=== PATIENT | male | born 1965 | race Two or more races ===

== ENCOUNTER 2016-10-31 15:59 | Inpatient (IN) | payer MEDICARE, OTHER ==
[~2016-10-31] VITALS: Ht 167.6 cm; Wt 81.2 kg
[~2016-10-31 15:59] MED LIST: ALENDRONATE SOD70 MG PO; AMLODIPINE BESYL5 MG ORAL; ASCORBIC ACID500 MG ORAL; AZITHROMYCIN500 MG ORAL; CALCIUM500 M1 PO; FERROUS SULFAT325 MG ORAL; FLOMAX0.4 MG PO; FOLIC ACID1 MG PO; HYDROCODON-ACE1 EA15 PO; INDOCIN25 MG PO; INDOMETHACIN75 MG PO; METHOTREXATE2.5 MG PO; MUCINEX COLD &177 ML PO; OMEPRAZOLE40 MG PO; OYSTER SHELL 51 EAC1 PO; PREDNISOLONE ACE5 ML; SULFASALAZINE500 MG PO; TERAZOSIN HCL1 MG ORAL; VENTOLIN HFA18 GM INH
[2016-10-31 16:20] VITALS: BP 109/46
[2016-10-31] MEDS ORDERED: cefTRIAXone 2 GM in NS 110 ML IV STA (16:25)
[2016-10-31] MEDS ORDERED: Azithromycin 500 MG in NS 275 ML IV ONE (16:30)
[2016-10-31 16:47] LABS: EOSINOPHILS % (AUTO) 0.2 % (0.0-3.0); LYMPHOCYTES % (AUTO) 18.7 % (20.0-45.0); MEAN CORPUSCULAR HEMOGLOBIN 22.6 PG (27.0-31.0); MEAN CORPUSCULAR HGB CONC 31.3 G/DL (32.0-36.0); MEAN CORPUSCULAR VOLUME 72 FL (80-99); MEAN PLATELET VOLUME 6.9 FL (6.5-10.1); MONOCYTES % (AUTO) 7.2 % (1.0-10.0); PLATELET COUNT 170 K/UL (150-450); RED CELL DISTRIBUTION WIDTH 20.9 % (11.6-14.8); WHITE BLOOD COUNT 5.8 K/UL (4.8-10.8)
--- NOTE | 2016-10-31 16:51 | Diagnostic Imaging Report ---
Indication: SOB Technique: One view of the chest Comparison: 06/09/2014 Findings: Patient's chin and face appear the right lung apex and upper mediastinum the left lung and pleural space are clear. The visualized portions of the right lung are clear. Heart is enlarged. Impression: Very limited exam, as described. No definite acute process
[2016-10-31 16:58] LABS: ALANINE AMINOTRANSFERASE 442 U/L (3-41); ALBUMIN/GLOBULIN RATIO 0.9 (1.0-2.7); ANION GAP 18 (5-15); ASPARTATE AMINO TRANSFERASE 443 U/L (5-40); CALCIUM 8.7 mg/dL (8.6-10.2); CARBON DIOXIDE 19 mEQ/L (20-30); CHLORIDE 95 mEQ/L (98-107); CREATININE 1.2 mg/dL (0.7-1.2); GLOMERULAR FILTRATION RATE > 60 mL/min (>60); HEMOLYSIS 4; POTASSIUM 4.6 mEQ/L (3.4-4.9); SODIUM 132 mEQ/L (135-145); TOTAL PROTEIN 7.6 g/dL (6.6-8.7)
[2016-10-31 16:59] LABS: TROPONIN I < 0.30 ng/mL (<=0.30)
--- NOTE | 2016-10-31 17:05 | Emergency Room Report ---
History of Present Illness General Chief Complaint: Dyspnea/Respdistress Source: Patient, Medical Record Present Illness HPI 51YOM walked in with 3-4 days productive cough, chills +smoker No asthma , COPD Denies chest pain, abd pain, fever/chills Chronic spinal stenosis, contracted extremities No recent hospitalization Allergies: Coded Allergies: No Known Allergies (Unverified , 10/22/11) Patient History Past Medical History: none Past Surgical History: none Pertinent Family History: none Social History: Denies: smoking, alcohol use, drug use Immunizations: UTD Reviewed Nursing Documentation: PMH: Agreed, PSxH: Agreed Nursing Documentation-PMH Past Medical History: No History, Except For Hx Cardiac Problems: Yes - Cardiomegaly, anemia Hx Hypertension: Yes - cellulitis Hx Pacemaker: No Hx Diabetes: No Hx Cancer: No Hx Gastrointestinal Problems: Yes - gastritis, diverticulitis History Of Psychiatric Problem: Yes - Depression Hx Neurological Problems: Yes - ANKYLOSING SPONDYLITIS, Kyphosis, cervical spondylosis Hx Seizures: No Hx Weakness: Yes Review of Systems All Other Systems: negative except mentioned in HPI Physical Exam Vital Signs Date Time Temp Pulse Resp B/P (MAP) Pulse Ox O2 Delivery O2 Flow Rate FiO2 10/31/16 16:10 96.6 80 24 110/45 100 Room Air Sp02 EP Interpretation: reviewed, normal General Appearance: normal inspection, well appearing, no apparent distress, alert, GCS 15, non-toxic Head: normocephalic, atraumatic Eyes: bilateral eye PERRL, bilateral eye EOMI ENT: normal ENT inspection, hearing grossly normal, normal voice Neck: normal inspection, full range of motion, supple, no bony tend Respiratory: normal inspection, lungs clear, normal breath sounds, no respiratory distress, no retraction, no wheezing, accessory muscle use Cardiovascular #1: regular rate, rhythm, no edema Gastrointestinal: normal inspection, normal bowel sounds, non tender, soft, no guarding, no hernia Genitourinary: no CVA tenderness Musculoskeletal: normal inspection, back normal, normal range of motion, Xander' s Sign negative Neurologic: normal inspection, alert, oriented x3, responsive, medical record transcriber III-XII nml as tested, motor strength/tone normal, speech normal Psychiatric: normal inspection, judgement/insight normal, mood/affect normal Skin: normal inspection, pallor Medical Decision Making Diagnostic Impression: Primary Impression: Dyspnea Qualified Codes: R06.00 - Dyspnea, unspecified Additional Impressions: Lactic acid acidosis Pneumonia Qualified Codes: J18.9 - Pneumonia, unspecified organism LFTs abnormal Acute hepatitis Metabolic acidosis ER Course Dyspnea with subjective fever/chills Afebrile here Not septic Flexed neck d/t spinal stenosis obscuring most of CXR No leuks H&H stable. However lactate elevated Given tachypnea, productive cough, immobility, will tx for clinical PNA Blood Cx pending Patient pallor on exam. HbHCT stable Metabolic acidosis on ABG - Likley d/t lactic acidosis with respiratory compensation given RR 30-40 initially - Improved RR after Abx, IVF Repeat lactate pending Endorsed to Dr Dumont at 630pm for tele admission EKG Diagnostic Results Rate: normal Rhythm: NSR ST Segments: no acute changes ASA given to the pt in ED: No Rhythm Strip Diag. Results EP Interpretation: yes Rate: 78 Rhythm: NSR, no PVC's, no ectopy Chest X-Ray Diagnostic Results Chest X-Ray Diagnostic Results : Chest X-Ray Ordered: Yes Indication: Shortness of Breath EP Interpretation: Yes Interpretation: no effusion, no pneumothorax, no acute cardiopulmonary disease, other - Limited exam d/t patients head Electronically Signed by: Dr Brian Calderon MD Last Vital Signs Date Time Temp Pulse Resp B/P (MAP) Pulse Ox O2 Delivery O2 Flow Rate FiO2 10/31/16 16:10 96.6 80 24 110/45 100 Room Air Status: improved Disposition: ADMITTED INPATIENT Condition: Serious BRIAN CALDERON M.D. Oct 31, 2016 17:05
[2016-10-31 17:08] LABS: CKMB 4.7 ng/mL (< 6.7)
[2016-10-31 17:10] LABS: REFLEX LACTIC ACID YES OR NO YES
[2016-10-31] MEDS ORDERED: Azithromycin 500mg Inj IV ONE (17:26)
[2016-10-31] MEDS ORDERED: Morphine Sulfate 2mg/ml Inj IVP ONE (18:00)
[2016-10-31] MEDS ORDERED: LORazepam Inj 2mg/ml 1ml IV ONE (18:15)
[2016-10-31] MEDS ORDERED: LORazepam Inj 2mg/ml 1ml IV PRN (18:45)
[2016-10-31] MEDS ORDERED: Morphine Sulfate 4mg/ml Inj IVP PRN (18:45)
[2016-10-31] MEDS ORDERED: Miralax 17gm pkt ORAL PRN (18:45)
[2016-10-31] MEDS ORDERED: Norco 5mg/325mg tab ORAL PRN (18:45)
[2016-10-31] MEDS ORDERED: Albuterol/Ipratropium 3ml neb HHN PRN (18:45)
[2016-10-31 19:01] LABS: ABG BASE EXCESS -16.3; ABG PCO2 25.9 mmHg (35.0-45.0)
[2016-10-31 19:05] VITALS: BP 95/76
[2016-10-31] MEDS: LR 1000ml 1,000 ML IV SCH ×2 (19:23→20:24)
[2016-10-31] MEDS ORDERED: ATORVASTATIN CA20 MG ORAL (19:34)
[2016-10-31] MEDS ORDERED: SULFASALAZINE500 MG ORAL (19:34)
[2016-10-31] MEDS ORDERED: DEXILANT60 MG ORAL (19:34)
[2016-10-31] MEDS ORDERED: METOPROLOL TART25 MG ORAL (19:34)
[2016-10-31 20:40] VITALS: BP 100/29
[2016-10-31] MEDS ORDERED: Terazosin 1mg cap ORAL SCH (21:00)
[2016-10-31 21:21] LABS: KETONES,URINE 1+ (NEGATIVE); LEUKOCYTE ESTERASE ,URINE 1+ (NEGATIVE); NITRITE,URINE NEGATIVE (NEGATIVE); PH,URINE 5 (4.5-8.0); PROTEIN,URINE 3+ (NEGATIVE); UROBILINOGEN,URINE NORMAL MG/DL (0.0-1.0)
[2016-10-31 21:22] LABS: APPEARANCE,URINE SLIGHTLY CLOUDY
[2016-10-31 21:28] LABS: AMORPHOUS SEDIMENT,UR FEW /LPF; BACTERIA,URINE MODERATE /HPF
[2016-10-31 21:32] LABS: ICTOTEST NEGATIVE
[2016-10-31 22:21] VITALS: BP 124/56
[2016-10-31] MEDS: Cefepime HCl 2 GM in D5W 110 ML IV SCH (22:43)
[2016-10-31] MEDS: Heparin 5000 units/ml inj SUBQ SCH (22:46)
[2016-10-31] MEDS ORDERED: Vancomycin 1250mg/D5W 250ml IVPB ONE (23:00)
[2016-11-01] VITALS (7 sets, daily range): BP systolic 99–109; BP diastolic 51–57
[2016-11-01] MEDS ORDERED: Promethazine/Codeine 5ml UD ORAL PRN ×2 (08:30→20:30)
[2016-11-01 08:37] LABS: MEAN CORPUSCULAR HGB CONC 29.5 G/DL (32.0-36.0); MEAN CORPUSCULAR VOLUME 75 FL (80-99); MEAN PLATELET VOLUME 7.5 FL (6.5-10.1); PLATELET COUNT 120 K/UL (150-450); RED BLOOD COUNT 3.21 M/UL (4.70-6.10); RED CELL DISTRIBUTION WIDTH 21.6 % (11.6-14.8); WHITE BLOOD COUNT 4.7 K/UL (4.8-10.8)
--- NOTE | 2016-11-01 08:41 | Consultation ---
History of Present Illness General Date patient seen: Nov 01, 2016 Time patient seen: 08:00 Chief Complaint: Dyspnea/Respdistress Referring physician: dr Dumont Reason for Consultation: pulmonary consult Present Illness HPI 51y/old male with PMH of ankylosing spondylitis, cervical spondylosis, kyphosis , anemia, gastritis, diverticulitis, HTN, depression, blindness presented with 3-4 days of productive cough, chills no wheezing , no chest tightness no fever, chills No asthma, no COPD Denies chest pain, abd pain, fever/chills workup in ED revealed no leucocytosis elevated lactic acid -3.8 anion gap -18 ABG with metabolic acidosis AST 443 ALT 442 anemic -8.6/27.5, and this am doen to 7.1/23.9, MCV -72 CXR with possible PNA , limited exam due to chronic kyphosis and cervical spondylosis UA with possible UTI, urine tox screen positive + marijuana ECG NSR patient was admitted for further management Allergies: Coded Allergies: No Known Allergies (Unverified , 10/22/11) Medication History Scheduled Albuterol Sulfate (Ventolin Hfa), 2 PUFFS INH EVERY 6 HOURS Alendronate Sodium* (Fosamax*), 70 MG PO Q7D, (Reported) Amlodipine Besylate* (Amlodipine Besylate*), 5 MG ORAL DAILY, (Reported) Atorvastatin Calcium* (Atorvastatin Calcium*), 20 MG ORAL BEDTIME, (Reported) Calcium Carbonate/Vitamin D3 (Oyster Shell 500 Mg + Vit D Tb), 1 EACH PO BID, ( Reported) Dexlansoprazole (Dexilant), 60 MG ORAL DAILY, (Reported) Dexlansoprazole (Dexilant), 60 MG ORAL DAILY, (Reported) Folic Acid* (Folic Acid*), 1 MG PO DAILY, (Reported) Indomethacin (Indomethacin), 50 MG PO TID, (Reported) Methotrexate Sodium* (Methotrexate*), 2.5 MG PO QWEEK, (Reported) Metoprolol Tartrate* (Metoprolol Tartrate*), 25 MG ORAL EVERY 12 HOURS, ( Reported) Sulfasalazine* (Azulfidine*), 500 MG ORAL FOUR TIMES A DAY, (Reported) Terazosin Hcl* (Hytrin*), 2 MG ORAL BEDTIME, (Reported) Scheduled PRN Hydrocodone/Acetaminophen 5-325* (Hydrocodone/Acetaminophen 5-325*), 1 TAB PO PRN PRN for For Pain, (Reported) Miscellaneous Medications Prednisolone Acetate (Prednisolone Acetate), (Reported) Patient History History Provided By: Patient Healthcare decision maker Resuscitation status Full Code Advanced Directive on File Review of Systems Constitutional: Reports: weakness Eye: Reports: other - blind , cataracts both eyes ENT: Reports: other - [id number] Respiratory: Reports: see HPI Cardiovascular: Reports: other - HTN Musculoskeletal: Reports: other - ankylosing spondylitis, kyphosis, cervical spondylosis Skin: Reports: dryness Psychiatric: Reports: depressed feelings Neurological: Reports: other - spasticity, stiffness Endocrine: Reports: no symptoms Hematologic/Lymphatic: Reports: anemia ROS Narrative limited Physical Exam General Appearance: alert, other - chronically ill looking, older than his biological age , male in NAD Lines, tubes and drains: peripheral HEENT: normocephalic, atraumatic, anicteric Neck: other - stiff neck, Respiratory/Chest: lungs clear - with moderate air exchange Cardiovascular/Chest: regular rhythm - SR on tele with occas PVC Abdomen: normal bowel sounds, non tender, soft Extremities: non-tender, no calf tenderness, no edema Neurologic: abnormal gait, alert, responsive Musculoskeletal: atrophy - BLE and BUE, other - kyphosis ( severe), spastic Last 24 Hour Vital Signs Date Time Temp Pulse Resp B/P (MAP) Pulse Ox O2 Delivery O2 Flow Rate FiO2 11/01/16 04:00 97.7 82 18 99/51 99 Nasal Cannula 3.0 11/01/16 04:00 81 11/01/16 00:00 78 11/01/16 00:00 98.4 75 18 101/53 100 Nasal Cannula 3.0 10/31/16 22:21 96.8 79 20 124/56 100 Nasal Cannula 3.0 10/31/16 21:54 77 10/31/16 21:05 97.2 80 26 100/29 100 Nasal Cannula 2.0 10/31/16 20:40 80 26 100/29 100 Nasal Cannula 2.0 10/31/16 19:05 80 30 95/76 100 Nasal Cannula 2.0 10/31/16 16:20 97.2 82 27 109/46 100 Nasal Cannula 1.0 10/31/16 16:20 82 27 Nasal Cannula 1.0 10/31/16 16:10 96.6 80 24 110/45 100 Room Air Intake and Output 11/01/16 11/02/16 19:00 07:00 Intake Total 200 ml Balance 200 ml IV Total 200 ml Laboratory Tests Test 10/31/16 16:25 10/31/16 16:30 10/31/16 18:14 10/31/16 20:00 Urine Color Yellow Urine Appearance Slightly cloudy Urine pH 5 (4.5-8.0) Urine Specific [place]in 1.025 (1.005-1.035) Urine Protein 3+ (NEGATIVE) H Urine Glucose (UA) Negative (NEGATIVE) Urine Ketones 1+ (NEGATIVE) H Urine Occult Blood 5+ (NEGATIVE) H Urine Nitrite Negative (NEGATIVE) Urine Bilirubin 3+ (NEGATIVE) H Urine Ictotest Negative Urine Urobilinogen Normal MG/DL (0.0-1.0) Urine Leukocyte Esterase 1+ (NEGATIVE) H Urine RBC 10-15 /HPF (0 - 0) H Urine WBC 5-10 /HPF (0 - 0) H Urine Squamous Epithelial Cells None /LPF (NONE/OCC) Urine Amorphous Sediment Few /LPF (NONE) H Urine Bacteria Moderate /HPF (NONE) H White Blood Count 5.8 K/UL (4.8-10.8) Red Blood Count 3.80 M/UL (4.70-6.10) L Hemoglobin 8.6 G/DL (14.2-18.0) L Hematocrit 27.5 % (42.0-52.0) L Mean Corpuscular Volume 72 FL (80-99) L Mean Corpuscular Hemoglobin 22.6 PG (27.0-31.0) L Mean Corpuscular Hemoglobin Concent 31.3 G/DL (32.0-36.0) L Red Cell Distribution Width 20.9 % (11.6-14.8) H Platelet Count 170 K/UL (150-450) Mean Platelet Volume 6.9 FL (6.5-10.1) Neutrophils (%) (Auto) 73.0 % (45.0-75.0) Lymphocytes (%) (Auto) 18.7 % (20.0-45.0) L Monocytes (%) (Auto) 7.2 % (1.0-10.0) Eosinophils (%) (Auto) 0.2 % (0.0-3.0) Basophils (%) (Auto) 1.0 % (0.0-2.0) Sodium Level 132 mEQ/L (135-145) L Potassium Level 4.6 mEQ/L (3.4-4.9) Chloride Level 95 mEQ/L (98-107) L Carbon Dioxide Level 19 mEQ/L (20-30) L Anion Gap 18 (5-15) H Blood Urea Nitrogen 72 mg/dL (7-23) H Creatinine 1.2 mg/dL (0.7-1.2) Estimat Glomerular Filtration Rate > 60 mL/min (>60) Glucose Level 151 mg/dL (74-106) H Lactic Acid Level 3.80 mmol/L (0.66-2.22) H Calcium Level 8.7 mg/dL (8.6-10.2) Total Bilirubin 0.6 mg/dL (0.0-1.2) Aspartate Amino Transf (AST/SGOT) 443 U/L (5-40) H Alanine Aminotransferase (ALT/SGPT) 442 U/L (3-41) H Alkaline Phosphatase 76 U/L (40-129) Total Creatine Kinase 80 U/L (38-174) Creatine Kinase MB 4.7 ng/mL (< 6.7) Creatine Kinase MB Relative Index 5.8 Troponin I < 0.30 ng/mL (<=0.30) Total Protein 7.6 g/dL (6.6-8.7) Albumin 3.6 g/dL (3.5-5.2) Globulin 4.0 g/dL Albumin/Globulin Ratio 0.9 (1.0-2.7) L Arterial Blood pH 7.209 (7.350-7.450) Arterial Blood Partial Pressure CO2 25.9 mmHg (35.0-45.0) L Arterial Blood Partial Pressure O2 113.3 mmHg (75.0-100.0) H Arterial Blood HCO3 10.1 mmol/L (22.0-26.0) L Arterial Blood Oxygen Saturation 96.2 % (92.0-98.0) Arterial Blood Base Excess -16.3 [place]son Test N/a Urine Opiates Screen Negative (NEGATIVE) Urine Barbiturates Screen Negative (NEGATIVE) Phencyclidine (PCP) Screen Negative (NEGATIVE) Urine Amphetamines Screen Negative (NEGATIVE) Urine Benzodiazepines Screen Negative (NEGATIVE) Urine Cocaine Screen Negative (NEGATIVE) Urine Marijuana (THC) Screen Positive (NEGATIVE) H Height (Feet): 5 Height (Inches): 6.00 Weight (Pounds): 130 Medications Current Medications Medications (Trade) Dose Ordered Sig/Dina Route PRN Reason Start Time Stop Time Status Last Admin Dose Admin Acetaminophen (Tylenol) 650 mg Q4H PRN ORAL FEVER 10/31/16 18:45 11/30/16 18:44 Acetaminophen/ Hydrocodone Bitart ([place] 5/325) 1 tab Q6H PRN ORAL FOR MODERATE PAIN 10/31/16 18:45 11/07/16 18:44 Albuterol/ Ipratropium (DuoNeb 0.5-3(2.5)mg/3ml) 3 ml EVERY 4 HOURS PRN HHN Shortness of Breath 10/31/16 18:45 11/05/16 18:44 Amlodipine Besylate (Norvasc) 5 mg DAILY ORAL 11/01/16 09:00 12/01/16 08:59 Cefepime HCl 2 gm/ Dextrose 110 ml @ 220 mls/hr EVERY 12 HOURS IV 10/31/16 21:00 11/07/16 20:59 10/31/16 22:43 Dextrose (Dextrose 50%) STAT PRN IV Hypoglycemia 10/31/16 18:45 11/30/16 18:44 Heparin Sodium (Porcine) (Heparin 5000 units/ml) 5,000 units EVERY 12 HOURS SUBQ 10/31/16 21:00 11/30/16 20:59 10/31/16 22:46 Indomethacin (Indocin) 50 mg TID ORAL 11/01/16 09:00 12/01/16 08:59 Lorazepam (Ativan 2mg/ml 1ml) 2 mg EVERY 2 HOURS PRN IV For Anxiety 10/31/16 18:45 11/07/16 18:44 Morphine Sulfate (Morphine Sulfate) 4 mg EVERY 4 HOURS PRN IVP Severe Pain (Pain Scale 7-10) 10/31/16 18:45 11/07/16 18:44 Ondansetron HCl (Zofran) 4 mg Q6H PRN IVP Nausea & Vomiting 10/31/16 18:45 11/30/16 18:44 Polyethylene Glycol (Miralax) 17 gm DAILYPRN PRN ORAL Constipation 10/31/16 18:45 11/30/16 18:44 Prednisolone Acetate (Pred Forte) 1 drop DAILY BOTH EYES 11/01/16 09:00 12/01/16 08:59 Sodium Chloride 1,000 ml @ 200 mls/hr Q5H IV 10/31/16 22:00 11/30/16 21:59 11/01/16 03:45 Terazosin HCl (Hytrin) 2 mg BEDTIME ORAL 10/31/16 21:00 11/30/16 20:59 10/31/16 22:44 Vancomycin HCl 1 gm/Dextrose 275 ml @ 183.3 mls/ hr Q12H IVPB 11/01/16 11:00 11/06/16 10:59 10/31/16 23:38 Assessment/Plan Assessment/Plan ASSESSMENT dyspnea PNA elevated LFT HTN acute microcytic anemia, requiring blood transfusion Azotemia metabolic acidosis with elevated anion gap ankylosing spondylitis elevated CEA PLAN OF CARE tele O2 HHN abx sputum cx fup with CXR a/tussive prn ID consult anemia workup , stool OB, CEA elevated transfuse 1 u PRBC, monitor counts consider GI consult as per PMD discretion venous Duplex BLE swallow eval DVT GI prophylaxis renal US nephro eval abdominal US monitor renal parameters, lytes, LFT hepatitis panel transfer to [facility] floor case discussed and evaluated by supervising physician Lyric Luther NP (Vanchtein) Nov 01, 2016 08:41
[2016-11-01] MEDS: Indomethacin 25mg cap ORAL SCH ×3 (08:44→17:42)
[2016-11-01] MEDS: Cefepime HCl 2 GM in D5W 110 ML IV SCH ×2 (08:46→21:42)
[2016-11-01] MEDS: Heparin 5000 units/ml inj SUBQ SCH ×2 (08:47→21:00)
[2016-11-01 08:52] LABS: INR 1.5 (0.9-1.1); PROTHROMBIN TIME 15.3 SEC (9.30-11.50)
[2016-11-01 08:58] LABS: ALANINE AMINOTRANSFERASE 448 U/L (3-41); ALBUMIN/GLOBULIN RATIO 0.9 (1.0-2.7); ANION GAP 14 (5-15); ASPARTATE AMINO TRANSFERASE 536 U/L (5-40); CALCIUM 7.7 mg/dL (8.6-10.2); CARBON DIOXIDE 21 mEQ/L (20-30); CHLORIDE 99 mEQ/L (98-107); CREATININE 1.2 mg/dL (0.7-1.2); GLOMERULAR FILTRATION RATE > 60 mL/min (>60); LACTATE DEHYDROGENASE 437 U/L (135-230); POTASSIUM 4.4 mEQ/L (3.4-4.9); SODIUM 134 mEQ/L (135-145); TOTAL PROTEIN 6.4 g/dL (6.6-8.7)
[2016-11-01 08:59] LABS: URIC ACID 10.8 mg/dL (3.0-7.5)
[2016-11-01 09:00] LABS: ANION GAP 16 (5-15); CALCIUM 7.7 mg/dL (8.6-10.2); CARBON DIOXIDE 19 mEQ/L (20-30); CHLORIDE 98 mEQ/L (98-107); CREATININE 1.2 mg/dL (0.7-1.2); GLOMERULAR FILTRATION RATE > 60 mL/min (>60); HEMOLYSIS 0; PHOSPHORUS 5.9 mg/dL (2.5-4.8); POTASSIUM 4.4 mEQ/L (3.4-4.9); SODIUM 133 mEQ/L (135-145)
[2016-11-01] MEDS ORDERED: Pred Forte 1% Opth Susp 1ml BOTH EYES SCH (09:00)
[2016-11-01 09:26] LABS: HEMOLYSIS 0; IRON < 10 ug/dL (59-158); TOTAL IRON BINDING CAPACITY 374 ug/dL (250-400)
[2016-11-01 10:02] LABS: LYMPHOCYTES % (MANUAL) 14 % (20-45); NEUTROPHILS % (MANUAL) 79 % (45-75); TOTAL CELLS COUNTED 100
[2016-11-01 10:03] LABS: ANISOCYTOSIS 2+; BAND NEUTROPHILS % (MANUAL) 0 % (0-8); BASOPHILS % (MANUAL) 0 % (0-2); EOSINOPHILS % (MANUAL) 0 % (0-3); HYPOCHROMASIA 2+; MICROCYTES 1+; PLATELET ESTIMATE DECREASED; PLATELET MORPHOLOGY NORMAL
--- NOTE | 2016-11-01 10:06 | Diagnostic Imaging Report ---
Indication: PAIN abnormal liver function tests. Abnormal renal function tests. Acute hepatitis Technique: Ching-scale and duplex images of the upper abdomen were obtained Comparison: None Findings: Exam is technically difficult due to patient being contracted and nonresponsive Gallbladder is nondistended. It contains sludge. No definite stones. Gallbladder wall is markedly thickened, measuring 2 cm thick. Sonographic Martines's sign could not be assessed; patient had recently given pain medication. Common bile duct measures 5 mm in diameter. No intrahepatic biliary ductal dilatation. Liver demonstrates equivocally mildly increased echogenicity. Its is somewhat enlarged. No focal abnormalities Portal vein and hepatic veins are patent. Pancreas is unremarkable. Spleen is unremarkable. Left kidney measures 10.6 cm in length. Right kidney measures 10 cm length. Both kidneys demonstrate normal echogenicity. There is no hydronephrosis. Right kidney demonstrates an echogenic focus in the lower pole sinus. . Non-aneurysmal abdominal aorta . Trace ascites fluid is present. Impression: Slightly increased hepatic echogenicity, may indicate hepatocellular disease, particularly in view of stated clinical history of hepatitis. Hepatomegaly Trace ascites Gallbladder sludge. No stones. Markedly thickened gallbladder wall is likely reactive, related to adjacent hepatocellular inflammation, given stated clinical history. It could also be due to the hemodynamic derangements caused by the liver disease. Also probably exaggerated due to nondistention of the gallbladder. The possibility of acalculous acute cholecystitis or cholecystitis secondary to occult cholelithiasis not completely excludable, however. Consider hepatobiliary nuclear scanning if there is high clinical suspicion Negative for dilated ducts Possible nonobstructive right lower pole intrarenal calculus
[2016-11-01 10:16] LABS: POLYCHROMASIA 1+
[2016-11-01 10:23] LABS: PATH BLOOD SMEAR/OMC SENT TO PATHOLOGIST
[2016-11-01 10:28] LABS: RETICULOCYTE COUNT 1.9 % (0.0-2.0)
[2016-11-01] MEDS ORDERED: Vancomycin 1 GM in D5W 275 ML IVPB SCH ×2 (11:00→23:00)
--- NOTE | 2016-11-01 12:44 | Wound Care Consultation ---
Wound Assessment Wound Assessment : Wound Number: 1 Wound Present on Admission: Yes New Wound: No Status Change of Wound: No Wound Location Body Site Modif: mid Wound Location Body Site: thoracic spine Wound Type: pressure ulcer Cristhian Test: Does not Cristhian Pressure Ulcer Stage: IV/unstageable Wound Thickness: Full Thickness Wound Length: 3.0 Wound Width: 2.5 Wound Depth: utd Percent of Wound Black/Brown: 100 - eschar Wound Drainage Amount: None Wound Drainage Odor: None/Absent Tissue Surrounding Wound: Erythemic Wound General Appearance: Blackened, Bone Palpable Wound Comment #1 Mid thoracic spine unstageable pressure ulcer Recommendation -Local wound care per protocol -Keep clean and dry -Turn and reposition -Low air loss mattress -Optimize nutrition -Offload both heels -Heel protector on both heels -Assess and f/u accordingly for any changes YELENA MCGOVERN RN Nov 01, 2016 12:44
--- NOTE | 2016-11-01 12:58 | Diagnostic Imaging Report ---
APPROVED REPORT CPT Code: 57295 Present Symptoms Shortness of breath BILATERAL: Imaging reveals a patent deep venous system bilaterally. There is no evidence of thrombus within the femoral, popliteal or tibial segments. The greater saphenous veins are also within normal limits. Doppler indicates normal spontaneous flow within these segments.
--- NOTE | 2016-11-01 17:46 | Consultation ---
Consult Note Consult Note ID CONSULT: Sandro# [id number] Assessment/Plan ASSESSMENT: 51 y/o male with: // GPC clusters bacteremia 02/13 - real vs contaminant. C&S pending // Possible UTI - UCx pending // Possible bronchitis - c/o productive cough - CXR 11/01: Very limited exam. No definite acute process // Elevated LFTs r/o hepatobiliary disease ?chronic liver disease with coagulopathy, pancytopenia, hyponatremia - US: Slightly increased hepatic echogenicity, may indicate hepatocellular disease. Hepatomegaly. Trace ascites. Gallbladder sludge. No stones. Markedly thickened gallbladder wall is likely reactive. Negative for dilated ducts // Mid thoracic unstageable pressure ulcer // Lactic acidosis // Afebrile without leukocytosis // Severe microcytic anemia - FOBT pending // Thrombocytopenia // Coagulopathy // Ankylosing spondylosis / kyphosis / cervical spondylosis with chronic contractures // Tobacco abuse // Utox+ marijuana // NKDA // Full Code PLAN: - continue empiric IV vancomycin, cefepime d# 1 pending cultures - check influenza - check hepatitis panel - f/u cultures - monitor CBC, temperatures - monitor BMP - monitor CXR - wound care - tobacco cessation Thanks! Will follow IMAN MENESES Nov 01, 2016 17:46
[2016-11-01] MEDS ORDERED: Norco 5mg/325mg tab ORAL PRN (18:45)
[2016-11-01] MEDS ORDERED: Miralax 17gm pkt ORAL PRN (18:45)
[2016-11-01] MEDS ORDERED: LORazepam Inj 2mg/ml 1ml IV PRN (20:00)
[2016-11-01] MEDS ORDERED: Morphine Sulfate 4mg/ml Inj IVP PRN (21:00)
[2016-11-01] MEDS ORDERED: Albuterol/Ipratropium 3ml neb HHN PRN (21:00)
[2016-11-01] MEDS ORDERED: Iron Sucrose 100 MG in NS 55 ML IVPB SCH (21:00)
[2016-11-01] MEDS: Iron Sucrose 100 MG in NS 55 ML IVPB SCH (21:11)
[2016-11-01] MEDS: Terazosin 1mg cap ORAL SCH (22:30)
[2016-11-02 00:25] VITALS: BP 123/71
--- NOTE | 2016-11-02 03:00 | Consultation ---
DATE OF CONSULTATION: 11/01/2016 INFECTIOUS DISEASES CONSULTATION REQUESTING PHYSICIAN: Raheel Dumont M.D. REASON FOR CONSULTATION: UTI and bronchitis. History Of Present Illness: This is a 51-year-old male with a history of chronic contractures due to ankylosing spondylitis, kyphosis, and cervical spondylosis, admitted on 10/31/2016 with productive cough and chills. Also complains of chest pain and shortness of breath, most likely due to contractures. Denies nausea, vomiting, abdominal pain, or diarrhea. He is afebrile with pancytopenia, elevated liver function test, elevated INR, and lactic acidosis. Blood culture has grown gram-positive cocci in clusters in 1/4 sets and urine and sputum cultures are pending. Chest x-ray shows no definite acute process. Renal ultrasound shows gallbladder sludge. He has been started on empiric IV vancomycin and cefepime and Infectious Diseases now consulted to assist in management. PAST MEDICAL HISTORY: 1. COPD. 2. Ankylosing spondylosis, kyphosis, and cervical spondylosis. 3. GERD. 4. Diverticulitis. 5. Depression. 6. Chronic contractures. MEDICATIONS: 1. Vancomycin day #1. 2. Cefepime day #1. 3. Iron sucrose. 4. Indomethacin. 5. Norvasc. 6. Hytrin. 7. Subcutaneous heparin. ALLERGIES: No known drug allergies. Social History: The patient is active smoker. Urine drug screen also positive for marijuana. He lives locally with family. FAMILY HISTORY: Reviewed and noncontributory. Review Of Systems: As per history of present illness. Ten systems reviewed. All pertinent positives and negatives noted. PHYSICAL EXAMINATION: GENERAL: No apparent distress, nontoxic appearing. Vital Signs: Maximum temperature 98.4 degrees, blood pressure 100/57, heart rate in the 90s, respiratory rate 18, and saturation 99% on nasal cannula. HEENT/NECK: Neck contracted. CARDIOVASCULAR: Regular rate and rhythm. No murmurs. PULMONARY: Coarse breath sounds bilaterally. ABDOMINAL: Bowel sounds present. Soft, nondistended, and nontender. EXTREMITIES: Contractures in all four extremities. SKIN: Unstageable decubitus over the mid thoracic spine. NEUROLOGICAL: Alert and oriented x3. Laboratory Data: White blood cell count 4.7, hemoglobin 7.1, and platelets 120,000. Sodium 134, potassium 4.4, chloride 99, bicarbonate 21, BUN 72, and creatinine 1.2. Glucose 107. ESR 24. Reticulocyte count 1.9. INR 1.5. Lactic acid 3.8. Urine drug screen positive for marijuana. AST 536, ALT 448, and alkaline phosphatase 437. Total bilirubin 0.4. Albumin 3.1. CEA 7.9. Urinalysis with mild pyuria and bacteriuria. MICROBIOLOGY: 1. On 10/31/2016, blood culture gram-positive cocci in clusters in 1/4 sets. 2. On 10/31/2016, urine culture pending. 3. On 10/31/2016, sputum culture pending. IMAGIN. On 11/01/2016, bilateral lower extremity Doppler ultrasound negative for DVT. 2. On 11/01/2016, abdominal ultrasound with a slightly increased hepatic echogenicity, may indicate hepatocellular disease. Hepatomegaly. Trace ascites. Gallbladder sludge. No stones. Markedly thickened gallbladder wall, likely reactive. Negative for dilated ducts. 3. On 11/01/2016, chest x-ray, very limited exam. No definite acute process. ASSESSMENT: 1. Gram-positive cocci in clusters bacteremia in 1/4 sets, may be real versus contaminant. Culture and sensitivity is pending. 2. Possible urinary tract infection. Urine culture is pending. 3. Possible bronchitis with complaints of productive cough. Chest x-ray has limited exam with no definite acute process. 4. Elevated liver function tests, rule out hepatobiliary disease. Question chronic liver disease with evidence of coagulopathy, pancytopenia, and hyponatremia. Ultrasound as above. 5. Mid thoracic unstageable pressure ulcer. 6. Lactic acidosis. 7. Afebrile without leukocytosis. 8. Severe microcytic anemia for which fecal occult blood testing is pending. 9. Thrombocytopenia. 10. Coagulopathy. 11. Ankylosing spondylosis/kyphosis/cervical spondylosis with chronic contractures. 12. Tobacco abuse. 13. Urine toxicology positive for marijuana. 14. No known drug allergies. 15. Full Code. PLAN: 1. Continue empiric IV vancomycin and cefepime day #1 pending cultures. 2. Check influenza screen. 3. Check hepatitis panel. 4. Follow up cultures. 5. Monitor CBC and temperatures. 6. Monitor BMP. 7. Monitor chest x-ray. 8. Wound care. 9. Tobacco cessation. Thank you. We will follow. Satnam Proctor M.D. DR: Heriberto JOB#: [id number] CC: Raheel Dumont M.D.; Fax#: [phone] Cartagena M.D; Fax#: [phone]
[2016-11-02 04:35] VITALS: BP 107/62
[2016-11-02 08:20] VITALS: BP 118/59
[2016-11-02] MEDS: Pred Forte 1% Opth Susp 1ml BOTH EYES SCH (08:30)
[2016-11-02] MEDS: Indomethacin 25mg cap ORAL SCH ×3 (08:31→17:55)
[2016-11-02] MEDS: Heparin 5000 units/ml inj SUBQ SCH ×2 (08:32→20:42)
--- NOTE | 2016-11-02 09:31 | Diagnostic Imaging Report ---
Indication: Shortness of breath Technique: XRAY CHEST 1 V Comparison: 10/31/16 Findings: Examination is markedly limited secondary to flexion of the head obscuring a large portion of the upper chest. Cardiac silhouette is grossly stable. Interstitial opacities are noted of the partially visualized lungs. Request of chronic angle blunting is unchanged. Left mid and bibasilar atelectasis is noted. Osseous structures are grossly stable with right shoulder arthroplasty. Impression: Markedly limited examination. Grossly stable interstitial edema or infiltrates of the visualized lungs. Right costophrenic angle blunting suggestive of a small pleural effusion. Bilateral mid and basilar atelectasis. Repeat examination recommended.
--- NOTE | 2016-11-02 10:02 | Pulmonology Progress Note ---
Assessment/Plan Assessment/Plan ASSESSMENT dyspnea bronchitis possible PNA bacteremia real vs contamination elevated LFT HTN acute microcytic anemia, requiring blood transfusion Azotemia metabolic acidosis with elevated anion gap ankylosing spondylitis elevated CEA tobacco abuse mild dysphagia mid thoracic un-stageable pressure ulcer, POA PLAN OF CARE tele O2 HHN abx sputum cx pending, urine cx negative, blood cx 1/ SCON ? real , likely contamination - per ID management fup CXR with grossly stable interstitial edema or infiltrates of the visualized lungs. Right costophrenic angle blunting suggestive of a small pleural effusion. Bilateral mid and basilar atelectasis. a/tussive prn ID follows anemia workup c/w iron deficiency stool OB-negative CEA elevated s/p transfusion 1 u PRBC, monitor counts, CBC pending for this am start Venofer x 3 days GI consult as per PMD discretion venous Duplex BLE negative BS swallow eval competed, mild dysphagia, diet for quality of life with strict aspiration/reflux precautions DVT GI prophylaxis renal US nephro eval abdominal US with slightly increased hepatic echogenicity, may indicate hepatocellular disease, monitor renal parameters, lytes, LFT hepatitis panel pending wound care as per wound nurse recommendations case discussed and evaluated by supervising physician Subjective Allergies: Coded Allergies: No Known Allergies (Unverified , 10/22/11) Subjective feeling better, on O2 via NC sat stable no signs of respiratory distress labs pending for this am Objective Last 24 Hour Vital Signs Date Time Temp Pulse Resp B/P (MAP) Pulse Ox O2 Delivery O2 Flow Rate FiO2 11/02/16 08:32 89 118/59 11/02/16 08:20 97.0 89 20 118/59 97 Nasal Cannula 2.0 11/02/16 04:35 98.1 91 20 107/62 99 Nasal Cannula 11/02/16 00:25 98.1 93 20 123/71 96 Nasal Cannula 11/01/16 20:53 98.1 76 20 106/57 96 Room Air 11/01/16 18:30 97.2 59 21 101/55 97 Nasal Cannula 2.0 11/01/16 16:00 97.3 91 18 100/57 99 Nasal Cannula 11/01/16 12:00 87 11/01/16 12:00 97.3 85 18 103/53 95 Nasal Cannula Objective General Appearance: alert, chronically ill looking, older than his biological age , male in NAD Lines, tubes and drains: peripheral HEENT: normocephalic, atraumatic, anicteric Neck: stiff neck, Respiratory/Chest: lungs clear - with moderate air exchange Cardiovascular/Chest: regular rhythm - SR on tele with occas PVC Abdomen: normal bowel sounds, non tender, soft Extremities: non-tender, no calf tenderness, no edema Neurologic: abnormal gait, alert, responsive Musculoskeletal: atrophy BLE and BUE, kyphosis ( severe), spastic Microbiology Date/Time Source Procedure Growth Status 10/31/16 16:41 Blood Blood Culture - Preliminary Staphylococcus Sp Coag Neg Resulted 10/31/16 16:30 Blood Blood Culture - Preliminary NO GROWTH AFTER 24 HOURS Resulted 11/01/16 20:00 Nasopharynx Influenza Types A,B Antigen (TINO) - Final Complete 10/31/16 16:25 Urine,Clean Catch Urine Culture - Preliminary NO GROWTH AFTER 24 HOURS Resulted Laboratory Tests 11/01/16 14:00: Stool Occult Blood Negative Current Medications Medications (Trade) Dose Ordered Sig/Dina Route PRN Reason Start Time Stop Time Status Last Admin Dose Admin Acetaminophen (Tylenol) 650 mg Q4H PRN ORAL FEVER 11/01/16 18:45 11/30/16 18:44 Acetaminophen/ Hydrocodone Bitart ([place] 5/325) 1 tab Q6H PRN ORAL FOR MODERATE PAIN 11/01/16 18:45 11/07/16 18:44 Albuterol/ Ipratropium (DuoNeb 0.5-3(2.5)mg/3ml) 3 ml EVERY 4 HOURS PRN HHN Shortness of Breath 11/01/16 21:00 11/05/16 18:44 Amlodipine Besylate (Norvasc) 5 mg DAILY ORAL 11/02/16 09:00 12/01/16 08:59 11/02/16 08:32 Cefepime HCl 2 gm/ Dextrose 110 ml @ 220 mls/hr EVERY 12 HOURS IV 11/01/16 21:00 11/07/16 20:59 11/01/16 21:42 Dextrose (Dextrose 50%) STAT PRN IV Hypoglycemia 11/01/16 18:45 11/30/16 18:44 Heparin Sodium (Porcine) (Heparin 5000 units/ml) 5,000 units EVERY 12 HOURS SUBQ 11/01/16 21:00 11/30/16 20:59 Indomethacin (Indocin) 50 mg TID ORAL 11/02/16 09:00 12/01/16 08:59 11/02/16 08:31 Iron Sucrose 100 mg/Sodium Chloride 60 ml @ 240 mls/hr BEDTIME IVPB 11/01/16 21:00 11/05/16 21:01 11/01/16 21:11 Lorazepam (Ativan 2mg/ml 1ml) 2 mg EVERY 2 HOURS PRN IV For Anxiety 11/01/16 20:00 11/07/16 18:44 Morphine Sulfate (Morphine Sulfate) 4 mg EVERY 4 HOURS PRN IVP Severe Pain (Pain Scale 7-10) 11/01/16 21:00 11/07/16 18:44 Ondansetron HCl (Zofran) 4 mg Q6H PRN IVP Nausea & Vomiting 11/01/16 18:45 11/30/16 18:44 Polyethylene Glycol (Miralax) 17 gm DAILYPRN PRN ORAL Constipation 11/01/16 18:45 11/30/16 18:44 Prednisolone Acetate (Pred Forte) 1 drop DAILY BOTH EYES 11/02/16 09:00 12/01/16 08:59 11/02/16 08:30 Promethazine HCl/ Codeine (Phenergan with Codeine) 5 ml Q6H PRN ORAL For Cough 11/01/16 20:30 12/01/16 08:29 Sodium Chloride 1,000 ml @ 200 mls/hr Q5H IV 11/01/16 18:30 11/30/16 21:59 11/01/16 19:00 Terazosin HCl (Hytrin) 2 mg BEDTIME ORAL 11/01/16 21:00 11/30/16 20:59 11/01/16 22:30 Vancomycin HCl (Vanco rx to dose) 1 ea DAILY PRN MISC PER RX PROTOCOL 11/02/16 09:00 12/01/16 15:29 Vancomycin HCl 1 gm/Dextrose 275 ml @ 183.3 mls/ hr Q12H IVPB 11/01/16 23:00 11/06/16 10:59 11/01/16 22:27 Lyric Luther NP (Vanchtein) Nov 02, 2016 10:02
--- NOTE | 2016-11-02 10:09 | Infectious Diseases Prog Note ---
Assessment/Plan Assessment/Plan ASSESSMENT: 1. CoNS bacteremia in 1/4 sets, likely contaminant, 1/4, afebrile 2. Possible urinary tract infection. Urine culture NTD 3. Possible bronchitis with complaints of productive cough. Chest x-ray has limited exam with no definite acute process. -Influenza neg 4. Elevated liver function tests, rule out hepatobiliary disease vs cholecystitis Question chronic liver disease with evidence of coagulopathy, pancytopenia, and hyponatremia. -Abd u/s: Slightly increased hepatic echogenicity. Hepatomegaly. Trace ascites. Gallbladder sludge. No stones. Markedly thickened gallbladder wall is likely reactive, related to adjacent hepatocellular inflammation, given stated clinical history. It could also be due to the hemodynamic derangements caused by the liver disease. Also probably exaggerated due to nondistention of the gallbladder. The possibility of acalculous acute cholecystitis or cholecystitis secondary to occult cholelithiasis not completely excludable, however. Consider hepatobiliary nuclearscanning if there is high clinical suspicion Negative for dilated ducts. s 5. Mid thoracic unstageable pressure ulcer. 6. Lactic acidosis. 7. Afebrile without leukocytosis. 8. Severe microcytic anemia for which fecal occult blood testing is pending. 9. Thrombocytopenia. 10. Coagulopathy. 11. Ankylosing spondylosis/kyphosis/cervical spondylosis with chronic contractures. 12. Tobacco abuse. 13. Urine toxicology positive for marijuana. 14. No known drug allergies. 15. Full Code. PLAN: -D/c IV Vancomycin as CoNS likely contaminant -repeat 2 sets of bcx to ensure clearence of bacteremia -Continue empiric IV cefepime day #2 for now pending ucx -may d/c if neg ucx cultures. -f/u hepatitis panel; check HIV -F/u LFTs, consider HIDA scan - Follow up cultures. -. Monitor CBC and temperatures. -. Monitor CMP -. Monitor chest x-ray. -. Wound care. -. Tobacco cessation. Subjective Allergies: Coded Allergies: No Known Allergies (Unverified , 10/22/11) Subjective afebrile 1/4 Cons no leukocytosis Ucx NTD Objective Vital Signs Last 24 Hour Vital Signs Date Time Temp Pulse Resp B/P (MAP) Pulse Ox O2 Delivery O2 Flow Rate FiO2 11/02/16 08:32 89 118/59 11/02/16 08:20 97.0 89 20 118/59 97 Nasal Cannula 2.0 11/02/16 04:35 98.1 91 20 107/62 99 Nasal Cannula 11/02/16 00:25 98.1 93 20 123/71 96 Nasal Cannula 11/01/16 20:53 98.1 76 20 106/57 96 Room Air 11/01/16 18:30 97.2 59 21 101/55 97 Nasal Cannula 2.0 11/01/16 16:00 97.3 91 18 100/57 99 Nasal Cannula 11/01/16 12:00 87 11/01/16 12:00 97.3 85 18 103/53 95 Nasal Cannula Height (Feet): 5 Height (Inches): 6.00 Weight (Pounds): 130 Objective GENERAL: No apparent distress, nontoxic appearing. Vital Signs: Maximum temperature 98.4 degrees, blood pressure 100/57, heart rate in the 90s, respiratory rate 18, and saturation 99% on nasal cannula. HEENT/NECK: Neck contracted. CARDIOVASCULAR: Regular rate and rhythm. No murmurs. PULMONARY: Coarse breath sounds bilaterally. ABDOMINAL: Bowel sounds present. Soft, nondistended, and nontender. EXTREMITIES: Contractures in all four extremities. SKIN: Unstageable decubitus over the mid thoracic spine. NEUROLOGICAL: Alert and oriented x3. Microbiology Date/Time Source Procedure Growth Status 10/31/16 16:41 Blood Blood Culture - Preliminary Staphylococcus Sp Coag Neg Resulted 10/31/16 16:30 Blood Blood Culture - Preliminary NO GROWTH AFTER 24 HOURS Resulted 11/01/16 20:00 Nasopharynx Influenza Types A,B Antigen (TINO) - Final Complete 10/31/16 16:25 Urine,Clean Catch Urine Culture - Preliminary NO GROWTH AFTER 24 HOURS Resulted Laboratory Tests Test 11/01/16 14:00 Stool Occult Blood Negative (NEGATIVE) Current Medications Medications (Trade) Dose Ordered Sig/Dina Route PRN Reason Start Time Stop Time Status Last Admin Dose Admin Acetaminophen (Tylenol) 650 mg Q4H PRN ORAL FEVER 11/01/16 18:45 11/30/16 18:44 Acetaminophen/ Hydrocodone Bitart ([place] 5/325) 1 tab Q6H PRN ORAL FOR MODERATE PAIN 11/01/16 18:45 11/07/16 18:44 Albuterol/ Ipratropium (DuoNeb 0.5-3(2.5)mg/3ml) 3 ml EVERY 4 HOURS PRN HHN Shortness of Breath 11/01/16 21:00 11/05/16 18:44 Amlodipine Besylate (Norvasc) 5 mg DAILY ORAL 11/02/16 09:00 12/01/16 08:59 11/02/16 08:32 Cefepime HCl 2 gm/ Dextrose 110 ml @ 220 mls/hr EVERY 12 HOURS IV 11/01/16 21:00 11/07/16 20:59 11/01/16 21:42 Dextrose (Dextrose 50%) STAT PRN IV Hypoglycemia 11/01/16 18:45 11/30/16 18:44 Heparin Sodium (Porcine) (Heparin 5000 units/ml) 5,000 units EVERY 12 HOURS SUBQ 11/01/16 21:00 11/30/16 20:59 Indomethacin (Indocin) 50 mg TID ORAL 11/02/16 09:00 12/01/16 08:59 11/02/16 08:31 Iron Sucrose 100 mg/Sodium Chloride 60 ml @ 240 mls/hr BEDTIME IVPB 11/01/16 21:00 11/05/16 21:01 11/01/16 21:11 Iron Sucrose 100 mg/Sodium Chloride 60 ml @ 240 mls/hr BEDTIME IVPB 11/02/16 21:00 11/04/16 21:14 UNV Lorazepam (Ativan 2mg/ml 1ml) 2 mg EVERY 2 HOURS PRN IV For Anxiety 11/01/16 20:00 11/07/16 18:44 Morphine Sulfate (Morphine Sulfate) 4 mg EVERY 4 HOURS PRN IVP Severe Pain (Pain Scale 7-10) 11/01/16 21:00 11/07/16 18:44 Ondansetron HCl (Zofran) 4 mg Q6H PRN IVP Nausea & Vomiting 11/01/16 18:45 11/30/16 18:44 Polyethylene Glycol (Miralax) 17 gm DAILYPRN PRN ORAL Constipation 11/01/16 18:45 11/30/16 18:44 Prednisolone Acetate (Pred Forte) 1 drop DAILY BOTH EYES 11/02/16 09:00 12/01/16 08:59 11/02/16 08:30 Promethazine HCl/ Codeine (Phenergan with Codeine) 5 ml Q6H PRN ORAL For Cough 11/01/16 20:30 12/01/16 08:29 Sodium Chloride 1,000 ml @ 200 mls/hr Q5H IV 11/01/16 18:30 11/30/16 21:59 11/01/16 19:00 Terazosin HCl (Hytrin) 2 mg BEDTIME ORAL 11/01/16 21:00 11/30/16 20:59 11/01/16 22:30 Vancomycin HCl (Vanco rx to dose) 1 ea DAILY PRN MISC PER RX PROTOCOL 11/02/16 09:00 12/01/16 15:29 Vancomycin HCl 1 gm/Dextrose 275 ml @ 183.3 mls/ hr Q12H IVPB 11/01/16 23:00 11/06/16 10:59 11/01/16 22:27 Loli Roberto M.D. Nov 02, 2016 10:09
[2016-11-02] MEDS: Cefepime HCl 2 GM in D5W 110 ML IV SCH ×2 (10:11→20:41)
[2016-11-02 10:20] LABS: MEAN CORPUSCULAR HEMOGLOBIN 22.3 PG (27.0-31.0); MEAN CORPUSCULAR VOLUME 77 FL (80-99); MEAN PLATELET VOLUME 7.4 FL (6.5-10.1); PLATELET COUNT 98 K/UL (150-450); RED CELL DISTRIBUTION WIDTH 21.5 % (11.6-14.8); WHITE BLOOD COUNT 5.8 K/UL (4.8-10.8)
[2016-11-02] MEDS ORDERED: NS 275ml ONE (10:26)
[2016-11-02] MEDS ORDERED: Tubing Blood Filter IV ONE (10:26)
[2016-11-02] MEDS ORDERED: Tubing IV Secondary IV ONE ×2 (10:26→16:44)
[2016-11-02 10:33] LABS: ANION GAP 12 (5-15); CALCIUM 7.8 mg/dL (8.6-10.2); CARBON DIOXIDE 21 mEQ/L (20-30); CHLORIDE 103 mEQ/L (98-107); CREATININE 0.8 mg/dL (0.7-1.2); GLOMERULAR FILTRATION RATE > 60 mL/min (>60); HEMOLYSIS 1; SODIUM 136 mEQ/L (135-145)
[2016-11-02 10:41] LABS: MAGNESIUM 1.9 mg/dL (1.7-2.5); PHOSPHORUS 3.7 mg/dL (2.5-4.8)
[2016-11-02 10:47] LABS: ANISOCYTOSIS 2+; BAND NEUTROPHILS % (MANUAL) 0 % (0-8); BASOPHILS % (MANUAL) 1 % (0-2); BLISTER CELL 1+; EOSINOPHILS % (MANUAL) 0 % (0-3); HYPOCHROMASIA 2+; LYMPHOCYTES % (MANUAL) 8 % (20-45); NEUTROPHILS % (MANUAL) 88 % (45-75); NUCLEATED RED BLOOD CELLS 2 /100 WBC; OVALOCYTES 1+; PLATELET ESTIMATE DECREASED; PLATELET MORPHOLOGY NORMAL; TARGET CELLS 1+; TEAR DROP CELLS 1+; TOTAL CELLS COUNTED 100
[2016-11-02 10:48] LABS: SCHISTOCYTES 1+
[2016-11-02 10:54] LABS: OTHERS PATHOLOGIST COMMENT
[2016-11-02 12:20] VITALS: BP 128/58
--- NOTE | 2016-11-02 16:00 | History & Physical ---
History and Physical History & Physicial Dictated for Int Med-Dr Dumont no. [id number]. MIKI EASTON Nov 02, 2016 16:00
[2016-11-02 16:22] VITALS: BP 118/57
[2016-11-02] MEDS ORDERED: 1/2 NS 1000ml IV ONE (16:44)
[2016-11-02 20:00] VITALS: BP 114/56
[2016-11-02] MEDS: Iron Sucrose 100 MG in NS 55 ML IVPB SCH (20:28)
[2016-11-02] MEDS: Terazosin 1mg cap ORAL SCH (20:41)
[2016-11-02] MEDS ORDERED: Iron Sucrose 100 MG in NS 55 ML IVPB SCH (21:00)
--- NOTE | 2016-11-02 22:38 | General Progress Note ---
Assessment/Plan Assessment/Plan GI CONSULT Assessment - Anemia with OB (-) x 1 - Iron deficiency - Elevated CEA - Abdominal distention - abnormal LFT - thickened GB on U/S Recommendations - check abd/pelvis CT - laxative - f/u hepatitis serologies - check CPK - eventual EGD/Colon Subjective Allergies: Coded Allergies: No Known Allergies (Unverified , 10/22/11) Objective Last 24 Hour Vital Signs Date Time Temp Pulse Resp B/P (MAP) Pulse Ox O2 Delivery O2 Flow Rate FiO2 11/02/16 20:03 Nasal Cannula 2.0 28 11/02/16 20:03 100 Nasal Cannula 2.0 28 11/02/16 20:01 90 18 Nasal Cannula 2.0 11/02/16 20:00 97.3 88 20 114/56 99 Nasal Cannula 2.0 11/02/16 16:22 97.3 92 20 118/57 100 Nasal Cannula 2.0 11/02/16 12:20 97.2 88 20 128/58 100 Nasal Cannula 2.0 11/02/16 08:32 89 118/59 11/02/16 08:20 97.0 89 20 118/59 97 Nasal Cannula 2.0 11/02/16 04:35 98.1 91 20 107/62 99 Nasal Cannula 11/02/16 00:25 98.1 93 20 123/71 96 Nasal Cannula Intake and Output 11/02/16 11/03/16 19:00 07:00 Intake Total 1725 ml Output Total 100 ml Balance 1625 ml Intake Oral 240 ml IV Total 1110 ml Blood Product 375 ml Output Urine Total 100 ml # Voids 2 # Bowel Movements 1 Laboratory Tests 11/02/16 09:45: White Blood Count 5.8, Red Blood Count 3.60L, Hemoglobin 8.0L, Hematocrit 27.7L , Mean Corpuscular Volume 77L, Mean Corpuscular Hemoglobin 22.3L, Mean Corpuscular Hemoglobin Concent 29.0L, Red Cell Distribution Width 21.5H, Platelet Count 98L, Mean Platelet Volume 7.4, Neutrophils (%) (Auto) , Lymphocytes (%) (Auto) , Monocytes (%) (Auto) , Eosinophils (%) (Auto) , Basophils (%) (Auto) , Differential Total Cells Counted 100, Neutrophils % ( Manual) 88H, Lymphocytes % (Manual) 8L, Monocytes % (Manual) 3, Eosinophils % ( Manual) 0, Basophils % (Manual) 1, Band Neutrophils 0, Nucleated Red Blood Cells 2, Platelet Estimate DecreasedL, Platelet Morphology Normal, Hypochromasia 2+, Anisocytosis 2+, Target Cells 1+, Tear Drop Cells 1+, Ovalocytes 1+, Blister Cells 1+, Schistocytes 1+, Sodium Level 136, Potassium Level 4.0, Chloride Level 103, Carbon Dioxide Level 21, Anion Gap 12, Blood Urea Nitrogen 56H, Creatinine 0.8, Estimat Glomerular Filtration Rate > 60, Glucose Level 123H, Calcium Level 7.8L, Phosphorus Level 3.7, Magnesium Level 1.9, Vancomycin Level Trough 23.7H, Hepatitis A IgM Antibody [Pending], Hepatitis B Surface Antigen [Pending], Hepatitis B Core IgM Antibody [Pending], Hepatitis C Antibody [Pending] Height (Feet): 5 Height (Inches): 6.00 Weight (Pounds): 130 NATASHA ARREDONDO Nov 02, 2016 22:38
[2016-11-02] MEDS ORDERED: Sorbitol Solution UD 30ml ORAL ONE (22:45)
--- NOTE | 2016-11-02 23:01 | History and Physical Report ---
DATE OF ADMISSION: 10/31/2016 Chief Complaint: This is a 51-year-old male, presents with chief complaint of shortness of breath. History Of Present Illness: The patient has a history of kyphosis of the spine. The patient also has a history of ankylosing spondylitis. The patient has multiple contractures. The patient presented to [facility] emergency room complaining of one-day history of fever and chills. The patient also had a productive cough. The patient was admitted for shortness of breath, fever, chills, and cough to rule out pneumonia. The patient himself is unable to contribute much to the history and physical. The patient presented to [facility] emergency room complaining of fever and chills. The patient also had a productive cough. The patient is admitted for fever, chills, and cough to rule out pneumonia. PAST MEDICAL HISTORY: Significant for 1. Ankylosing spondylitis. 2. Hypertension. 3. Osteoporosis. 4. Kyphosis of the spine. 5. Cervical spondylosis. 6. Diverticulosis. 7. Depression. 8. Multiple contractures. PAST SURGICAL HISTORY: The patient denies. CURRENT MEDICATIONS: 1. Albuterol metered dose inhaler two puffs p.o. q.i.d. p.r.n. 2. Fosamax 70 mg one tablet p.o. every weekly. 3. Amlodipine 5 mg one tablet p.o. daily. 4. Atorvastatin 20 mg one tablet p.o. at bedtime. 5. Calcium carbonate 500 mg one tablet p.o. twice a day. 6. Dexilant 60 mg one tablet p.o. daily. 7. Folic acid 1 mg one tablet p.o. daily. 8. [place] 5/325 mg one tablet p.o. q.4 h. p.r.n. 9. Indomethacin 50 mg one tablet p.o. three times a day. 10. Methotrexate 2.5 mg one tablet p.o. every weekly. 11. Metoprolol 25 mg one tablet p.o. twice a day. 12. Prednisone 5 mL p.o. daily. 13. Sulfasalazine 500 mg one tablet p.o. four times a day. 14. Terazosin 2 mg p.o. at bedtime. ALLERGIES: No known drug allergies. Social History: The patient is single. The patient denies tobacco use, having quit 20 years previously. The patient denies alcohol use. Review Of Systems: Unable to assess secondary to the patient's mental status. PHYSICAL EXAMINATION: General: The patient is well developed and well nourished male with multiple contractures. Vital Signs: Temperature 98.1 degrees, respirations 20, pulse 76, and blood pressure 106/57. HEENT: Eyes, pupils are equal and responsive to light and accommodation. Extraocular movements are intact. NECK: Contracted forward. Chest: Lungs are decreased breath sounds bilaterally with crackles at bilateral bases, otherwise clear to auscultation bilaterally without wheezes or rales. Cardiovascular: Regular rhythm and rate. S1 and S2 normal without murmurs, rubs, or gallops. Abdomen: Soft, nontender, and nondistended. Positive bowel sounds. No evidence of hepatosplenomegaly. Currently, no rebound or guarding noted. EXTREMITIES: Multiple contractures. Neurological: Cranial nerves II through XII are grossly intact without focal deficits. Laboratory And Diagnostic Data: WBC 5.8, hemoglobin 8.6, hematocrit 27.5 and platelets 170,000. Sodium 134, potassium 4.4, chloride 99, CO2 21, BUN 32, creatinine 1.2 and glucose 107. Chest x-ray revealed limited examination, otherwise with interstitial edema versus infiltrates. ASSESSMENT: This is a 51-year-old male with 1. Probable pneumonia. 2. Fever and chills. 3. Cough. 4. Anemia. 5. Ankylosing spondylitis. 6. Hypertension. 7. Osteoporosis. 8. Kyphosis of the spine. 9. Cervical spondylosis. 10. Diverticulosis. 11. Depression. 12. Multiple contractures. TREATMENT: 1. Pneumonia/fever/chills/cough. The patient has been started empirically on intravenous vancomycin and cefepime. A Pulmonary consultation has been obtained with Dr. Mague Caldera. An Infectious Diseases consultation has been obtained with Dr. Mac. We will follow recommendations of Infectious Diseases and Pulmonary. 2. Anemia. The patient has been typed and crossed for two units of packed RBCs for possible transfusion. A Gastroenterology consultation is pending for anemia workup. 3. Ankylosing spondylitis. 4. Hypertension. Continue Norvasc as above. 5. Osteoporosis. 6. Kyphosis. 7. Cervical spondylosis. 8. Diverticulosis. 9. Depression. 10. Multiple contractures. Eliot Greenfield M.D. DR: LIZABETH JOB#: [id number] CC:
[2016-11-02] MEDS ORDERED: Lactulose 20gm/30ml UDC ORAL ONE (23:15)
[2016-11-03] VITALS: BP 111/65
[2016-11-03 04:00] VITALS: BP 120/56
[2016-11-03 06:55] LABS: MEAN CORPUSCULAR HEMOGLOBIN 23.8 PG (27.0-31.0); MEAN CORPUSCULAR HGB CONC 30.6 G/DL (32.0-36.0); MEAN CORPUSCULAR VOLUME 78 FL (80-99); MEAN PLATELET VOLUME 8.2 FL (6.5-10.1); PLATELET COUNT 91 K/UL (150-450); RED BLOOD COUNT 3.25 M/UL (4.70-6.10); RED CELL DISTRIBUTION WIDTH 21.6 % (11.6-14.8); WHITE BLOOD COUNT 5.5 K/UL (4.8-10.8)
[2016-11-03 07:08] LABS: ALANINE AMINOTRANSFERASE 283 U/L (3-41); ALBUMIN/GLOBULIN RATIO 0.9 (1.0-2.7); ANION GAP 12 (5-15); ASPARTATE AMINO TRANSFERASE 172 U/L (5-40); CALCIUM 7.7 mg/dL (8.6-10.2); CARBON DIOXIDE 20 mEQ/L (20-30); CHLORIDE 108 mEQ/L (98-107); CREATININE 0.6 mg/dL (0.7-1.2); GLOMERULAR FILTRATION RATE > 60 mL/min (>60); HEMOLYSIS 0; POTASSIUM 3.9 mEQ/L (3.4-4.9); SODIUM 140 mEQ/L (135-145); TOTAL PROTEIN 6.4 g/dL (6.6-8.7)
[2016-11-03 07:30] LABS: BILIRUBIN,DIRECT 0.2 mg/dL (0.1-0.3); TOTAL PROTEIN 6.4 g/dL (6.6-8.7)
[2016-11-03 08:00] VITALS: BP 114/67
[2016-11-03 08:20] LABS: ANISOCYTOSIS 2+; BAND NEUTROPHILS % (MANUAL) 1 % (0-8); BASOPHILS % (MANUAL) 0 % (0-2); EOSINOPHILS % (MANUAL) 0 % (0-3); HYPOCHROMASIA 2+; LYMPHOCYTES % (MANUAL) 9 % (20-45); MICROCYTES 2+; NEUTROPHILS % (MANUAL) 84 % (45-75); NUCLEATED RED BLOOD CELLS 1 /100 WBC; PLATELET ESTIMATE DECREASED; PLATELET MORPHOLOGY NORMAL; TOTAL CELLS COUNTED 100
[2016-11-03] MEDS: Indomethacin 25mg cap ORAL SCH ×3 (08:43→18:24)
[2016-11-03] MEDS: Pred Forte 1% Opth Susp 1ml BOTH EYES SCH (08:45)
[2016-11-03] MEDS: Cefepime HCl 2 GM in D5W 110 ML IV SCH ×2 (08:46→20:57)
[2016-11-03] MEDS: Heparin 5000 units/ml inj SUBQ SCH ×2 (08:59→20:58)
--- NOTE | 2016-11-03 11:17 | Diagnostic Imaging Report ---
Indication: Abdominal distention Technique: CT of the abdomen and pelvis utilizing automated exposure control with intravenous and oral contrast. Venous scanning performed. CT dose: Total DLP 595 mGycm; CTDI vol 11.7 mGy Comparison: None Findings: Patient is contracted limiting evaluation. Mild to moderate left and mild right pleural effusions are seen with bilateral lung base atelectasis. The heart is markedly enlarged. The liver is diffusely heterogeneous. Adrenal glands and pancreas are grossly unremarkable. The spleen is grossly unremarkable. Multiple nonobstructive calculi are seen in the right kidney measuring up to 7 mm. Densities are noted in the gallbladder. Abdominal aortic is normal in caliber. Atherosclerotic changes are seen. There is a small umbilical hernia. The small bowel loops are normal in caliber. There is no free intraperitoneal air. Moderate ascites is present. There is diffuse subcutaneous edema. Bilateral hip arthroplasties are seen. There is osteolysis with adjacent low-density prominence of the left acetabulum and pelvis measuring 9 x 8 cm. Degenerative changes of the spine are present. There is minimal anterolisthesis of L5 on S1. Impression: Heterogeneous appearance of the liver may suggest hepatocellular disease or hepatic congestion. Moderate ascites. Diffuse subcutaneous edema. Bilateral pleural effusions and lung base atelectasis, left greater than right. Marked cardiomegaly. Nonobstructive right renal calculi. Densities within the gallbladder could represent sludge or noncalcified stones. Bilateral hip arthroplasties. Osteolysis of the left acetabulum with adjacent low-density mass suggestive of particle disease. Clinical correlation recommended. Other findings as above. The CT scanner at [facility] is accredited by the [place] [employer] and the scans are performed using protocols designed to limit radiation exposure to as low as reasonably achievable to attain images of sufficient resolution adequate for diagnostic evaluation.
--- NOTE | 2016-11-03 11:35 | Infectious Diseases Prog Note ---
Assessment/Plan Assessment/Plan A; Pyuria, UTI Bronchitis Elevated transaminase Hepatomegaly Anemia Ascites P; Continue Cefepime Subjective ROS Limited/Unobtainable: Yes Gastrointestinal/Abdominal: Reports: bloating, other - pain Allergies: Coded Allergies: No Known Allergies (Unverified , 10/22/11) Objective Vital Signs Last 24 Hour Vital Signs Date Time Temp Pulse Resp B/P (MAP) Pulse Ox O2 Delivery O2 Flow Rate FiO2 11/03/16 08:45 94 120/56 11/03/16 08:00 96.4 99 16 114/67 98 Room Air 11/03/16 06:39 98 18 Nasal Cannula 2.0 11/03/16 06:39 98 Nasal Cannula 2.0 11/03/16 06:39 Nasal Cannula 2.0 11/03/16 04:00 97.7 94 21 120/56 97 Nasal Cannula 2.0 11/03/16 00:00 97.5 98 22 111/65 98 Nasal Cannula 11/02/16 20:03 Nasal Cannula 2.0 28 11/02/16 20:03 100 Nasal Cannula 2.0 28 11/02/16 20:01 90 18 Nasal Cannula 2.0 11/02/16 20:00 97.3 88 20 114/56 99 Nasal Cannula 2.0 11/02/16 16:22 97.3 92 20 118/57 100 Nasal Cannula 2.0 11/02/16 12:20 97.2 88 20 128/58 100 Nasal Cannula 2.0 Height (Feet): 5 Height (Inches): 6.00 Weight (Pounds): 130 General Appearance: no acute distress HEENT: mucous membranes moist Respiratory/Chest: lungs clear Cardiovascular: normal rate Abdomen: distended Extremities: no edema Neurologic/Psychiatric: alert, responsive Microbiology Date/Time Source Procedure Growth Status 10/31/16 16:41 Blood Blood Culture - Final Staphylococcus Sp Coag Neg Complete 10/31/16 16:30 Blood Blood Culture - Preliminary NO GROWTH AFTER 48 HOURS Resulted 11/01/16 20:00 Nasopharynx Influenza Types A,B Antigen (TINO) - Final Complete 10/31/16 16:25 Urine,Clean Catch Urine Culture - Final NO GROWTH AFTER 48 HOURS Complete Laboratory Tests Test 11/03/16 05:15 White Blood Count 5.5 K/UL (4.8-10.8) Red Blood Count 3.25 M/UL (4.70-6.10) L Hemoglobin 7.7 G/DL (14.2-18.0) L Hematocrit 25.3 % (42.0-52.0) L Mean Corpuscular Volume 78 FL (80-99) L Mean Corpuscular Hemoglobin 23.8 PG (27.0-31.0) L Mean Corpuscular Hemoglobin Concent 30.6 G/DL (32.0-36.0) L Red Cell Distribution Width 21.6 % (11.6-14.8) H Platelet Count 91 K/UL (150-450) L Mean Platelet Volume 8.2 FL (6.5-10.1) Neutrophils (%) (Auto) % (45.0-75.0) Lymphocytes (%) (Auto) % (20.0-45.0) Monocytes (%) (Auto) % (1.0-10.0) Eosinophils (%) (Auto) % (0.0-3.0) Basophils (%) (Auto) % (0.0-2.0) Differential Total Cells Counted 100 Neutrophils % (Manual) 84 % (45-75) H Lymphocytes % (Manual) 9 % (20-45) L Monocytes % (Manual) 6 % (1-10) Eosinophils % (Manual) 0 % (0-3) Basophils % (Manual) 0 % (0-2) Band Neutrophils 1 % (0-8) Nucleated Red Blood Cells 1 /100 WBC Platelet Estimate Decreased L Platelet Morphology Normal Hypochromasia 2+ Anisocytosis 2+ Microcytosis 2+ Sodium Level 140 mEQ/L (135-145) Potassium Level 3.9 mEQ/L (3.4-4.9) Chloride Level 108 mEQ/L (98-107) H Carbon Dioxide Level 20 mEQ/L (20-30) Anion Gap 12 (5-15) Blood Urea Nitrogen 36 mg/dL (7-23) H Creatinine 0.6 mg/dL (0.7-1.2) L Estimat Glomerular Filtration Rate > 60 mL/min (>60) Glucose Level 105 mg/dL (74-106) Calcium Level 7.7 mg/dL (8.6-10.2) L Total Bilirubin 0.4 mg/dL (0.0-1.2) Direct Bilirubin 0.2 mg/dL (0.1-0.3) Aspartate Amino Transf (AST/SGOT) 172 U/L (5-40) H Alanine Aminotransferase (ALT/SGPT) 283 U/L (3-41) H Alkaline Phosphatase 57 U/L (40-129) Total Creatine Kinase 43 U/L (38-174) Total Protein 6.4 g/dL (6.6-8.7) L Albumin 3.1 g/dL (3.5-5.2) L Globulin 3.3 g/dL Albumin/Globulin Ratio 0.9 (1.0-2.7) L Hepatitis B Core Total Antibody Pending HIV (1&2) Antibody Rapid Negative (NEGATIVE) Current Medications Medications (Trade) Dose Ordered Sig/Dina Route PRN Reason Start Time Stop Time Status Last Admin Dose Admin Acetaminophen (Tylenol) 650 mg Q4H PRN ORAL FEVER 11/01/16 18:45 11/30/16 18:44 Acetaminophen/ Hydrocodone Bitart ([place] 5/325) 1 tab Q6H PRN ORAL FOR MODERATE PAIN 11/01/16 18:45 11/07/16 18:44 11/03/16 11:16 Albuterol/ Ipratropium (DuoNeb 0.5-3(2.5)mg/3ml) 3 ml EVERY 4 HOURS PRN HHN Shortness of Breath 11/01/16 21:00 11/05/16 18:44 Amlodipine Besylate (Norvasc) 5 mg DAILY ORAL 11/02/16 09:00 12/01/16 08:59 11/03/16 08:45 Cefepime HCl 2 gm/ Dextrose 110 ml @ 220 mls/hr EVERY 12 HOURS IV 11/01/16 21:00 11/07/16 20:59 11/03/16 08:46 Dextrose (Dextrose 50%) STAT PRN IV Hypoglycemia 11/01/16 18:45 11/30/16 18:44 Heparin Sodium (Porcine) (Heparin 5000 units/ml) 5,000 units EVERY 12 HOURS SUBQ 11/01/16 21:00 11/30/16 20:59 Indomethacin (Indocin) 50 mg TID ORAL 11/02/16 09:00 12/01/16 08:59 11/03/16 08:43 Iron Sucrose 100 mg/Sodium Chloride 60 ml @ 240 mls/hr BEDTIME IVPB 11/01/16 21:00 11/05/16 21:01 11/01/16 21:11 Lorazepam (Ativan 2mg/ml 1ml) 2 mg EVERY 2 HOURS PRN IV For Anxiety 11/01/16 20:00 11/07/16 18:44 Morphine Sulfate (Morphine Sulfate) 4 mg EVERY 4 HOURS PRN IVP Severe Pain (Pain Scale 7-10) 11/01/16 21:00 11/07/16 18:44 Ondansetron HCl (Zofran) 4 mg Q6H PRN IVP Nausea & Vomiting 11/01/16 18:45 11/30/16 18:44 Polyethylene Glycol (Miralax) 17 gm DAILYPRN PRN ORAL Constipation 11/01/16 18:45 11/30/16 18:44 Prednisolone Acetate (Pred Forte) 1 drop DAILY BOTH EYES 11/02/16 09:00 12/01/16 08:59 11/03/16 08:45 Promethazine HCl/ Codeine (Phenergan with Codeine) 5 ml Q6H PRN ORAL For Cough 11/01/16 20:30 12/01/16 08:29 Sodium Chloride 1,000 ml @ 200 mls/hr Q5H IV 11/01/16 18:30 11/30/16 21:59 11/03/16 11:17 Terazosin HCl (Hytrin) 2 mg BEDTIME ORAL 11/01/16 21:00 11/30/16 20:59 11/02/16 20:41 BHAVNA LAL Nov 03, 2016 11:35
[2016-11-03 12:00] VITALS: BP 132/78
--- NOTE | 2016-11-03 13:08 | Pulmonology Progress Note ---
Assessment/Plan Assessment/Plan ASSESSMENT dyspnea bronchitis possible PNA bilateral pleural effusion bacteremia real vs contamination elevated LFT HTN acute microcytic anemia, requiring blood transfusion Azotemia metabolic acidosis with elevated anion gap ankylosing spondylitis elevated CEA tobacco abuse mild dysphagia mid thoracic un-stageable pressure ulcer, POA PLAN OF CARE tele O2 HHN abx sputum cx pending, urine cx negative, blood cx 1/4 SCON ? real , likely contamination - per ID management fup CXR with grossly stable interstitial edema or infiltrates of the visualized lungs. Right costophrenic angle blunting suggestive of a small pleural effusion. Bilateral mid and basilar atelectasis. a/tussive prn ID follows anemia workup c/w iron deficiency stool OB-negative CEA elevated s/p transfusion 1 u PRBC, monitor counts, transfuse additional unit today on Venofer abdominal US with slightly increased hepatic echogenicity, may indicate hepatocellular disease, monitor renal parameters, lytes, LFT GI eval appreciated, follows CT A/P - Heterogeneous appearance of the liver may suggest hepatocellular disease or hepatic congestion. Moderate ascites. Diffuse subcutaneous edema. Bilateral pleural effusions and lung base atelectasis, left greater than right. HIV negative hepatitis panel pending CK WNL further GI w/up as per GI discretion LFT trending down venous Duplex BLE negative BS swallow eval competed, mild dysphagia, diet for quality of life with strict aspiration/reflux precautions DVT GI prophylaxis renal US IVF azotemia improving , probably due to dehydration wound care as per wound nurse recommendations case discussed and evaluated by supervising physician Subjective Allergies: Coded Allergies: No Known Allergies (Unverified , 10/22/11) Subjective feeling better, on O2 via NC sat stable no signs of respiratory distress labs with low HH 7.7/25.3 [id number]-[id number] Objective Last 24 Hour Vital Signs Date Time Temp Pulse Resp B/P (MAP) Pulse Ox O2 Delivery O2 Flow Rate FiO2 11/03/16 08:45 94 120/56 11/03/16 08:00 96.4 99 16 114/67 98 Room Air 11/03/16 06:39 98 18 Nasal Cannula 2.0 11/03/16 06:39 98 Nasal Cannula 2.0 11/03/16 06:39 Nasal Cannula 2.0 11/03/16 04:00 97.7 94 21 120/56 97 Nasal Cannula 2.0 11/03/16 00:00 97.5 98 22 111/65 98 Nasal Cannula 11/02/16 20:03 Nasal Cannula 2.0 28 11/02/16 20:03 100 Nasal Cannula 2.0 28 11/02/16 20:01 90 18 Nasal Cannula 2.0 11/02/16 20:00 97.3 88 20 114/56 99 Nasal Cannula 2.0 11/02/16 16:22 97.3 92 20 118/57 100 Nasal Cannula 2.0 Intake and Output 11/03/16 11/04/16 19:00 07:00 # Bowel Movements 1 Objective General Appearance: alert, chronically ill looking, older than his biological age , male in NAD Lines, tubes and drains: peripheral HEENT: normocephalic, atraumatic, anicteric Neck: stiff neck, Respiratory/Chest: lungs clear - with moderate air exchange Cardiovascular/Chest: regular rhythm - SR on tele with occas PVC Abdomen: normal bowel sounds, non tender, soft Extremities: non-tender, no calf tenderness, no edema Neurologic: abnormal gait, alert, responsive Musculoskeletal: atrophy BLE and BUE, kyphosis ( severe), spastic Microbiology Date/Time Source Procedure Growth Status 10/31/16 16:41 Blood Blood Culture - Final Staphylococcus Sp Coag Neg Complete 10/31/16 16:30 Blood Blood Culture - Preliminary NO GROWTH AFTER 48 HOURS Resulted 11/01/16 20:00 Nasopharynx Influenza Types A,B Antigen (TINO) - Final Complete 10/31/16 16:25 Urine,Clean Catch Urine Culture - Final NO GROWTH AFTER 48 HOURS Complete Laboratory Tests 11/03/16 05:15: White Blood Count 5.5, Red Blood Count 3.25L, Hemoglobin 7.7L, Hematocrit 25.3L , Mean Corpuscular Volume 78L, Mean Corpuscular Hemoglobin 23.8L, Mean Corpuscular Hemoglobin Concent 30.6L, Red Cell Distribution Width 21.6H, Platelet Count 91L, Mean Platelet Volume 8.2, Neutrophils (%) (Auto) , Lymphocytes (%) (Auto) , Monocytes (%) (Auto) , Eosinophils (%) (Auto) , Basophils (%) (Auto) , Differential Total Cells Counted 100, Neutrophils % ( Manual) 84H, Lymphocytes % (Manual) 9L, Monocytes % (Manual) 6, Eosinophils % ( Manual) 0, Basophils % (Manual) 0, Band Neutrophils 1, Nucleated Red Blood Cells 1, Platelet Estimate DecreasedL, Platelet Morphology Normal, Hypochromasia 2+, Anisocytosis 2+, Microcytosis 2+, Sodium Level 140, Potassium Level 3.9, Chloride Level 108H, Carbon Dioxide Level 20, Anion Gap 12, Blood Urea Nitrogen 36H, Creatinine 0.6L, Estimat Glomerular Filtration Rate > 60, Glucose Level 105, Calcium Level 7.7L, Total Bilirubin 0.4, Direct Bilirubin 0.2 , Aspartate Amino Transf (AST/SGOT) 172H, Alanine Aminotransferase (ALT/SGPT) 283H, Alkaline Phosphatase 57, Total Creatine Kinase 43, Total Protein 6.4L, Albumin 3.1L, Globulin 3.3, Albumin/Globulin Ratio 0.9L, Hepatitis B Core Total Antibody [Pending], HIV (1&2) Antibody Rapid Negative Current Medications Medications (Trade) Dose Ordered Sig/Dina Route PRN Reason Start Time Stop Time Status Last Admin Dose Admin Acetaminophen (Tylenol) 650 mg Q4H PRN ORAL FEVER 11/01/16 18:45 11/30/16 18:44 Acetaminophen/ Hydrocodone Bitart ([place] 5/325) 1 tab Q6H PRN ORAL FOR MODERATE PAIN 11/01/16 18:45 11/07/16 18:44 11/03/16 11:16 Albuterol/ Ipratropium (DuoNeb 0.5-3(2.5)mg/3ml) 3 ml EVERY 4 HOURS PRN HHN Shortness of Breath 11/01/16 21:00 11/05/16 18:44 Amlodipine Besylate (Norvasc) 5 mg DAILY ORAL 11/02/16 09:00 12/01/16 08:59 11/03/16 08:45 Cefepime HCl 2 gm/ Dextrose 110 ml @ 220 mls/hr EVERY 12 HOURS IV 11/01/16 21:00 11/07/16 20:59 11/03/16 08:46 Dextrose (Dextrose 50%) STAT PRN IV Hypoglycemia 11/01/16 18:45 11/30/16 18:44 Heparin Sodium (Porcine) (Heparin 5000 units/ml) 5,000 units EVERY 12 HOURS SUBQ 11/01/16 21:00 11/30/16 20:59 Indomethacin (Indocin) 50 mg TID ORAL 11/02/16 09:00 12/01/16 08:59 11/03/16 12:58 Iron Sucrose 100 mg/Sodium Chloride 60 ml @ 240 mls/hr BEDTIME IVPB 11/01/16 21:00 11/05/16 21:01 11/01/16 21:11 Lorazepam (Ativan 2mg/ml 1ml) 2 mg EVERY 2 HOURS PRN IV For Anxiety 11/01/16 20:00 11/07/16 18:44 Morphine Sulfate (Morphine Sulfate) 4 mg EVERY 4 HOURS PRN IVP Severe Pain (Pain Scale 7-10) 11/01/16 21:00 11/07/16 18:44 Ondansetron HCl (Zofran) 4 mg Q6H PRN IVP Nausea & Vomiting 11/01/16 18:45 11/30/16 18:44 Polyethylene Glycol (Miralax) 17 gm DAILYPRN PRN ORAL Constipation 11/01/16 18:45 11/30/16 18:44 Prednisolone Acetate (Pred Forte) 1 drop DAILY BOTH EYES 11/02/16 09:00 12/01/16 08:59 11/03/16 08:45 Promethazine HCl/ Codeine (Phenergan with Codeine) 5 ml Q6H PRN ORAL For Cough 11/01/16 20:30 12/01/16 08:29 Sodium Chloride 1,000 ml @ 200 mls/hr Q5H IV 11/01/16 18:30 11/30/16 21:59 11/03/16 11:17 Terazosin HCl (Hytrin) 2 mg BEDTIME ORAL 11/01/16 21:00 11/30/16 20:59 11/02/16 20:41 Lyric Luther NP ([facility]) Nov 03, 2016 13:08
--- NOTE | 2016-11-03 14:51 | Cardiology Report ---
APPROVED REPORT EKG Measurement Heart [id number] MI 130P0 [id number] Normal sinus rhythm Left ventricular hypertrophy with QRS widening and repolarization abnormality Abnormal ECG
--- NOTE | 2016-11-03 15:34 | Internal Med Progress Note ---
Subjective Date of Service: Nov 03, 2016 Physician Name Miki Easton Attending Physician Raheel Dumont MD Current Medications Medications (Trade) Dose Ordered Sig/Dina Route PRN Reason Start Time Stop Time Status Last Admin Dose Admin Acetaminophen (Tylenol) 650 mg Q4H PRN ORAL FEVER 11/01/16 18:45 11/30/16 18:44 Acetaminophen/ Hydrocodone Bitart ([place] 5/325) 1 tab Q6H PRN ORAL FOR MODERATE PAIN 11/01/16 18:45 11/07/16 18:44 11/03/16 11:16 Albuterol/ Ipratropium (DuoNeb 0.5-3(2.5)mg/3ml) 3 ml EVERY 4 HOURS PRN HHN Shortness of Breath 11/01/16 21:00 11/05/16 18:44 Amlodipine Besylate (Norvasc) 5 mg DAILY ORAL 11/02/16 09:00 12/01/16 08:59 11/03/16 08:45 Cefepime HCl 2 gm/ Dextrose 110 ml @ 220 mls/hr EVERY 12 HOURS IV 11/01/16 21:00 11/07/16 20:59 11/03/16 08:46 Dextrose (Dextrose 50%) STAT PRN IV Hypoglycemia 11/01/16 18:45 11/30/16 18:44 Heparin Sodium (Porcine) (Heparin 5000 units/ml) 5,000 units EVERY 12 HOURS SUBQ 11/01/16 21:00 11/30/16 20:59 Indomethacin (Indocin) 50 mg TID ORAL 11/02/16 09:00 12/01/16 08:59 11/03/16 12:58 Iron Sucrose 100 mg/Sodium Chloride 60 ml @ 240 mls/hr BEDTIME IVPB 11/01/16 21:00 11/05/16 21:01 11/01/16 21:11 Lorazepam (Ativan 2mg/ml 1ml) 2 mg EVERY 2 HOURS PRN IV For Anxiety 11/01/16 20:00 11/07/16 18:44 Morphine Sulfate (Morphine Sulfate) 4 mg EVERY 4 HOURS PRN IVP Severe Pain (Pain Scale 7-10) 11/01/16 21:00 11/07/16 18:44 Ondansetron HCl (Zofran) 4 mg Q6H PRN IVP Nausea & Vomiting 11/01/16 18:45 11/30/16 18:44 Polyethylene Glycol (Miralax) 17 gm DAILYPRN PRN ORAL Constipation 11/01/16 18:45 11/30/16 18:44 Prednisolone Acetate (Pred Forte) 1 drop DAILY BOTH EYES 11/02/16 09:00 12/01/16 08:59 11/03/16 08:45 Promethazine HCl/ Codeine (Phenergan with Codeine) 5 ml Q6H PRN ORAL For Cough 11/01/16 20:30 12/01/16 08:29 Sodium Chloride 1,000 ml @ 200 mls/hr Q5H IV 11/01/16 18:30 11/30/16 21:59 11/03/16 11:17 Terazosin HCl (Hytrin) 2 mg BEDTIME ORAL 11/01/16 21:00 11/30/16 20:59 11/02/16 20:41 Allergies: Coded Allergies: No Known Allergies (Unverified , 10/22/11) ROS Limited/Unobtainable: Yes Subjective 51 YO M admitted with cough, fever and chills. Now Pneumonia. Cover for Int Med -Dr Dumont Objective Last Vital Signs Date Time Temp Pulse Resp B/P (MAP) Pulse Ox O2 Delivery O2 Flow Rate FiO2 11/03/16 08:45 94 120/56 11/03/16 08:00 96.4 16 98 Room Air 11/03/16 06:39 2.0 11/02/16 20:03 28 General Appearance: WD/WN, no apparent distress, alert EENT: PERRL/EOMI, normal ENT inspection Neck: non-tender, muscle spasm, stiff neck, other - contractrre Cardiovascular: normal peripheral pulses, normal rate, regular rhythm, no gallop/murmur, no JVD Respiratory/Chest: chest wall non-tender, respiratory distress, crackles/rales , rhonchi - bilaterally, expiratory wheezing Abdomen: normal bowel sounds, non tender, soft, no organomegaly, no mass Extremities: normal range of motion Neurologic: other - contractures Skin: normal pigmentation, warm/dry Laboratory Tests Test 11/03/16 05:15 White Blood Count 5.5 K/UL (4.8-10.8) Red Blood Count 3.25 M/UL (4.70-6.10) L Hemoglobin 7.7 G/DL (14.2-18.0) L Hematocrit 25.3 % (42.0-52.0) L Mean Corpuscular Volume 78 FL (80-99) L Mean Corpuscular Hemoglobin 23.8 PG (27.0-31.0) L Mean Corpuscular Hemoglobin Concent 30.6 G/DL (32.0-36.0) L Red Cell Distribution Width 21.6 % (11.6-14.8) H Platelet Count 91 K/UL (150-450) L Mean Platelet Volume 8.2 FL (6.5-10.1) Neutrophils (%) (Auto) % (45.0-75.0) Lymphocytes (%) (Auto) % (20.0-45.0) Monocytes (%) (Auto) % (1.0-10.0) Eosinophils (%) (Auto) % (0.0-3.0) Basophils (%) (Auto) % (0.0-2.0) Differential Total Cells Counted 100 Neutrophils % (Manual) 84 % (45-75) H Lymphocytes % (Manual) 9 % (20-45) L Monocytes % (Manual) 6 % (1-10) Eosinophils % (Manual) 0 % (0-3) Basophils % (Manual) 0 % (0-2) Band Neutrophils 1 % (0-8) Nucleated Red Blood Cells 1 /100 WBC Platelet Estimate Decreased L Platelet Morphology Normal Hypochromasia 2+ Anisocytosis 2+ Microcytosis 2+ Sodium Level 140 mEQ/L (135-145) Potassium Level 3.9 mEQ/L (3.4-4.9) Chloride Level 108 mEQ/L (98-107) H Carbon Dioxide Level 20 mEQ/L (20-30) Anion Gap 12 (5-15) Blood Urea Nitrogen 36 mg/dL (7-23) H Creatinine 0.6 mg/dL (0.7-1.2) L Estimat Glomerular Filtration Rate > 60 mL/min (>60) Glucose Level 105 mg/dL (74-106) Calcium Level 7.7 mg/dL (8.6-10.2) L Total Bilirubin 0.4 mg/dL (0.0-1.2) Direct Bilirubin 0.2 mg/dL (0.1-0.3) Aspartate Amino Transf (AST/SGOT) 172 U/L (5-40) H Alanine Aminotransferase (ALT/SGPT) 283 U/L (3-41) H Alkaline Phosphatase 57 U/L (40-129) Total Creatine Kinase 43 U/L (38-174) Total Protein 6.4 g/dL (6.6-8.7) L Albumin 3.1 g/dL (3.5-5.2) L Globulin 3.3 g/dL Albumin/Globulin Ratio 0.9 (1.0-2.7) L Hepatitis B Core Total Antibody Pending HIV (1&2) Antibody Rapid Negative (NEGATIVE) Microbiology Date/Time Source Procedure Growth Status 10/31/16 16:41 Blood Blood Culture - Final Staphylococcus Sp Coag Neg Complete 10/31/16 16:30 Blood Blood Culture - Preliminary NO GROWTH AFTER 48 HOURS Resulted 11/01/16 20:00 Nasopharynx Influenza Types A,B Antigen (TINO) - Final Complete 10/31/16 16:25 Urine,Clean Catch Urine Culture - Final NO GROWTH AFTER 48 HOURS Complete Intake and Output 11/03/16 11/04/16 19:00 07:00 # Bowel Movements 1 Assessment/Plan Problem List: (1) Depression (2) Flexion contractures (3) Anemia (4) Ankylosing spondylitis (5) HTN (hypertension) Assessment & Plan: Continue amlodipine (6) Osteoporosis (7) Kyphosis (8) Cervical spondylitis (9) Pneumonia Assessment & Plan: See pulmonary note. Continue Cefepime per pulm (10) SOB (shortness of breath) Status: not improved MIKI EASTON Nov 03, 2016 15:34
--- NOTE | 2016-11-03 15:51 | General Progress Note ---
Assessment/Plan Assessment/Plan Assessment - Anemia with OB (-) x 1 - Iron deficiency - Elevated CEA - Ascites, transaminitis - suspect due to (R) heart failure - CM, severe , AI Recommendations - Paracentesis - cardiology evaluation - f/u hepatitis serologies - check CPK - Will hold off on EGD/Colon until cardiac evaluation complete Subjective Allergies: Coded Allergies: No Known Allergies (Unverified , 10/22/11) Subjective Feels OK no abd pain c/o abd and scrotal edema CT noted--> Ascites, Cardiomegaly, hepatic congestion Prior Echo (2014): - Moderate AI - Severe , valve area 0.75 cm2 , grad 87 mmHg Objective Last 24 Hour Vital Signs Date Time Temp Pulse Resp B/P (MAP) Pulse Ox O2 Delivery O2 Flow Rate FiO2 11/03/16 08:45 94 120/56 11/03/16 08:00 96.4 99 16 114/67 98 Room Air 11/03/16 06:39 98 18 Nasal Cannula 2.0 11/03/16 06:39 98 Nasal Cannula 2.0 11/03/16 06:39 Nasal Cannula 2.0 11/03/16 04:00 97.7 94 21 120/56 97 Nasal Cannula 2.0 11/03/16 00:00 97.5 98 22 111/65 98 Nasal Cannula 11/02/16 20:03 Nasal Cannula 2.0 28 11/02/16 20:03 100 Nasal Cannula 2.0 28 11/02/16 20:01 90 18 Nasal Cannula 2.0 11/02/16 20:00 97.3 88 20 114/56 99 Nasal Cannula 2.0 11/02/16 16:22 97.3 92 20 118/57 100 Nasal Cannula 2.0 Intake and Output 11/03/16 11/04/16 19:00 07:00 # Bowel Movements 1 Laboratory Tests 11/03/16 05:15: White Blood Count 5.5, Red Blood Count 3.25L, Hemoglobin 7.7L, Hematocrit 25.3L , Mean Corpuscular Volume 78L, Mean Corpuscular Hemoglobin 23.8L, Mean Corpuscular Hemoglobin Concent 30.6L, Red Cell Distribution Width 21.6H, Platelet Count 91L, Mean Platelet Volume 8.2, Neutrophils (%) (Auto) , Lymphocytes (%) (Auto) , Monocytes (%) (Auto) , Eosinophils (%) (Auto) , Basophils (%) (Auto) , Differential Total Cells Counted 100, Neutrophils % ( Manual) 84H, Lymphocytes % (Manual) 9L, Monocytes % (Manual) 6, Eosinophils % ( Manual) 0, Basophils % (Manual) 0, Band Neutrophils 1, Nucleated Red Blood Cells 1, Platelet Estimate DecreasedL, Platelet Morphology Normal, Hypochromasia 2+, Anisocytosis 2+, Microcytosis 2+, Sodium Level 140, Potassium Level 3.9, Chloride Level 108H, Carbon Dioxide Level 20, Anion Gap 12, Blood Urea Nitrogen 36H, Creatinine 0.6L, Estimat Glomerular Filtration Rate > 60, Glucose Level 105, Calcium Level 7.7L, Total Bilirubin 0.4, Direct Bilirubin 0.2 , Aspartate Amino Transf (AST/SGOT) 172H, Alanine Aminotransferase (ALT/SGPT) 283H, Alkaline Phosphatase 57, Total Creatine Kinase 43, Total Protein 6.4L, Albumin 3.1L, Globulin 3.3, Albumin/Globulin Ratio 0.9L, Hepatitis B Core Total Antibody [Pending], HIV (1&2) Antibody Rapid Negative Height (Feet): 5 Height (Inches): 6.00 Weight (Pounds): 130 Objective NAD NCAT neck stiff CTA RRR abd soft distended (+) contractures NATASHA ARREDONDO Nov 03, 2016 15:51
[2016-11-03 16:00] VITALS: BP 132/78
[2016-11-03 20:00] VITALS: BP 120/61
[2016-11-03] MEDS: Iron Sucrose 100 MG in NS 55 ML IVPB SCH (20:57)
[2016-11-03] MEDS: Terazosin 1mg cap ORAL SCH (20:58)
[2016-11-04] VITALS (12 sets, daily range): BP systolic 91–134; BP diastolic 49–73
[2016-11-04 07:41] LABS: MEAN CORPUSCULAR HEMOGLOBIN 23.5 PG (27.0-31.0); MEAN CORPUSCULAR HGB CONC 29.5 G/DL (32.0-36.0); MEAN CORPUSCULAR VOLUME 80 FL (80-99); MEAN PLATELET VOLUME 9.4 FL (6.5-10.1); PLATELET COUNT 92 K/UL (150-450); RED BLOOD COUNT 3.75 M/UL (4.70-6.10); RED CELL DISTRIBUTION WIDTH 21.2 % (11.6-14.8); WHITE BLOOD COUNT 5.9 K/UL (4.8-10.8)
[2016-11-04 07:49] LABS: ANION GAP 12 (5-15); CALCIUM 8.1 mg/dL (8.6-10.2); CARBON DIOXIDE 21 mEQ/L (20-30); CHLORIDE 107 mEQ/L (98-107); CREATININE 0.6 mg/dL (0.7-1.2); GLOMERULAR FILTRATION RATE > 60 mL/min (>60); HEMOLYSIS 0; POTASSIUM 3.6 mEQ/L (3.4-4.9); SODIUM 140 mEQ/L (135-145)
[2016-11-04 08:25] LABS: BAND NEUTROPHILS % (MANUAL) 0 % (0-8); BASOPHILS % (MANUAL) 0 % (0-2); EOSINOPHILS % (MANUAL) 0 % (0-3); LYMPHOCYTES % (MANUAL) 6 % (20-45); NEUTROPHILS % (MANUAL) 89 % (45-75); NUCLEATED RED BLOOD CELLS 1 /100 WBC; PLATELET ESTIMATE DECREASED; TOTAL CELLS COUNTED 100
[2016-11-04 08:26] LABS: ANISOCYTOSIS 3+; HYPOCHROMASIA 3+; PLATELET MORPHOLOGY NORMAL
[2016-11-04 08:29] LABS: MACROCYTES 1+; MICROCYTES 1+
[2016-11-04] MEDS: Heparin 5000 units/ml inj SUBQ SCH ×2 (09:00→20:41)
--- NOTE | 2016-11-04 09:45 | History and Physical Report ---
DATE OF ADMISSION: 10/31/2016 CHIEF COMPLAINT: Productive cough, chills, and shortness of breath. History Of Present Illness: This is a 51-year-old very unfortunate gentleman with past medical history significant for ankylosis spondylitis, history of functional quadriplegia, osteoporosis, hypertension, cardiac murmur, status post bilateral hip and bilateral shoulder replacement, who was presented to the hospital from home after he was noted to have productive cough, chills, and shortness of breath. The patient has been having the symptoms over the past three to four days, got progressively worsening and the patient currently smoke and denies any chest pain or abdominal pain. Denies any fever, however, positive chills and shortly after initial evaluation in the emergency room, the patient was admitted to the hospital with possible pneumonia. Past Medical History And Past Surgical History: As above. History of ankylosis spondylitis with functional quadriplegia, osteoporosis, hypertension, cardiac murmur, bilateral hip replacement as well as bilateral shoulder replacement. Medications: At home, significant for , indomethacin, albuterol, Norvasc, folic acid, [place] as needed, Flomax, Fosamax, omeprazole, and Hytrin. ALLERGIES: No known drug allergies. Social History: The patient currently smokes. The patient is a 20-year pack smoker. Smokes marijuana occasionally. Denies any substance abuse or alcohol abuse. FAMILY HISTORY: Noncontributory. Review Of Systems: Mostly as above. Denies any dysuria or frequency. He complained about cough. Denies any hemoptysis or hematochezia. Denies any suicidal or homicidal ideation. Denies any loss of consciousness or decreased appetite. Denies any double vision. Denies any loss of consciousness. PHYSICAL EXAMINATION: GENERAL: The patient is awake, responsive, and in no acute distress. Vital Signs: On admission from ER, temperature 96.6 degrees, pulse of 80, respirations 24, and blood pressure 110/45. HEENT: Pupils reactive to light. Extraocular movements are intact. NECK: Supple. No JVD. Lungs: Poor inspiratory effort. No wheezes or rhonchi. Decreased air in the bases. HEART: S1 and S2. Distant heart sounds. No murmurs or gallops. ABDOMEN: Soft, nondistended, and nontender. Positive bowel sounds. RECTAL: Refused and deferred. GENITOURINARY: Refused and deferred. SKIN: Has sacral ulceration presented on admission. Extremities: No cyanosis or clubbing. A +1 edema of bilateral lower extremities. Neurologic: Unable to obtain, secondary to the patient's status. He is quadriplegic and contracted bilateral upper extremity as well as lower extremity. He is mostly wheelchair bounded. Laboratory And Diagnosis Data: Laboratory on admission from the ER is significant for WBC of 5.8, hemoglobin 8.6, hematocrit 27, platelets 170,000, ESR is 24, and reticulocyte count is 1.9. The patient's sodium 133, potassium 4.4, chloride 98, bicarbonate 19, BUN 73, creatinine 1.2, GFR is greater than 60, glucose level is 108, hemoglobin A1c 4.5, calcium is 7.7, and phosphate is 5.9. The patient's vitamin B12 is greater than 2000 and albumin level is 3.0. Iron level is less than 10, TIBC is 37.4, saturation is 3, and ferritin is 364. AST of 536 and ALT of 448. Urine drug screen is significant for THC, otherwise all negative. Urinalysis, +3 protein, ketones +1, nitrite is negative, leukocytes +1, and moderate urobacteria. ABG, pH of 7.20, pCO2 of 25, pO2 of 113, and saturating 96%. The patient had a chest x-ray, which shows very limited examination, no definite acute process was identified. Ultrasound of the abdomen was done and noted that the patient has negative ductal dilatation, possible nonobstructive right lower pole intrarenal calculi, slightly increased hepatic echogenicity, may indicate hepatocellular disease particularly in view of the stated clinical history of hepatitis, hepatomegaly, trace ascites, gallbladder sludge, no stone, markedly thickened gallbladder wall likely reactive, and adjacent hepatocellular inflammation, given that the stated clinical history could also be due to the hemodynamically derangement caused by the liver disease. Also, probably exaggerated due to the nondistention of the gallbladder. The possibility of acalculous acute cholecystitis or cholecystitis secondary to the . Cholelithiasis not completely excluded, however, consider hepatobiliary nuclear scan if it is highly suspicious. The patient had a duplex of the lower extremity, images revealed the pattern of the deep vein system bilaterally. There is no evidence of thrombus within the femoral, popliteal, or tibial. ASSESSMENT: 1. Shortness of breath, cough, possible bronchitis. 2. Bronchitis versus early bronchopneumonia. 3. Iron-deficiency anemia. 4. Acidosis. 5. Acute renal failure with prerenal azotemia. 6. Abnormal liver function with transaminitis with elevated AST and ALT. 7. Ankylosis spondylitis with functional quadriplegia. 8. History of hypertension. 9. Osteoporosis. 10. Decubitus ulcer, presented on admission. Plan: Admit the patient to monitored unit. We will follow up with Dr. Caldera, Pulmonary, Critical Care. Broad-spectrum antibiotics with azithromycin as well as cefepime. Consider IV hydration. Monitor laboratory. Continue on vancomycin IV. Code status is Full Code. DVT prophylaxis and pain medication. Discussed with the caregiver, brother at the bedside extensively. We will follow up with Gastroenterology consultation with Dr. Gloria Andre. Code status is Full Code. DVT prophylaxis and heparin subcutaneously. Raheel Dumont M.D. DR: Edwige JOB#: [id number] CC:
--- NOTE | 2016-11-04 09:52 | General Progress Note ---
Assessment/Plan Assessment/Plan Assessment - Anemia with OB (-) x 1 - Iron deficiency - Elevated CEA - Ascites, transaminitis - suspect due to (R) heart failure - CM, severe , AI - CHF Recommendations - Paracentesis - cardiology evaluation - f/u hepatitis serologies - check CPK - Will hold off on EGD/Colon until cardiac evaluation complete Subjective Allergies: Coded Allergies: No Known Allergies (Unverified , 10/22/11) Subjective no abd pain but distended CT noted--> Ascites, Cardiomegaly, hepatic congestion Prior Echo (2014): - Moderate AI - Severe , valve area 0.75 cm2 , grad 87 mmHg Objective Last 24 Hour Vital Signs Date Time Temp Pulse Resp B/P (MAP) Pulse Ox O2 Delivery O2 Flow Rate FiO2 11/04/16 09:00 100 111/57 11/04/16 08:33 97.6 100 21 111/57 93 Nasal Cannula 3.0 11/04/16 07:53 95 Nasal Cannula 2.0 11/04/16 07:53 102 18 Nasal Cannula 2.0 11/04/16 07:53 Nasal Cannula 2.0 28 11/04/16 06:00 97.5 99 22 117/61 98 Nasal Cannula 3.0 11/04/16 04:00 97.5 99 20 117/61 97 Nasal Cannula 3.0 11/04/16 00:00 97.7 68 22 123/73 97 Nasal Cannula 3.0 11/03/16 20:00 97.7 98 20 120/61 94 Nasal Cannula 3.0 11/03/16 19:10 99 Nasal Cannula 2.0 11/03/16 19:10 Nasal Cannula 2.0 28 11/03/16 19:10 89 18 Nasal Cannula 2.0 11/03/16 16:00 97.3 108 17 132/78 96 Room Air 11/03/16 12:00 97.2 99 16 132/78 97 Room Air Laboratory Tests 11/04/16 06:50: White Blood Count 5.9, Red Blood Count 3.75L, Hemoglobin 8.8L, Hematocrit 29.9L , Mean Corpuscular Volume 80, Mean Corpuscular Hemoglobin 23.5L, Mean Corpuscular Hemoglobin Concent 29.5L, Red Cell Distribution Width 21.2H, Platelet Count 92L, Mean Platelet Volume 9.4, Neutrophils (%) (Auto) , Lymphocytes (%) (Auto) , Monocytes (%) (Auto) , Eosinophils (%) (Auto) , Basophils (%) (Auto) , Differential Total Cells Counted 100, Neutrophils % ( Manual) 89H, Lymphocytes % (Manual) 6L, Monocytes % (Manual) 5, Eosinophils % ( Manual) 0, Basophils % (Manual) 0, Band Neutrophils 0, Nucleated Red Blood Cells 1, Platelet Estimate DecreasedL, Platelet Morphology Normal, Hypochromasia 3+, Anisocytosis 3+, Microcytosis 1+, Macrocytosis 1+, Sodium Level 140, Potassium Level 3.6, Chloride Level 107, Carbon Dioxide Level 21, Anion Gap 12, Blood Urea Nitrogen 30H, Creatinine 0.6L, Estimat Glomerular Filtration Rate > 60, Glucose Level 105, Calcium Level 8.1L Height (Feet): 5 Height (Inches): 6.00 Weight (Pounds): 130 Objective NAD NCAT neck stiff b/l ronchi RRR II/ systolic murmur abd soft distended (+) contractures NATASHA ARREDONDO Nov 04, 2016 09:52
[2016-11-04] MEDS: Pred Forte 1% Opth Susp 1ml BOTH EYES SCH (10:15)
[2016-11-04] MEDS: Indomethacin 25mg cap ORAL SCH ×3 (10:15→17:11)
[2016-11-04] MEDS: Cefepime HCl 2 GM in D5W 110 ML IV SCH ×2 (10:16→21:28)
--- NOTE | 2016-11-04 10:37 | GI Progress Note ---
Assessment/Plan Problems: (1) Hepatocellular damage ICD Codes: K76.9 - Liver disease, unspecified SNOMED: 204156011 (2) Ascites ICD Codes: R18.8 - Other ascites SNOMED: 057740614 (3) Transaminitis ICD Codes: R74.0 - Nonspecific elevation of levels of transaminase and lactic acid dehydrogenase [LDH] SNOMED: 926158300 (4) Hypoalbuminemia ICD Codes: E88.09 - Other disorders of plasma-protein metabolism, not elsewhere classified SNOMED: 584958941 (5) LFTs abnormal ICD Codes: R79.89 - Other specified abnormal findings of blood chemistry SNOMED: 971274710 (6) Anemia ICD Codes: D64.9 - Anemia, unspecified SNOMED: 143369214 (7) Acute hepatitis ICD Codes: B17.9 - Acute viral hepatitis, unspecified SNOMED: 90912429 Status: unchanged Status Narrative Discussed with Dr. De La Garza. Assessment/Plan - Anemia with OB (-) x 1 - Iron deficiency - Elevated CEA - Ascites, transaminitis - suspect due to (R) heart failure - CM, severe , AI - CHF Recommendations - EGD tomorrow >> diet, NPO @ MN. Hold all blood thinners tonight. - Paracentesis pending - cardiology evaluation >> unremarkable - f/u hepatitis serologies - check CPK Subjective Gastrointestinal/Abdominal: Reports: abdomen distended Objective Last 24 Hour Vital Signs Date Time Temp Pulse Resp B/P (MAP) Pulse Ox O2 Delivery O2 Flow Rate FiO2 11/04/16 09:00 100 111/57 11/04/16 08:33 97.6 100 21 111/57 93 Nasal Cannula 3.0 11/04/16 07:53 95 Nasal Cannula 2.0 11/04/16 07:53 102 18 Nasal Cannula 2.0 11/04/16 07:53 Nasal Cannula 2.0 28 11/04/16 06:00 97.5 99 22 117/61 98 Nasal Cannula 3.0 11/04/16 04:00 97.5 99 20 117/61 97 Nasal Cannula 3.0 11/04/16 00:00 97.7 68 22 123/73 97 Nasal Cannula 3.0 11/03/16 20:00 97.7 98 20 120/61 94 Nasal Cannula 3.0 11/03/16 19:10 99 Nasal Cannula 2.0 11/03/16 19:10 Nasal Cannula 2.0 28 11/03/16 19:10 89 18 Nasal Cannula 2.0 11/03/16 16:00 97.3 108 17 132/78 96 Room Air 11/03/16 12:00 97.2 99 16 132/78 97 Room Air Laboratory Tests Test 11/04/16 06:50 White Blood Count 5.9 K/UL (4.8-10.8) Red Blood Count 3.75 M/UL (4.70-6.10) L Hemoglobin 8.8 G/DL (14.2-18.0) L Hematocrit 29.9 % (42.0-52.0) L Mean Corpuscular Volume 80 FL (80-99) Mean Corpuscular Hemoglobin 23.5 PG (27.0-31.0) L Mean Corpuscular Hemoglobin Concent 29.5 G/DL (32.0-36.0) L Red Cell Distribution Width 21.2 % (11.6-14.8) H Platelet Count 92 K/UL (150-450) L Mean Platelet Volume 9.4 FL (6.5-10.1) Neutrophils (%) (Auto) % (45.0-75.0) Lymphocytes (%) (Auto) % (20.0-45.0) Monocytes (%) (Auto) % (1.0-10.0) Eosinophils (%) (Auto) % (0.0-3.0) Basophils (%) (Auto) % (0.0-2.0) Differential Total Cells Counted 100 Neutrophils % (Manual) 89 % (45-75) H Lymphocytes % (Manual) 6 % (20-45) L Monocytes % (Manual) 5 % (1-10) Eosinophils % (Manual) 0 % (0-3) Basophils % (Manual) 0 % (0-2) Band Neutrophils 0 % (0-8) Nucleated Red Blood Cells 1 /100 WBC Platelet Estimate Decreased L Platelet Morphology Normal Hypochromasia 3+ Anisocytosis 3+ Microcytosis 1+ Macrocytosis 1+ Sodium Level 140 mEQ/L (135-145) Potassium Level 3.6 mEQ/L (3.4-4.9) Chloride Level 107 mEQ/L (98-107) Carbon Dioxide Level 21 mEQ/L (20-30) Anion Gap 12 (5-15) Blood Urea Nitrogen 30 mg/dL (7-23) H Creatinine 0.6 mg/dL (0.7-1.2) L Estimat Glomerular Filtration Rate > 60 mL/min (>60) Glucose Level 105 mg/dL (74-106) Calcium Level 8.1 mg/dL (8.6-10.2) L Height (Feet): 5 Height (Inches): 6.00 Weight (Pounds): 130 General Appearance: no apparent distress, alert Cardiovascular: normal rate Respiratory/Chest: other - NC Abdominal Exam: distended, ascites Tori Diana N.P. Nov 04, 2016 10:37
[2016-11-04] MEDS ORDERED: Lidocaine 1% MPF 10mg/ml 5ml INJ ONE (10:45)
[2016-11-04] MEDS ORDERED: Lidocaine 1% Plain 30 ml INJ ONE (11:00)
--- NOTE | 2016-11-04 11:00 | Consultation ---
DATE OF CONSULTATION: 11/02/2016 GASTROENTEROLOGY CONSULTATION Chief Complaint: I was asked to see this patient by Dr. Raheel Dumont and I met with Dr. Eliot Greenfield for evaluation of anemia. History of Present Illness: The patient is an unfortunate 51-year-old man who is debilitated and bedbound and who was brought into the hospital due to shortness of breath. The patient was evaluated and treated. He was in telemetry unit and monitored on the regular floor. He has been found to have anemia and, therefore, this consultation was obtained. The patient denies any abdominal pain, nausea, vomiting, or hematochezia. The remainder of information is also available in the chart. PAST MEDICAL HISTORY: 1. History of ankylosing spondylitis. 2. Hypertension. 3. Osteoporosis. 4. Kyphosis. 5. Spondylosis. 6. Diverticulosis. 7. Depression. 8. Multiple contracture deformities. MEDICATIONS: Chart list was reviewed. FAMILY HISTORY: Noncontributory. SOCIAL HISTORY: The patient does not drink. He smoked 20 years ago. REVIEW OF SYSTEMS: Otherwise negative. PHYSICAL EXAMINATION: GENERAL: Debilitated, thin, man seen in his room. HEENT: Normocephalic and atraumatic. His dentition is poor. NECK: Supple. CHEST: Coarse breath sounds. CARDIOVASCULAR: Regular rate. ABDOMEN: Soft. EXTREMITIES: Contracture deformities. NEUROLOGIC: Notable for advanced cognitive dysfunction. Assessment: This patient is in a bedbound state and debilitation. He has a mildly distended abdomen, but he also has some anemia of unclear etiology. Differential diagnosis of anemia will include both lower and upper gastrointestinal tract pathologies. The patient is, however, OB negative x1, which makes the possibility of GI bleed less. He does have an elevated CEA and, therefore, gastrointestinal malignancy was high on the differential. He has also abnormal liver tests and a thickened gallbladder on ultrasound. This will be further evaluated with a CT scan of the abdomen and pelvis. For the time being, I will hold off on evaluation of anemia until the liver workup has been completed. RECOMMENDATION: 1. Check CT scan of the abdomen and pelvis since the patient appears to be distended with elevated CEA. 2. Laxative trial. 3. Follow up serology. 4. Check CPK. 5. We will consider eventual gastric colonoscopy after speaking with family. Thank you for asking me to participate in the care of this patient. Gloria Andre M.D. DR: KENRICK JOB#: [id number] CC: FELIX
--- NOTE | 2016-11-04 11:43 | Internal Med Progress Note ---
Subjective Date of Service: Nov 04, 2016 Physician Name Miki Easton Attending Physician Raheel Dumont MD Current Medications Medications (Trade) Dose Ordered Sig/Dina Route PRN Reason Start Time Stop Time Status Last Admin Dose Admin Acetaminophen (Tylenol) 650 mg Q4H PRN ORAL FEVER 11/01/16 18:45 11/30/16 18:44 Acetaminophen/ Hydrocodone Bitart (Earlimart 5/325) 1 tab Q6H PRN ORAL FOR MODERATE PAIN 11/01/16 18:45 11/07/16 18:44 11/03/16 11:16 Albuterol/ Ipratropium (DuoNeb 0.5-3(2.5)mg/3ml) 3 ml EVERY 4 HOURS PRN HHN Shortness of Breath 11/01/16 21:00 11/05/16 18:44 Amlodipine Besylate (Norvasc) 5 mg DAILY ORAL 11/02/16 09:00 12/01/16 08:59 11/03/16 08:45 Cefepime HCl 2 gm/ Dextrose 110 ml @ 220 mls/hr EVERY 12 HOURS IV 11/01/16 21:00 11/07/16 20:59 11/04/16 10:16 Dextrose (Dextrose 50%) STAT PRN IV Hypoglycemia 11/01/16 18:45 11/30/16 18:44 Furosemide (Lasix) 20 mg DAILY IV 11/03/16 16:00 12/03/16 15:59 11/03/16 16:10 Heparin Sodium (Porcine) (Heparin 5000 units/ml) 5,000 units EVERY 12 HOURS SUBQ 11/01/16 21:00 11/30/16 20:59 Indomethacin (Indocin) 50 mg TID ORAL 11/02/16 09:00 12/01/16 08:59 11/04/16 10:15 Iron Sucrose 100 mg/Sodium Chloride 60 ml @ 240 mls/hr BEDTIME IVPB 11/01/16 21:00 11/05/16 21:01 11/01/16 21:11 Lorazepam (Ativan 2mg/ml 1ml) 2 mg EVERY 2 HOURS PRN IV For Anxiety 11/01/16 20:00 11/07/16 18:44 Morphine Sulfate (Morphine Sulfate) 4 mg EVERY 4 HOURS PRN IVP Severe Pain (Pain Scale 7-10) 11/01/16 21:00 11/07/16 18:44 Ondansetron HCl (Zofran) 4 mg Q6H PRN IVP Nausea & Vomiting 11/01/16 18:45 11/30/16 18:44 Polyethylene Glycol (Miralax) 17 gm DAILYPRN PRN ORAL Constipation 11/01/16 18:45 11/30/16 18:44 Prednisolone Acetate (Pred Forte) 1 drop DAILY BOTH EYES 11/02/16 09:00 12/01/16 08:59 11/04/16 10:15 Promethazine HCl/ Codeine (Phenergan with Codeine) 5 ml Q6H PRN ORAL For Cough 11/01/16 20:30 12/01/16 08:29 Sodium Chloride 1,000 ml @ 50 mls/hr Q20H IV 11/03/16 15:30 12/03/16 15:29 11/03/16 16:10 Terazosin HCl (Hytrin) 2 mg BEDTIME ORAL 11/01/16 21:00 11/30/16 20:59 11/03/16 20:58 Allergies: Coded Allergies: No Known Allergies (Unverified , 10/22/11) ROS Limited/Unobtainable: Yes Subjective 51 YO M admitted with cough, fever and chills. Now Pneumonia. Cover for Int Med -Dr Dumont Objective Last Vital Signs Date Time Temp Pulse Resp B/P (MAP) Pulse Ox O2 Delivery O2 Flow Rate FiO2 11/04/16 09:00 100 111/57 11/04/16 08:33 97.6 21 93 Nasal Cannula 3.0 11/04/16 07:53 28 Laboratory Tests Test 11/04/16 06:50 White Blood Count 5.9 K/UL (4.8-10.8) Red Blood Count 3.75 M/UL (4.70-6.10) L Hemoglobin 8.8 G/DL (14.2-18.0) L Hematocrit 29.9 % (42.0-52.0) L Mean Corpuscular Volume 80 FL (80-99) Mean Corpuscular Hemoglobin 23.5 PG (27.0-31.0) L Mean Corpuscular Hemoglobin Concent 29.5 G/DL (32.0-36.0) L Red Cell Distribution Width 21.2 % (11.6-14.8) H Platelet Count 92 K/UL (150-450) L Mean Platelet Volume 9.4 FL (6.5-10.1) Neutrophils (%) (Auto) % (45.0-75.0) Lymphocytes (%) (Auto) % (20.0-45.0) Monocytes (%) (Auto) % (1.0-10.0) Eosinophils (%) (Auto) % (0.0-3.0) Basophils (%) (Auto) % (0.0-2.0) Differential Total Cells Counted 100 Neutrophils % (Manual) 89 % (45-75) H Lymphocytes % (Manual) 6 % (20-45) L Monocytes % (Manual) 5 % (1-10) Eosinophils % (Manual) 0 % (0-3) Basophils % (Manual) 0 % (0-2) Band Neutrophils 0 % (0-8) Nucleated Red Blood Cells 1 /100 WBC Platelet Estimate Decreased L Platelet Morphology Normal Hypochromasia 3+ Anisocytosis 3+ Microcytosis 1+ Macrocytosis 1+ Sodium Level 140 mEQ/L (135-145) Potassium Level 3.6 mEQ/L (3.4-4.9) Chloride Level 107 mEQ/L (98-107) Carbon Dioxide Level 21 mEQ/L (20-30) Anion Gap 12 (5-15) Blood Urea Nitrogen 30 mg/dL (7-23) H Creatinine 0.6 mg/dL (0.7-1.2) L Estimat Glomerular Filtration Rate > 60 mL/min (>60) Glucose Level 105 mg/dL (74-106) Calcium Level 8.1 mg/dL (8.6-10.2) L Microbiology Date/Time Source Procedure Growth Status 11/02/16 23:45 Blood Blood Culture - Preliminary NO GROWTH AFTER 24 HOURS Resulted 11/02/16 23:40 Blood Blood Culture - Preliminary NO GROWTH AFTER 24 HOURS Resulted 11/01/16 20:00 Nasopharynx Influenza Types A,B Antigen (TINO) - Final Complete Intake and Output 11/04/16 11/05/16 19:00 07:00 # Bowel Movements 1 Objective General Appearance: WD/WN, no apparent distress, alert EENT: PERRL/EOMI, normal ENT inspection Neck: non-tender, muscle spasm, stiff neck, other - contractrre Cardiovascular: normal peripheral pulses, normal rate, regular rhythm, no gallop/murmur, no JVD Respiratory/Chest: chest wall non-tender, respiratory distress, crackles/rales , rhonchi - bilaterally, expiratory wheezing Abdomen: normal bowel sounds, non tender, soft, no organomegaly, no mass Extremities: normal range of motion Neurologic: other - contractures Skin: normal pigmentation, warm/dry Assessment/Plan Problem List: (1) Depression (2) Flexion contractures Assessment & Plan: Await physical therapy (3) Anemia Assessment & Plan: Iron def anemia. Continue IV iron (4) Ankylosing spondylitis (5) HTN (hypertension) Assessment & Plan: Continue amlodipine (6) Osteoporosis (7) Kyphosis (8) Cervical spondylitis (9) Pneumonia Assessment & Plan: See pulmonary note. Continue Cefepime per pulm (10) SOB (shortness of breath) (11) Ascites Assessment & Plan: Await paracentesis. see GI note. Status: progressing MIKI EASTON Nov 04, 2016 11:43
--- NOTE | 2016-11-04 11:50 | Infectious Diseases Prog Note ---
Assessment/Plan Assessment/Plan ASSESSMENT: 1. CoNS bacteremia in 1/4 sets, likely contaminant, 1/4, afebrile 2. Possible urinary tract infection. Urine culture : Neg 3. Possible bronchitis with complaints of productive cough. Chest x-ray has limited exam with no definite acute process. -Influenza neg 4. Elevated liver function tests, rule out hepatobiliary disease vs cholecystitis - CT of ABD : Heterogeneous appearance of the liver may suggest hepatocellular disease or hepatic congestion. Moderate ascites. -Abd u/s: Slightly increased hepatic echogenicity. Hepatomegaly. Trace ascites. Gallbladder sludge. No stones. Markedly thickened gallbladder wall is likely reactive, related to adjacent hepatocellular inflammation, given stated clinical history. It could also be due to the hemodynamic derangements caused by the liver disease. Also probably exaggerated due to nondistention of the gallbladder. The possibility of acalculous acute cholecystitis or cholecystitis secondary to occult cholelithiasis not completely excludable, however. Consider hepatobiliary nuclearscanning if there is high clinical suspicion Negative for dilated ducts. s 5. Mid thoracic unstageable pressure ulcer. 6. Lactic acidosis. 7. Afebrile without leukocytosis. 8. HIV: Neg 9. Thrombocytopenia. 10. Coagulopathy. 11. Ankylosing spondylosis/kyphosis/cervical spondylosis with chronic contractures. 12. Tobacco abuse. 13. Urine toxicology positive for marijuana. 14. No known drug allergies. 15. Full Code. PLAN: -Continue empiric IV cefepime day # 4 / 5 -june d/c if LAC is Nl ( 09/01 SP IV Vancomycin d# 2 ) -f/u hepatitis panel; -F/u LFTs, LAC - Follow up cultures. -. Monitor CBC and temperatures. -. Monitor CMP -. Monitor chest x-ray. -. Wound care. -. Tobacco cessation. Subjective Constitutional: Denies: no symptoms, fever, chills, fatigue, anorexia, drenching sweats, other Allergies: Coded Allergies: No Known Allergies (Unverified , 10/22/11) Objective Vital Signs Last 24 Hour Vital Signs Date Time Temp Pulse Resp B/P (MAP) Pulse Ox O2 Delivery O2 Flow Rate FiO2 11/04/16 11:45 97.9 103 21 134/62 95 Nasal Cannula 3.0 11/04/16 09:00 100 111/57 11/04/16 08:33 97.6 100 21 111/57 93 Nasal Cannula 3.0 11/04/16 07:53 95 Nasal Cannula 2.0 11/04/16 07:53 102 18 Nasal Cannula 2.0 11/04/16 07:53 Nasal Cannula 2.0 28 11/04/16 06:00 97.5 99 22 117/61 98 Nasal Cannula 3.0 11/04/16 04:00 97.5 99 20 117/61 97 Nasal Cannula 3.0 11/04/16 00:00 97.7 68 22 123/73 97 Nasal Cannula 3.0 11/03/16 20:00 97.7 98 20 120/61 94 Nasal Cannula 3.0 11/03/16 19:10 99 Nasal Cannula 2.0 11/03/16 19:10 Nasal Cannula 2.0 28 11/03/16 19:10 89 18 Nasal Cannula 2.0 11/03/16 16:00 97.3 108 17 132/78 96 Room Air 11/03/16 12:00 97.2 99 16 132/78 97 Room Air Height (Feet): 5 Height (Inches): 6.00 Weight (Pounds): 130 HEENT: anicteric Respiratory/Chest: lungs clear Cardiovascular: regular rhythm Abdomen: no organomegaly Microbiology Date/Time Source Procedure Growth Status 11/02/16 23:45 Blood Blood Culture - Preliminary NO GROWTH AFTER 24 HOURS Resulted 11/02/16 23:40 Blood Blood Culture - Preliminary NO GROWTH AFTER 24 HOURS Resulted 11/01/16 20:00 Nasopharynx Influenza Types A,B Antigen (TINO) - Final Complete Laboratory Tests Test 11/04/16 06:50 White Blood Count 5.9 K/UL (4.8-10.8) Red Blood Count 3.75 M/UL (4.70-6.10) L Hemoglobin 8.8 G/DL (14.2-18.0) L Hematocrit 29.9 % (42.0-52.0) L Mean Corpuscular Volume 80 FL (80-99) Mean Corpuscular Hemoglobin 23.5 PG (27.0-31.0) L Mean Corpuscular Hemoglobin Concent 29.5 G/DL (32.0-36.0) L Red Cell Distribution Width 21.2 % (11.6-14.8) H Platelet Count 92 K/UL (150-450) L Mean Platelet Volume 9.4 FL (6.5-10.1) Neutrophils (%) (Auto) % (45.0-75.0) Lymphocytes (%) (Auto) % (20.0-45.0) Monocytes (%) (Auto) % (1.0-10.0) Eosinophils (%) (Auto) % (0.0-3.0) Basophils (%) (Auto) % (0.0-2.0) Differential Total Cells Counted 100 Neutrophils % (Manual) 89 % (45-75) H Lymphocytes % (Manual) 6 % (20-45) L Monocytes % (Manual) 5 % (1-10) Eosinophils % (Manual) 0 % (0-3) Basophils % (Manual) 0 % (0-2) Band Neutrophils 0 % (0-8) Nucleated Red Blood Cells 1 /100 WBC Platelet Estimate Decreased L Platelet Morphology Normal Hypochromasia 3+ Anisocytosis 3+ Microcytosis 1+ Macrocytosis 1+ Sodium Level 140 mEQ/L (135-145) Potassium Level 3.6 mEQ/L (3.4-4.9) Chloride Level 107 mEQ/L (98-107) Carbon Dioxide Level 21 mEQ/L (20-30) Anion Gap 12 (5-15) Blood Urea Nitrogen 30 mg/dL (7-23) H Creatinine 0.6 mg/dL (0.7-1.2) L Estimat Glomerular Filtration Rate > 60 mL/min (>60) Glucose Level 105 mg/dL (74-106) Calcium Level 8.1 mg/dL (8.6-10.2) L Current Medications Medications (Trade) Dose Ordered Sig/Dina Route PRN Reason Start Time Stop Time Status Last Admin Dose Admin Acetaminophen (Tylenol) 650 mg Q4H PRN ORAL FEVER 11/01/16 18:45 11/30/16 18:44 Acetaminophen/ Hydrocodone Bitart ([place] 5/325) 1 tab Q6H PRN ORAL FOR MODERATE PAIN 11/01/16 18:45 11/07/16 18:44 11/03/16 11:16 Albuterol/ Ipratropium (DuoNeb 0.5-3(2.5)mg/3ml) 3 ml EVERY 4 HOURS PRN HHN Shortness of Breath 11/01/16 21:00 11/05/16 18:44 Amlodipine Besylate (Norvasc) 5 mg DAILY ORAL 11/02/16 09:00 12/01/16 08:59 11/03/16 08:45 Cefepime HCl 2 gm/ Dextrose 110 ml @ 220 mls/hr EVERY 12 HOURS IV 11/01/16 21:00 11/07/16 20:59 11/04/16 10:16 Dextrose (Dextrose 50%) STAT PRN IV Hypoglycemia 11/01/16 18:45 11/30/16 18:44 Furosemide (Lasix) 20 mg DAILY IV 11/03/16 16:00 12/03/16 15:59 11/03/16 16:10 Heparin Sodium (Porcine) (Heparin 5000 units/ml) 5,000 units EVERY 12 HOURS SUBQ 11/01/16 21:00 11/30/16 20:59 Indomethacin (Indocin) 50 mg TID ORAL 11/02/16 09:00 12/01/16 08:59 11/04/16 10:15 Iron Sucrose 100 mg/Sodium Chloride 60 ml @ 240 mls/hr BEDTIME IVPB 11/01/16 21:00 11/05/16 21:01 11/01/16 21:11 Lorazepam (Ativan 2mg/ml 1ml) 2 mg EVERY 2 HOURS PRN IV For Anxiety 11/01/16 20:00 11/07/16 18:44 Morphine Sulfate (Morphine Sulfate) 4 mg EVERY 4 HOURS PRN IVP Severe Pain (Pain Scale 7-10) 11/01/16 21:00 11/07/16 18:44 Ondansetron HCl (Zofran) 4 mg Q6H PRN IVP Nausea & Vomiting 11/01/16 18:45 11/30/16 18:44 Polyethylene Glycol (Miralax) 17 gm DAILYPRN PRN ORAL Constipation 11/01/16 18:45 11/30/16 18:44 Potassium Chloride (K-Dur) 20 meq DAILY ORAL 11/04/16 12:00 12/04/16 11:59 Prednisolone Acetate (Pred Forte) 1 drop DAILY BOTH EYES 11/02/16 09:00 12/01/16 08:59 11/04/16 10:15 Promethazine HCl/ Codeine (Phenergan with Codeine) 5 ml Q6H PRN ORAL For Cough 11/01/16 20:30 12/01/16 08:29 Sodium Chloride 1,000 ml @ 50 mls/hr Q20H IV 11/03/16 15:30 12/03/16 15:29 11/03/16 16:10 Terazosin HCl (Hytrin) 2 mg BEDTIME ORAL 11/01/16 21:00 11/30/16 20:59 11/03/16 20:58 MOISES CASILLAS M.D. Nov 04, 2016 11:50
--- NOTE | 2016-11-04 14:29 | Diagnostic Imaging Report ---
Indications: Ascites Technique: Ultrasound used to localize optimal puncture site. Sterile prepping and draping right lower quadrant. Local anesthesia with 1% lidocaine. Under real-time ultrasound guidance, puncture peritoneal space using paracentesis needle. Stylet removed. Catheter placed to vacuum bottle suction. Total 800 milliliters of cloudy giovany fluid aspirated. Patient tolerated procedure well, without immediate complication. Findings: Followup sonography demonstrates complete resolution of peritoneal fluid. Impression: Successful ultrasound-guided paracentesis, yielding 800 milliliters of cloudy giovany fluid
--- NOTE | 2016-11-04 15:24 | Pulmonolgy Critical Care Note ---
Critical Care - Asmt/Plan Problems: (1) Acute respiratory failure (2) Severe anemia (3) Anemia (4) Ankylosing spondylitis (5) Ascites Respiratory: monitor respiratory rate, adjust FIO2, CXR Cardiac: continue to monitor HR/BP Renal: F/U I&O, check electrolytes Infectious Disease: check cultures, continue antibiotics Gastrointestinal: continue feedings/current rate Endocrine: check TSH Hematologic: monitor H/H Neurologic: PRN Morphine Affect: PRN ativan Prophylaxis: Heparin Notes Reviewed: patient coordinator, renal Discussed with: nurses, consultants, housing case managermanager net - Objective Last 24 Hour Vital Signs Date Time Temp Pulse Resp B/P (MAP) Pulse Ox O2 Delivery O2 Flow Rate FiO2 11/04/16 11:45 97.9 103 21 134/62 95 Nasal Cannula 3.0 11/04/16 09:00 100 111/57 11/04/16 08:33 97.6 100 21 111/57 93 Nasal Cannula 3.0 11/04/16 07:53 95 Nasal Cannula 2.0 11/04/16 07:53 102 18 Nasal Cannula 2.0 11/04/16 07:53 Nasal Cannula 2.0 28 11/04/16 06:00 97.5 99 22 117/61 98 Nasal Cannula 3.0 11/04/16 04:00 97.5 99 20 117/61 97 Nasal Cannula 3.0 11/04/16 00:00 97.7 68 22 123/73 97 Nasal Cannula 3.0 11/03/16 20:00 97.7 98 20 120/61 94 Nasal Cannula 3.0 11/03/16 19:10 99 Nasal Cannula 2.0 11/03/16 19:10 Nasal Cannula 2.0 28 11/03/16 19:10 89 18 Nasal Cannula 2.0 11/03/16 16:00 97.3 108 17 132/78 96 Room Air Status: obtunded Condition: critical HEENT: atraumatic Neck: full ROM Lungs: clear Heart: HR/BP unstable Abdomen: soft, active bowel sounds Extremities: edema Micro: Microbiology Date/Time Source Procedure Growth Status 11/02/16 23:45 Blood Blood Culture - Preliminary NO GROWTH AFTER 24 HOURS Resulted 11/02/16 23:40 Blood Blood Culture - Preliminary NO GROWTH AFTER 24 HOURS Resulted 11/01/16 20:00 Nasopharynx Influenza Types A,B Antigen (TINO) - Final Complete Critical Care - Subjective ROS Limited/Unobtainable: Yes ICU Day: 1 Interval Events: pt became unresponsive, hypotensive and desaturated. FI02: 28 Sputum Amount: None Fluids: NS 50 cc/hour I&O: Intake and Output 11/04/16 11/05/16 19:00 07:00 Intake Total 285 ml Balance 285 ml IV Total 285 ml # Bowel Movements 1 CXR: difficult to interpret ESTEFANY MITCHELL Nov 04, 2016 15:24
--- NOTE | 2016-11-04 15:38 | Diagnostic Imaging Report ---
Indication: DYSPNEA Technique: One view of the chest Comparison: 11/02/2014 Findings: Patient's head obscures much of the upper mediastinum and bilateral lung apices. Again demonstrated are extensive bilateral infiltrates versus edema. There appears to be increasing pleural fluid on the right. There is probably increasing dense consolidation of the right lower lobe. Again demonstrated is distention of the stomach with gas. The heart is enlarged. Right shoulder prosthesis is again demonstrated Impression: Bilateral infiltrates versus edema, probably increased on the right. Right-sided pleural effusion Cardiomegaly
[2016-11-04 15:40] LABS: ABG ALLEN TEST POSITIVE; ABG BASE EXCESS -13.7
[2016-11-04] MEDS ORDERED: NS 275ml ONE (16:49)
[2016-11-04 20:24] LABS: APPEARANCE, BODY FLUID HAZY; BD FL SOURCE PARACENTESIS; BD FL VOLUME 24 mL; BODY FLUID NUCLEATED CELLS 19 /CUMM; BODY FLUID RBC 4320 /CUMM; MONONUCLEAR WBC 89 %; POLYMORPHONUCLEAR WBC 4 %
[2016-11-04] MEDS: Iron Sucrose 100 MG in NS 55 ML IVPB SCH (20:41)
[2016-11-04] MEDS: Terazosin 1mg cap ORAL SCH (20:41)
[2016-11-05] VITALS (24 sets, daily range): BP systolic 87–109; BP diastolic 44–63
[2016-11-05 04:54] LABS: MEAN CORPUSCULAR HEMOGLOBIN 23.7 PG (27.0-31.0); MEAN CORPUSCULAR HGB CONC 29.4 G/DL (32.0-36.0); MEAN CORPUSCULAR VOLUME 80 FL (80-99); MEAN PLATELET VOLUME 7.2 FL (6.5-10.1); PLATELET COUNT 85 K/UL (150-450); RED BLOOD COUNT 3.96 M/UL (4.70-6.10); RED CELL DISTRIBUTION WIDTH 22.4 % (11.6-14.8); WHITE BLOOD COUNT 7.1 K/UL (4.8-10.8)
[2016-11-05 05:07] LABS: INR 1.3 (0.9-1.1); PROTHROMBIN TIME 14.1 SEC (9.30-11.50)
[2016-11-05 05:24] LABS: MAGNESIUM 1.5 mg/dL (1.7-2.5); PHOSPHORUS 1.7 mg/dL (2.5-4.8)
[2016-11-05 05:26] LABS: ALANINE AMINOTRANSFERASE 180 U/L (3-41); ALBUMIN/GLOBULIN RATIO 0.8 (1.0-2.7); ANION GAP 10 (5-15); ASPARTATE AMINO TRANSFERASE 92 U/L (5-40); CALCIUM 8.3 mg/dL (8.6-10.2); CARBON DIOXIDE 21 mEQ/L (20-30); CHLORIDE 113 mEQ/L (98-107); CREATININE 0.7 mg/dL (0.7-1.2); GLOMERULAR FILTRATION RATE > 60 mL/min (>60); HEMOLYSIS 2; POTASSIUM 3.7 mEQ/L (3.4-4.9); SODIUM 144 mEQ/L (135-145); TOTAL PROTEIN 6.5 g/dL (6.6-8.7)
[2016-11-05 08:30] LABS: ABG ALLEN TEST POSITIVE; ABG BASE EXCESS -5.3
[2016-11-05 08:45] LABS: BAND NEUTROPHILS % (MANUAL) 11 % (0-8); BASOPHILS % (MANUAL) 0 % (0-2); EOSINOPHILS % (MANUAL) 0 % (0-3); LYMPHOCYTES % (MANUAL) 6 % (20-45); NEUTROPHILS % (MANUAL) 79 % (45-75); NUCLEATED RED BLOOD CELLS 3 /100 WBC; PLATELET ESTIMATE DECREASED; PLATELET MORPHOLOGY NORMAL; TOTAL CELLS COUNTED 100
[2016-11-05 08:46] LABS: ANISOCYTOSIS 3+; HYPOCHROMASIA 3+
[2016-11-05 08:47] LABS: MACROCYTES 1+; MICROCYTES 1+
[2016-11-05] MEDS: Heparin 5000 units/ml inj SUBQ SCH ×2 (09:00→21:00)
[2016-11-05] MEDS: Indomethacin 25mg cap ORAL SCH ×3 (09:00→17:30)
[2016-11-05] MEDS: Cefepime HCl 2 GM in D5W 110 ML IV SCH ×2 (09:26→21:18)
[2016-11-05] MEDS: Pred Forte 1% Opth Susp 1ml BOTH EYES SCH (09:26)
--- NOTE | 2016-11-05 10:28 | Pulmonolgy Critical Care Note ---
Critical Care - Asmt/Plan Problems: (1) Acute respiratory failure (2) Severe anemia (3) Anemia (4) Ankylosing spondylitis (5) Ascites Respiratory: monitor respiratory rate, adjust FIO2, CXR Cardiac: continue to monitor HR/BP Renal: F/U I&O, check electrolytes Infectious Disease: check cultures Gastrointestinal: hold feedings Endocrine: monitor blood sugar Hematologic: monitor H/H, transfuse if hgb<8.5 Neurologic: PRN Ativan Affect: PRN ativan Prophylaxis: Protonix Notes Reviewed: renal Discussed with: nurses, consultants, casey saw operatorict development manager - Objective Last 24 Hour Vital Signs Date Time Temp Pulse Resp B/P (MAP) Pulse Ox O2 Delivery O2 Flow Rate FiO2 11/05/16 09:25 100 32 99 Facial 60 11/05/16 09:00 109 98/50 11/05/16 08:00 109 11/05/16 08:00 98.6 108 28 98/50 98 Bi-pap 80 11/05/16 07:06 102 30 98 Facial 80 11/05/16 07:00 102 27 99/52 98 Bi-pap 80.0 11/05/16 06:00 102 32 103/52 97 Bi-pap 80.0 11/05/16 06:00 80 11/05/16 05:00 105 33 98/53 97 Bi-pap 70.0 11/05/16 04:49 105 34 99 Facial 80 11/05/16 04:49 80 11/05/16 04:00 97.8 107 33 95/50 98 Bi-pap 70.0 11/05/16 04:00 110 11/05/16 03:39 100 11/05/16 03:19 97 35 92 Facial 70 11/05/16 03:18 70 11/05/16 03:00 70 11/05/16 03:00 97 23 105/63 90 Bi-pap 70.0 11/05/16 02:00 98 30 109/55 94 Bi-pap 60.0 11/05/16 01:27 97 28 97 Facial 60 11/05/16 01:27 60 11/05/16 01:00 94 24 98/51 96 Bi-pap 60.0 11/05/16 01:00 60 11/05/16 00:00 50 11/05/16 00:00 97.7 94 22 105/56 94 Bi-pap 50.0 11/05/16 00:00 100 11/04/16 23:24 95 45 94 Facial 50 11/04/16 23:00 97 21 106/52 95 Bi-pap 50.0 11/04/16 22:00 93 24 105/54 97 Bi-pap 50.0 11/04/16 21:08 93 21 100 Facial 50 11/04/16 21:00 50 11/04/16 21:00 90 24 105/54 100 Bi-pap 50.0 11/04/16 20:00 97.5 92 23 104/52 100 Bi-pap 60.0 11/04/16 20:00 92 11/04/16 20:00 60 11/04/16 19:30 91 20 100 Facial 60 11/04/16 18:00 91 21 104/60 100 Bi-pap 60.0 11/04/16 17:00 93 23 103/58 100 Bi-pap 60.0 11/04/16 16:56 96 23 100 Facial 60 11/04/16 16:17 99 23 95 Facial 60 11/04/16 16:00 97.4 98 24 91/49 97 Bi-pap 60.0 11/04/16 11:45 97.9 103 21 134/62 95 Nasal Cannula 3.0 Status: awake Condition: critical HEENT: atraumatic, normocephalic Lungs: rales, rhonchi Heart: HR/BP stable Abdomen: soft, non-tender Extremities: no C/C/E Decubiti: location, stage Micro: Microbiology Date/Time Source Procedure Growth Status 11/02/16 23:45 Blood Blood Culture - Preliminary NO GROWTH AFTER 48 HOURS Resulted 11/02/16 23:40 Blood Blood Culture - Preliminary NO GROWTH AFTER 48 HOURS Resulted Critical Care - Subjective ROS Limited/Unobtainable: Yes ICU Day: 2 Interval Events: on BIPAP EKG Rhythm: Sinus Rhythm FI02: 60 Sputum Amount: None Fluids: KVO I&O: Intake and Output 11/05/16 11/06/16 19:00 07:00 Intake Total 0 ml Output Total 50 ml Balance -50 ml Intake Oral 0 ml Output Urine Total 50 ml CXR: difficult to assess. probably increasing infiltrate. Labs: Laboratory Tests Test 11/04/16 13:40 11/04/16 14:55 11/04/16 15:14 11/05/16 03:55 Lactic Acid Level 0.90 mmol/L (0.66-2.22) Body Fluid Source Paracentesis Body Fluid Volume 24 mL Body Fluid Appearance Hazy Body Fluid RBC 4320 /CUMM Body Fluid Total Nucleated Cells 19 /CUMM Body Fluid Polynuclear WBCs (%) 4 % Body Fluid Mononuclear WBCs (%) 89 % Body Fluid Mesothelial Cells (%) 7 % Body Fluid Albumin Pending Arterial Blood pH 6.801 (7.350-7.450) Arterial Blood Partial Pressure CO2 146.0 mmHg (35.0-45.0) *H Arterial Blood Partial Pressure O2 120.0 mmHg (75.0-100.0) H Arterial Blood HCO3 22.3 mmol/L (22.0-26.0) Arterial Blood Oxygen Saturation 96.1 % (92.0-98.0) Arterial Blood Base Excess -13.7 Anson Test Positive White Blood Count 7.1 K/UL (4.8-10.8) Red Blood Count 3.96 M/UL (4.70-6.10) L Hemoglobin 9.4 G/DL (14.2-18.0) L Hematocrit 31.9 % (42.0-52.0) L Mean Corpuscular Volume 80 FL (80-99) Mean Corpuscular Hemoglobin 23.7 PG (27.0-31.0) L Mean Corpuscular Hemoglobin Concent 29.4 G/DL (32.0-36.0) L Red Cell Distribution Width 22.4 % (11.6-14.8) H Platelet Count 85 K/UL (150-450) L Mean Platelet Volume 7.2 FL (6.5-10.1) Neutrophils (%) (Auto) % (45.0-75.0) Lymphocytes (%) (Auto) % (20.0-45.0) Monocytes (%) (Auto) % (1.0-10.0) Eosinophils (%) (Auto) % (0.0-3.0) Basophils (%) (Auto) % (0.0-2.0) Differential Total Cells Counted 100 Neutrophils % (Manual) 79 % (45-75) H Lymphocytes % (Manual) 6 % (20-45) L Monocytes % (Manual) 4 % (1-10) Eosinophils % (Manual) 0 % (0-3) Basophils % (Manual) 0 % (0-2) Band Neutrophils 11 % (0-8) H Nucleated Red Blood Cells 3 /100 WBC Platelet Estimate Decreased L Platelet Morphology Normal Hypochromasia 3+ Anisocytosis 3+ Microcytosis 1+ Macrocytosis 1+ Prothrombin Time 14.1 SEC (9.30-11.50) H Prothromb Time International Ratio 1.3 (0.9-1.1) H Activated Partial Thromboplast Time 34 SEC (23-33) H Sodium Level 144 mEQ/L (135-145) Potassium Level 3.7 mEQ/L (3.4-4.9) Chloride Level 113 mEQ/L (98-107) H Carbon Dioxide Level 21 mEQ/L (20-30) Anion Gap 10 (5-15) Blood Urea Nitrogen 29 mg/dL (7-23) H Creatinine 0.7 mg/dL (0.7-1.2) Estimat Glomerular Filtration Rate > 60 mL/min (>60) Glucose Level 72 mg/dL (74-106) L Calcium Level 8.3 mg/dL (8.6-10.2) L Phosphorus Level 1.7 mg/dL (2.5-4.8) L Magnesium Level 1.5 mg/dL (1.7-2.5) L Total Bilirubin 0.9 mg/dL (0.0-1.2) Aspartate Amino Transf (AST/SGOT) 92 U/L (5-40) H Alanine Aminotransferase (ALT/SGPT) 180 U/L (3-41) H Alkaline Phosphatase 54 U/L (40-129) Total Protein 6.5 g/dL (6.6-8.7) L Albumin 3.0 g/dL (3.5-5.2) L Globulin 3.5 g/dL Albumin/Globulin Ratio 0.8 (1.0-2.7) L Test 11/05/16 08:00 Arterial Blood pH 7.270 (7.350-7.450) Arterial Blood Partial Pressure CO2 47.0 mmHg (35.0-45.0) H Arterial Blood Partial Pressure O2 132.6 mmHg (75.0-100.0) H Arterial Blood HCO3 21.1 mmol/L (22.0-26.0) L Arterial Blood Oxygen Saturation 98.5 % (92.0-98.0) H Arterial Blood Base Excess -5.3 Anson Test Positive ESTEFANY MITCHELL Nov 05, 2016 10:28
[2016-11-05] MEDS ORDERED: Sodium Phosphate 30 MM in NS 275 ML IV ONE (11:30)
[2016-11-05] MEDS: D5 1/2NS 1,000 ML IV SCH (11:32)
--- NOTE | 2016-11-05 12:04 | Diagnostic Imaging Report ---
Indication: Dyspnea Comparison: 11/04/16 A single view chest radiograph was obtained. Findings: Study is nearly nondiagnostic because of overlying tubing, the patient's head which obscures the upper lung field. Heart is enlarged. There are bilateral infiltrates versus pulmonary edema insofar as I can tell and appears unchanged from the previous day. Impression: Very limited exam. Suspect pulmonary edema or bilateral infiltrates.
--- NOTE | 2016-11-05 13:57 | Diagnostic Imaging Report ---
Indication: Abdominal pain Comparison: None Single view of the abdomen obtained There is marked erosion of the left pubis. Much of the acetabulum appears eroded. There is an abnormal left revised total hip arthroplasty demonstrated. Right total hip replacement also noted appearing similarly on the CT 11/03/16. Contrast demonstrated in the colon. There is an NG tube which is in the esophagus and should be advanced further. Impression: No acute findings in the abdomen appreciated.
--- NOTE | 2016-11-05 14:56 | GI Progress Note ---
Assessment/Plan Problems: (1) Hepatocellular damage ICD Codes: K76.9 - Liver disease, unspecified SNOMED: 916564523 (2) Ascites ICD Codes: R18.8 - Other ascites SNOMED: 738315378 (3) Transaminitis ICD Codes: R74.0 - Nonspecific elevation of levels of transaminase and lactic acid dehydrogenase [LDH] SNOMED: 639221331 (4) Hypoalbuminemia ICD Codes: E88.09 - Other disorders of plasma-protein metabolism, not elsewhere classified SNOMED: 284170681 (5) LFTs abnormal ICD Codes: R79.89 - Other specified abnormal findings of blood chemistry SNOMED: 678990647 (6) Anemia ICD Codes: D64.9 - Anemia, unspecified SNOMED: 330533113 Qualifiers: (7) Acute hepatitis ICD Codes: B17.9 - Acute viral hepatitis, unspecified SNOMED: 98242740 Status: not improved Status Narrative Discussed with Dr. De La Garza. Assessment/Plan - Anemia with OB (-) x 1 - Iron deficiency - Elevated CEA - Ascites, transaminitis - suspect due to (R) heart failure - CM, severe , AI - CHF s/p paracentesis r/o SBP >> 800mm yield - f/u hepatitis serologies >> negative Recommendations - EGD deferred >> unstable, BI DEVELOPER yesterday, now in ICU. - cardiology evaluation >> unremarkable - check CPK - pulmonary care - fu labs Subjective Subjective limited Objective Last 24 Hour Vital Signs Date Time Temp Pulse Resp B/P (MAP) Pulse Ox O2 Delivery O2 Flow Rate FiO2 11/05/16 14:00 99 28 91/48 98 Bi-pap 60 11/05/16 13:30 55 11/05/16 13:23 100 28 98 Facial 55 11/05/16 13:00 99 27 102/52 98 Bi-pap 60 11/05/16 12:00 60 11/05/16 12:00 98.5 108 27 91/44 100 Bi-pap 60 11/05/16 12:00 102 11/05/16 11:26 107 32 97 Facial 60 11/05/16 11:00 108 27 87/50 98 Bi-pap 60 11/05/16 10:00 112 27 95/48 98 Bi-pap 60 11/05/16 09:30 60 11/05/16 09:25 100 32 99 Facial 60 11/05/16 09:00 114 27 99/54 98 Bi-pap 80 11/05/16 09:00 109 98/50 11/05/16 08:00 109 11/05/16 08:00 98.6 108 28 98/50 98 Bi-pap 80 11/05/16 08:00 80 11/05/16 07:06 102 30 98 Facial 80 11/05/16 07:00 102 27 99/52 98 Bi-pap 80.0 11/05/16 06:00 102 32 103/52 97 Bi-pap 80.0 11/05/16 06:00 80 11/05/16 05:00 105 33 98/53 97 Bi-pap 70.0 11/05/16 04:49 105 34 99 Facial 80 11/05/16 04:49 80 11/05/16 04:00 97.8 107 33 95/50 98 Bi-pap 70.0 11/05/16 04:00 110 11/05/16 03:39 100 11/05/16 03:19 97 35 92 Facial 70 11/05/16 03:18 70 11/05/16 03:00 70 11/05/16 03:00 97 23 105/63 90 Bi-pap 70.0 11/05/16 02:00 98 30 109/55 94 Bi-pap 60.0 11/05/16 01:27 97 28 97 Facial 60 11/05/16 01:27 60 11/05/16 01:00 94 24 98/51 96 Bi-pap 60.0 11/05/16 01:00 60 11/05/16 00:00 50 11/05/16 00:00 97.7 94 22 105/56 94 Bi-pap 50.0 11/05/16 00:00 100 11/04/16 23:24 95 45 94 Facial 50 11/04/16 23:00 97 21 106/52 95 Bi-pap 50.0 11/04/16 22:00 93 24 105/54 97 Bi-pap 50.0 11/04/16 21:08 93 21 100 Facial 50 11/04/16 21:00 50 11/04/16 21:00 90 24 105/54 100 Bi-pap 50.0 11/04/16 20:00 97.5 92 23 104/52 100 Bi-pap 60.0 11/04/16 20:00 92 11/04/16 20:00 60 11/04/16 19:30 91 20 100 Facial 60 11/04/16 18:00 91 21 104/60 100 Bi-pap 60.0 11/04/16 17:00 93 23 103/58 100 Bi-pap 60.0 11/04/16 16:56 96 23 100 Facial 60 11/04/16 16:17 99 23 95 Facial 60 11/04/16 16:00 97.4 98 24 91/49 97 Bi-pap 60.0 Intake and Output 11/05/16 11/06/16 19:00 07:00 Intake Total 145.5 ml Output Total 140 ml Balance 5.5 ml Intake Oral 0 ml IV Total 145.5 ml Output Urine Total 140 ml Laboratory Tests Test 11/04/16 14:55 11/04/16 15:14 11/05/16 03:55 11/05/16 08:00 Body Fluid Source Paracentesis Body Fluid Volume 24 mL Body Fluid Appearance Hazy Body Fluid RBC 4320 /CUMM Body Fluid Total Nucleated Cells 19 /CUMM Body Fluid Polynuclear WBCs (%) 4 % Body Fluid Mononuclear WBCs (%) 89 % Body Fluid Mesothelial Cells (%) 7 % Body Fluid Albumin 1.2 g/dL (.) Arterial Blood pH 6.801 (7.350-7.450) 7.270 (7.350-7.450) Arterial Blood Partial Pressure CO2 146.0 mmHg (35.0-45.0) *H 47.0 mmHg (35.0-45.0) H Arterial Blood Partial Pressure O2 120.0 mmHg (75.0-100.0) H 132.6 mmHg (75.0-100.0) H Arterial Blood HCO3 22.3 mmol/L (22.0-26.0) 21.1 mmol/L (22.0-26.0) L Arterial Blood Oxygen Saturation 96.1 % (92.0-98.0) 98.5 % (92.0-98.0) H Arterial Blood Base Excess -13.7 -5.3 Anson Test Positive Positive White Blood Count 7.1 K/UL (4.8-10.8) Red Blood Count 3.96 M/UL (4.70-6.10) L Hemoglobin 9.4 G/DL (14.2-18.0) L Hematocrit 31.9 % (42.0-52.0) L Mean Corpuscular Volume 80 FL (80-99) Mean Corpuscular Hemoglobin 23.7 PG (27.0-31.0) L Mean Corpuscular Hemoglobin Concent 29.4 G/DL (32.0-36.0) L Red Cell Distribution Width 22.4 % (11.6-14.8) H Platelet Count 85 K/UL (150-450) L Mean Platelet Volume 7.2 FL (6.5-10.1) Neutrophils (%) (Auto) % (45.0-75.0) Lymphocytes (%) (Auto) % (20.0-45.0) Monocytes (%) (Auto) % (1.0-10.0) Eosinophils (%) (Auto) % (0.0-3.0) Basophils (%) (Auto) % (0.0-2.0) Differential Total Cells Counted 100 Neutrophils % (Manual) 79 % (45-75) H Lymphocytes % (Manual) 6 % (20-45) L Monocytes % (Manual) 4 % (1-10) Eosinophils % (Manual) 0 % (0-3) Basophils % (Manual) 0 % (0-2) Band Neutrophils 11 % (0-8) H Nucleated Red Blood Cells 3 /100 WBC Platelet Estimate Decreased L Platelet Morphology Normal Hypochromasia 3+ Anisocytosis 3+ Microcytosis 1+ Macrocytosis 1+ Prothrombin Time 14.1 SEC (9.30-11.50) H Prothromb Time International Ratio 1.3 (0.9-1.1) H Activated Partial Thromboplast Time 34 SEC (23-33) H Sodium Level 144 mEQ/L (135-145) Potassium Level 3.7 mEQ/L (3.4-4.9) Chloride Level 113 mEQ/L (98-107) H Carbon Dioxide Level 21 mEQ/L (20-30) Anion Gap 10 (5-15) Blood Urea Nitrogen 29 mg/dL (7-23) H Creatinine 0.7 mg/dL (0.7-1.2) Estimat Glomerular Filtration Rate > 60 mL/min (>60) Glucose Level 72 mg/dL (74-106) L Calcium Level 8.3 mg/dL (8.6-10.2) L Phosphorus Level 1.7 mg/dL (2.5-4.8) L Magnesium Level 1.5 mg/dL (1.7-2.5) L Total Bilirubin 0.9 mg/dL (0.0-1.2) Aspartate Amino Transf (AST/SGOT) 92 U/L (5-40) H Alanine Aminotransferase (ALT/SGPT) 180 U/L (3-41) H Alkaline Phosphatase 54 U/L (40-129) Total Protein 6.5 g/dL (6.6-8.7) L Albumin 3.0 g/dL (3.5-5.2) L Globulin 3.5 g/dL Albumin/Globulin Ratio 0.8 (1.0-2.7) L Microbiology Date/Time Source Procedure Growth Status 11/05/16 04:00 Stool Clostridium difficile Toxin Assay - Final Complete Height (Feet): 5 Height (Inches): 6.00 Weight (Pounds): 130 General Appearance: no apparent distress Cardiovascular: normal rate Respiratory/Chest: other - bipap Abdominal Exam: normal bowel sounds, non tender, soft Tori Diana NSalud Nov 05, 2016 14:56
--- NOTE | 2016-11-05 15:20 | Internal Med Progress Note ---
Subjective Date of Service: Nov 05, 2016 Physician Name Easton,Miki Attending Physician Raheel Dumont MD Current Medications Medications (Trade) Dose Ordered Sig/Dina Route PRN Reason Start Time Stop Time Status Last Admin Dose Admin Acetaminophen (Tylenol) 650 mg Q4H PRN ORAL FEVER 11/01/16 18:45 11/30/16 18:44 Acetaminophen/ Hydrocodone Bitart ([place] 5/325) 1 tab Q6H PRN ORAL FOR MODERATE PAIN 11/01/16 18:45 11/07/16 18:44 11/03/16 11:16 Albuterol/ Ipratropium (DuoNeb 0.5-3(2.5)mg/3ml) 3 ml EVERY 4 HOURS PRN HHN Shortness of Breath 11/01/16 21:00 11/05/16 18:44 Amlodipine Besylate (Norvasc) 5 mg DAILY ORAL 11/02/16 09:00 12/01/16 08:59 11/03/16 08:45 Cefepime HCl 2 gm/ Dextrose 110 ml @ 220 mls/hr EVERY 12 HOURS IV 11/01/16 21:00 11/07/16 20:59 11/05/16 09:26 Dextrose (Dextrose 50%) STAT PRN IV Hypoglycemia 11/01/16 18:45 11/30/16 18:44 Dextrose/Sodium Chloride 1,000 ml @ 50 mls/hr Q20H IV 11/05/16 11:00 12/05/16 10:59 11/05/16 11:32 Furosemide (Lasix) 20 mg DAILY IV 11/03/16 16:00 12/03/16 15:59 11/05/16 09:26 Heparin Sodium (Porcine) (Heparin 5000 units/ml) 5,000 units EVERY 12 HOURS SUBQ 11/01/16 21:00 11/30/16 20:59 Indomethacin (Indocin) 50 mg TID ORAL 11/02/16 09:00 12/01/16 08:59 11/04/16 12:46 Iron Sucrose 100 mg/Sodium Chloride 60 ml @ 240 mls/hr BEDTIME IVPB 11/01/16 21:00 11/05/16 21:01 11/04/16 20:41 Lorazepam (Ativan 2mg/ml 1ml) 2 mg EVERY 2 HOURS PRN IV For Anxiety 11/01/16 20:00 11/07/16 18:44 11/05/16 03:22 Morphine Sulfate (Morphine Sulfate) 4 mg EVERY 4 HOURS PRN IVP Severe Pain (Pain Scale 7-10) 11/01/16 21:00 11/07/16 18:44 Ondansetron HCl (Zofran) 4 mg Q6H PRN IVP Nausea & Vomiting 11/01/16 18:45 11/30/16 18:44 Polyethylene Glycol (Miralax) 17 gm DAILYPRN PRN ORAL Constipation 11/01/16 18:45 11/30/16 18:44 Potassium Chloride (K-Dur) 20 meq DAILY ORAL 11/04/16 12:00 12/04/16 11:59 11/04/16 12:46 Prednisolone Acetate (Pred Forte) 1 drop DAILY BOTH EYES 11/02/16 09:00 12/01/16 08:59 11/05/16 09:26 Promethazine HCl/ Codeine (Phenergan with Codeine) 5 ml Q6H PRN ORAL For Cough 11/01/16 20:30 12/01/16 08:29 Sodium Phosphate 30 mm/Sodium Chloride 285 ml @ 47.5 mls/hr ONCE ONCE IV 11/05/16 11:30 11/05/16 17:29 11/05/16 11:31 Terazosin HCl (Hytrin) 2 mg BEDTIME ORAL 11/01/16 21:00 11/30/16 20:59 11/03/16 20:58 Allergies: Coded Allergies: No Known Allergies (Unverified , 10/22/11) ROS Limited/Unobtainable: Yes Subjective 51 YO M admitted with cough, fever and chills. Unresponsive last pm-transfered to ICU. Worsening respiratory failure; Now on BIPAP. Cover for Int [facility] -Dr Dumont. ICU Objective Last Vital Signs Date Time Temp Pulse Resp B/P (MAP) Pulse Ox O2 Delivery O2 Flow Rate FiO2 11/05/16 14:53 104 27 98 Facial 55 11/05/16 14:00 91/48 11/05/16 12:00 98.5 11/05/16 07:00 80.0 Laboratory Tests Test 11/04/16 15:14 11/05/16 03:55 11/05/16 08:00 Arterial Blood pH 6.801 (7.350-7.450) 7.270 (7.350-7.450) Arterial Blood Partial Pressure CO2 146.0 mmHg (35.0-45.0) *H 47.0 mmHg (35.0-45.0) H Arterial Blood Partial Pressure O2 120.0 mmHg (75.0-100.0) H 132.6 mmHg (75.0-100.0) H Arterial Blood HCO3 22.3 mmol/L (22.0-26.0) 21.1 mmol/L (22.0-26.0) L Arterial Blood Oxygen Saturation 96.1 % (92.0-98.0) 98.5 % (92.0-98.0) H Arterial Blood Base Excess -13.7 -5.3 Anson Test Positive Positive White Blood Count 7.1 K/UL (4.8-10.8) Red Blood Count 3.96 M/UL (4.70-6.10) L Hemoglobin 9.4 G/DL (14.2-18.0) L Hematocrit 31.9 % (42.0-52.0) L Mean Corpuscular Volume 80 FL (80-99) Mean Corpuscular Hemoglobin 23.7 PG (27.0-31.0) L Mean Corpuscular Hemoglobin Concent 29.4 G/DL (32.0-36.0) L Red Cell Distribution Width 22.4 % (11.6-14.8) H Platelet Count 85 K/UL (150-450) L Mean Platelet Volume 7.2 FL (6.5-10.1) Neutrophils (%) (Auto) % (45.0-75.0) Lymphocytes (%) (Auto) % (20.0-45.0) Monocytes (%) (Auto) % (1.0-10.0) Eosinophils (%) (Auto) % (0.0-3.0) Basophils (%) (Auto) % (0.0-2.0) Differential Total Cells Counted 100 Neutrophils % (Manual) 79 % (45-75) H Lymphocytes % (Manual) 6 % (20-45) L Monocytes % (Manual) 4 % (1-10) Eosinophils % (Manual) 0 % (0-3) Basophils % (Manual) 0 % (0-2) Band Neutrophils 11 % (0-8) H Nucleated Red Blood Cells 3 /100 WBC Platelet Estimate Decreased L Platelet Morphology Normal Hypochromasia 3+ Anisocytosis 3+ Microcytosis 1+ Macrocytosis 1+ Prothrombin Time 14.1 SEC (9.30-11.50) H Prothromb Time International Ratio 1.3 (0.9-1.1) H Activated Partial Thromboplast Time 34 SEC (23-33) H Sodium Level 144 mEQ/L (135-145) Potassium Level 3.7 mEQ/L (3.4-4.9) Chloride Level 113 mEQ/L (98-107) H Carbon Dioxide Level 21 mEQ/L (20-30) Anion Gap 10 (5-15) Blood Urea Nitrogen 29 mg/dL (7-23) H Creatinine 0.7 mg/dL (0.7-1.2) Estimat Glomerular Filtration Rate > 60 mL/min (>60) Glucose Level 72 mg/dL (74-106) L Calcium Level 8.3 mg/dL (8.6-10.2) L Phosphorus Level 1.7 mg/dL (2.5-4.8) L Magnesium Level 1.5 mg/dL (1.7-2.5) L Total Bilirubin 0.9 mg/dL (0.0-1.2) Aspartate Amino Transf (AST/SGOT) 92 U/L (5-40) H Alanine Aminotransferase (ALT/SGPT) 180 U/L (3-41) H Alkaline Phosphatase 54 U/L (40-129) Total Protein 6.5 g/dL (6.6-8.7) L Albumin 3.0 g/dL (3.5-5.2) L Globulin 3.5 g/dL Albumin/Globulin Ratio 0.8 (1.0-2.7) L Microbiology Date/Time Source Procedure Growth Status 11/02/16 23:45 Blood Blood Culture - Preliminary NO GROWTH AFTER 48 HOURS Resulted 11/02/16 23:40 Blood Blood Culture - Preliminary NO GROWTH AFTER 48 HOURS Resulted 11/05/16 04:00 Stool Clostridium difficile Toxin Assay - Final Complete Intake and Output 11/05/16 11/06/16 19:00 07:00 Intake Total 145.5 ml Output Total 140 ml Balance 5.5 ml Intake Oral 0 ml IV Total 145.5 ml Output Urine Total 140 ml Objective General Appearance: WD/WN, no apparent distress, alert EENT: PERRL/EOMI, normal ENT inspection Neck: non-tender, muscle spasm, stiff neck, other - contractrre Cardiovascular: normal peripheral pulses, normal rate, regular rhythm, no gallop/murmur, no JVD Respiratory/Chest: Face mask; chest wall non-tender, respiratory distress, crackles/rales, rhonchi - bilaterally, expiratory wheezing Abdomen: normal bowel sounds, non tender, soft, no organomegaly, no mass Extremities: normal range of motion Neurologic: other - contractures Skin: normal pigmentation, warm/dry Assessment/Plan Problem List: (1) Depression (2) Flexion contractures Assessment & Plan: Await physical therapy (3) Anemia Assessment & Plan: Iron def anemia. Continue IV iron (4) Ankylosing spondylitis (5) HTN (hypertension) Assessment & Plan: Continue amlodipine (6) Osteoporosis (7) Kyphosis (8) Cervical spondylitis (9) Pneumonia Assessment & Plan: See pulmonary note. Continue Cefepime per pulm (10) SOB (shortness of breath) (11) Ascites Assessment & Plan: Await paracentesis. see GI note. (12) Respiratory failure Assessment & Plan: Worsening. Cont BIPAP per pulmonary. Start flagyl for possible aspiration pneumonia. Await ID recommendation Status: deteriorating MIKI EASTON Nov 05, 2016 15:20
[2016-11-05] MEDS: Pantoprazole Inj IVP SCH (17:29)
--- NOTE | 2016-11-05 19:41 | Infectious Diseases Prog Note ---
Assessment/Plan Assessment/Plan ASSESSMENT: 1. CoNS bacteremia in 1/4 sets, likely contaminant, 1/4, afebrile 2. Possible urinary tract infection. Urine culture : Neg , SP RX 3. Possible Asp Pneum 4. Elevated liver function tests, rule out hepatobiliary disease vs cholecystitis - CT of ABD : Heterogeneous appearance of the liver may suggest hepatocellular disease or hepatic congestion. Moderate ascites. -Abd u/s: Slightly increased hepatic echogenicity. Hepatomegaly. Trace ascites. Gallbladder sludge. No stones. Markedly thickened gallbladder wall is likely reactive, related to adjacent hepatocellular inflammation, given stated clinical history. It could also be due to the hemodynamic derangements caused by the liver disease. Also probably exaggerated due to nondistention of the gallbladder. The possibility of acalculous acute cholecystitis or cholecystitis secondary to occult cholelithiasis not completely excludable, however. Consider hepatobiliary nuclearscanning if there is high clinical suspicion Negative for dilated ducts. s 5. Mid thoracic unstageable pressure ulcer. 6. Lactic acidosis. 7. Afebrile without leukocytosis. 8. HIV: Neg 9. Thrombocytopenia. 10. Coagulopathy. 11. Ankylosing spondylosis/kyphosis/cervical spondylosis with chronic contractures. 12. Tobacco abuse. 13. Urine toxicology positive for marijuana. 14. No known drug allergies. 15. Full Code. PLAN: -Continue empiric IV cefepime day # , add Flagyl d# 1 ( 09/01 SP IV Vancomycin d# 2 ) -f/u hepatitis panel; -F/u LFTs, - Follow up cultures. -. Monitor CBC and temperatures. -. Monitor CMP -. Monitor chest x-ray. -. Wound care. -. BiPAP Subjective Allergies: Coded Allergies: No Known Allergies (Unverified , 10/22/11) Subjective pt developed resp distress Objective Vital Signs Last 24 Hour Vital Signs Date Time Temp Pulse Resp B/P (MAP) Pulse Ox O2 Delivery O2 Flow Rate FiO2 11/05/16 19:00 100 28 97/45 97 Bi-pap 55 11/05/16 18:58 100 28 98 Facial 55 11/05/16 18:00 97 28 95/56 98 Bi-pap 55 11/05/16 17:00 104 28 93/45 98 Bi-pap 55 11/05/16 16:53 98 37 97 Facial 55 11/05/16 16:00 101 11/05/16 16:00 100 28 93/48 98 Bi-pap 55 11/05/16 16:00 97.8 11/05/16 15:00 99 28 94/48 98 Bi-pap 60 11/05/16 14:53 104 27 98 Facial 55 11/05/16 14:00 99 28 91/48 98 Bi-pap 60 11/05/16 13:30 55 11/05/16 13:23 100 28 98 Facial 55 11/05/16 13:00 99 27 102/52 98 Bi-pap 60 11/05/16 12:00 60 11/05/16 12:00 98.5 108 27 91/44 100 Bi-pap 60 11/05/16 12:00 102 11/05/16 11:26 107 32 97 Facial 60 11/05/16 11:00 108 27 87/50 98 Bi-pap 60 11/05/16 10:00 112 27 95/48 98 Bi-pap 60 11/05/16 09:30 60 11/05/16 09:25 100 32 99 Facial 60 11/05/16 09:00 114 27 99/54 98 Bi-pap 80 11/05/16 09:00 109 98/50 11/05/16 08:00 109 11/05/16 08:00 98.6 108 28 98/50 98 Bi-pap 80 11/05/16 08:00 80 11/05/16 07:06 102 30 98 Facial 80 11/05/16 07:00 102 27 99/52 98 Bi-pap 80.0 11/05/16 06:00 102 32 103/52 97 Bi-pap 80.0 11/05/16 06:00 80 11/05/16 05:00 105 33 98/53 97 Bi-pap 70.0 11/05/16 04:49 105 34 99 Facial 80 11/05/16 04:49 80 11/05/16 04:00 97.8 107 33 95/50 98 Bi-pap 70.0 11/05/16 04:00 110 11/05/16 03:39 100 11/05/16 03:19 97 35 92 Facial 70 11/05/16 03:18 70 11/05/16 03:00 70 11/05/16 03:00 97 23 105/63 90 Bi-pap 70.0 11/05/16 02:00 98 30 109/55 94 Bi-pap 60.0 11/05/16 01:27 97 28 97 Facial 60 11/05/16 01:27 60 11/05/16 01:00 94 24 98/51 96 Bi-pap 60.0 11/05/16 01:00 60 11/05/16 00:00 50 11/05/16 00:00 97.7 94 22 105/56 94 Bi-pap 50.0 11/05/16 00:00 100 11/04/16 23:24 95 45 94 Facial 50 11/04/16 23:00 97 21 106/52 95 Bi-pap 50.0 11/04/16 22:00 93 24 105/54 97 Bi-pap 50.0 11/04/16 21:08 93 21 100 Facial 50 11/04/16 21:00 50 11/04/16 21:00 90 24 105/54 100 Bi-pap 50.0 11/04/16 20:00 97.5 92 23 104/52 100 Bi-pap 60.0 11/04/16 20:00 92 11/04/16 20:00 60 Height (Feet): 5 Height (Inches): 6.00 Weight (Pounds): 130 HEENT: anicteric Respiratory/Chest: normal breath sounds Cardiovascular: regularly irregular Abdomen: no organomegaly Microbiology Date/Time Source Procedure Growth Status 11/02/16 23:45 Blood Blood Culture - Preliminary NO GROWTH AFTER 48 HOURS Resulted 11/02/16 23:40 Blood Blood Culture - Preliminary NO GROWTH AFTER 48 HOURS Resulted 11/05/16 04:00 Stool Clostridium difficile Toxin Assay - Final Complete Laboratory Tests Test 11/05/16 03:55 11/05/16 08:00 White Blood Count 7.1 K/UL (4.8-10.8) Red Blood Count 3.96 M/UL (4.70-6.10) L Hemoglobin 9.4 G/DL (14.2-18.0) L Hematocrit 31.9 % (42.0-52.0) L Mean Corpuscular Volume 80 FL (80-99) Mean Corpuscular Hemoglobin 23.7 PG (27.0-31.0) L Mean Corpuscular Hemoglobin Concent 29.4 G/DL (32.0-36.0) L Red Cell Distribution Width 22.4 % (11.6-14.8) H Platelet Count 85 K/UL (150-450) L Mean Platelet Volume 7.2 FL (6.5-10.1) Neutrophils (%) (Auto) % (45.0-75.0) Lymphocytes (%) (Auto) % (20.0-45.0) Monocytes (%) (Auto) % (1.0-10.0) Eosinophils (%) (Auto) % (0.0-3.0) Basophils (%) (Auto) % (0.0-2.0) Differential Total Cells Counted 100 Neutrophils % (Manual) 79 % (45-75) H Lymphocytes % (Manual) 6 % (20-45) L Monocytes % (Manual) 4 % (1-10) Eosinophils % (Manual) 0 % (0-3) Basophils % (Manual) 0 % (0-2) Band Neutrophils 11 % (0-8) H Nucleated Red Blood Cells 3 /100 WBC Platelet Estimate Decreased L Platelet Morphology Normal Hypochromasia 3+ Anisocytosis 3+ Microcytosis 1+ Macrocytosis 1+ Prothrombin Time 14.1 SEC (9.30-11.50) H Prothromb Time International Ratio 1.3 (0.9-1.1) H Activated Partial Thromboplast Time 34 SEC (23-33) H Sodium Level 144 mEQ/L (135-145) Potassium Level 3.7 mEQ/L (3.4-4.9) Chloride Level 113 mEQ/L (98-107) H Carbon Dioxide Level 21 mEQ/L (20-30) Anion Gap 10 (5-15) Blood Urea Nitrogen 29 mg/dL (7-23) H Creatinine 0.7 mg/dL (0.7-1.2) Estimat Glomerular Filtration Rate > 60 mL/min (>60) Glucose Level 72 mg/dL (74-106) L Calcium Level 8.3 mg/dL (8.6-10.2) L Phosphorus Level 1.7 mg/dL (2.5-4.8) L Magnesium Level 1.5 mg/dL (1.7-2.5) L Total Bilirubin 0.9 mg/dL (0.0-1.2) Aspartate Amino Transf (AST/SGOT) 92 U/L (5-40) H Alanine Aminotransferase (ALT/SGPT) 180 U/L (3-41) H Alkaline Phosphatase 54 U/L (40-129) Total Protein 6.5 g/dL (6.6-8.7) L Albumin 3.0 g/dL (3.5-5.2) L Globulin 3.5 g/dL Albumin/Globulin Ratio 0.8 (1.0-2.7) L Arterial Blood pH 7.270 (7.350-7.450) Arterial Blood Partial Pressure CO2 47.0 mmHg (35.0-45.0) H Arterial Blood Partial Pressure O2 132.6 mmHg (75.0-100.0) H Arterial Blood HCO3 21.1 mmol/L (22.0-26.0) L Arterial Blood Oxygen Saturation 98.5 % (92.0-98.0) H Arterial Blood Base Excess -5.3 Anson Test Positive Current Medications Medications (Trade) Dose Ordered Sig/Dina Route PRN Reason Start Time Stop Time Status Last Admin Dose Admin Acetaminophen (Tylenol) 650 mg Q4H PRN ORAL FEVER 11/01/16 18:45 11/30/16 18:44 Acetaminophen/ Hydrocodone Bitart ([place] 5/325) 1 tab Q6H PRN ORAL FOR MODERATE PAIN 11/01/16 18:45 11/07/16 18:44 11/03/16 11:16 Amlodipine Besylate (Norvasc) 5 mg DAILY ORAL 11/02/16 09:00 12/01/16 08:59 11/03/16 08:45 Cefepime HCl 2 gm/ Dextrose 110 ml @ 220 mls/hr EVERY 12 HOURS IV 11/01/16 21:00 11/07/16 20:59 11/05/16 09:26 Dextrose (Dextrose 50%) STAT PRN IV Hypoglycemia 11/01/16 18:45 11/30/16 18:44 Dextrose/Sodium Chloride 1,000 ml @ 50 mls/hr Q20H IV 11/05/16 11:00 12/05/16 10:59 11/05/16 11:32 Furosemide (Lasix) 20 mg DAILY IV 11/03/16 16:00 12/03/16 15:59 11/05/16 09:26 Heparin Sodium (Porcine) (Heparin 5000 units/ml) 5,000 units EVERY 12 HOURS SUBQ 11/01/16 21:00 11/30/16 20:59 Indomethacin (Indocin) 50 mg TID ORAL 11/02/16 09:00 12/01/16 08:59 11/05/16 17:30 Iron Sucrose 100 mg/Sodium Chloride 60 ml @ 240 mls/hr BEDTIME IVPB 11/01/16 21:00 11/05/16 21:01 11/04/16 20:41 Lorazepam (Ativan 2mg/ml 1ml) 2 mg EVERY 2 HOURS PRN IV For Anxiety 11/01/16 20:00 11/07/16 18:44 11/05/16 03:22 Metronidazole 100 ml @ 100 mls/hr Q8HR IVPB 11/05/16 16:00 11/12/16 15:59 11/05/16 17:29 Morphine Sulfate (Morphine Sulfate) 4 mg EVERY 4 HOURS PRN IVP Severe Pain (Pain Scale 7-10) 11/01/16 21:00 11/07/16 18:44 Ondansetron HCl (Zofran) 4 mg Q6H PRN IVP Nausea & Vomiting 11/01/16 18:45 11/30/16 18:44 Pantoprazole (Protonix) 40 mg DAILY IVP 11/05/16 16:00 12/05/16 15:59 11/05/16 17:29 Polyethylene Glycol (Miralax) 17 gm DAILYPRN PRN ORAL Constipation 11/01/16 18:45 11/30/16 18:44 Potassium Chloride (K-Dur) 20 meq DAILY ORAL 11/04/16 12:00 12/04/16 11:59 11/04/16 12:46 Prednisolone Acetate (Pred Forte) 1 drop DAILY BOTH EYES 11/02/16 09:00 12/01/16 08:59 11/05/16 09:26 Promethazine HCl/ Codeine (Phenergan with Codeine) 5 ml Q6H PRN ORAL For Cough 11/01/16 20:30 12/01/16 08:29 Terazosin HCl (Hytrin) 2 mg BEDTIME ORAL 11/01/16 21:00 11/30/16 20:59 11/03/16 20:58 MOISES CASILLAS M.D. Nov 05, 2016 19:41
--- NOTE | 2016-11-05 20:41 | General Progress Note ---
Assessment/Plan Assessment/Plan Assessment - Anemia with OB (-) x 1 - Iron deficiency - Elevated CEA - High albumin gradient ascites --> consistent with (R) heart failure - CM, severe , AI - CHF - Resp failure - poor prognosis Recommendations - Begin TF - cardiology evaluation / diuresis - f/u hepatitis serologies --> neg - Will hold off on EGD/Colon until cardiac evaluation complete Subjective Allergies: Coded Allergies: No Known Allergies (Unverified , 10/22/11) Subjective Transferred to ICU family at bedside on BIPAP mask (+) NGT poorly communicative Objective Last 24 Hour Vital Signs Date Time Temp Pulse Resp B/P (MAP) Pulse Ox O2 Delivery O2 Flow Rate FiO2 11/05/16 20:00 55 11/05/16 19:00 100 28 97/45 97 Bi-pap 55 11/05/16 18:58 100 28 98 Facial 55 11/05/16 18:00 97 28 95/56 98 Bi-pap 55 11/05/16 17:00 104 28 93/45 98 Bi-pap 55 11/05/16 16:53 98 37 97 Facial 55 11/05/16 16:00 101 11/05/16 16:00 100 28 93/48 98 Bi-pap 55 11/05/16 16:00 97.8 11/05/16 15:00 99 28 94/48 98 Bi-pap 60 11/05/16 14:53 104 27 98 Facial 55 11/05/16 14:00 99 28 91/48 98 Bi-pap 60 11/05/16 13:30 55 11/05/16 13:23 100 28 98 Facial 55 11/05/16 13:00 99 27 102/52 98 Bi-pap 60 11/05/16 12:00 60 11/05/16 12:00 98.5 108 27 91/44 100 Bi-pap 60 11/05/16 12:00 102 11/05/16 11:26 107 32 97 Facial 60 11/05/16 11:00 108 27 87/50 98 Bi-pap 60 11/05/16 10:00 112 27 95/48 98 Bi-pap 60 11/05/16 09:30 60 11/05/16 09:25 100 32 99 Facial 60 11/05/16 09:00 114 27 99/54 98 Bi-pap 80 11/05/16 09:00 109 98/50 11/05/16 08:00 109 11/05/16 08:00 98.6 108 28 98/50 98 Bi-pap 80 11/05/16 08:00 80 11/05/16 07:06 102 30 98 Facial 80 11/05/16 07:00 102 27 99/52 98 Bi-pap 80.0 11/05/16 06:00 102 32 103/52 97 Bi-pap 80.0 11/05/16 06:00 80 11/05/16 05:00 105 33 98/53 97 Bi-pap 70.0 11/05/16 04:49 105 34 99 Facial 80 11/05/16 04:49 80 11/05/16 04:00 97.8 107 33 95/50 98 Bi-pap 70.0 11/05/16 04:00 110 11/05/16 03:39 100 11/05/16 03:19 97 35 92 Facial 70 11/05/16 03:18 70 11/05/16 03:00 70 11/05/16 03:00 97 23 105/63 90 Bi-pap 70.0 11/05/16 02:00 98 30 109/55 94 Bi-pap 60.0 11/05/16 01:27 97 28 97 Facial 60 11/05/16 01:27 60 11/05/16 01:00 94 24 98/51 96 Bi-pap 60.0 11/05/16 01:00 60 11/05/16 00:00 50 11/05/16 00:00 97.7 94 22 105/56 94 Bi-pap 50.0 11/05/16 00:00 100 11/04/16 23:24 95 45 94 Facial 50 11/04/16 23:00 97 21 106/52 95 Bi-pap 50.0 11/04/16 22:00 93 24 105/54 97 Bi-pap 50.0 11/04/16 21:08 93 21 100 Facial 50 11/04/16 21:00 50 11/04/16 21:00 90 24 105/54 100 Bi-pap 50.0 Intake and Output 11/05/16 11/06/16 19:00 07:00 Intake Total 990.5 ml 0 ml Output Total 490 ml 30 ml Balance 500.5 ml -30 ml Intake Oral 0 ml 0 ml Free Water 150 ml IV Total 840.5 ml Output Urine Total 490 ml 30 ml Laboratory Tests 11/05/16 03:55: White Blood Count 7.1, Red Blood Count 3.96L, Hemoglobin 9.4L, Hematocrit 31.9L , Mean Corpuscular Volume 80, Mean Corpuscular Hemoglobin 23.7L, Mean Corpuscular Hemoglobin Concent 29.4L, Red Cell Distribution Width 22.4H, Platelet Count 85L, Mean Platelet Volume 7.2, Neutrophils (%) (Auto) , Lymphocytes (%) (Auto) , Monocytes (%) (Auto) , Eosinophils (%) (Auto) , Basophils (%) (Auto) , Differential Total Cells Counted 100, Neutrophils % ( Manual) 79H, Lymphocytes % (Manual) 6L, Monocytes % (Manual) 4, Eosinophils % ( Manual) 0, Basophils % (Manual) 0, Band Neutrophils 11H, Nucleated Red Blood Cells 3, Platelet Estimate DecreasedL, Platelet Morphology Normal, Hypochromasia 3+, Anisocytosis 3+, Microcytosis 1+, Macrocytosis 1+, Prothrombin Time 14.1H, Prothromb Time International Ratio 1.3H, Activated Partial Thromboplast Time 34H, Sodium Level 144, Potassium Level 3.7, Chloride Level 113H, Carbon Dioxide Level 21, Anion Gap 10, Blood Urea Nitrogen 29H, Creatinine 0.7, Estimat Glomerular Filtration Rate > 60, Glucose Level 72L, Calcium Level 8.3L, Phosphorus Level 1.7L, Magnesium Level 1.5L, Total Bilirubin 0.9, Aspartate Amino Transf (AST/SGOT) 92H, Alanine Aminotransferase ( ALT/SGPT) 180H, Alkaline Phosphatase 54, Total Protein 6.5L, Albumin 3.0L, Globulin 3.5, Albumin/Globulin Ratio 0.8L 11/05/16 08:00: Arterial Blood pH 7.270L, Arterial Blood Partial Pressure CO2 47.0H, Arterial Blood Partial Pressure O2 132.6H, Arterial Blood HCO3 21.1L, Arterial Blood Oxygen Saturation 98.5H, Arterial Blood Base Excess -5.3, Anson Test Positive Height (Feet): 5 Height (Inches): 6.00 Weight (Pounds): 130 Objective (+) BIPAP NCAT neck stiff b/l ronchi RRR II/ systolic murmur abd soft distended (+) contractures KHORRAMI,PAYMAN Nov 05, 2016 20:41
[2016-11-05] MEDS: Iron Sucrose 100 MG in NS 55 ML IVPB SCH (20:42)
[2016-11-05] MEDS: Terazosin 1mg cap ORAL SCH (21:00)
[2016-11-06] VITALS (24 sets, daily range): BP systolic 90–108; BP diastolic 44–71
[2016-11-06 05:40] LABS: MEAN CORPUSCULAR HEMOGLOBIN 23.8 PG (27.0-31.0); MEAN CORPUSCULAR HGB CONC 29.9 G/DL (32.0-36.0); MEAN CORPUSCULAR VOLUME 80 FL (80-99); PLATELET COUNT 93 K/UL (150-450); RED BLOOD COUNT 3.65 M/UL (4.70-6.10); RED CELL DISTRIBUTION WIDTH 21.9 % (11.6-14.8)
[2016-11-06 06:04] LABS: ALANINE AMINOTRANSFERASE 139 U/L (3-41); ALBUMIN/GLOBULIN RATIO 0.8 (1.0-2.7); ANION GAP 8 (5-15); ASPARTATE AMINO TRANSFERASE 61 U/L (5-40); CALCIUM 8.3 mg/dL (8.6-10.2); CARBON DIOXIDE 22 mEQ/L (20-30); CHLORIDE 113 mEQ/L (98-107); CREATININE 0.8 mg/dL (0.7-1.2); GLOMERULAR FILTRATION RATE > 60 mL/min (>60); HEMOLYSIS 0; MAGNESIUM 1.9 mg/dL (1.7-2.5); PHOSPHORUS 2.9 mg/dL (2.5-4.8); POTASSIUM 3.7 mEQ/L (3.4-4.9); SODIUM 143 mEQ/L (135-145); TOTAL PROTEIN 6.5 g/dL (6.6-8.7)
[2016-11-06] MEDS: D5 1/2NS 1,000 ML IV SCH (07:17)
[2016-11-06] MEDS ORDERED: NS 275ml ONE (08:14)
[2016-11-06] MEDS ORDERED: Tubing IV Secondary IV ONE (08:14)
[2016-11-06] MEDS: Pred Forte 1% Opth Susp 1ml BOTH EYES SCH (08:49)
[2016-11-06] MEDS: Indomethacin 25mg cap ORAL SCH ×3 (08:50→17:24)
[2016-11-06] MEDS: Cefepime HCl 2 GM in D5W 110 ML IV SCH ×2 (08:50→20:32)
[2016-11-06] MEDS: Pantoprazole Inj IVP SCH (08:50)
[2016-11-06] MEDS: Heparin 5000 units/ml inj SUBQ SCH ×2 (08:56→20:32)
[2016-11-06 09:32] LABS: ACANTHOCYTES 1+; ANISOCYTOSIS 1+; BAND NEUTROPHILS % (MANUAL) 9 % (0-8); BASOPHILS % (MANUAL) 0 % (0-2); EOSINOPHILS % (MANUAL) 0 % (0-3); HYPOCHROMASIA 2+; LYMPHOCYTES % (MANUAL) 8 % (20-45); NEUTROPHILS % (MANUAL) 80 % (45-75); NUCLEATED RED BLOOD CELLS 4 /100 WBC; PLATELET ESTIMATE DECREASED; PLATELET MORPHOLOGY NORMAL; SCHISTOCYTES 1+; TARGET CELLS 1+; TOTAL CELLS COUNTED 100
--- NOTE | 2016-11-06 10:33 | Pulmonolgy Critical Care Note ---
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, 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, renal Discussed with: nurses, consultants, 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 - Objective Last 24 Hour Vital Signs Date Time Temp Pulse Resp B/P (MAP) Pulse Ox O2 Delivery O2 Flow Rate FiO2 11/06/16 10:00 105 33 94/53 95 Bi-pap 45 11/06/16 09:06 102 37 93 Facial 45 11/06/16 09:01 100 32 96/60 95 Bi-pap 45 11/06/16 08:51 100 96/62 11/06/16 08:00 98.5 98 32 97/60 95 Bi-pap 45 11/06/16 08:00 45 11/06/16 08:00 100 11/06/16 07:04 94 26 96 Facial 45 11/06/16 07:00 104 25 97/54 96 Bi-pap 45 11/06/16 06:00 98 33 96/54 96 Bi-pap 45 11/06/16 05:00 98 30 96/54 97 Bi-pap 45 11/06/16 04:44 94 26 96 Facial 45 11/06/16 04:00 89 11/06/16 04:00 45 11/06/16 04:00 98.0 98 30 90/47 96 Bi-pap 45 11/06/16 03:02 97 27 97 Facial 45 11/06/16 03:00 100 30 108/56 98 Bi-pap 55 11/06/16 02:00 101 28 105/51 99 Bi-pap 55 11/06/16 01:00 104 27 107/51 98 Bi-pap 55 11/06/16 00:40 93 30 99 Facial 55 11/06/16 00:00 93 11/06/16 00:00 98.9 100 35 107/71 98 Bi-pap 55 11/06/16 00:00 55 11/05/16 23:06 101 30 99 Facial 55 11/05/16 23:00 101 35 109/56 98 Bi-pap 55 11/05/16 22:00 100 33 98/53 98 Bi-pap 55 11/05/16 21:03 101 30 98 Facial 55 11/05/16 21:00 101 29 98/53 98 Bi-pap 55 11/05/16 20:00 97.7 101 29 98/52 98 Bi-pap 55 11/05/16 20:00 99 11/05/16 20:00 55 11/05/16 19:00 100 28 97/45 97 Bi-pap 55 11/05/16 18:58 100 28 98 Facial 55 11/05/16 18:00 97 28 95/56 98 Bi-pap 55 11/05/16 17:00 104 28 93/45 98 Bi-pap 55 11/05/16 16:53 98 37 97 Facial 55 11/05/16 16:00 101 11/05/16 16:00 100 28 93/48 98 Bi-pap 55 11/05/16 16:00 97.8 11/05/16 15:00 99 28 94/48 98 Bi-pap 60 11/05/16 14:53 104 27 98 Facial 55 11/05/16 14:00 99 28 91/48 98 Bi-pap 60 11/05/16 13:30 55 11/05/16 13:23 100 28 98 Facial 55 11/05/16 13:00 99 27 102/52 98 Bi-pap 60 11/05/16 12:00 60 11/05/16 12:00 98.5 108 27 91/44 100 Bi-pap 60 11/05/16 12:00 102 11/05/16 11:26 107 32 97 Facial 60 11/05/16 11:00 108 27 87/50 98 Bi-pap 60 Status: awake Condition: critical HEENT: atraumatic, normocephalic Lungs: clear Heart: HR/BP stable Abdomen: soft, non-tender Extremities: no C/C/E Decubiti: location Micro: Microbiology Date/Time Source Procedure Growth Status 11/05/16 04:00 Stool Clostridium difficile Toxin Assay - Final Complete Critical Care - Subjective ROS Limited/Unobtainable: No ICU Day: 3 Condition: critical EKG Rhythm: Sinus Rhythm FI02: 45 Sputum Amount: None Fluids: d5 1/2 NS 50 cc/hour Tube Feeding Amount: 35 I&O: Intake and Output 11/06/16 11/07/16 19:00 07:00 Intake Total 365 ml Output Total 90 ml Balance 275 ml IV Total 260 ml Tube Feeding 105 ml Output Urine Total 90 ml CXR: worsening infiltrate Labs: Laboratory Tests Test 11/06/16 04:25 White Blood Count 10.0 K/UL (4.8-10.8) Red Blood Count 3.65 M/UL (4.70-6.10) L Hemoglobin 8.7 G/DL (14.2-18.0) L Hematocrit 29.2 % (42.0-52.0) L Mean Corpuscular Volume 80 FL (80-99) Mean Corpuscular Hemoglobin 23.8 PG (27.0-31.0) L Mean Corpuscular Hemoglobin Concent 29.9 G/DL (32.0-36.0) L Red Cell Distribution Width 21.9 % (11.6-14.8) H Platelet Count 93 K/UL (150-450) L Mean Platelet Volume 8.0 FL (6.5-10.1) Neutrophils (%) (Auto) % (45.0-75.0) Lymphocytes (%) (Auto) % (20.0-45.0) Monocytes (%) (Auto) % (1.0-10.0) Eosinophils (%) (Auto) % (0.0-3.0) Basophils (%) (Auto) % (0.0-2.0) Differential Total Cells Counted 100 Neutrophils % (Manual) 80 % (45-75) H Lymphocytes % (Manual) 8 % (20-45) L Monocytes % (Manual) 3 % (1-10) Eosinophils % (Manual) 0 % (0-3) Basophils % (Manual) 0 % (0-2) Band Neutrophils 9 % (0-8) H Nucleated Red Blood Cells 4 /100 WBC Platelet Estimate Decreased L Platelet Morphology Normal Hypochromasia 2+ Anisocytosis 1+ Target Cells 1+ Acanthocytes 1+ Schistocytes 1+ Sodium Level 143 mEQ/L (135-145) Potassium Level 3.7 mEQ/L (3.4-4.9) Chloride Level 113 mEQ/L (98-107) H Carbon Dioxide Level 22 mEQ/L (20-30) Anion Gap 8 (5-15) Blood Urea Nitrogen 31 mg/dL (7-23) H Creatinine 0.8 mg/dL (0.7-1.2) Estimat Glomerular Filtration Rate > 60 mL/min (>60) Glucose Level 132 mg/dL (74-106) H Calcium Level 8.3 mg/dL (8.6-10.2) L Phosphorus Level 2.9 mg/dL (2.5-4.8) Magnesium Level 1.9 mg/dL (1.7-2.5) Total Bilirubin 0.7 mg/dL (0.0-1.2) Aspartate Amino Transf (AST/SGOT) 61 U/L (5-40) H Alanine Aminotransferase (ALT/SGPT) 139 U/L (3-41) H Alkaline Phosphatase 53 U/L (40-129) Total Protein 6.5 g/dL (6.6-8.7) L Albumin 2.9 g/dL (3.5-5.2) L Globulin 3.6 g/dL Albumin/Globulin Ratio 0.8 (1.0-2.7) L ESTEFANY MITCHELL Nov 06, 2016 10:33
--- NOTE | 2016-11-06 12:13 | Internal Med Progress Note ---
Subjective Date of Service: Nov 06, 2016 Physician Name Miki Easton Attending Physician Raheel Dumont MD Current Medications Medications (Trade) Dose Ordered Sig/Dina Route PRN Reason Start Time Stop Time Status Last Admin Dose Admin Acetaminophen (Tylenol) 650 mg Q4H PRN ORAL FEVER 11/01/16 18:45 11/30/16 18:44 Acetaminophen/ Hydrocodone Bitart ([place] 5/325) 1 tab Q6H PRN ORAL FOR MODERATE PAIN 11/01/16 18:45 11/07/16 18:44 11/03/16 11:16 Amlodipine Besylate (Norvasc) 5 mg DAILY ORAL 11/02/16 09:00 12/01/16 08:59 11/03/16 08:45 Cefepime HCl 2 gm/ Dextrose 110 ml @ 220 mls/hr EVERY 12 HOURS IV 11/01/16 21:00 11/07/16 20:59 11/06/16 08:50 Dextrose (Dextrose 50%) STAT PRN IV Hypoglycemia 11/01/16 18:45 11/30/16 18:44 Dextrose/Sodium Chloride 1,000 ml @ 50 mls/hr Q20H IV 11/05/16 11:00 12/05/16 10:59 11/06/16 07:17 Furosemide (Lasix) 20 mg DAILY IV 11/03/16 16:00 12/03/16 15:59 11/06/16 08:49 Heparin Sodium (Porcine) (Heparin 5000 units/ml) 5,000 units EVERY 12 HOURS SUBQ 11/01/16 21:00 11/30/16 20:59 11/06/16 08:56 Indomethacin (Indocin) 50 mg TID ORAL 11/02/16 09:00 12/01/16 08:59 11/06/16 08:50 Lorazepam (Ativan 2mg/ml 1ml) 2 mg EVERY 2 HOURS PRN IV For Anxiety 11/01/16 20:00 11/07/16 18:44 11/05/16 03:22 Metronidazole 100 ml @ 100 mls/hr Q8HR IVPB 11/05/16 16:00 11/12/16 15:59 11/06/16 05:45 Morphine Sulfate (Morphine Sulfate) 4 mg EVERY 4 HOURS PRN IVP Severe Pain (Pain Scale 7-10) 11/01/16 21:00 11/07/16 18:44 Ondansetron HCl (Zofran) 4 mg Q6H PRN IVP Nausea & Vomiting 11/01/16 18:45 11/30/16 18:44 Pantoprazole (Protonix) 40 mg DAILY IVP 11/05/16 16:00 12/05/16 15:59 11/06/16 08:50 Polyethylene Glycol (Miralax) 17 gm DAILYPRN PRN ORAL Constipation 11/01/16 18:45 11/30/16 18:44 Potassium Chloride (K-Dur) 20 meq DAILY ORAL 11/04/16 12:00 12/04/16 11:59 11/06/16 08:50 Prednisolone Acetate (Pred Forte) 1 drop DAILY BOTH EYES 11/02/16 09:00 12/01/16 08:59 11/06/16 08:49 Promethazine HCl/ Codeine (Phenergan with Codeine) 5 ml Q6H PRN ORAL For Cough 11/01/16 20:30 12/01/16 08:29 Terazosin HCl (Hytrin) 2 mg BEDTIME ORAL 11/01/16 21:00 11/30/16 20:59 11/03/16 20:58 Allergies: Coded Allergies: No Known Allergies (Unverified , 10/22/11) ROS Limited/Unobtainable: Yes Subjective 51 YO M admitted with cough, fever and chills. Unresponsive last pm-transfered to ICU. Worsening respiratory failure; Now on BIPAP. Cover for Int [facility] -Dr Dumont. ICU Objective Last Vital Signs Date Time Temp Pulse Resp B/P (MAP) Pulse Ox O2 Delivery O2 Flow Rate FiO2 11/06/16 11:00 93 35 96/56 96 Bi-pap 45 11/06/16 08:00 98.5 11/05/16 07:00 80.0 Laboratory Tests Test 11/06/16 04:25 White Blood Count 10.0 K/UL (4.8-10.8) Red Blood Count 3.65 M/UL (4.70-6.10) L Hemoglobin 8.7 G/DL (14.2-18.0) L Hematocrit 29.2 % (42.0-52.0) L Mean Corpuscular Volume 80 FL (80-99) Mean Corpuscular Hemoglobin 23.8 PG (27.0-31.0) L Mean Corpuscular Hemoglobin Concent 29.9 G/DL (32.0-36.0) L Red Cell Distribution Width 21.9 % (11.6-14.8) H Platelet Count 93 K/UL (150-450) L Mean Platelet Volume 8.0 FL (6.5-10.1) Neutrophils (%) (Auto) % (45.0-75.0) Lymphocytes (%) (Auto) % (20.0-45.0) Monocytes (%) (Auto) % (1.0-10.0) Eosinophils (%) (Auto) % (0.0-3.0) Basophils (%) (Auto) % (0.0-2.0) Differential Total Cells Counted 100 Neutrophils % (Manual) 80 % (45-75) H Lymphocytes % (Manual) 8 % (20-45) L Monocytes % (Manual) 3 % (1-10) Eosinophils % (Manual) 0 % (0-3) Basophils % (Manual) 0 % (0-2) Band Neutrophils 9 % (0-8) H Nucleated Red Blood Cells 4 /100 WBC Platelet Estimate Decreased L Platelet Morphology Normal Hypochromasia 2+ Anisocytosis 1+ Target Cells 1+ Acanthocytes 1+ Schistocytes 1+ Sodium Level 143 mEQ/L (135-145) Potassium Level 3.7 mEQ/L (3.4-4.9) Chloride Level 113 mEQ/L (98-107) H Carbon Dioxide Level 22 mEQ/L (20-30) Anion Gap 8 (5-15) Blood Urea Nitrogen 31 mg/dL (7-23) H Creatinine 0.8 mg/dL (0.7-1.2) Estimat Glomerular Filtration Rate > 60 mL/min (>60) Glucose Level 132 mg/dL (74-106) H Calcium Level 8.3 mg/dL (8.6-10.2) L Phosphorus Level 2.9 mg/dL (2.5-4.8) Magnesium Level 1.9 mg/dL (1.7-2.5) Total Bilirubin 0.7 mg/dL (0.0-1.2) Aspartate Amino Transf (AST/SGOT) 61 U/L (5-40) H Alanine Aminotransferase (ALT/SGPT) 139 U/L (3-41) H Alkaline Phosphatase 53 U/L (40-129) Total Protein 6.5 g/dL (6.6-8.7) L Albumin 2.9 g/dL (3.5-5.2) L Globulin 3.6 g/dL Albumin/Globulin Ratio 0.8 (1.0-2.7) L Microbiology Date/Time Source Procedure Growth Status 11/05/16 04:00 Stool Clostridium difficile Toxin Assay - Final Complete Intake and Output 11/06/16 11/07/16 19:00 07:00 Intake Total 650 ml Output Total 210 ml Balance 440 ml Free Water 150 ml IV Total 360 ml Tube Feeding 140 ml Output Urine Total 210 ml Objective General Appearance: WD/WN, no apparent distress, alert EENT: PERRL/EOMI, normal ENT inspection Neck: non-tender, muscle spasm, stiff neck, other - contractrre Cardiovascular: normal peripheral pulses, normal rate, regular rhythm, no gallop/murmur, no JVD Respiratory/Chest: BIPAP; chest wall non-tender, respiratory distress, crackles /rales, rhonchi - bilaterally, expiratory wheezing Abdomen: normal bowel sounds, non tender, soft, no organomegaly, no mass Extremities: normal range of motion Neurologic: other - contractures Skin: normal pigmentation, warm/dry Assessment/Plan Problem List: (1) Depression (2) Flexion contractures Assessment & Plan: Await physical therapy (3) Anemia Assessment & Plan: Iron def anemia. Continue IV iron (4) Ankylosing spondylitis (5) HTN (hypertension) Assessment & Plan: Continue amlodipine (6) Osteoporosis (7) Kyphosis (8) Cervical spondylitis (9) Pneumonia Assessment & Plan: See pulmonary note. Continue Cefepime per pulm (10) SOB (shortness of breath) (11) Ascites Assessment & Plan: Await paracentesis. see GI note. (12) Respiratory failure Assessment & Plan: Worsening. Cont BIPAP per pulmonary. Start flagyl for possible aspiration pneumonia. Await ID recommendation Assessment/Plan Unable to intubate due to neck contractures. See pulmonary note. Prognosis is poor. MIKI EASTON Nov 06, 2016 12:13
--- NOTE | 2016-11-06 19:18 | General Progress Note ---
Assessment/Plan Assessment/Plan Assessment - Anemia with OB (-) x 1 - Iron deficiency - Elevated CEA - High albumin gradient ascites --> consistent with (R) heart failure - CM, severe , AI - CHF - Resp failure - poor prognosis Recommendations - Continue TF - REC cardiology evaluation / diuresis - f/u hepatitis serologies --> neg - Will hold off on EGD/Colon until cardiac evaluation complete Subjective Allergies: Coded Allergies: No Known Allergies (Unverified , 10/22/11) Subjective Seen in ICU doing poorly minimally interactive tolerating TF Objective Last 24 Hour Vital Signs Date Time Temp Pulse Resp B/P (MAP) Pulse Ox O2 Delivery O2 Flow Rate FiO2 11/06/16 18:19 99.0 11/06/16 18:00 99.0 92 35 106/44 94 Bi-pap 45 11/06/16 17:32 96 37 95 Facial 45 11/06/16 17:00 99.8 95 33 95/54 94 Bi-pap 45 11/06/16 16:00 98.6 98 32 96/52 95 Bi-pap 45 11/06/16 16:00 98 11/06/16 16:00 45 11/06/16 15:15 97 28 97 Facial 45 11/06/16 15:00 98 30 99/51 96 Bi-pap 45 11/06/16 14:00 97 30 97/51 95 Bi-pap 45 11/06/16 13:25 98 38 94 Facial 45 11/06/16 13:00 98 35 100/60 97 Bi-pap 45 11/06/16 12:00 45 11/06/16 12:00 98.2 87 35 100/54 96 Bi-pap 45 11/06/16 12:00 87 11/06/16 11:20 102 37 93 Facial 45 11/06/16 11:00 93 35 96/56 96 Bi-pap 45 11/06/16 10:00 105 33 94/53 95 Bi-pap 45 11/06/16 09:06 102 37 93 Facial 45 11/06/16 09:01 100 32 96/60 95 Bi-pap 45 11/06/16 08:51 100 96/62 11/06/16 08:00 98.5 98 32 97/60 95 Bi-pap 45 11/06/16 08:00 45 11/06/16 08:00 100 11/06/16 07:04 94 26 96 Facial 45 11/06/16 07:00 104 25 97/54 96 Bi-pap 45 11/06/16 06:00 98 33 96/54 96 Bi-pap 45 11/06/16 05:00 98 30 96/54 97 Bi-pap 45 11/06/16 04:44 94 26 96 Facial 45 11/06/16 04:00 89 11/06/16 04:00 45 11/06/16 04:00 98.0 98 30 90/47 96 Bi-pap 45 11/06/16 03:02 97 27 97 Facial 45 11/06/16 03:00 100 30 108/56 98 Bi-pap 55 11/06/16 02:00 101 28 105/51 99 Bi-pap 55 11/06/16 01:00 104 27 107/51 98 Bi-pap 55 11/06/16 00:40 93 30 99 Facial 55 11/06/16 00:00 93 11/06/16 00:00 98.9 100 35 107/71 98 Bi-pap 55 11/06/16 00:00 55 11/05/16 23:06 101 30 99 Facial 55 11/05/16 23:00 101 35 109/56 98 Bi-pap 55 11/05/16 22:00 100 33 98/53 98 Bi-pap 55 11/05/16 21:03 101 30 98 Facial 55 11/05/16 21:00 101 29 98/53 98 Bi-pap 55 11/05/16 20:00 97.7 101 29 98/52 98 Bi-pap 55 11/05/16 20:00 99 11/05/16 20:00 55 Intake and Output 11/06/16 11/07/16 19:00 07:00 Intake Total 1395 ml Output Total 940 ml Balance 455 ml Free Water 300 ml IV Total 710 ml Tube Feeding 385 ml Output Urine Total 940 ml # Bowel Movements 1 Laboratory Tests 11/06/16 04:25: White Blood Count 10.0, Red Blood Count 3.65L, Hemoglobin 8.7L, Hematocrit 29.2L , Mean Corpuscular Volume 80, Mean Corpuscular Hemoglobin 23.8L, Mean Corpuscular Hemoglobin Concent 29.9L, Red Cell Distribution Width 21.9H, Platelet Count 93L, Mean Platelet Volume 8.0, Neutrophils (%) (Auto) , Lymphocytes (%) (Auto) , Monocytes (%) (Auto) , Eosinophils (%) (Auto) , Basophils (%) (Auto) , Differential Total Cells Counted 100, Neutrophils % ( Manual) 80H, Lymphocytes % (Manual) 8L, Monocytes % (Manual) 3, Eosinophils % ( Manual) 0, Basophils % (Manual) 0, Band Neutrophils 9H, Nucleated Red Blood Cells 4, Platelet Estimate DecreasedL, Platelet Morphology Normal, Hypochromasia 2+, Anisocytosis 1+, Target Cells 1+, Acanthocytes 1+, Schistocytes 1+, Sodium Level 143, Potassium Level 3.7, Chloride Level 113H, Carbon Dioxide Level 22, Anion Gap 8, Blood Urea Nitrogen 31H, Creatinine 0.8, Estimat Glomerular Filtration Rate > 60, Glucose Level 132H, Calcium Level 8.3L , Phosphorus Level 2.9, Magnesium Level 1.9, Total Bilirubin 0.7, Aspartate Amino Transf (AST/SGOT) 61H, Alanine Aminotransferase (ALT/SGPT) 139H, Alkaline Phosphatase 53, Total Protein 6.5L, Albumin 2.9L, Globulin 3.6, Albumin/ Globulin Ratio 0.8L Height (Feet): 5 Height (Inches): 6.00 Weight (Pounds): 134 Objective (+) BIPAP NCAT neck stiff b/l ronchi RRR II/ systolic murmur abd soft distended (+) contractures NATASHA ARREDONDO Nov 06, 2016 19:18
[2016-11-06] MEDS: Terazosin 1mg cap ORAL SCH (20:33)
--- NOTE | 2016-11-06 21:29 | Infectious Diseases Prog Note ---
Assessment/Plan Assessment/Plan ASSESSMENT: 1. CoNS bacteremia in 1/4 sets, likely contaminant, 1/4, afebrile 2. Possible urinary tract infection. Urine culture : Neg , SP RX 3. Possible Asp Pneum 4. Elevated liver function tests, rule out hepatobiliary disease - hepatitis panel : Neg - CT of ABD : Heterogeneous appearance of the liver may suggest hepatocellular disease or hepatic congestion. Moderate ascites. -Abd u/s: Slightly increased hepatic echogenicity. Hepatomegaly. Trace ascites. Gallbladder sludge. No stones. Markedly thickened gallbladder wall is likely reactive, related to adjacent hepatocellular inflammation, given stated clinical history. It could also be due to the hemodynamic derangements caused by the liver disease. Also probably exaggerated due to nondistention of the gallbladder. The possibility of acalculous acute cholecystitis or cholecystitis secondary to occult cholelithiasis not completely excludable, however. Consider hepatobiliary nuclearscanning if there is high clinical suspicion Negative for dilated ducts. s 5. Mid thoracic unstageable pressure ulcer. 6. Lactic acidosis. 7. Afebrile without leukocytosis. 8. HIV: Neg 9. Thrombocytopenia. 10. Coagulopathy. 11. Ankylosing spondylosis/kyphosis/cervical spondylosis with chronic contractures. 12. Tobacco abuse. 13. Urine toxicology positive for marijuana. 14. No known drug allergies. 15. Full Code. PLAN: -Continue empiric IV cefepime day # , add Flagyl d# 2 ( 09/01 SP IV Vancomycin d# 2 ) -F/u LFTs, - Follow up cultures. -. Monitor CBC and temperatures. -. Monitor CMP -. Monitor chest x-ray. -. Wound care. -. BiPAP Subjective Allergies: Coded Allergies: No Known Allergies (Unverified , 10/22/11) Subjective pt developed resp distress Objective Vital Signs Last 24 Hour Vital Signs Date Time Temp Pulse Resp B/P (MAP) Pulse Ox O2 Delivery O2 Flow Rate FiO2 11/06/16 20:00 101 11/06/16 20:00 99.5 107 35 96/60 98 Bi-pap 45 11/06/16 20:00 45 11/06/16 19:10 95 40 99 Facial 45 11/06/16 19:00 98 35 97/51 94 Bi-pap 45 11/06/16 18:19 99.0 11/06/16 18:00 99.0 92 35 106/44 94 Bi-pap 45 11/06/16 17:32 96 37 95 Facial 45 11/06/16 17:00 99.8 95 33 95/54 94 Bi-pap 45 11/06/16 16:00 98.6 98 32 96/52 95 Bi-pap 45 11/06/16 16:00 98 11/06/16 16:00 45 11/06/16 15:15 97 28 97 Facial 45 11/06/16 15:00 98 30 99/51 96 Bi-pap 45 11/06/16 14:00 97 30 97/51 95 Bi-pap 45 11/06/16 13:25 98 38 94 Facial 45 11/06/16 13:00 98 35 100/60 97 Bi-pap 45 11/06/16 12:00 45 11/06/16 12:00 98.2 87 35 100/54 96 Bi-pap 45 11/06/16 12:00 87 11/06/16 11:20 102 37 93 Facial 45 11/06/16 11:00 93 35 96/56 96 Bi-pap 45 11/06/16 10:00 105 33 94/53 95 Bi-pap 45 11/06/16 09:06 102 37 93 Facial 45 11/06/16 09:01 100 32 96/60 95 Bi-pap 45 11/06/16 08:51 100 96/62 11/06/16 08:00 98.5 98 32 97/60 95 Bi-pap 45 11/06/16 08:00 45 11/06/16 08:00 100 11/06/16 07:04 94 26 96 Facial 45 11/06/16 07:00 104 25 97/54 96 Bi-pap 45 11/06/16 06:00 98 33 96/54 96 Bi-pap 45 11/06/16 05:00 98 30 96/54 97 Bi-pap 45 11/06/16 04:44 94 26 96 Facial 45 11/06/16 04:00 89 11/06/16 04:00 45 11/06/16 04:00 98.0 98 30 90/47 96 Bi-pap 45 11/06/16 03:02 97 27 97 Facial 45 11/06/16 03:00 100 30 108/56 98 Bi-pap 55 11/06/16 02:00 101 28 105/51 99 Bi-pap 55 11/06/16 01:00 104 27 107/51 98 Bi-pap 55 11/06/16 00:40 93 30 99 Facial 55 11/06/16 00:00 93 11/06/16 00:00 98.9 100 35 107/71 98 Bi-pap 55 11/06/16 00:00 55 11/05/16 23:06 101 30 99 Facial 55 11/05/16 23:00 101 35 109/56 98 Bi-pap 55 11/05/16 22:00 100 33 98/53 98 Bi-pap 55 Height (Feet): 5 Height (Inches): 6.00 Weight (Pounds): 134 HEENT: anicteric Respiratory/Chest: no respiratory distress Cardiovascular: regular rhythm Abdomen: soft, non tender Microbiology Date/Time Source Procedure Growth Status 11/05/16 04:00 Stool Clostridium difficile Toxin Assay - Final Complete Laboratory Tests Test 11/06/16 04:25 White Blood Count 10.0 K/UL (4.8-10.8) Red Blood Count 3.65 M/UL (4.70-6.10) L Hemoglobin 8.7 G/DL (14.2-18.0) L Hematocrit 29.2 % (42.0-52.0) L Mean Corpuscular Volume 80 FL (80-99) Mean Corpuscular Hemoglobin 23.8 PG (27.0-31.0) L Mean Corpuscular Hemoglobin Concent 29.9 G/DL (32.0-36.0) L Red Cell Distribution Width 21.9 % (11.6-14.8) H Platelet Count 93 K/UL (150-450) L Mean Platelet Volume 8.0 FL (6.5-10.1) Neutrophils (%) (Auto) % (45.0-75.0) Lymphocytes (%) (Auto) % (20.0-45.0) Monocytes (%) (Auto) % (1.0-10.0) Eosinophils (%) (Auto) % (0.0-3.0) Basophils (%) (Auto) % (0.0-2.0) Differential Total Cells Counted 100 Neutrophils % (Manual) 80 % (45-75) H Lymphocytes % (Manual) 8 % (20-45) L Monocytes % (Manual) 3 % (1-10) Eosinophils % (Manual) 0 % (0-3) Basophils % (Manual) 0 % (0-2) Band Neutrophils 9 % (0-8) H Nucleated Red Blood Cells 4 /100 WBC Platelet Estimate Decreased L Platelet Morphology Normal Hypochromasia 2+ Anisocytosis 1+ Target Cells 1+ Acanthocytes 1+ Schistocytes 1+ Sodium Level 143 mEQ/L (135-145) Potassium Level 3.7 mEQ/L (3.4-4.9) Chloride Level 113 mEQ/L (98-107) H Carbon Dioxide Level 22 mEQ/L (20-30) Anion Gap 8 (5-15) Blood Urea Nitrogen 31 mg/dL (7-23) H Creatinine 0.8 mg/dL (0.7-1.2) Estimat Glomerular Filtration Rate > 60 mL/min (>60) Glucose Level 132 mg/dL (74-106) H Calcium Level 8.3 mg/dL (8.6-10.2) L Phosphorus Level 2.9 mg/dL (2.5-4.8) Magnesium Level 1.9 mg/dL (1.7-2.5) Total Bilirubin 0.7 mg/dL (0.0-1.2) Aspartate Amino Transf (AST/SGOT) 61 U/L (5-40) H Alanine Aminotransferase (ALT/SGPT) 139 U/L (3-41) H Alkaline Phosphatase 53 U/L (40-129) Total Protein 6.5 g/dL (6.6-8.7) L Albumin 2.9 g/dL (3.5-5.2) L Globulin 3.6 g/dL Albumin/Globulin Ratio 0.8 (1.0-2.7) L Current Medications Medications (Trade) Dose Ordered Sig/Dina Route PRN Reason Start Time Stop Time Status Last Admin Dose Admin Acetaminophen (Tylenol) 650 mg Q4H PRN ORAL FEVER 11/01/16 18:45 11/30/16 18:44 11/06/16 17:16 Acetaminophen/ Hydrocodone Bitart ([place] 5/325) 1 tab Q6H PRN ORAL FOR MODERATE PAIN 11/01/16 18:45 11/07/16 18:44 11/03/16 11:16 Amlodipine Besylate (Norvasc) 5 mg DAILY ORAL 11/02/16 09:00 12/01/16 08:59 11/03/16 08:45 Cefepime HCl 2 gm/ Dextrose 110 ml @ 220 mls/hr EVERY 12 HOURS IV 11/01/16 21:00 11/07/16 20:59 11/06/16 20:32 Dextrose (Dextrose 50%) STAT PRN IV Hypoglycemia 11/01/16 18:45 11/30/16 18:44 Dextrose/Sodium Chloride 1,000 ml @ 50 mls/hr Q20H IV 11/05/16 11:00 12/05/16 10:59 11/06/16 07:17 Furosemide (Lasix) 20 mg DAILY IV 11/03/16 16:00 12/03/16 15:59 11/06/16 08:49 Heparin Sodium (Porcine) (Heparin 5000 units/ml) 5,000 units EVERY 12 HOURS SUBQ 11/01/16 21:00 11/30/16 20:59 11/06/16 08:56 Indomethacin (Indocin) 50 mg TID ORAL 11/02/16 09:00 12/01/16 08:59 11/06/16 17:24 Lorazepam (Ativan 2mg/ml 1ml) 2 mg EVERY 2 HOURS PRN IV For Anxiety 11/01/16 20:00 11/07/16 18:44 11/05/16 03:22 Metronidazole 100 ml @ 100 mls/hr Q8HR IVPB 11/05/16 16:00 11/12/16 15:59 11/06/16 14:01 Morphine Sulfate (Morphine Sulfate) 4 mg EVERY 4 HOURS PRN IVP Severe Pain (Pain Scale 7-10) 11/01/16 21:00 11/07/16 18:44 Ondansetron HCl (Zofran) 4 mg Q6H PRN IVP Nausea & Vomiting 11/01/16 18:45 11/30/16 18:44 Pantoprazole (Protonix) 40 mg DAILY IVP 11/05/16 16:00 12/05/16 15:59 11/06/16 08:50 Polyethylene Glycol (Miralax) 17 gm DAILYPRN PRN ORAL Constipation 11/01/16 18:45 11/30/16 18:44 Potassium Chloride (K-Dur) 20 meq DAILY ORAL 11/04/16 12:00 12/04/16 11:59 11/06/16 08:50 Prednisolone Acetate (Pred Forte) 1 drop DAILY BOTH EYES 11/02/16 09:00 12/01/16 08:59 11/06/16 08:49 Promethazine HCl/ Codeine (Phenergan with Codeine) 5 ml Q6H PRN ORAL For Cough 11/01/16 20:30 12/01/16 08:29 Terazosin HCl (Hytrin) 2 mg BEDTIME ORAL 11/01/16 21:00 11/30/16 20:59 11/03/16 20:58 MOISES CASILLAS M.D. Nov 06, 2016 21:29
--- NOTE | 2016-11-06 22:08 | Wound Care Consultation ---
Wound Assessment Wound Assessment #1: Wound Present on Admission: No New Wound: No Status Change of Wound: No Wound Location Body Site Modif: mid Wound Location Body Site: thoracic spine Wound Type: pressure ulcer Cristhian Test: Does not Cristhian Pressure Ulcer Stage: IV/unstageable Wound Thickness: Full Thickness Wound Length: 0.5 Wound Width: 0.5 Wound Depth: utd Percent of Wound Bed Yellow/Wh: 100 Wound Drainage Description: Serosanguineous Wound Drainage Amount: Scant Wound Drainage Odor: None/Absent Tissue Surrounding Wound: Erythemic Wound General Appearance: Draining, Bone Palpable Wound Assessment #2: Wound Number: 2 Wound Present on Admission: No New Wound: Yes Status Change of Wound: No Wound Location Body Site Modif: mid, upper Wound Location Body Site: chest Wound Type: lesion-etiology unknown Cristhian Test: Does not Cristhian Wound Thickness: Full Thickness Wound Length: 2.0 Wound Width: 2.5 Wound Depth: utd Percent of Wound Bed Yellow/Wh: 100 Wound Drainage Description: Serosanguineous Wound Drainage Amount: Moderate Wound Drainage Odor: None/Absent Tissue Surrounding Wound: Indurated Wound General Appearance: Draining, Necrotic Wound Assessment #3: Wound Number: 3 Wound Present on Admission: No New Wound: Yes Status Change of Wound: No Wound Location Body Site Modif: left, posterior Wound Location Body Site: other - mandible Wound Type: scab Cristhian Test: Does not Cristhian Wound Drainage Amount: None Wound Drainage Odor: None/Absent Tissue Surrounding Wound: Erythemic Wound Comment #1 Mid thoracic spine unstageable pressure ulcer. Dry Black eschar pilled off. Noted wound bed size L 0.5 x W 0.3, still unstageable with yellow slough at tis time. #2 Open wound on mid upper chest with yellow slough. Etiology unknown #3 Posterior left mandible bone with dry scab. Recommendation -Open wound on mid upper chest with yellow slough and Mid thoracic spine unstageable pressure ulcer. Cleanse with saline, pat dry, apply Triad cream to bridgette wound area, apply Therhoney gel to wound bed, cover with Biatain silicone daily and PRN soiled/ dislodged -Local wound care per protocol -Keep clean and dry -Turn and reposition -Low air loss mattress -Optimize nutrition -Offload both heels -Heel protector on both heels -Assess and f/u accordingly for any changes YELENA MCGOVERN RN Nov 06, 2016 22:08
[2016-11-07] VITALS (24 sets, daily range): BP systolic 85–114; BP diastolic 43–87
[2016-11-07] MEDS: D5 1/2NS 1,000 ML IV SCH (05:09)
[2016-11-07 05:40] LABS: MEAN CORPUSCULAR HEMOGLOBIN 24.1 PG (27.0-31.0); MEAN CORPUSCULAR HGB CONC 30.1 G/DL (32.0-36.0); MEAN CORPUSCULAR VOLUME 80 FL (80-99); MEAN PLATELET VOLUME 6.7 FL (6.5-10.1); PLATELET COUNT 80 K/UL (150-450); RED BLOOD COUNT 3.49 M/UL (4.70-6.10); WHITE BLOOD COUNT 7.8 K/UL (4.8-10.8)
[2016-11-07 06:05] LABS: ALANINE AMINOTRANSFERASE 114 U/L (3-41); ALBUMIN/GLOBULIN RATIO 0.8 (1.0-2.7); ANION GAP 11 (5-15); ASPARTATE AMINO TRANSFERASE 41 U/L (5-40); CALCIUM 8.2 mg/dL (8.6-10.2); CARBON DIOXIDE 22 mEQ/L (20-30); CHLORIDE 111 mEQ/L (98-107); CREATININE 0.9 mg/dL (0.7-1.2); GLOMERULAR FILTRATION RATE > 60 mL/min (>60); HEMOLYSIS 0; PHOSPHORUS 2.1 mg/dL (2.5-4.8); POTASSIUM 3.7 mEQ/L (3.4-4.9); SODIUM 144 mEQ/L (135-145); TOTAL PROTEIN 6.2 g/dL (6.6-8.7)
[2016-11-07] MEDS: Pred Forte 1% Opth Susp 1ml BOTH EYES SCH (08:40)
[2016-11-07] MEDS: Cefepime HCl 2 GM in D5W 110 ML IV SCH (08:41)
[2016-11-07] MEDS: Indomethacin 25mg cap ORAL SCH ×3 (08:42→18:05)
[2016-11-07] MEDS: Pantoprazole Inj IVP SCH (08:42)
[2016-11-07] MEDS: Heparin 5000 units/ml inj SUBQ SCH ×2 (09:00→20:44)
[2016-11-07 09:01] LABS: ABG ALLEN TEST POSITIVE; ABG PCO2 49.9 mmHg (35.0-45.0)
--- NOTE | 2016-11-07 09:51 | General Progress Note ---
Assessment/Plan Assessment/Plan Assessment - Anemia with OB (-) x 1 - Iron deficiency - Elevated CEA - High albumin gradient ascites --> consistent with (R) heart failure - CM, severe , AI - CHF - Resp failure - poor prognosis Recommendations - Continue TF - Cardiology evaluation - f/u hepatitis serologies --> neg - Will hold off on EGD/Colon until cardiac evaluation complete Subjective Allergies: Coded Allergies: No Known Allergies (Unverified , 10/22/11) Subjective Seen in ICU doing poorly minimally interactive tolerating TF Objective Last 24 Hour Vital Signs Date Time Temp Pulse Resp B/P (MAP) Pulse Ox O2 Delivery O2 Flow Rate FiO2 11/07/16 09:07 87 28 99 Facial 45 11/07/16 08:42 84 88/45 11/07/16 08:00 45 11/07/16 08:00 84 35 88/44 96 Bi-pap 45 11/07/16 08:00 84 11/07/16 07:00 86 26 85/43 99 Bi-pap 45 11/07/16 06:51 82 22 99 Facial 45 11/07/16 06:00 86 26 87/48 100 Bi-pap 45 11/07/16 05:05 85 32 99 Facial 45 11/07/16 05:00 88 36 93/47 99 Bi-pap 45 11/07/16 04:00 98.7 89 30 94/54 99 Bi-pap 45 11/07/16 04:00 45 11/07/16 04:00 89 11/07/16 03:09 86 33 99 Facial 45 11/07/16 03:00 89 27 101/54 99 Bi-pap 45 11/07/16 02:00 86 31 107/69 99 Bi-pap 45 11/07/16 01:19 89 37 97 Facial 45 11/07/16 01:00 86 27 107/69 98 Bi-pap 45 11/07/16 00:00 99.0 89 35 95/68 96 Bi-pap 45 11/07/16 00:00 87 11/07/16 00:00 45 11/06/16 23:19 87 29 99 Facial 45 11/06/16 23:00 90 34 94/50 99 Bi-pap 45 11/06/16 22:00 90 34 95/51 99 Bi-pap 45 11/06/16 21:20 90 42 98 Facial 45 11/06/16 21:00 99 34 97/51 98 Bi-pap 45 11/06/16 20:00 101 11/06/16 20:00 99.5 107 35 96/60 98 Bi-pap 45 11/06/16 20:00 45 11/06/16 19:10 95 40 99 Facial 45 11/06/16 19:00 98 35 97/51 94 Bi-pap 45 11/06/16 18:19 99.0 11/06/16 18:00 99.0 92 35 106/44 94 Bi-pap 45 11/06/16 17:32 96 37 95 Facial 45 11/06/16 17:00 99.8 95 33 95/54 94 Bi-pap 45 11/06/16 16:00 98.6 98 32 96/52 95 Bi-pap 45 11/06/16 16:00 98 11/06/16 16:00 45 11/06/16 15:15 97 28 97 Facial 45 11/06/16 15:00 98 30 99/51 96 Bi-pap 45 11/06/16 14:00 97 30 97/51 95 Bi-pap 45 11/06/16 13:25 98 38 94 Facial 45 11/06/16 13:00 98 35 100/60 97 Bi-pap 45 11/06/16 12:00 45 11/06/16 12:00 98.2 87 35 100/54 96 Bi-pap 45 11/06/16 12:00 87 11/06/16 11:20 102 37 93 Facial 45 11/06/16 11:00 93 35 96/56 96 Bi-pap 45 11/06/16 10:00 105 33 94/53 95 Bi-pap 45 Intake and Output 11/07/16 11/08/16 19:00 07:00 Intake Total 55 ml Output Total 20 ml Balance 35 ml Tube Feeding 55 ml Output Urine Total 20 ml Laboratory Tests 11/07/16 04:00: Arterial Blood pH 7.277L, Arterial Blood Partial Pressure CO2 49.9H, Arterial Blood Partial Pressure O2 133.1H, Arterial Blood HCO3 22.8, Arterial Blood Oxygen Saturation 98.4H, Arterial Blood Base Excess -4.0, Anson Test Positive 11/07/16 04:10: White Blood Count 7.8, Red Blood Count 3.49L, Hemoglobin 8.4L, Hematocrit 27.9L , Mean Corpuscular Volume 80, Mean Corpuscular Hemoglobin 24.1L, Mean Corpuscular Hemoglobin Concent 30.1L, Red Cell Distribution Width 23.0H, Platelet Count 80L, Mean Platelet Volume 6.7, Neutrophils (%) (Auto) , Lymphocytes (%) (Auto) , Monocytes (%) (Auto) , Eosinophils (%) (Auto) , Basophils (%) (Auto) , Sodium Level 144, Potassium Level 3.7, Chloride Level 111H, Carbon Dioxide Level 22, Anion Gap 11, Blood Urea Nitrogen 35H, Creatinine 0.9, Estimat Glomerular Filtration Rate > 60, Glucose Level 187H, Calcium Level 8.2L, Phosphorus Level 2.1L, Magnesium Level 2.0, Total Bilirubin 0.8, Aspartate Amino Transf (AST/SGOT) 41H, Alanine Aminotransferase (ALT/SGPT) 114H, Alkaline Phosphatase 51, Total Protein 6.2L, Albumin 2.9L, Globulin 3.3, Albumin/Globulin Ratio 0.8L Height (Feet): 5 Height (Inches): 6.00 Weight (Pounds): 138 Objective (+) BIPAP NCAT neck stiff b/l ronreba RRR II/ systolic murmur abd soft distended (+) contractures NATASHA ARREDONDO Nov 07, 2016 09:51
[2016-11-07 10:30] LABS: COMMENT,BODY FLUID PATHOLOGIST COMMENT
[2016-11-07] MEDS ORDERED: D5 1/2NS 1000ml IV ONE (10:32)
[2016-11-07] MEDS ORDERED: NS 275ml ONE ×2 (10:32→16:50)
--- NOTE | 2016-11-07 10:32 | Pulmonolgy Critical Care Note ---
Critical Care - Asmt/Plan Problems: (1) Acute respiratory failure (2) Severe anemia (3) Anemia (4) Ankylosing spondylitis (5) Ascites Respiratory: monitor respiratory rate, adjust FIO2, CXR, other - pt can't be intubated because of the anatomy of the neck and tracheostomy is not possible either for the same reason. Cardiac: continue to monitor HR/BP Renal: F/U I&O Infectious Disease: check cultures, continue antibiotics, other Gastrointestinal: continue feedings/current rate Endocrine: monitor blood sugar, check TSH Hematologic: monitor H/H Neurologic: PRN Ativan Affect: PRN ativan Prophylaxis: Protonix, Heparin Notes Reviewed: blood and plasma laboratory assistant, renal Discussed with: nurses, consultants, corrections caseworkerfinancial center manager - Objective Last 24 Hour Vital Signs Date Time Temp Pulse Resp B/P (MAP) Pulse Ox O2 Delivery O2 Flow Rate FiO2 11/07/16 09:07 87 28 99 Facial 45 11/07/16 09:00 98.2 87 33 95/46 96 Bi-pap 45 11/07/16 08:42 84 88/45 11/07/16 08:00 45 11/07/16 08:00 84 35 88/44 96 Bi-pap 45 11/07/16 08:00 84 11/07/16 07:00 86 26 85/43 99 Bi-pap 45 11/07/16 06:51 82 22 99 Facial 45 11/07/16 06:00 86 26 87/48 100 Bi-pap 45 11/07/16 05:05 85 32 99 Facial 45 11/07/16 05:00 88 36 93/47 99 Bi-pap 45 11/07/16 04:00 98.7 89 30 94/54 99 Bi-pap 45 11/07/16 04:00 45 11/07/16 04:00 89 11/07/16 03:09 86 33 99 Facial 45 11/07/16 03:00 89 27 101/54 99 Bi-pap 45 11/07/16 02:00 86 31 107/69 99 Bi-pap 45 11/07/16 01:19 89 37 97 Facial 45 11/07/16 01:00 86 27 107/69 98 Bi-pap 45 11/07/16 00:00 99.0 89 35 95/68 96 Bi-pap 45 11/07/16 00:00 87 11/07/16 00:00 45 11/06/16 23:19 87 29 99 Facial 45 11/06/16 23:00 90 34 94/50 99 Bi-pap 45 11/06/16 22:00 90 34 95/51 99 Bi-pap 45 11/06/16 21:20 90 42 98 Facial 45 11/06/16 21:00 99 34 97/51 98 Bi-pap 45 11/06/16 20:00 101 11/06/16 20:00 99.5 107 35 96/60 98 Bi-pap 45 11/06/16 20:00 45 11/06/16 19:10 95 40 99 Facial 45 11/06/16 19:00 98 35 97/51 94 Bi-pap 45 11/06/16 18:19 99.0 11/06/16 18:00 99.0 92 35 106/44 94 Bi-pap 45 11/06/16 17:32 96 37 95 Facial 45 11/06/16 17:00 99.8 95 33 95/54 94 Bi-pap 45 11/06/16 16:00 98.6 98 32 96/52 95 Bi-pap 45 11/06/16 16:00 98 11/06/16 16:00 45 11/06/16 15:15 97 28 97 Facial 45 11/06/16 15:00 98 30 99/51 96 Bi-pap 45 11/06/16 14:00 97 30 97/51 95 Bi-pap 45 11/06/16 13:25 98 38 94 Facial 45 11/06/16 13:00 98 35 100/60 97 Bi-pap 45 11/06/16 12:00 45 11/06/16 12:00 98.2 87 35 100/54 96 Bi-pap 45 11/06/16 12:00 87 11/06/16 11:20 102 37 93 Facial 45 11/06/16 11:00 93 35 96/56 96 Bi-pap 45 Status: somnolent Condition: critical HEENT: atraumatic Lungs: rhonchi Heart: HR/BP stable Abdomen: soft Extremities: no C/C/E, edema Micro: Microbiology Date/Time Source Procedure Growth Status 11/05/16 04:00 Stool Clostridium difficile Toxin Assay - Final Complete Critical Care - Subjective ROS Limited/Unobtainable: Yes ICU Day: 6 Interval Events: on BIPAP FI02: 45 Sputum Amount: None Tube Feeding Amount: 55 I&O: Intake and Output 11/07/16 11/08/16 19:00 07:00 Intake Total 470 ml Output Total 50 ml Balance 420 ml Free Water 150 ml IV Total 210 ml Tube Feeding 110 ml Output Urine Total 50 ml CXR: increasing? right infiltrate Labs: Laboratory Tests Test 11/07/16 04:00 11/07/16 04:10 Arterial Blood pH 7.277 (7.350-7.450) Arterial Blood Partial Pressure CO2 49.9 mmHg (35.0-45.0) H Arterial Blood Partial Pressure O2 133.1 mmHg (75.0-100.0) H Arterial Blood HCO3 22.8 mmol/L (22.0-26.0) Arterial Blood Oxygen Saturation 98.4 % (92.0-98.0) H Arterial Blood Base Excess -4.0 Anson Test Positive White Blood Count 7.8 K/UL (4.8-10.8) Red Blood Count 3.49 M/UL (4.70-6.10) L Hemoglobin 8.4 G/DL (14.2-18.0) L Hematocrit 27.9 % (42.0-52.0) L Mean Corpuscular Volume 80 FL (80-99) Mean Corpuscular Hemoglobin 24.1 PG (27.0-31.0) L Mean Corpuscular Hemoglobin Concent 30.1 G/DL (32.0-36.0) L Red Cell Distribution Width 23.0 % (11.6-14.8) H Platelet Count 80 K/UL (150-450) L Mean Platelet Volume 6.7 FL (6.5-10.1) Neutrophils (%) (Auto) % (45.0-75.0) Lymphocytes (%) (Auto) % (20.0-45.0) Monocytes (%) (Auto) % (1.0-10.0) Eosinophils (%) (Auto) % (0.0-3.0) Basophils (%) (Auto) % (0.0-2.0) Sodium Level 144 mEQ/L (135-145) Potassium Level 3.7 mEQ/L (3.4-4.9) Chloride Level 111 mEQ/L (98-107) H Carbon Dioxide Level 22 mEQ/L (20-30) Anion Gap 11 (5-15) Blood Urea Nitrogen 35 mg/dL (7-23) H Creatinine 0.9 mg/dL (0.7-1.2) Estimat Glomerular Filtration Rate > 60 mL/min (>60) Glucose Level 187 mg/dL (74-106) H Calcium Level 8.2 mg/dL (8.6-10.2) L Phosphorus Level 2.1 mg/dL (2.5-4.8) L Magnesium Level 2.0 mg/dL (1.7-2.5) Total Bilirubin 0.8 mg/dL (0.0-1.2) Aspartate Amino Transf (AST/SGOT) 41 U/L (5-40) H Alanine Aminotransferase (ALT/SGPT) 114 U/L (3-41) H Alkaline Phosphatase 51 U/L (40-129) Total Protein 6.2 g/dL (6.6-8.7) L Albumin 2.9 g/dL (3.5-5.2) L Globulin 3.3 g/dL Albumin/Globulin Ratio 0.8 (1.0-2.7) L ESTEFANY MITCHELL Nov 07, 2016 10:32
--- NOTE | 2016-11-07 11:00 | Diagnostic Imaging Report ---
Indication: DYSPNEA Technique: One view of the chest Comparison: 11/05/2016 Findings: As previously, unable to position patient optimally, resulting in patient's head obscuring much of the upper thorax. Diffuse infiltrates versus edema in the left lung may be minimally improved. Parenchymal disease in the right lung is unchanged. There is probably a large right-sided pleural effusion. The heart is probably enlarged. Interim placement of a nasogastric tube, tip of which projects beyond the image, presumably well within the stomach. Right shoulder prosthesis again demonstrated Impression: . Limited exam, as described Suggestion of slight improvement of parenchymal disease on the left, unchanged parenchymal disease on the right, over 2 days Probable large right pleural effusion Satisfactory nasogastric intubation
--- NOTE | 2016-11-07 11:11 | Consultation ---
History of Present Illness General Date patient seen: Nov 07, 2016 Chief Complaint: Dyspnea/Respdistress Reason for Consultation: possiblity of trach Present Illness HPI 51M with multiple medical comorbidities here in the ICU at [facility] currently under the care of the medical/pulmonary teams. Please refer to notes for details. Patient with respiratory distress and dyspnea requiring support. Surgery called to evaluate for possibility of trach. When seen at bedside patient laying comfortable contracted non responsive with BIPAP. Information obtained from PCP and EMR. Allergies: Coded Allergies: No Known Allergies (Unverified , 10/22/11) Medication History Scheduled Albuterol Sulfate (Ventolin Hfa), 2 PUFFS INH EVERY 6 HOURS Alendronate Sodium* (Fosamax*), 70 MG PO Q7D, (Reported) Amlodipine Besylate* (Amlodipine Besylate*), 5 MG ORAL DAILY, (Reported) Atorvastatin Calcium* (Atorvastatin Calcium*), 20 MG ORAL BEDTIME, (Reported) Calcium Carbonate/Vitamin D3 (Oyster Shell 500 Mg + Vit D Tb), 1 EACH PO BID, ( Reported) Dexlansoprazole (Dexilant), 60 MG ORAL DAILY, (Reported) Dexlansoprazole (Dexilant), 60 MG ORAL DAILY, (Reported) Folic Acid* (Folic Acid*), 1 MG PO DAILY, (Reported) Indomethacin (Indomethacin), 50 MG PO TID, (Reported) Methotrexate Sodium* (Methotrexate*), 2.5 MG PO QWEEK, (Reported) Metoprolol Tartrate* (Metoprolol Tartrate*), 25 MG ORAL EVERY 12 HOURS, ( Reported) Sulfasalazine* (Azulfidine*), 500 MG ORAL FOUR TIMES A DAY, (Reported) Terazosin Hcl* (Hytrin*), 2 MG ORAL BEDTIME, (Reported) Scheduled PRN Hydrocodone/Acetaminophen 5-325* (Hydrocodone/Acetaminophen 5-325*), 1 TAB PO PRN PRN for For Pain, (Reported) Miscellaneous Medications Prednisolone Acetate (Prednisolone Acetate), (Reported) Patient History Limited by: medical condition History Provided By: Medical Record, PMD Healthcare decision maker Resuscitation status Full Code Advanced Directive on File Past Medical/Surgical History Past Medical/Surgical History: (1) Acute coronary syndrome (2) Palpitations (3) Elevated troponin (4) Metabolic acidosis (5) Dyspnea (6) Lactic acid acidosis (7) LFTs abnormal (8) Acute hepatitis (9) Osteoporosis (10) Anemia (11) Depression (12) SOB (shortness of breath) (13) Kyphosis (14) Ankylosing spondylitis (15) Pneumonia (16) HTN (hypertension) (17) Cervical spondylitis (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 (19) Ascites (20) Hypoalbuminemia (21) Hepatocellular damage (22) Transaminitis (23) Severe anemia (24) Acute respiratory failure (25) Respiratory failure Review of Systems ROS Narrative cannot obtain given patients medical condition Physical Exam General Appearance: WD/WN, no apparent distress Lines, tubes and drains: peripheral HEENT: normocephalic, other - NECK CONTRACTED/FLEXED FORWARD WITH MINIMAL RANGE OF MOTION ACTIVELY AND NOTHING PASSIVE GIVEN DOES NOT FOLLOW COMMANDS Neck: limited range of motion, stiff neck, other - NECK CONTRACTED/FLEXED FORWARD WITH MINIMAL RANGE OF MOTION ACTIVELY AND NOTHING PASSIVE GIVEN DOES NOT FOLLOW COMMANDS Respiratory/Chest: no respiratory distress, no accessory muscle use, other - bipap Cardiovascular/Chest: normal peripheral pulses, normal rate, regularly irregular Abdomen: normal bowel sounds, non tender, soft, no organomegaly, no mass Extremities: no cyanosis, other - limited range of motion Skin Exam: normal pigmentation Neurologic: unresponsiveness Last 24 Hour Vital Signs Date Time Temp Pulse Resp B/P (MAP) Pulse Ox O2 Delivery O2 Flow Rate FiO2 11/07/16 10:00 88 35 114/58 98 Bi-pap 45 11/07/16 09:07 87 28 99 Facial 45 11/07/16 09:00 98.2 87 33 95/46 96 Bi-pap 45 11/07/16 08:42 84 88/45 11/07/16 08:00 45 11/07/16 08:00 84 35 88/44 96 Bi-pap 45 11/07/16 08:00 84 11/07/16 07:00 86 26 85/43 99 Bi-pap 45 11/07/16 06:51 82 22 99 Facial 45 11/07/16 06:00 86 26 87/48 100 Bi-pap 45 11/07/16 05:05 85 32 99 Facial 45 11/07/16 05:00 88 36 93/47 99 Bi-pap 45 11/07/16 04:00 98.7 89 30 94/54 99 Bi-pap 45 11/07/16 04:00 45 9/28/17 04:00 89 11/07/16 03:09 86 33 99 Facial 45 11/07/16 03:00 89 27 101/54 99 Bi-pap 45 11/07/16 02:00 86 31 107/69 99 Bi-pap 45 11/07/16 01:19 89 37 97 Facial 45 11/07/16 01:00 86 27 107/69 98 Bi-pap 45 11/07/16 00:00 99.0 89 35 95/68 96 Bi-pap 45 11/07/16 00:00 87 11/07/16 00:00 45 11/06/16 23:19 87 29 99 Facial 45 11/06/16 23:00 90 34 94/50 99 Bi-pap 45 11/06/16 22:00 90 34 95/51 99 Bi-pap 45 11/06/16 21:20 90 42 98 Facial 45 11/06/16 21:00 99 34 97/51 98 Bi-pap 45 11/06/16 20:00 101 11/06/16 20:00 99.5 107 35 96/60 98 Bi-pap 45 11/06/16 20:00 45 11/06/16 19:10 95 40 99 Facial 45 11/06/16 19:00 98 35 97/51 94 Bi-pap 45 11/06/16 18:19 99.0 11/06/16 18:00 99.0 92 35 106/44 94 Bi-pap 45 11/06/16 17:32 96 37 95 Facial 45 11/06/16 17:00 99.8 95 33 95/54 94 Bi-pap 45 11/06/16 16:00 98.6 98 32 96/52 95 Bi-pap 45 11/06/16 16:00 98 11/06/16 16:00 45 11/06/16 15:15 97 28 97 Facial 45 11/06/16 15:00 98 30 99/51 96 Bi-pap 45 11/06/16 14:00 97 30 97/51 95 Bi-pap 45 11/06/16 13:25 98 38 94 Facial 45 11/06/16 13:00 98 35 100/60 97 Bi-pap 45 11/06/16 12:00 45 11/06/16 12:00 98.2 87 35 100/54 96 Bi-pap 45 11/06/16 12:00 87 11/06/16 11:20 102 37 93 Facial 45 11/06/16 11:00 93 35 96/56 96 Bi-pap 45 Intake and Output 11/07/16 11/08/16 19:00 07:00 Intake Total 525 ml Output Total 200 ml Balance 325 ml Free Water 150 ml IV Total 210 ml Tube Feeding 165 ml Output Urine Total 200 ml Laboratory Tests Test 11/07/16 04:00 11/07/16 04:10 Arterial Blood pH 7.277 (7.350-7.450) Arterial Blood Partial Pressure CO2 49.9 mmHg (35.0-45.0) H Arterial Blood Partial Pressure O2 133.1 mmHg (75.0-100.0) H Arterial Blood HCO3 22.8 mmol/L (22.0-26.0) Arterial Blood Oxygen Saturation 98.4 % (92.0-98.0) H Arterial Blood Base Excess -4.0 Anson Test Positive White Blood Count 7.8 K/UL (4.8-10.8) Red Blood Count 3.49 M/UL (4.70-6.10) L Hemoglobin 8.4 G/DL (14.2-18.0) L Hematocrit 27.9 % (42.0-52.0) L Mean Corpuscular Volume 80 FL (80-99) Mean Corpuscular Hemoglobin 24.1 PG (27.0-31.0) L Mean Corpuscular Hemoglobin Concent 30.1 G/DL (32.0-36.0) L Red Cell Distribution Width 23.0 % (11.6-14.8) H Platelet Count 80 K/UL (150-450) L Mean Platelet Volume 6.7 FL (6.5-10.1) Neutrophils (%) (Auto) % (45.0-75.0) Lymphocytes (%) (Auto) % (20.0-45.0) Monocytes (%) (Auto) % (1.0-10.0) Eosinophils (%) (Auto) % (0.0-3.0) Basophils (%) (Auto) % (0.0-2.0) Sodium Level 144 mEQ/L (135-145) Potassium Level 3.7 mEQ/L (3.4-4.9) Chloride Level 111 mEQ/L (98-107) H Carbon Dioxide Level 22 mEQ/L (20-30) Anion Gap 11 (5-15) Blood Urea Nitrogen 35 mg/dL (7-23) H Creatinine 0.9 mg/dL (0.7-1.2) Estimat Glomerular Filtration Rate > 60 mL/min (>60) Glucose Level 187 mg/dL (74-106) H Calcium Level 8.2 mg/dL (8.6-10.2) L Phosphorus Level 2.1 mg/dL (2.5-4.8) L Magnesium Level 2.0 mg/dL (1.7-2.5) Total Bilirubin 0.8 mg/dL (0.0-1.2) Aspartate Amino Transf (AST/SGOT) 41 U/L (5-40) H Alanine Aminotransferase (ALT/SGPT) 114 U/L (3-41) H Alkaline Phosphatase 51 U/L (40-129) Total Protein 6.2 g/dL (6.6-8.7) L Albumin 2.9 g/dL (3.5-5.2) L Globulin 3.3 g/dL Albumin/Globulin Ratio 0.8 (1.0-2.7) L Height (Feet): 5 Height (Inches): 6.00 Weight (Pounds): 138 Medications Current Medications Medications (Trade) Dose Ordered Sig/Dina Route PRN Reason Start Time Stop Time Status Last Admin Dose Admin Acetaminophen (Tylenol) 650 mg Q4H PRN ORAL FEVER 11/01/16 18:45 11/30/16 18:44 11/06/16 17:16 Acetaminophen/ Hydrocodone Bitart ([place] 5/325) 1 tab Q6H PRN ORAL FOR MODERATE PAIN 11/01/16 18:45 11/07/16 18:44 11/03/16 11:16 Amlodipine Besylate (Norvasc) 5 mg DAILY ORAL 11/02/16 09:00 12/01/16 08:59 11/03/16 08:45 Cefepime HCl 2 gm/ Dextrose 110 ml @ 220 mls/hr EVERY 12 HOURS IV 11/01/16 21:00 11/07/16 20:59 11/07/16 08:41 Dextrose (Dextrose 50%) STAT PRN IV Hypoglycemia 11/01/16 18:45 11/30/16 18:44 Dextrose/Sodium Chloride 1,000 ml @ 50 mls/hr Q20H IV 11/05/16 11:00 12/05/16 10:59 11/07/16 05:09 Furosemide (Lasix) 20 mg DAILY IV 11/03/16 16:00 12/03/16 15:59 11/07/16 08:41 Heparin Sodium (Porcine) (Heparin 5000 units/ml) 5,000 units EVERY 12 HOURS SUBQ 11/01/16 21:00 11/30/16 20:59 11/06/16 08:56 Indomethacin (Indocin) 50 mg TID ORAL 11/02/16 09:00 12/01/16 08:59 11/07/16 08:42 Lorazepam (Ativan 2mg/ml 1ml) 2 mg EVERY 2 HOURS PRN IV For Anxiety 11/01/16 20:00 11/07/16 18:44 11/05/16 03:22 Metronidazole 100 ml @ 100 mls/hr Q8HR IVPB 11/05/16 16:00 11/12/16 15:59 11/07/16 05:35 Morphine Sulfate (Morphine Sulfate) 4 mg EVERY 4 HOURS PRN IVP Severe Pain (Pain Scale 7-10) 11/01/16 21:00 11/07/16 18:44 Ondansetron HCl (Zofran) 4 mg Q6H PRN IVP Nausea & Vomiting 11/01/16 18:45 11/30/16 18:44 Pantoprazole (Protonix) 40 mg DAILY IVP 11/05/16 16:00 12/05/16 15:59 11/07/16 08:42 Polyethylene Glycol (Miralax) 17 gm DAILYPRN PRN ORAL Constipation 11/01/16 18:45 11/30/16 18:44 Potassium Chloride (K-Dur) 20 meq DAILY ORAL 11/04/16 12:00 12/04/16 11:59 11/07/16 08:42 Prednisolone Acetate (Pred Forte) 1 drop DAILY BOTH EYES 11/02/16 09:00 12/01/16 08:59 11/07/16 08:40 Promethazine HCl/ Codeine (Phenergan with Codeine) 5 ml Q6H PRN ORAL For Cough 11/01/16 20:30 12/01/16 08:29 Terazosin HCl (Hytrin) 2 mg BEDTIME ORAL 11/01/16 21:00 11/30/16 20:59 11/03/16 20:58 Assessment/Plan Problem List: (1) Respiratory failure Assessment & Plan: 51M with respiratory deficiency requiring support likely on [facility] basis. Called to evaluate for possible tracheostomy. When seen at bedside patient very limited. He is unresponsive but stable. On BIPAP. He has a anterior flexion of neck that is stiff with VERY limited range of motion. Stiff neck does not allow for active or passive range of motion and he is very limited because of his baseline medical condition. His chin basically touches his sternum at baseline and if neck is not supported it will float above the bed because of the stiffness. Given above tracheostomy would not be recommended at this time. He can be supported with BIPAP at this time and is stable. A tracheostomy would be technically and anatomically difficult and would pose a great risk to him at this time. He would be at high risk for complications during and post surgery. Thank you for this consultation. please feel free to call or page me at anytime with questions or concerns. Discussed above with brother Rusty on the phone. Explained to him that tracheostomy would not be recommended at this time. Brother expressed understanding. ICD Codes: J96.90 - Respiratory failure, unspecified, unspecified whether with hypoxia or hypercapnia SNOMED: [id number] Status: stable Arian Leary Nov 07, 2016 11:11
--- NOTE | 2016-11-07 15:17 | Internal Med Progress Note ---
Subjective Date of Service: Nov 07, 2016 Physician Name Miki Easton Attending Physician Raheel Dumont MD Current Medications Medications (Trade) Dose Ordered Sig/Dina Route PRN Reason Start Time Stop Time Status Last Admin Dose Admin Acetaminophen (Tylenol) 650 mg Q4H PRN ORAL FEVER 11/01/16 18:45 11/30/16 18:44 11/06/16 17:16 Acetaminophen/ Hydrocodone Bitart ([place]wood 5/325) 1 tab Q6H PRN ORAL FOR MODERATE PAIN 11/01/16 18:45 11/07/16 18:44 11/03/16 11:16 Amlodipine Besylate (Norvasc) 5 mg DAILY ORAL 11/02/16 09:00 12/01/16 08:59 11/03/16 08:45 Cefepime HCl 2 gm/ Dextrose 110 ml @ 220 mls/hr EVERY 12 HOURS IV 11/01/16 21:00 11/07/16 20:59 11/07/16 08:41 Dextrose (Dextrose 50%) STAT PRN IV Hypoglycemia 11/01/16 18:45 11/30/16 18:44 Dextrose/Sodium Chloride 1,000 ml @ 50 mls/hr Q20H IV 11/05/16 11:00 12/05/16 10:59 11/07/16 05:09 Furosemide (Lasix) 20 mg DAILY IV 11/03/16 16:00 12/03/16 15:59 11/07/16 08:41 Heparin Sodium (Porcine) (Heparin 5000 units/ml) 5,000 units EVERY 12 HOURS SUBQ 11/01/16 21:00 11/30/16 20:59 11/06/16 08:56 Indomethacin (Indocin) 50 mg TID ORAL 11/02/16 09:00 12/01/16 08:59 11/07/16 13:04 Lorazepam (Ativan 2mg/ml 1ml) 2 mg EVERY 2 HOURS PRN IV For Anxiety 11/01/16 20:00 11/07/16 18:44 11/05/16 03:22 Metronidazole 100 ml @ 100 mls/hr Q8HR IVPB 11/05/16 16:00 11/12/16 15:59 11/07/16 13:51 Morphine Sulfate (Morphine Sulfate) 4 mg EVERY 4 HOURS PRN IVP Severe Pain (Pain Scale 7-10) 11/01/16 21:00 11/07/16 18:44 Ondansetron HCl (Zofran) 4 mg Q6H PRN IVP Nausea & Vomiting 11/01/16 18:45 11/30/16 18:44 Pantoprazole (Protonix) 40 mg DAILY IVP 11/05/16 16:00 12/05/16 15:59 11/07/16 08:42 Polyethylene Glycol (Miralax) 17 gm DAILYPRN PRN ORAL Constipation 11/01/16 18:45 11/30/16 18:44 Potassium Chloride (K-Dur) 20 meq DAILY ORAL 11/04/16 12:00 12/04/16 11:59 11/07/16 08:42 Prednisolone Acetate (Pred Forte) 1 drop DAILY BOTH EYES 11/02/16 09:00 12/01/16 08:59 11/07/16 08:40 Promethazine HCl/ Codeine (Phenergan with Codeine) 5 ml Q6H PRN ORAL For Cough 11/01/16 20:30 12/01/16 08:29 Terazosin HCl (Hytrin) 2 mg BEDTIME ORAL 11/01/16 21:00 11/30/16 20:59 11/03/16 20:58 Allergies: Coded Allergies: No Known Allergies (Unverified , 10/22/11) ROS Limited/Unobtainable: Yes Subjective 51 YO M admitted with cough, fever and chills. Worsening respiratory failure; Now on BIPAP. Cover for Int [facility] -Dr Dumont. ICU. Await transfer to [facility] Objective Last Vital Signs Date Time Temp Pulse Resp B/P (MAP) Pulse Ox O2 Delivery O2 Flow Rate FiO2 11/07/16 15:00 85 32 93/49 99 Bi-pap 45 11/07/16 12:00 98.5 11/05/16 07:00 80.0 Laboratory Tests Test 11/07/16 04:00 11/07/16 04:10 Arterial Blood pH 7.277 (7.350-7.450) Arterial Blood Partial Pressure CO2 49.9 mmHg (35.0-45.0) H Arterial Blood Partial Pressure O2 133.1 mmHg (75.0-100.0) H Arterial Blood HCO3 22.8 mmol/L (22.0-26.0) Arterial Blood Oxygen Saturation 98.4 % (92.0-98.0) H Arterial Blood Base Excess -4.0 Anson Test Positive White Blood Count 7.8 K/UL (4.8-10.8) Red Blood Count 3.49 M/UL (4.70-6.10) L Hemoglobin 8.4 G/DL (14.2-18.0) L Hematocrit 27.9 % (42.0-52.0) L Mean Corpuscular Volume 80 FL (80-99) Mean Corpuscular Hemoglobin 24.1 PG (27.0-31.0) L Mean Corpuscular Hemoglobin Concent 30.1 G/DL (32.0-36.0) L Red Cell Distribution Width 23.0 % (11.6-14.8) H Platelet Count 80 K/UL (150-450) L Mean Platelet Volume 6.7 FL (6.5-10.1) Neutrophils (%) (Auto) % (45.0-75.0) Lymphocytes (%) (Auto) % (20.0-45.0) Monocytes (%) (Auto) % (1.0-10.0) Eosinophils (%) (Auto) % (0.0-3.0) Basophils (%) (Auto) % (0.0-2.0) Sodium Level 144 mEQ/L (135-145) Potassium Level 3.7 mEQ/L (3.4-4.9) Chloride Level 111 mEQ/L (98-107) H Carbon Dioxide Level 22 mEQ/L (20-30) Anion Gap 11 (5-15) Blood Urea Nitrogen 35 mg/dL (7-23) H Creatinine 0.9 mg/dL (0.7-1.2) Estimat Glomerular Filtration Rate > 60 mL/min (>60) Glucose Level 187 mg/dL (74-106) H Calcium Level 8.2 mg/dL (8.6-10.2) L Phosphorus Level 2.1 mg/dL (2.5-4.8) L Magnesium Level 2.0 mg/dL (1.7-2.5) Total Bilirubin 0.8 mg/dL (0.0-1.2) Aspartate Amino Transf (AST/SGOT) 41 U/L (5-40) H Alanine Aminotransferase (ALT/SGPT) 114 U/L (3-41) H Alkaline Phosphatase 51 U/L (40-129) Total Protein 6.2 g/dL (6.6-8.7) L Albumin 2.9 g/dL (3.5-5.2) L Globulin 3.3 g/dL Albumin/Globulin Ratio 0.8 (1.0-2.7) L Microbiology Date/Time Source Procedure Growth Status 11/05/16 04:00 Stool Clostridium difficile Toxin Assay - Final Complete Intake and Output 11/07/16 11/08/16 19:00 07:00 Intake Total 1150 ml Output Total 580 ml Balance 570 ml Free Water 150 ml IV Total 560 ml Tube Feeding 440 ml Output Urine Total 580 ml Objective General Appearance: WD/WN, no apparent distress, alert EENT: PERRL/EOMI, normal ENT inspection Neck: non-tender, muscle spasm, stiff neck, other - contractrre Cardiovascular: normal peripheral pulses, normal rate, regular rhythm, no gallop/murmur, no JVD Respiratory/Chest: BIPAP; chest wall non-tender, respiratory distress, crackles /rales, rhonchi - bilaterally, expiratory wheezing Abdomen: normal bowel sounds, non tender, soft, no organomegaly, no mass Extremities: normal range of motion Neurologic: other - contractures Skin: normal pigmentation, warm/dry Assessment/Plan Problem List: (1) Depression (2) Flexion contractures Assessment & Plan: Await physical therapy (3) Anemia Assessment & Plan: Iron def anemia. Continue IV iron (4) Ankylosing spondylitis (5) HTN (hypertension) Assessment & Plan: Continue amlodipine (6) Osteoporosis (7) Kyphosis (8) Cervical spondylitis (9) Pneumonia Assessment & Plan: See pulmonary note. Continue Cefepime per pulm (10) SOB (shortness of breath) (11) Ascites Assessment & Plan: S/P paracentesis 11/04/16. see GI note. (12) Respiratory failure Assessment & Plan: Worsening. Cont BIPAP per pulmonary. Start flagyl for possible aspiration pneumonia. Await ID recommendation Status: not improved Assessment/Plan Unable to intubate due to neck contractures. See pulmonary note. Prognosis is poor. MIKI EASTON Nov 07, 2016 15:17
--- NOTE | 2016-11-07 15:41 | Neurology Progress Note ---
Interim History Interim History ROS Limited/Unobtainable: Yes Objective Physical Exam Last Vital Signs Date Time Temp Pulse Resp B/P (MAP) Pulse Ox O2 Delivery O2 Flow Rate FiO2 11/07/16 15:00 85 32 93/49 99 Bi-pap 45 11/07/16 12:00 98.5 11/05/16 07:00 80.0 Laboratory Tests Test 11/07/16 04:00 11/07/16 04:10 Arterial Blood pH 7.277 (7.350-7.450) Arterial Blood Partial Pressure CO2 49.9 mmHg (35.0-45.0) H Arterial Blood Partial Pressure O2 133.1 mmHg (75.0-100.0) H Arterial Blood HCO3 22.8 mmol/L (22.0-26.0) Arterial Blood Oxygen Saturation 98.4 % (92.0-98.0) H Arterial Blood Base Excess -4.0 Anson Test Positive White Blood Count 7.8 K/UL (4.8-10.8) Red Blood Count 3.49 M/UL (4.70-6.10) L Hemoglobin 8.4 G/DL (14.2-18.0) L Hematocrit 27.9 % (42.0-52.0) L Mean Corpuscular Volume 80 FL (80-99) Mean Corpuscular Hemoglobin 24.1 PG (27.0-31.0) L Mean Corpuscular Hemoglobin Concent 30.1 G/DL (32.0-36.0) L Red Cell Distribution Width 23.0 % (11.6-14.8) H Platelet Count 80 K/UL (150-450) L Mean Platelet Volume 6.7 FL (6.5-10.1) Neutrophils (%) (Auto) % (45.0-75.0) Lymphocytes (%) (Auto) % (20.0-45.0) Monocytes (%) (Auto) % (1.0-10.0) Eosinophils (%) (Auto) % (0.0-3.0) Basophils (%) (Auto) % (0.0-2.0) Sodium Level 144 mEQ/L (135-145) Potassium Level 3.7 mEQ/L (3.4-4.9) Chloride Level 111 mEQ/L (98-107) H Carbon Dioxide Level 22 mEQ/L (20-30) Anion Gap 11 (5-15) Blood Urea Nitrogen 35 mg/dL (7-23) H Creatinine 0.9 mg/dL (0.7-1.2) Estimat Glomerular Filtration Rate > 60 mL/min (>60) Glucose Level 187 mg/dL (74-106) H Calcium Level 8.2 mg/dL (8.6-10.2) L Phosphorus Level 2.1 mg/dL (2.5-4.8) L Magnesium Level 2.0 mg/dL (1.7-2.5) Total Bilirubin 0.8 mg/dL (0.0-1.2) Aspartate Amino Transf (AST/SGOT) 41 U/L (5-40) H Alanine Aminotransferase (ALT/SGPT) 114 U/L (3-41) H Alkaline Phosphatase 51 U/L (40-129) Total Protein 6.2 g/dL (6.6-8.7) L Albumin 2.9 g/dL (3.5-5.2) L Globulin 3.3 g/dL Albumin/Globulin Ratio 0.8 (1.0-2.7) L Impression/Recommendations Status: not improved Recommendations #[id number] CHRIS KUMARI Nov 07, 2016 15:41
--- NOTE | 2016-11-07 17:57 | Cardiac Electrophysiology PN ---
Subjective Subjective [id number] Objective Last 24 Hour Vital Signs Date Time Temp Pulse Resp B/P (MAP) Pulse Ox O2 Delivery O2 Flow Rate FiO2 11/07/16 17:21 88 28 100 Facial 45 11/07/16 17:00 84 30 102/53 99 Bi-pap 45 11/07/16 16:16 87 28 99 Facial 45 11/07/16 16:00 87 11/07/16 16:00 45 11/07/16 16:00 98.5 86 32 109/49 99 Bi-pap 45 11/07/16 15:00 85 32 93/49 99 Bi-pap 45 11/07/16 14:00 88 28 94/43 99 Bi-pap 45 11/07/16 13:00 79 28 93/43 98 Bi-pap 45 11/07/16 12:42 91 31 99 Facial 45 11/07/16 12:00 76 11/07/16 12:00 45 11/07/16 12:00 98.5 79 33 95/48 98 Bi-pap 45 11/07/16 11:00 85 35 96/58 98 Bi-pap 45 11/07/16 10:49 85 27 100 Facial 45 11/07/16 10:00 88 35 114/58 98 Bi-pap 45 11/07/16 09:07 87 28 99 Facial 45 11/07/16 09:00 98.2 87 33 95/46 96 Bi-pap 45 11/07/16 08:42 84 88/45 11/07/16 08:00 45 11/07/16 08:00 84 35 88/44 96 Bi-pap 45 11/07/16 08:00 84 11/07/16 07:00 86 26 85/43 99 Bi-pap 45 11/07/16 06:51 82 22 99 Facial 45 11/07/16 06:00 86 26 87/48 100 Bi-pap 45 11/07/16 05:05 85 32 99 Facial 45 11/07/16 05:00 88 36 93/47 99 Bi-pap 45 11/07/16 04:00 98.7 89 30 94/54 99 Bi-pap 45 11/07/16 04:00 45 11/07/16 04:00 89 11/07/16 03:09 86 33 99 Facial 45 11/07/16 03:00 89 27 101/54 99 Bi-pap 45 11/07/16 02:00 86 31 107/69 99 Bi-pap 45 11/07/16 01:19 89 37 97 Facial 45 11/07/16 01:00 86 27 107/69 98 Bi-pap 45 11/07/16 00:00 99.0 89 35 95/68 96 Bi-pap 45 11/07/16 00:00 87 11/07/16 00:00 45 11/06/16 23:19 87 29 99 Facial 45 11/06/16 23:00 90 34 94/50 99 Bi-pap 45 11/06/16 22:00 90 34 95/51 99 Bi-pap 45 11/06/16 21:20 90 42 98 Facial 45 11/06/16 21:00 99 34 97/51 98 Bi-pap 45 11/06/16 20:00 101 11/06/16 20:00 99.5 107 35 96/60 98 Bi-pap 45 11/06/16 20:00 45 11/06/16 19:10 95 40 99 Facial 45 11/06/16 19:00 98 35 97/51 94 Bi-pap 45 11/06/16 18:19 99.0 11/06/16 18:00 99.0 92 35 106/44 94 Bi-pap 45 Intake and Output 11/07/16 11/08/16 19:00 07:00 Intake Total 1460 ml Output Total 750 ml Balance 710 ml Free Water 300 ml IV Total 610 ml Tube Feeding 550 ml Output Urine Total 750 ml # Bowel Movements 1 Laboratory Tests Test 11/07/16 04:00 11/07/16 04:10 Arterial Blood pH 7.277 (7.350-7.450) Arterial Blood Partial Pressure CO2 49.9 mmHg (35.0-45.0) H Arterial Blood Partial Pressure O2 133.1 mmHg (75.0-100.0) H Arterial Blood HCO3 22.8 mmol/L (22.0-26.0) Arterial Blood Oxygen Saturation 98.4 % (92.0-98.0) H Arterial Blood Base Excess -4.0 Anson Test Positive White Blood Count 7.8 K/UL (4.8-10.8) Red Blood Count 3.49 M/UL (4.70-6.10) L Hemoglobin 8.4 G/DL (14.2-18.0) L Hematocrit 27.9 % (42.0-52.0) L Mean Corpuscular Volume 80 FL (80-99) Mean Corpuscular Hemoglobin 24.1 PG (27.0-31.0) L Mean Corpuscular Hemoglobin Concent 30.1 G/DL (32.0-36.0) L Red Cell Distribution Width 23.0 % (11.6-14.8) H Platelet Count 80 K/UL (150-450) L Mean Platelet Volume 6.7 FL (6.5-10.1) Neutrophils (%) (Auto) % (45.0-75.0) Lymphocytes (%) (Auto) % (20.0-45.0) Monocytes (%) (Auto) % (1.0-10.0) Eosinophils (%) (Auto) % (0.0-3.0) Basophils (%) (Auto) % (0.0-2.0) Sodium Level 144 mEQ/L (135-145) Potassium Level 3.7 mEQ/L (3.4-4.9) Chloride Level 111 mEQ/L (98-107) H Carbon Dioxide Level 22 mEQ/L (20-30) Anion Gap 11 (5-15) Blood Urea Nitrogen 35 mg/dL (7-23) H Creatinine 0.9 mg/dL (0.7-1.2) Estimat Glomerular Filtration Rate > 60 mL/min (>60) Glucose Level 187 mg/dL (74-106) H Calcium Level 8.2 mg/dL (8.6-10.2) L Phosphorus Level 2.1 mg/dL (2.5-4.8) L Magnesium Level 2.0 mg/dL (1.7-2.5) Total Bilirubin 0.8 mg/dL (0.0-1.2) Aspartate Amino Transf (AST/SGOT) 41 U/L (5-40) H Alanine Aminotransferase (ALT/SGPT) 114 U/L (3-41) H Alkaline Phosphatase 51 U/L (40-129) Total Protein 6.2 g/dL (6.6-8.7) L Albumin 2.9 g/dL (3.5-5.2) L Globulin 3.3 g/dL Albumin/Globulin Ratio 0.8 (1.0-2.7) L Microbiology Date/Time Source Procedure Growth Status 11/05/16 04:00 Stool Clostridium difficile Toxin Assay - Final Complete KIMBERLY SALTER Nov 07, 2016 17:57
[2016-11-07 20:04] LABS: FERRITIN 187 ng/mL (10-230)
--- NOTE | 2016-11-07 20:35 | Infectious Diseases Prog Note ---
Assessment/Plan Assessment/Plan ASSESSMENT: 1. CoNS bacteremia in 1/4 sets, likely contaminant, 1/4, afebrile 2. Possible urinary tract infection. Urine culture : Neg , SP RX 3. Possible Asp Pneum 4. Elevated liver function tests, rule out hepatobiliary disease - hepatitis panel : Neg - CT of ABD : Heterogeneous appearance of the liver may suggest hepatocellular disease or hepatic congestion. Moderate ascites. -Abd u/s: Slightly increased hepatic echogenicity. Hepatomegaly. Trace ascites. Gallbladder sludge. No stones. Markedly thickened gallbladder wall is likely reactive, related to adjacent hepatocellular inflammation, given stated clinical history. It could also be due to the hemodynamic derangements caused by the liver disease. Also probably exaggerated due to nondistention of the gallbladder. The possibility of acalculous acute cholecystitis or cholecystitis secondary to occult cholelithiasis not completely excludable, however. Consider hepatobiliary nuclearscanning if there is high clinical suspicion Negative for dilated ducts. s 5. Mid thoracic unstageable pressure ulcer. 6. Lactic acidosis. 7. Afebrile without leukocytosis. 8. HIV: Neg 9. Thrombocytopenia. 10. Coagulopathy. 11. Ankylosing spondylosis/kyphosis/cervical spondylosis with chronic contractures. 12. Tobacco abuse. 13. Urine toxicology positive for marijuana. 14. No known drug allergies. 15. Full Code. PLAN: -Continue empiric IV cefepime day # 7 / , add Flagyl d# 3/7 ( 09/01 SP IV Vancomycin d# 2 ) -F/u LFTs, - Follow up cultures. -. Monitor CBC and temperatures. -. Monitor CMP -. Monitor chest x-ray. -. Wound care. -. BiPAP Subjective Allergies: Coded Allergies: No Known Allergies (Unverified , 10/22/11) Subjective pt developed resp distress Objective Vital Signs Last 24 Hour Vital Signs Date Time Temp Pulse Resp B/P (MAP) Pulse Ox O2 Delivery O2 Flow Rate FiO2 11/07/16 20:00 35 11/07/16 20:00 83 11/07/16 20:00 98.8 84 27 93/45 99 Bi-pap 35 11/07/16 19:17 83 20 100 Facial 35 11/07/16 19:00 84 29 101/58 100 Bi-pap 45 11/07/16 18:00 87 32 100/53 99 Bi-pap 45 11/07/16 17:21 88 28 100 Facial 45 11/07/16 17:00 84 30 102/53 99 Bi-pap 45 11/07/16 16:16 87 28 99 Facial 45 11/07/16 16:00 87 11/07/16 16:00 45 11/07/16 16:00 98.5 86 32 109/49 99 Bi-pap 45 11/07/16 15:00 85 32 93/49 99 Bi-pap 45 11/07/16 14:00 88 28 94/43 99 Bi-pap 45 11/07/16 13:00 79 28 93/43 98 Bi-pap 45 11/07/16 12:42 91 31 99 Facial 45 11/07/16 12:00 76 11/07/16 12:00 45 11/07/16 12:00 98.5 79 33 95/48 98 Bi-pap 45 11/07/16 11:00 85 35 96/58 98 Bi-pap 45 11/07/16 10:49 85 27 100 Facial 45 11/07/16 10:00 88 35 114/58 98 Bi-pap 45 11/07/16 09:07 87 28 99 Facial 45 11/07/16 09:00 98.2 87 33 95/46 96 Bi-pap 45 11/07/16 08:42 84 88/45 11/07/16 08:00 45 11/07/16 08:00 84 35 88/44 96 Bi-pap 45 11/07/16 08:00 84 11/07/16 07:00 86 26 85/43 99 Bi-pap 45 11/07/16 06:51 82 22 99 Facial 45 11/07/16 06:00 86 26 87/48 100 Bi-pap 45 11/07/16 05:05 85 32 99 Facial 45 11/07/16 05:00 88 36 93/47 99 Bi-pap 45 11/07/16 04:00 98.7 89 30 94/54 99 Bi-pap 45 11/07/16 04:00 45 11/07/16 04:00 89 11/07/16 03:09 86 33 99 Facial 45 11/07/16 03:00 89 27 101/54 99 Bi-pap 45 11/07/16 02:00 86 31 107/69 99 Bi-pap 45 11/07/16 01:19 89 37 97 Facial 45 11/07/16 01:00 86 27 107/69 98 Bi-pap 45 11/07/16 00:00 99.0 89 35 95/68 96 Bi-pap 45 11/07/16 00:00 87 11/07/16 00:00 45 11/06/16 23:19 87 29 99 Facial 45 11/06/16 23:00 90 34 94/50 99 Bi-pap 45 11/06/16 22:00 90 34 95/51 99 Bi-pap 45 11/06/16 21:20 90 42 98 Facial 45 11/06/16 21:00 99 34 97/51 98 Bi-pap 45 Height (Feet): 5 Height (Inches): 6.00 Weight (Pounds): 138 HEENT: anicteric Respiratory/Chest: no respiratory distress Cardiovascular: no JVD Abdomen: no mass Microbiology Date/Time Source Procedure Growth Status 11/05/16 04:00 Stool Clostridium difficile Toxin Assay - Final Complete Laboratory Tests Test 11/07/16 04:00 11/07/16 04:10 11/07/16 19:10 Arterial Blood pH 7.277 (7.350-7.450) Arterial Blood Partial Pressure CO2 49.9 mmHg (35.0-45.0) H Arterial Blood Partial Pressure O2 133.1 mmHg (75.0-100.0) H Arterial Blood HCO3 22.8 mmol/L (22.0-26.0) Arterial Blood Oxygen Saturation 98.4 % (92.0-98.0) H Arterial Blood Base Excess -4.0 Anson Test Positive White Blood Count 7.8 K/UL (4.8-10.8) Red Blood Count 3.49 M/UL (4.70-6.10) L Hemoglobin 8.4 G/DL (14.2-18.0) L Hematocrit 27.9 % (42.0-52.0) L Mean Corpuscular Volume 80 FL (80-99) Mean Corpuscular Hemoglobin 24.1 PG (27.0-31.0) L Mean Corpuscular Hemoglobin Concent 30.1 G/DL (32.0-36.0) L Red Cell Distribution Width 23.0 % (11.6-14.8) H Platelet Count 80 K/UL (150-450) L Mean Platelet Volume 6.7 FL (6.5-10.1) Neutrophils (%) (Auto) % (45.0-75.0) Lymphocytes (%) (Auto) % (20.0-45.0) Monocytes (%) (Auto) % (1.0-10.0) Eosinophils (%) (Auto) % (0.0-3.0) Basophils (%) (Auto) % (0.0-2.0) Sodium Level 144 mEQ/L (135-145) Potassium Level 3.7 mEQ/L (3.4-4.9) Chloride Level 111 mEQ/L (98-107) H Carbon Dioxide Level 22 mEQ/L (20-30) Anion Gap 11 (5-15) Blood Urea Nitrogen 35 mg/dL (7-23) H Creatinine 0.9 mg/dL (0.7-1.2) Estimat Glomerular Filtration Rate > 60 mL/min (>60) Glucose Level 187 mg/dL (74-106) H Calcium Level 8.2 mg/dL (8.6-10.2) L Phosphorus Level 2.1 mg/dL (2.5-4.8) L Magnesium Level 2.0 mg/dL (1.7-2.5) Total Bilirubin 0.8 mg/dL (0.0-1.2) Aspartate Amino Transf (AST/SGOT) 41 U/L (5-40) H Alanine Aminotransferase (ALT/SGPT) 114 U/L (3-41) H Alkaline Phosphatase 51 U/L (40-129) Total Protein 6.2 g/dL (6.6-8.7) L Albumin 2.9 g/dL (3.5-5.2) L Globulin 3.3 g/dL Albumin/Globulin Ratio 0.8 (1.0-2.7) L Haptoglobin 34 mg/dL (30-200) Fibrinogen 270 mg/dL (200-400) Ferritin 187 ng/mL (10-230) Current Medications Medications (Trade) Dose Ordered Sig/Dina Route PRN Reason Start Time Stop Time Status Last Admin Dose Admin Acetaminophen (Tylenol) 650 mg Q4H PRN ORAL FEVER 11/01/16 18:45 11/30/16 18:44 11/06/16 17:16 Amlodipine Besylate (Norvasc) 5 mg DAILY ORAL 11/02/16 09:00 12/01/16 08:59 11/03/16 08:45 Cefepime HCl 2 gm/ Dextrose 110 ml @ 220 mls/hr EVERY 12 HOURS IV 11/01/16 21:00 11/07/16 20:59 11/07/16 08:41 Dextrose (Dextrose 50%) STAT PRN IV Hypoglycemia 11/01/16 18:45 11/30/16 18:44 Dextrose/Sodium Chloride 1,000 ml @ 50 mls/hr Q20H IV 11/05/16 11:00 12/05/16 10:59 11/07/16 05:09 Furosemide (Lasix) 20 mg DAILY IV 11/03/16 16:00 12/03/16 15:59 11/07/16 08:41 Heparin Sodium (Porcine) (Heparin 5000 units/ml) 5,000 units EVERY 12 HOURS SUBQ 11/01/16 21:00 11/30/16 20:59 11/06/16 08:56 Indomethacin (Indocin) 50 mg TID ORAL 11/02/16 09:00 12/01/16 08:59 11/07/16 18:05 Lisinopril (Zestril) 5 mg EVERY 12 HOURS NG 11/07/16 21:00 12/07/16 20:59 Metronidazole 100 ml @ 100 mls/hr Q8HR IVPB 11/05/16 16:00 11/12/16 15:59 11/07/16 13:51 Ondansetron HCl (Zofran) 4 mg Q6H PRN IVP Nausea & Vomiting 11/01/16 18:45 11/30/16 18:44 Pantoprazole (Protonix) 40 mg DAILY IVP 11/05/16 16:00 12/05/16 15:59 11/07/16 08:42 Polyethylene Glycol (Miralax) 17 gm DAILYPRN PRN ORAL Constipation 11/01/16 18:45 11/30/16 18:44 Potassium Chloride (K-Dur) 20 meq DAILY ORAL 11/04/16 12:00 12/04/16 11:59 11/07/16 08:42 Prednisolone Acetate (Pred Forte) 1 drop DAILY BOTH EYES 11/02/16 09:00 12/01/16 08:59 11/07/16 08:40 Promethazine HCl/ Codeine (Phenergan with Codeine) 5 ml Q6H PRN ORAL For Cough 11/01/16 20:30 12/01/16 08:29 Terazosin HCl (Hytrin) 2 mg BEDTIME ORAL 11/01/16 21:00 11/30/16 20:59 11/03/16 20:58 MOISES CASILLAS M.D. Nov 07, 2016 20:35
[2016-11-07] MEDS: Lisinopril 10mg tab NG SCH (20:44)
[2016-11-07] MEDS: Terazosin 1mg cap ORAL SCH (20:44)
[2016-11-08] VITALS (43 sets, daily range): BP systolic 74–131; BP diastolic 33–70
[2016-11-08] MEDS: D5 1/2NS 1,000 ML IV SCH ×2 (00:12→18:17)
--- NOTE | 2016-11-08 00:45 | Consultation ---
DATE OF CONSULTATION: 11/07/2016 CARDIOLOGY CONSULTATION CONSULTING PHYSICIAN: Ashok Almazan M.D. REFERRING PHYSICIAN: Raheel Dumont M.D. Reason For Consultation: Cardiomyopathy with ejection fraction of 35% as well as critical aortic stenosis. History Of Present Illness: The patient is an unfortunate 51-year-old gentleman who is quite debilitated and bedbound, was brought to the emergency room for increasing shortness of breath. The patient was also found to be anemic. The patient also has ankylosing spondylitis, severe kyphosis, possible spondylosis, and multiple contracture deformities. The patient has respiratory failure, however, could not be intubated by even the ENT in view of his posture. The patient currently is on BiPAP in the intensive care unit. PAST MEDICAL HISTORY: 1. Hypertension. 2. Osteoporosis. 3. Ankylosing spondylitis. 4. Kyphosis. 5. Diverticulosis. 6. Depression. 7. Multiple contracture deformities. MEDICATIONS: As per reconciliation. SOCIAL HISTORY: He does not drink. He smoked 20 years ago. FAMILY HISTORY: Noncontributory. Review Of Systems: Cannot be obtained. Currently, nonverbal on BiPAP. PHYSICAL EXAMINATION: Vital Signs: Blood pressure is 102/53, pulse is 80, and respirations 28. HEAD AND NECK: Shows no JVD or contractures. He is on BiPAP. LUNGS: Coarse rhonchi bilaterally. Cardiovascular: Shows regular S1 and S2 with no gallop. A 2/6 systolic murmur at aortic area. ABDOMEN: Soft. EXTREMITIES: Contracted. Laboratory and diagnostic Data: His EKG showed normal sinus rhythm with left ventricular hypertrophy. Echocardiogram showed ejection fraction of 35% with aortic valve area of 0.8 with peak aortic valve gradient of 114 mmHg, as well as moderate pulmonary hypertension. His labs show white count of 7.8, hemoglobin 8.4, and hematocrit 27.9. Sodium 141, potassium 3.7, BUN 35, creatinine 0.9, and glucose of 187. INR is 1.3. Urine toxicology screen is positive for marijuana. ASSESSMENT AND PLAN: 1. Severe aortic stenosis. The patient is not a candidate for percutaneous intervention or aortic valve replacement. Avoid beta-blockers. 2. Cardiomyopathy. Hold off of beta-blockers. The patient is on Lasix 20 mg intravenous daily will be continued. The patient likely will benefit from HARSH inhibitors and Aldactone that he would be started on. 3. Anemia. Further evaluation by Gastroenterology. 4. Respiratory failure, currently on BiPAP, could not be intubated. We then transferred to [facility]. 5. Depression. 6. Flexion contractures. 7. Ankylosing spondylitis. 8. Kyphosis. 9. Ascites. Thank you very much, Dr. Dumont, for allowing me to participate in the care of this patient. Please do not hesitate to contact me if you have any questions regarding my evaluation. Ashok Almazan M.D. DR: YUNI JOB#: [id number] CC:
[2016-11-08 04:51] LABS: MEAN CORPUSCULAR HEMOGLOBIN 24.3 PG (27.0-31.0); MEAN CORPUSCULAR HGB CONC 30.5 G/DL (32.0-36.0); MEAN CORPUSCULAR VOLUME 80 FL (80-99); MEAN PLATELET VOLUME 7.5 FL (6.5-10.1); PLATELET COUNT 82 K/UL (150-450); RED BLOOD COUNT 3.47 M/UL (4.70-6.10); RED CELL DISTRIBUTION WIDTH 23.1 % (11.6-14.8); WHITE BLOOD COUNT 6.9 K/UL (4.8-10.8)
[2016-11-08 07:18] LABS: ANION GAP 5 (5-15); CALCIUM 8.2 mg/dL (8.6-10.2); CARBON DIOXIDE 25 mEQ/L (20-30); CHLORIDE 113 mEQ/L (98-107); CREATININE 0.8 mg/dL (0.7-1.2); GLOMERULAR FILTRATION RATE > 60 mL/min (>60); HEMOLYSIS 12; POTASSIUM 3.9 mEQ/L (3.4-4.9); SODIUM 143 mEQ/L (135-145)
[2016-11-08] MEDS: Heparin 5000 units/ml inj SUBQ SCH ×2 (07:35→20:49)
[2016-11-08 07:54] LABS: BAND NEUTROPHILS % (MANUAL) 5 % (0-8); BASOPHILS % (MANUAL) 0 % (0-2); EOSINOPHILS % (MANUAL) 1 % (0-3); HYPOCHROMASIA 2+; LYMPHOCYTES % (MANUAL) 4 % (20-45); NEUTROPHILS % (MANUAL) 85 % (45-75); NUCLEATED RED BLOOD CELLS 1 /100 WBC; OVALOCYTES 1+; PLATELET ESTIMATE DECREASED; PLATELET MORPHOLOGY NORMAL; TARGET CELLS 1+; TOTAL CELLS COUNTED 100
[2016-11-08 07:55] LABS: BURR CELLS 1+
--- NOTE | 2016-11-08 08:00 | Consultation ---
DATE OF CONSULTATION: 11/07/2016 NEUROLOGICAL CONSULTATION REQUESTING PHYSICIAN: Raheel Dumont M.D. History of Present Illness: This is a 51-year-old man, seen in neurological consultation to evaluate new changes of progressive obtundation, verbal unresponsiveness, developed mainly two days ago after thoracocentesis. The patient has a complex medical history. He is a chronically ill man, was admitted with few days of productive cough, chills, and respiratory insufficiency. There was evidence of bacteremia, UTI, bronchitis, abnormal liver enzymes, and lactic acidosis. His imaging studies include a chest x-ray, which was markedly limited, grossly stable interstitial edema or infiltrates, right costophrenic angle blunting, suggestive of small pleural effusion, bilateral mid and basilar atelectasis. A paracentesis was obtained on 11/04/2016 with a followup sonography demonstrating completely loose peritoneal fluid. Successful ultrasound-guided paracentesis yielded 800 mL of cloudy giovany fluid. His laboratory studies included signs of anemia with hemoglobin 8.4, hematocrit 27.9, low MCV and MCH. Sedimentation rate of 24. Coagulopathy with INR 1.5 and PT of 15.3. Urinalysis, 5-10 WBCs and 3+ protein. Toxicology panel positive for marijuana on admission and steroids with a negative hepatitis and HIV. His latest chemistry panel with BUN of 35 and blood sugar 187. Low alkaline phosphatase. Elevated liver function with AST 41, ALT 114, and albumin 2.9. Elevated CEA of 7.9, but normal B12 and folate. His chest x-ray was repeated, this revealed slight improvement of parenchymal disease on the left, unchanged parenchymal disease on the right, and possible large right pleural effusion. Following the last 24 hours, symptoms somewhat resolved. The patient was responding to voice command by the family. Past Medical History: History of severe ankylosing spondylosis causing functional quadriplegia, status post multiple corrective surgeries, bilateral hip and shoulder replacement. He has hypertension, COPD and osteoporosis. Medications: Treatment prior to admission included Flomax, Fosamax, omeprazole, Hytrin, [place] as needed, Norvasc, albuterol, and indomethacin. ALLERGIES: None reported. Social History: The patient lives with his family. He is a smoker. No alcohol. No drug abuse. FAMILY HISTORY: Noncontributory. REVIEW OF SYSTEMS: Unable to obtain due to the patient's status. PHYSICAL EXAMINATION: General: Well developed, ill-appearing man with a oxygen mask in place. Vital Signs: Hypotension with blood pressure 92/49, respiration rate of 32, heart rate of 85, and afebrile. HEENT: Head, normocephalic. There is no evidence of trauma. NECK: Flexed forward. Musculoskeletal: Postoperative scarring both shoulders and both hips with significant muscle wasting noted around postsurgical area. Peripheral pulses 1+ symmetric. Upper and lower extremities with significant deformities both hands, but predominantly feet. Mental Status: The patient is lethargic, on vigorous stimulation briefly open eyes, moan and groan, trying to resist exam. Cranial Nerve II: Pupils both responding to light and accommodation. Extraocular movements full range. CRANIAL NERVE V: Normal corneal responses. CRANIAL NERVE VII: Slight asymmetry. CRANIAL NERVE VIII: Grossly normal hearing. CRANIAL NERVE IX THROUGH XII: Tongue is in the midline. Motor Examination: Weakness, 2/5 both upper extremities, able to move his hands, but not feet. Deep tendon reflexes, depressed in biceps, triceps, brachioradialis, and knee jerks. Plantar responses flexor. No pathological responses. IMPRESSION AND PLAN: 1. Significant toxic metabolic encephalopathy, doubt presence of acute intracranial abnormalities. 2. Respiratory insufficiency. 3. Abnormal liver enzymes. 4. Severe ankylosing spondylosis with functional quadriplegia. 5. . 6. Chronic anemia. 7. Coagulopathy, abnormal liver enzymes. The patient is fully transportable, but when possible we will obtain CT of the brain without contrast. Meanwhile, continue with the supportive care, monitor liver enzymes, and coagulation panel. Continue with IV fluids and antibiotics as per attending. Thank you for allowing me to see this interesting patient in neurological consultation. Tenzin Chavez M.D. DR: ROBLES JOB#: [id number] CC:
--- NOTE | 2016-11-08 08:01 | Consultation ---
DATE OF CONSULTATION: 11/07/2016 HEMATOLOGY/ONCOLOGY CONSULTATION CONSULTING PHYSICIAN: George Gonzales M.D. REFERRING PHYSICIAN: Mague Caldera M.D. REASON FOR CONSULTATION: Management of thrombocytopenia and anemia. IDENTIFICATION DATA: Dear Dr. Caldera: The patient is a pleasant 51-year-old male with past medical history significant for asthma, who currently is in the ICU. The patient has a past medical history, which is significant for ankylosing spondylitis, osteoporosis, kyphosis of the spine, depression, and multiple contractures, at this time presents to the hospital with shortness of breath and difficulty breathing. He is on BiPAP. He has been seen by Surgical Service and is a poor candidate for tracheostomy placement. The patient was noted to be thrombocytopenic as well as anemic with iron deficiency component and Hematology service was consulted. PAST MEDICAL HISTORY: As noted above. PAST SURGICAL HISTORY: The patient denies any. Medications: Albuterol, Fosamax, amlodipine, Lipitor, calcium carbonate, Dexilant, , methotrexate, and metoprolol. ALLERGIES: No known drug allergies. Social History: He is single. Denies any alcohol, tobacco, or illicit drug use. REVIEW OF SYSTEMS: Difficult to assess at this moment. PHYSICAL EXAMINATION: VITAL SIGNS: Reviewed. GENERAL: No acute distress. NECK: Contracted. CARDIOVASCULAR: Regular rate. No S3 or S4. ABDOMEN: Soft, nontender, and nondistended. EXTREMITIES: 1+ edema. Laboratory Data: Currently, WBC of 5.8, hemoglobin 8, hematocrit 28, and platelet count 98,000. Imaging: Chest x-ray from 11/07/2016 shows slight improvement in chronic disease on the left side and unchanged from disease on the right. Pleural effusion is present. Abdominal x-ray shows no acute findings. ASSESSMENT: 1. Thrombocytopenia potentially secondary to medications versus disseminated intravascular coagulation. Platelet count has downtrended over the course of several days. No administration of heparin is noted. Continue to follow. 2. Anemia, secondary to chronic disease. 3. Anemia, secondary to iron deficiency. Agree with the use of IV iron. Anemia workup reviewed from before and we will order a ferritin. 4. Coagulopathy, secondary to malnutrition. 5. Ankylosing spondylitis. 6. Hypertension. He is on amlodipine. 7. Shortness of breath. 8. Ascites, status post paracentesis. 9. Respiratory failure. He is on BiPAP. He is not a candidate for tracheostomy as per Surgical Service. Prognosis remains poor. I appreciate the consultation. George Gonzales M.D. DR: IRA JOB#: [id number] CC:
[2016-11-08] MEDS: Pantoprazole Inj IVP SCH (08:04)
[2016-11-08] MEDS: Indomethacin 25mg cap ORAL SCH ×3 (08:04→18:17)
[2016-11-08] MEDS: Lisinopril 10mg tab NG SCH ×2 (08:05→20:50)
[2016-11-08] MEDS: Pred Forte 1% Opth Susp 1ml BOTH EYES SCH (08:09)
[2016-11-08] MEDS: Cefepime HCl 2 GM in D5W 110 ML IVPB SCH ×2 (10:28→20:47)
--- NOTE | 2016-11-08 10:43 | Pulmonolgy Critical Care Note ---
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, 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, ID Discussed with: nurses, consultants, returned case inspectorassistant office manager - Objective Last 24 Hour Vital Signs Date Time Temp Pulse Resp B/P (MAP) Pulse Ox O2 Delivery O2 Flow Rate FiO2 11/08/16 10:00 70 33 74/36 98 Bi-pap 35 11/08/16 09:10 69 19 99 Facial 35 11/08/16 09:00 71 34 75/42 98 Bi-pap 35 11/08/16 08:05 75/20 11/08/16 08:05 75 75/20 11/08/16 08:00 98.4 73 29 78/37 98 Bi-pap 35 11/08/16 08:00 74 11/08/16 08:00 35 11/08/16 07:00 81 29 82/42 98 Bi-pap 35 11/08/16 06:59 73 27 100 Facial 35 11/08/16 06:00 83 32 84/38 98 Bi-pap 35 11/08/16 05:14 77 26 99 Facial 35 11/08/16 05:00 82 29 87/41 97 Bi-pap 35 11/08/16 04:00 35 11/08/16 04:00 80 11/08/16 04:00 98.5 81 27 88/45 95 Bi-pap 35 11/08/16 03:24 75 27 99 Facial 35 11/08/16 03:00 74 30 80/42 97 Bi-pap 35 11/08/16 02:00 76 29 79/42 98 Bi-pap 35 11/08/16 01:20 73 24 98 Facial 35 11/08/16 01:00 75 29 79/38 98 Bi-pap 35 11/08/16 00:00 98.4 78 32 88/40 99 Bi-pap 35 11/08/16 00:00 35 11/08/16 00:00 76 11/07/16 23:13 84 29 98 Facial 35 11/07/16 23:00 82 29 93/62 99 Bi-pap 35 11/07/16 22:00 83 29 105/87 98 Bi-pap 35 11/07/16 21:07 82 30 98 Facial 35 11/07/16 21:00 85 29 92/50 99 Bi-pap 35 11/07/16 20:44 93/45 11/07/16 20:00 35 11/07/16 20:00 83 11/07/16 20:00 98.8 84 27 93/45 99 Bi-pap 35 11/07/16 19:17 83 20 100 Facial 35 11/07/16 19:00 84 29 101/58 100 Bi-pap 45 11/07/16 18:00 87 32 100/53 99 Bi-pap 45 11/07/16 17:21 88 28 100 Facial 45 11/07/16 17:00 84 30 102/53 99 Bi-pap 45 11/07/16 16:16 87 28 99 Facial 45 11/07/16 16:00 87 11/07/16 16:00 45 11/07/16 16:00 98.5 86 32 109/49 99 Bi-pap 45 11/07/16 15:00 85 32 93/49 99 Bi-pap 45 11/07/16 14:00 88 28 94/43 99 Bi-pap 45 11/07/16 13:00 79 28 93/43 98 Bi-pap 45 11/07/16 12:42 91 31 99 Facial 45 11/07/16 12:00 76 11/07/16 12:00 45 11/07/16 12:00 98.5 79 33 95/48 98 Bi-pap 45 11/07/16 11:00 85 35 96/58 98 Bi-pap 45 11/07/16 10:49 85 27 100 Facial 45 Status: somnolent Condition: critical HEENT: atraumatic Neck: full ROM Lungs: clear Heart: HR/BP stable, HR/BP unstable Abdomen: non-tender, active bowel sounds Critical Care - Subjective ROS Limited/Unobtainable: Yes ICU Day: 5 Interval Events: still on bipap, bp declining Condition: critical FI02: 35 Sputum Amount: None Tube Feeding Amount: 55 I&O: Intake and Output 11/08/16 11/09/16 19:00 07:00 Intake Total 265 ml Output Total 70 ml Balance 195 ml Free Water 100 ml Tube Feeding 165 ml Output Urine Total 70 ml CXR: no change Labs: Laboratory Tests Test 11/07/16 19:10 11/08/16 03:50 Haptoglobin 34 mg/dL (30-200) Fibrinogen 270 mg/dL (200-400) Ferritin 187 ng/mL (10-230) White Blood Count 6.9 K/UL (4.8-10.8) Red Blood Count 3.47 M/UL (4.70-6.10) L Hemoglobin 8.4 G/DL (14.2-18.0) L Hematocrit 27.7 % (42.0-52.0) L Mean Corpuscular Volume 80 FL (80-99) Mean Corpuscular Hemoglobin 24.3 PG (27.0-31.0) L Mean Corpuscular Hemoglobin Concent 30.5 G/DL (32.0-36.0) L Red Cell Distribution Width 23.1 % (11.6-14.8) H Platelet Count 82 K/UL (150-450) L Mean Platelet Volume 7.5 FL (6.5-10.1) Neutrophils (%) (Auto) % (45.0-75.0) Lymphocytes (%) (Auto) % (20.0-45.0) Monocytes (%) (Auto) % (1.0-10.0) Eosinophils (%) (Auto) % (0.0-3.0) Basophils (%) (Auto) % (0.0-2.0) Differential Total Cells Counted 100 Neutrophils % (Manual) 85 % (45-75) H Lymphocytes % (Manual) 4 % (20-45) L Monocytes % (Manual) 5 % (1-10) Eosinophils % (Manual) 1 % (0-3) Basophils % (Manual) 0 % (0-2) Band Neutrophils 5 % (0-8) Nucleated Red Blood Cells 1 /100 WBC Platelet Estimate Decreased L Platelet Morphology Normal Hypochromasia 2+ Basophilic Stippling 1+ Target Cells 1+ Ovalocytes 1+ [place] Cells 1+ Sodium Level 143 mEQ/L (135-145) Potassium Level 3.9 mEQ/L (3.4-4.9) Chloride Level 113 mEQ/L (98-107) H Carbon Dioxide Level 25 mEQ/L (20-30) Anion Gap 5 (5-15) Blood Urea Nitrogen 35 mg/dL (7-23) H Creatinine 0.8 mg/dL (0.7-1.2) Estimat Glomerular Filtration Rate > 60 mL/min (>60) Glucose Level 135 mg/dL (74-106) H Calcium Level 8.2 mg/dL (8.6-10.2) ESTEFANY CLINE Nov 08, 2016 10:43
[2016-11-08] MEDS ORDERED: Levophed 4mg/4mL Inj IV ONE (11:08)
--- NOTE | 2016-11-08 15:03 | Internal Med Progress Note ---
Subjective Physician Name Raheel Dumont Attending Physician Raheel Dumont MD Current Medications Medications (Trade) Dose Ordered Sig/Dina Route PRN Reason Start Time Stop Time Status Last Admin Dose Admin Acetaminophen (Tylenol) 650 mg Q4H PRN ORAL FEVER 11/01/16 18:45 11/30/16 18:44 11/06/16 17:16 Amlodipine Besylate (Norvasc) 5 mg DAILY ORAL 11/02/16 09:00 12/01/16 08:59 11/03/16 08:45 Cefepime HCl 2 gm/ Dextrose 110 ml @ 220 mls/hr EVERY 12 HOURS IVPB 11/08/16 09:00 11/15/16 08:59 11/08/16 10:28 Dextrose (Dextrose 50%) STAT PRN IV Hypoglycemia 11/01/16 18:45 11/30/16 18:44 Dextrose/Sodium Chloride 1,000 ml @ 50 mls/hr Q20H IV 11/05/16 11:00 12/05/16 10:59 11/08/16 00:12 Furosemide (Lasix) 20 mg DAILY IV 11/03/16 16:00 12/03/16 15:59 11/08/16 08:04 Heparin Sodium (Porcine) (Heparin 5000 units/ml) 5,000 units EVERY 12 HOURS SUBQ 11/01/16 21:00 11/30/16 20:59 11/06/16 08:56 Indomethacin (Indocin) 50 mg TID ORAL 11/02/16 09:00 12/01/16 08:59 11/08/16 13:40 Lisinopril (Zestril) 5 mg EVERY 12 HOURS NG 11/07/16 21:00 12/07/16 20:59 11/07/16 20:44 Metronidazole 100 ml @ 100 mls/hr Q8HR IVPB 11/05/16 16:00 11/12/16 15:59 11/08/16 13:43 Norepinephrine Bitartrate 4 mg/ Dextrose 250 ml @ 0 mls/hr Q24H IV 11/08/16 11:15 12/08/16 11:14 11/08/16 11:30 Ondansetron HCl (Zofran) 4 mg Q6H PRN IVP Nausea & Vomiting 11/01/16 18:45 11/30/16 18:44 Pantoprazole (Protonix) 40 mg DAILY IVP 11/05/16 16:00 12/05/16 15:59 11/08/16 08:04 Polyethylene Glycol (Miralax) 17 gm DAILYPRN PRN ORAL Constipation 11/01/16 18:45 11/30/16 18:44 Potassium Chloride (K-Dur) 20 meq DAILY ORAL 11/04/16 12:00 12/04/16 11:59 11/08/16 08:03 Prednisolone Acetate (Pred Forte) 1 drop DAILY BOTH EYES 11/02/16 09:00 12/01/16 08:59 11/08/16 08:09 Promethazine HCl/ Codeine (Phenergan with Codeine) 5 ml Q6H PRN ORAL For Cough 11/01/16 20:30 12/01/16 08:29 Terazosin HCl (Hytrin) 2 mg BEDTIME ORAL 11/01/16 21:00 11/30/16 20:59 11/03/16 20:58 Allergies: Coded Allergies: No Known Allergies (Unverified , 10/22/11) Subjective in ICU, on BiPAP on feeding tube, open eyes, awake, less responsive Objective Last Vital Signs Date Time Temp Pulse Resp B/P (MAP) Pulse Ox O2 Delivery O2 Flow Rate FiO2 11/08/16 14:00 80 24 91/45 97 Bi-pap 35 11/08/16 12:00 98.2 11/05/16 07:00 80.0 Laboratory Tests Test 11/07/16 19:10 11/08/16 03:50 Haptoglobin 34 mg/dL (30-200) Fibrinogen 270 mg/dL (200-400) Ferritin 187 ng/mL (10-230) White Blood Count 6.9 K/UL (4.8-10.8) Red Blood Count 3.47 M/UL (4.70-6.10) L Hemoglobin 8.4 G/DL (14.2-18.0) L Hematocrit 27.7 % (42.0-52.0) L Mean Corpuscular Volume 80 FL (80-99) Mean Corpuscular Hemoglobin 24.3 PG (27.0-31.0) L Mean Corpuscular Hemoglobin Concent 30.5 G/DL (32.0-36.0) L Red Cell Distribution Width 23.1 % (11.6-14.8) H Platelet Count 82 K/UL (150-450) L Mean Platelet Volume 7.5 FL (6.5-10.1) Neutrophils (%) (Auto) % (45.0-75.0) Lymphocytes (%) (Auto) % (20.0-45.0) Monocytes (%) (Auto) % (1.0-10.0) Eosinophils (%) (Auto) % (0.0-3.0) Basophils (%) (Auto) % (0.0-2.0) Differential Total Cells Counted 100 Neutrophils % (Manual) 85 % (45-75) H Lymphocytes % (Manual) 4 % (20-45) L Monocytes % (Manual) 5 % (1-10) Eosinophils % (Manual) 1 % (0-3) Basophils % (Manual) 0 % (0-2) Band Neutrophils 5 % (0-8) Nucleated Red Blood Cells 1 /100 WBC Platelet Estimate Decreased L Platelet Morphology Normal Hypochromasia 2+ Basophilic Stippling 1+ Target Cells 1+ Ovalocytes 1+ [place] Cells 1+ Sodium Level 143 mEQ/L (135-145) Potassium Level 3.9 mEQ/L (3.4-4.9) Chloride Level 113 mEQ/L (98-107) H Carbon Dioxide Level 25 mEQ/L (20-30) Anion Gap 5 (5-15) Blood Urea Nitrogen 35 mg/dL (7-23) H Creatinine 0.8 mg/dL (0.7-1.2) Estimat Glomerular Filtration Rate > 60 mL/min (>60) Glucose Level 135 mg/dL (74-106) H Calcium Level 8.2 mg/dL (8.6-10.2) L Intake and Output 11/08/16 11/09/16 19:00 07:00 Intake Total 1012.5 ml Output Total 300 ml Balance 712.5 ml Free Water 100 ml IV Total 497.5 ml Tube Feeding 385 ml Other 30 ml Output Urine Total 300 ml Objective HEENT: Pupils reactive to light. Extraocular movements are intact. On BiPAP, NG Tube. NECK: Supple. No JVD. Lungs: Poor inspiratory effort. No wheezes, Decreased air in the bases. HEART: S1 and S2. Distant heart sounds. No murmurs. ABDOMEN: Soft, nondistended, and nontender. Positive bowel sounds. Obesity. GENITOURINARY: Refused and deferred. SKIN: back ulceration Extremities: No cyanosis or clubbing. A +1 edema of bilateral lower extremities. Neurologic: Unable to obtain, secondary to the patient's status. He is quadriplegic and contracted bilateral upper extremity as well as lower extremity. Assessment/Plan Assessment/Plan 1. Acute respiratory failure on BiPAP 2. Aspiration Pneumonia 3. Iron-deficiency anemia. 4. Acidosis. 5. Acute renal failure with prerenal azotemia. 6. Abnormal liver function with transaminitis. 7. Ankylosis spondylitis with functional quadriplegia. 8. History of hypertension. 9. Osteoporosis. 10. Decubitus ulcer, presented on admission. 11. CoNS bacteremia in 1/4 sets, 12. Possible urinary tract infection. Plan: Monitor labs, cultures Abx: Cefepime and Flagyl Piccline placement today wean off BiPAP wound care Heparin SQ Code status: DNR / DNI Raheel Dumont MD Nov 08, 2016 15:03
[2016-11-08] MEDS ORDERED: Heparin 2000 units/Ns 1000ml IV ONE (15:15)
[2016-11-08] MEDS ORDERED: Lidocaine 1% Plain 30 ml INJ ONE (15:15)
--- NOTE | 2016-11-08 15:31 | General Progress Note ---
Assessment/Plan Assessment/Plan Assessment - Anemia with OB (-) x 1 - Iron deficiency - Elevated CEA - High albumin gradient ascites --> consistent with (R) heart failure - CM, severe , AI - CHF - Resp failure - poor prognosis Recommendations - Continue TF - f/u hepatitis serologies --> neg - may need another paracentesis - Will hold off on EGD/Colon until cardiac evaluation complete Subjective Allergies: Coded Allergies: No Known Allergies (Unverified , 10/22/11) Subjective Seen in ICU doing poorly minimally interactive tolerating TF Objective Last 24 Hour Vital Signs Date Time Temp Pulse Resp B/P (MAP) Pulse Ox O2 Delivery O2 Flow Rate FiO2 11/08/16 15:00 76 24 121/53 97 Bi-pap 35 11/08/16 14:30 78 24 91/45 97 Bi-pap 35 11/08/16 14:00 80 24 91/45 97 Bi-pap 35 11/08/16 13:30 72 26 81/40 97 Bi-pap 35 11/08/16 13:29 78 26 98 Facial 35 11/08/16 13:00 75 26 79/44 97 Bi-pap 35 11/08/16 12:30 71 26 78/37 97 Bi-pap 35 11/08/16 12:00 77 11/08/16 12:00 98.2 73 19 77/40 98 Bi-pap 35 11/08/16 12:00 35 11/08/16 11:48 74 24 98 Facial 35 11/08/16 11:30 74/40 11/08/16 11:14 78/39 11/08/16 11:00 75 32 78/39 97 Bi-pap 35 11/08/16 10:00 70 33 74/36 98 Bi-pap 35 11/08/16 09:10 69 19 99 Facial 35 11/08/16 09:00 71 34 75/42 98 Bi-pap 35 11/08/16 08:05 75/20 11/08/16 08:05 75 75/20 11/08/16 08:00 98.4 73 29 78/37 98 Bi-pap 35 11/08/16 08:00 74 11/08/16 08:00 35 11/08/16 07:00 81 29 82/42 98 Bi-pap 35 11/08/16 06:59 73 27 100 Facial 35 11/08/16 06:00 83 32 84/38 98 Bi-pap 35 11/08/16 05:14 77 26 99 Facial 35 11/08/16 05:00 82 29 87/41 97 Bi-pap 35 11/08/16 04:00 35 11/08/16 04:00 80 11/08/16 04:00 98.5 81 27 88/45 95 Bi-pap 35 11/08/16 03:24 75 27 99 Facial 35 11/08/16 03:00 74 30 80/42 97 Bi-pap 35 11/08/16 02:00 76 29 79/42 98 Bi-pap 35 11/08/16 01:20 73 24 98 Facial 35 11/08/16 01:00 75 29 79/38 98 Bi-pap 35 11/08/16 00:00 98.4 78 32 88/40 99 Bi-pap 35 11/08/16 00:00 35 11/08/16 00:00 76 11/07/16 23:13 84 29 98 Facial 35 11/07/16 23:00 82 29 93/62 99 Bi-pap 35 11/07/16 22:00 83 29 105/87 98 Bi-pap 35 11/07/16 21:07 82 30 98 Facial 35 11/07/16 21:00 85 29 92/50 99 Bi-pap 35 11/07/16 20:44 93/45 11/07/16 20:00 35 11/07/16 20:00 83 11/07/16 20:00 98.8 84 27 93/45 99 Bi-pap 35 11/07/16 19:17 83 20 100 Facial 35 11/07/16 19:00 84 29 101/58 100 Bi-pap 45 11/07/16 18:00 87 32 100/53 99 Bi-pap 45 11/07/16 17:21 88 28 100 Facial 45 11/07/16 17:00 84 30 102/53 99 Bi-pap 45 11/07/16 16:16 87 28 99 Facial 45 11/07/16 16:00 87 11/07/16 16:00 45 11/07/16 16:00 98.5 86 32 109/49 99 Bi-pap 45 Intake and Output 11/08/16 11/09/16 19:00 07:00 Intake Total 1047.5 ml Output Total 340 ml Balance 707.5 ml Free Water 100 ml IV Total 497.5 ml Tube Feeding 420 ml Other 30 ml Output Urine Total 340 ml Laboratory Tests 11/07/16 19:10: Haptoglobin 34, Fibrinogen 270, Ferritin 187 11/08/16 03:50: White Blood Count 6.9, Red Blood Count 3.47L, Hemoglobin 8.4L, Hematocrit 27.7L , Mean Corpuscular Volume 80, Mean Corpuscular Hemoglobin 24.3L, Mean Corpuscular Hemoglobin Concent 30.5L, Red Cell Distribution Width 23.1H, Platelet Count 82L, Mean Platelet Volume 7.5, Neutrophils (%) (Auto) , Lymphocytes (%) (Auto) , Monocytes (%) (Auto) , Eosinophils (%) (Auto) , Basophils (%) (Auto) , Differential Total Cells Counted 100, Neutrophils % ( Manual) 85H, Lymphocytes % (Manual) 4L, Monocytes % (Manual) 5, Eosinophils % ( Manual) 1, Basophils % (Manual) 0, Band Neutrophils 5, Nucleated Red Blood Cells 1, Platelet Estimate DecreasedL, Platelet Morphology Normal, Hypochromasia 2+, Basophilic Stippling 1+, Target Cells 1+, Ovalocytes 1+, [place] Cells 1+, Sodium Level 143, Potassium Level 3.9, Chloride Level 113H, Carbon Dioxide Level 25, Anion Gap 5, Blood Urea Nitrogen 35H, Creatinine 0.8, Estimat Glomerular Filtration Rate > 60, Glucose Level 135H, Calcium Level 8.2L Height (Feet): 5 Height (Inches): 6.00 Weight (Pounds): 145 Objective (+) BIPAP NCAT neck stiff b/l ronchi RRR II/ systolic murmur abd soft distended (+) contractures NATASHA ARREDONDO Nov 08, 2016 15:31
--- NOTE | 2016-11-08 15:58 | Cardiac Electrophysiology PN ---
Assessment/Plan Assessment/Plan 1. Severe aortic stenosis. The patient is not a candidate for percutaneous intervention or aortic valve replacement. Avoid beta-blockers. 2. Cardiomyopathy. Off of beta-blockers. On Lisinopril, Lasix. 3. HTN also on Norvasc 4. Respiratory failure, currently on BiPAP, could not be intubated. Awaiting Tracheostomy. 5. Depression. 6. Flexion contractures. 7. Ankylosing spondylitis. 8. Kyphosis. 9. Ascites. 10. Anemia. Further evaluation by Gastroenterology. KASH RN Subjective Subjective In ICU on Levophed 4 mcg now. On BIPAP Objective Last 24 Hour Vital Signs Date Time Temp Pulse Resp B/P (MAP) Pulse Ox O2 Delivery O2 Flow Rate FiO2 11/08/16 15:15 80 25 98 Facial 35 11/08/16 15:00 76 24 121/53 97 Bi-pap 35 11/08/16 14:30 78 24 91/45 97 Bi-pap 35 11/08/16 14:00 80 24 91/45 97 Bi-pap 35 11/08/16 13:30 72 26 81/40 97 Bi-pap 35 11/08/16 13:29 78 26 98 Facial 35 11/08/16 13:00 75 26 79/44 97 Bi-pap 35 11/08/16 12:30 71 26 78/37 97 Bi-pap 35 11/08/16 12:00 77 11/08/16 12:00 98.2 73 19 77/40 98 Bi-pap 35 11/08/16 12:00 35 11/08/16 11:48 74 24 98 Facial 35 11/08/16 11:30 74/40 11/08/16 11:14 78/39 11/08/16 11:00 75 32 78/39 97 Bi-pap 35 11/08/16 10:00 70 33 74/36 98 Bi-pap 35 11/08/16 09:10 69 19 99 Facial 35 11/08/16 09:00 71 34 75/42 98 Bi-pap 35 11/08/16 08:05 75/20 11/08/16 08:05 75 75/20 11/08/16 08:00 98.4 73 29 78/37 98 Bi-pap 35 11/08/16 08:00 74 11/08/16 08:00 35 11/08/16 07:00 81 29 82/42 98 Bi-pap 35 11/08/16 06:59 73 27 100 Facial 35 11/08/16 06:00 83 32 84/38 98 Bi-pap 35 11/08/16 05:14 77 26 99 Facial 35 11/08/16 05:00 82 29 87/41 97 Bi-pap 35 11/08/16 04:00 35 11/08/16 04:00 80 11/08/16 04:00 98.5 81 27 88/45 95 Bi-pap 35 11/08/16 03:24 75 27 99 Facial 35 11/08/16 03:00 74 30 80/42 97 Bi-pap 35 11/08/16 02:00 76 29 79/42 98 Bi-pap 35 11/08/16 01:20 73 24 98 Facial 35 11/08/16 01:00 75 29 79/38 98 Bi-pap 35 11/08/16 00:00 98.4 78 32 88/40 99 Bi-pap 35 11/08/16 00:00 35 11/08/16 00:00 76 11/07/16 23:13 84 29 98 Facial 35 11/07/16 23:00 82 29 93/62 99 Bi-pap 35 11/07/16 22:00 83 29 105/87 98 Bi-pap 35 11/07/16 21:07 82 30 98 Facial 35 11/07/16 21:00 85 29 92/50 99 Bi-pap 35 11/07/16 20:44 93/45 11/07/16 20:00 35 11/07/16 20:00 83 11/07/16 20:00 98.8 84 27 93/45 99 Bi-pap 35 11/07/16 19:17 83 20 100 Facial 35 11/07/16 19:00 84 29 101/58 100 Bi-pap 45 11/07/16 18:00 87 32 100/53 99 Bi-pap 45 11/07/16 17:21 88 28 100 Facial 45 11/07/16 17:00 84 30 102/53 99 Bi-pap 45 11/07/16 16:16 87 28 99 Facial 45 11/07/16 16:00 87 11/07/16 16:00 45 11/07/16 16:00 98.5 86 32 109/49 99 Bi-pap 45 Intake and Output 11/08/16 11/09/16 19:00 07:00 Intake Total 1047.5 ml Output Total 340 ml Balance 707.5 ml Free Water 100 ml IV Total 497.5 ml Tube Feeding 420 ml Other 30 ml Output Urine Total 340 ml Laboratory Tests Test 11/07/16 19:10 11/08/16 03:50 Haptoglobin 34 mg/dL (30-200) Fibrinogen 270 mg/dL (200-400) Ferritin 187 ng/mL (10-230) White Blood Count 6.9 K/UL (4.8-10.8) Red Blood Count 3.47 M/UL (4.70-6.10) L Hemoglobin 8.4 G/DL (14.2-18.0) L Hematocrit 27.7 % (42.0-52.0) L Mean Corpuscular Volume 80 FL (80-99) Mean Corpuscular Hemoglobin 24.3 PG (27.0-31.0) L Mean Corpuscular Hemoglobin Concent 30.5 G/DL (32.0-36.0) L Red Cell Distribution Width 23.1 % (11.6-14.8) H Platelet Count 82 K/UL (150-450) L Mean Platelet Volume 7.5 FL (6.5-10.1) Neutrophils (%) (Auto) % (45.0-75.0) Lymphocytes (%) (Auto) % (20.0-45.0) Monocytes (%) (Auto) % (1.0-10.0) Eosinophils (%) (Auto) % (0.0-3.0) Basophils (%) (Auto) % (0.0-2.0) Differential Total Cells Counted 100 Neutrophils % (Manual) 85 % (45-75) H Lymphocytes % (Manual) 4 % (20-45) L Monocytes % (Manual) 5 % (1-10) Eosinophils % (Manual) 1 % (0-3) Basophils % (Manual) 0 % (0-2) Band Neutrophils 5 % (0-8) Nucleated Red Blood Cells 1 /100 WBC Platelet Estimate Decreased L Platelet Morphology Normal Hypochromasia 2+ Basophilic Stippling 1+ Target Cells 1+ Ovalocytes 1+ Danielel Cells 1+ Sodium Level 143 mEQ/L (135-145) Potassium Level 3.9 mEQ/L (3.4-4.9) Chloride Level 113 mEQ/L (98-107) H Carbon Dioxide Level 25 mEQ/L (20-30) Anion Gap 5 (5-15) Blood Urea Nitrogen 35 mg/dL (7-23) H Creatinine 0.8 mg/dL (0.7-1.2) Estimat Glomerular Filtration Rate > 60 mL/min (>60) Glucose Level 135 mg/dL (74-106) H Calcium Level 8.2 mg/dL (8.6-10.2) L Objective HEAD AND NECK: No JVD or contractures. He is on BiPAP. LUNGS: Coarse rhonchi bilaterally. Cardiovascular: Shows regular S1 and S2 with no gallop. A 2/6 systolic murmur at aortic area. ABDOMEN: Soft. EXTREMITIES: Contracted. KIMBERLY SALTER Nov 08, 2016 15:58
--- NOTE | 2016-11-08 16:07 | Diagnostic Imaging Report ---
Indications: Needs long-term IV access for antibiotics Technique: Procedure performed at bedside. Procedural timeout performed. Ultrasound confirms patent compressible left basilic vein. Total sterile technique, including sterile probe cover and sterile gel, sterile gloves, hand hygiene, hat, mask,, sterile gown, large sterile drape, and preparation with 2% chlorhexidine utilized. Local anesthesia with 1% lidocaine. Under real-time ultrasound guidance, puncture basilic vein using 21-gauge needle, passage 0.018 guidewire, exchange for 5 [place] peel-away sheath. 5 [place] Bard dual-lumen power PICC cut to 41 cm. It was inserted through the peel-away sheath. Peel-away sheath and guidewire removed. Catheter fixed to the skin. Both catheter ports aspirated and flushed. Patient tolerated procedure well, without immediate complication. Followup chest x-ray obtained, documents catheter tip position at the innominate venous confluence Impression: Successful bedside placement of left lower PICC under sonographic guidance, as described above.
--- NOTE | 2016-11-08 20:32 | General Progress Note ---
Assessment/Plan Assessment/Plan ASSESSMENT: 1. Thrombocytopenia potentially secondary to medications versus dic --> abd us shows hepatomegaly --> id on board 2. Anemia, secondary to chronic disease. 3. Coagulopathy, secondary to malnutrition. 4. Ankylosing spondylitis. 5. Hypertension. 6. Shortness of breath. 7. Ascites, status post paracentesis. 8. Respiratory failure. He is on BiPAP. He is not a candidate for tracheostomy as per Surgical Service. Prognosis remains poor. Subjective ROS Limited/Unobtainable: Yes Allergies: Coded Allergies: No Known Allergies (Unverified , 10/22/11) Subjective on bipap Objective Last 24 Hour Vital Signs Date Time Temp Pulse Resp B/P (MAP) Pulse Ox O2 Delivery O2 Flow Rate FiO2 11/08/16 19:21 86 29 94 Facial 35 11/08/16 19:00 90 21 129/59 97 Bi-pap 35 11/08/16 19:00 129/59 11/08/16 18:30 83 22 120/62 97 Bi-pap 35 11/08/16 18:00 81 23 102/59 97 Bi-pap 35 11/08/16 18:00 109/56 11/08/16 17:30 87 23 102/59 98 Bi-pap 35 11/08/16 17:00 75 23 106/50 97 Bi-pap 35 11/08/16 17:00 102/30 11/08/16 16:52 77 26 99 Facial 35 11/08/16 16:30 79 24 101/45 97 Bi-pap 35 11/08/16 16:00 35 11/08/16 16:00 74 11/08/16 16:00 115/56 11/08/16 16:00 98.1 73 19 110/50 98 Bi-pap 35 11/08/16 15:30 75 24 107/47 97 Bi-pap 35 11/08/16 15:15 80 25 98 Facial 35 11/08/16 15:00 76 24 121/53 97 Bi-pap 35 11/08/16 15:00 124/57 11/08/16 14:30 78 24 91/45 97 Bi-pap 35 11/08/16 14:00 80 24 91/45 97 Bi-pap 35 11/08/16 14:00 91/45 11/08/16 13:30 72 26 81/40 97 Bi-pap 35 11/08/16 13:29 78 26 98 Facial 35 11/08/16 13:00 85/42 11/08/16 13:00 75 26 79/44 97 Bi-pap 35 11/08/16 12:30 71 26 78/37 97 Bi-pap 35 11/08/16 12:00 77 11/08/16 12:00 98.2 73 19 77/40 98 Bi-pap 35 11/08/16 12:00 35 11/08/16 12:00 78/37 11/08/16 11:48 74 24 98 Facial 35 11/08/16 11:30 74/40 11/08/16 11:14 78/39 11/08/16 11:00 75 32 78/39 97 Bi-pap 35 11/08/16 10:00 70 33 74/36 98 Bi-pap 35 11/08/16 09:10 69 19 99 Facial 35 11/08/16 09:00 71 34 75/42 98 Bi-pap 35 11/08/16 08:05 75/20 11/08/16 08:05 75 75/20 11/08/16 08:00 98.4 73 29 78/37 98 Bi-pap 35 11/08/16 08:00 74 11/08/16 08:00 35 11/08/16 07:00 81 29 82/42 98 Bi-pap 35 11/08/16 06:59 73 27 100 Facial 35 11/08/16 06:00 83 32 84/38 98 Bi-pap 35 11/08/16 05:14 77 26 99 Facial 35 11/08/16 05:00 82 29 87/41 97 Bi-pap 35 11/08/16 04:00 35 11/08/16 04:00 80 11/08/16 04:00 98.5 81 27 88/45 95 Bi-pap 35 11/08/16 03:24 75 27 99 Facial 35 11/08/16 03:00 74 30 80/42 97 Bi-pap 35 11/08/16 02:00 76 29 79/42 98 Bi-pap 35 11/08/16 01:20 73 24 98 Facial 35 11/08/16 01:00 75 29 79/38 98 Bi-pap 35 11/08/16 00:00 98.4 78 32 88/40 99 Bi-pap 35 11/08/16 00:00 35 11/08/16 00:00 76 11/07/16 23:13 84 29 98 Facial 35 11/07/16 23:00 82 29 93/62 99 Bi-pap 35 11/07/16 22:00 83 29 105/87 98 Bi-pap 35 11/07/16 21:07 82 30 98 Facial 35 11/07/16 21:00 85 29 92/50 99 Bi-pap 35 11/07/16 20:44 93/45 Intake and Output 11/08/16 11/09/16 19:00 07:00 Intake Total 1587.5 ml Output Total 590 ml Balance 997.5 ml Free Water 100 ml IV Total 867.5 ml Tube Feeding 560 ml Other 60 ml Output Urine Total 590 ml # Bowel Movements 1 Laboratory Tests 11/08/16 03:50: White Blood Count 6.9, Red Blood Count 3.47L, Hemoglobin 8.4L, Hematocrit 27.7L , Mean Corpuscular Volume 80, Mean Corpuscular Hemoglobin 24.3L, Mean Corpuscular Hemoglobin Concent 30.5L, Red Cell Distribution Width 23.1H, Platelet Count 82L, Mean Platelet Volume 7.5, Neutrophils (%) (Auto) , Lymphocytes (%) (Auto) , Monocytes (%) (Auto) , Eosinophils (%) (Auto) , Basophils (%) (Auto) , Differential Total Cells Counted 100, Neutrophils % ( Manual) 85H, Lymphocytes % (Manual) 4L, Monocytes % (Manual) 5, Eosinophils % ( Manual) 1, Basophils % (Manual) 0, Band Neutrophils 5, Nucleated Red Blood Cells 1, Platelet Estimate DecreasedL, Platelet Morphology Normal, Hypochromasia 2+, Basophilic Stippling 1+, Target Cells 1+, Ovalocytes 1+, Danielle Cells 1+, Sodium Level 143, Potassium Level 3.9, Chloride Level 113H, Carbon Dioxide Level 25, Anion Gap 5, Blood Urea Nitrogen 35H, Creatinine 0.8, Estimat Glomerular Filtration Rate > 60, Glucose Level 135H, Calcium Level 8.2L Height (Feet): 5 Height (Inches): 6.00 Weight (Pounds): 145 General Appearance: no apparent distress EENT: normal ENT inspection Neck: normal alignment Respiratory/Chest: no accessory muscle use Neurologic: profile saw operator II-XII grossly normal KleGeorge gonzales Nov 08, 2016 20:32
[2016-11-08] MEDS: Dyna-Hex 2% Top Sol 2oz TOPIC SCH (20:47)
[2016-11-08] MEDS: Terazosin 1mg cap ORAL SCH (20:47)
[2016-11-09] VITALS (51 sets, daily range): BP systolic 78–122; BP diastolic 42–68
[2016-11-09] MEDS ORDERED: Sodium Chloride 500ML 500 ML IVPB ONE (00:15)
[2016-11-09 04:15] LABS: BASOPHILS % (AUTO) 0.6 % (0.0-2.0); EOSINOPHILS % (AUTO) 0.9 % (0.0-3.0); LYMPHOCYTES % (AUTO) 7.9 % (20.0-45.0); MEAN CORPUSCULAR HEMOGLOBIN 24.2 PG (27.0-31.0); MEAN CORPUSCULAR HGB CONC 29.8 G/DL (32.0-36.0); MEAN CORPUSCULAR VOLUME 81 FL (80-99); MEAN PLATELET VOLUME 8.4 FL (6.5-10.1); MONOCYTES % (AUTO) 7.1 % (1.0-10.0); NEUTROPHILS % (AUTO) 83.6 % (45.0-75.0); PLATELET COUNT 102 K/UL (150-450); RED BLOOD COUNT 3.96 M/UL (4.70-6.10); RED CELL DISTRIBUTION WIDTH 25.6 % (11.6-14.8); WHITE BLOOD COUNT 9.5 K/UL (4.8-10.8)
[2016-11-09 04:30] LABS: ALANINE AMINOTRANSFERASE 71 U/L (3-41); ALBUMIN/GLOBULIN RATIO 0.7 (1.0-2.7); ANION GAP 6 (5-15); ASPARTATE AMINO TRANSFERASE 30 U/L (5-40); CARBON DIOXIDE 25 mEQ/L (20-30); CHLORIDE 111 mEQ/L (98-107); CREATININE 0.6 mg/dL (0.7-1.2); GLOMERULAR FILTRATION RATE > 60 mL/min (>60); HEMOLYSIS 0; MAGNESIUM 1.5 mg/dL (1.7-2.5); PHOSPHORUS 1.6 mg/dL (2.5-4.8); POTASSIUM 4.1 mEQ/L (3.4-4.9); SODIUM 142 mEQ/L (135-145); TOTAL PROTEIN 6.3 g/dL (6.6-8.7)
--- NOTE | 2016-11-09 08:09 | General Progress Note ---
Progress Note Progress Note pt seen by our group for possible tracheostomy. however, pt has such severe contractions of neck that it is impossible to expose the anterior neck to allow trach placement, at present, pt is on maximum levophed, making any thought of surgical procedure moot at this point. Last 24 Hour Vital Signs Date Time Temp Pulse Resp B/P (MAP) Pulse Ox O2 Delivery O2 Flow Rate FiO2 11/09/16 07:03 91 26 95 Full Face 40 11/09/16 07:00 90 30 99/49 95 Bi-pap 40 11/09/16 06:38 103/50 11/09/16 06:30 101 31 103/50 94 Bi-pap 40 11/09/16 06:00 102 30 100/48 98 Bi-pap 40 11/09/16 06:00 101/49 11/09/16 05:30 40 11/09/16 05:30 96 30 101/49 98 Bi-pap 40 11/09/16 05:26 94 48 92 Full Face 40 11/09/16 05:00 94 30 100/44 98 Bi-pap 35 11/09/16 05:00 100/44 11/09/16 04:30 98 30 106/48 98 Bi-pap 35 11/09/16 04:12 81/43 11/09/16 04:00 103 11/09/16 04:00 98.6 97 30 78/44 98 Bi-pap 35 11/09/16 04:00 35 11/09/16 04:00 78/44 11/09/16 03:30 101 30 96/47 98 Bi-pap 35 11/09/16 03:24 102 32 98 Full Face 35 11/09/16 03:00 96/51 11/09/16 03:00 100 30 96/51 98 Bi-pap 35 11/09/16 02:30 98 30 105/55 98 Bi-pap 35 11/09/16 02:00 99/47 11/09/16 02:00 96 39 99/47 98 Bi-pap 35 11/09/16 01:46 92/46 11/09/16 01:36 97 37 100 Full Face 35 11/09/16 01:30 100 32 92/46 97 Bi-pap 35 11/09/16 01:00 99 32 95/49 97 Bi-pap 35 11/09/16 01:00 95/49 11/09/16 00:45 96 38 106/68 97 Bi-pap 35 11/09/16 00:30 98 26 92/46 97 Bi-pap 35 11/09/16 00:15 99 32 101/51 98 Bi-pap 35 11/09/16 00:00 95 11/09/16 00:00 98.4 95 31 92/45 97 Bi-pap 35 11/09/16 00:00 35 11/09/16 00:00 92/45 11/08/16 23:45 98 23 88/44 97 Bi-pap 35 11/08/16 23:30 100 28 88/44 97 Bi-pap 35 11/08/16 23:15 98 26 86/44 96 Bi-pap 35 11/08/16 23:15 88/44 11/08/16 23:00 94 34 88/44 96 Bi-pap 35 11/08/16 23:00 88/44 11/08/16 22:45 96 29 102/49 96 Bi-pap 35 11/08/16 22:39 96 29 96 Full Face 35 11/08/16 22:30 93 33 85/47 95 Bi-pap 35 11/08/16 22:15 95 21 89/43 94 Bi-pap 35 11/08/16 22:00 86/47 11/08/16 22:00 94 31 86/47 90 Bi-pap 35 11/08/16 21:45 99 28 79/39 92 Bi-pap 35 11/08/16 21:30 99 29 75/41 92 Bi-pap 35 11/08/16 21:29 99 18 92 Full Face 35 11/08/16 21:15 95 29 83/33 92 Bi-pap 35 11/08/16 21:00 89 26 91/42 95 Bi-pap 35 11/08/16 21:00 91/42 11/08/16 20:50 78/40 11/08/16 20:45 90 29 78/40 93 Bi-pap 35 11/08/16 20:30 90 30 131/70 95 Bi-pap 35 11/08/16 20:00 35 11/08/16 20:00 98.4 93 30 118/57 94 Bi-pap 35 11/08/16 20:00 93 11/08/16 19:30 87 30 119/61 96 Bi-pap 35 11/08/16 19:21 86 29 94 Facial 35 11/08/16 19:00 90 21 129/59 97 Bi-pap 35 11/08/16 19:00 129/59 11/08/16 18:30 83 22 120/62 97 Bi-pap 35 11/08/16 18:00 81 23 102/59 97 Bi-pap 35 11/08/16 18:00 109/56 11/08/16 17:30 87 23 102/59 98 Bi-pap 35 11/08/16 17:00 75 23 106/50 97 Bi-pap 35 11/08/16 17:00 102/30 11/08/16 16:52 77 26 99 Facial 35 11/08/16 16:30 79 24 101/45 97 Bi-pap 35 11/08/16 16:00 35 11/08/16 16:00 74 11/08/16 16:00 115/56 11/08/16 16:00 98.1 73 19 110/50 98 Bi-pap 35 11/08/16 15:30 75 24 107/47 97 Bi-pap 35 11/08/16 15:15 80 25 98 Facial 35 11/08/16 15:00 76 24 121/53 97 Bi-pap 35 11/08/16 15:00 124/57 11/08/16 14:30 78 24 91/45 97 Bi-pap 35 11/08/16 14:00 80 24 91/45 97 Bi-pap 35 11/08/16 14:00 91/45 11/08/16 13:30 72 26 81/40 97 Bi-pap 35 11/08/16 13:29 78 26 98 Facial 35 11/08/16 13:00 85/42 11/08/16 13:00 75 26 79/44 97 Bi-pap 35 11/08/16 12:30 71 26 78/37 97 Bi-pap 35 11/08/16 12:00 77 11/08/16 12:00 98.2 73 19 77/40 98 Bi-pap 35 11/08/16 12:00 35 11/08/16 12:00 78/37 11/08/16 11:48 74 24 98 Facial 35 11/08/16 11:30 74/40 11/08/16 11:14 78/39 11/08/16 11:00 75 32 78/39 97 Bi-pap 35 11/08/16 10:00 70 33 74/36 98 Bi-pap 35 11/08/16 09:10 69 19 99 Facial 35 11/08/16 09:00 71 34 75/42 98 Bi-pap 35 ALESSIO ALVARADO Nov 09, 2016 08:09
[2016-11-09] MEDS: Heparin 5000 units/ml inj SUBQ SCH ×2 (09:00→21:00)
[2016-11-09] MEDS: Lisinopril 10mg tab NG SCH (09:00)
[2016-11-09] MEDS: Indomethacin 25mg cap ORAL SCH ×3 (09:16→17:53)
[2016-11-09] MEDS: Pantoprazole Inj IVP SCH (09:16)
[2016-11-09] MEDS: Cefepime HCl 2 GM in D5W 110 ML IVPB SCH (09:30)
[2016-11-09] MEDS: Pred Forte 1% Opth Susp 1ml BOTH EYES SCH (09:30)
[2016-11-09 09:48] LABS: ABG ALLEN TEST POSITIVE; ABG BASE EXCESS -1.3; ABG PCO2 54.7 mmHg (35.0-45.0)
--- NOTE | 2016-11-09 10:27 | Infectious Diseases Prog Note ---
Assessment/Plan Assessment/Plan ASSESSMENT: 1. CoNS bacteremia in 1/4 sets, likely contaminant, 1/4, afebrile 2. Possible urinary tract infection. Urine culture : Neg , SP RX 3. Possible Asp Pneum 4. Elevated liver function tests, rule out hepatobiliary disease - hepatitis panel : Neg - CT of ABD : Heterogeneous appearance of the liver may suggest hepatocellular disease or hepatic congestion. Moderate ascites. -Abd u/s: Slightly increased hepatic echogenicity. Hepatomegaly. Trace ascites. Gallbladder sludge. No stones. Markedly thickened gallbladder wall is likely reactive, related to adjacent hepatocellular inflammation, given stated clinical history. It could also be due to the hemodynamic derangements caused by the liver disease. Also probably exaggerated due to nondistention of the gallbladder. The possibility of acalculous acute cholecystitis or cholecystitis secondary to occult cholelithiasis not completely excludable, however. Consider hepatobiliary nuclearscanning if there is high clinical suspicion Negative for dilated ducts. 5. Mid thoracic unstageable pressure ulcer. 6. sepsis . 7. Afebrile without leukocytosis. 8. HIV: Neg 9. Thrombocytopenia. 10. Coagulopathy. 11. Ankylosing spondylosis/kyphosis/cervical spondylosis with chronic contractures. 12. Tobacco abuse. 13. Urine toxicology positive for marijuana. 14. No known drug allergies. 15. Full Code. PLAN: - strt IC Zosyn and Vanco d# 1 DC IV cefepime day # 9 , add Flagyl d# 5 ( 09/01 SP IV Vancomycin d# 2 ) -F/u LFTs, - repeat cultures.( Bl, Ur , Sp ) -. Monitor CBC and temperatures. -. Monitor CMP -. Monitor chest x-ray. -. Wound care. -. BiPAP - BP dropped , on pressors Subjective Allergies: Coded Allergies: No Known Allergies (Unverified , 10/22/11) Subjective BP dropped , on pressors Objective Vital Signs Last 24 Hour Vital Signs Date Time Temp Pulse Resp B/P (MAP) Pulse Ox O2 Delivery O2 Flow Rate FiO2 11/09/16 10:00 87 30 100/59 95 Bi-pap 40 11/09/16 09:36 91 26 95 Full Face 40 11/09/16 09:30 89 30 103/52 95 Bi-pap 40 11/09/16 09:16 77/41 11/09/16 09:00 90 30 99/49 95 Bi-pap 40 11/09/16 08:30 90 30 122/59 95 Bi-pap 40 11/09/16 08:00 98.2 97 30 109/50 98 Bi-pap 40 11/09/16 08:00 40 11/09/16 08:00 97 11/09/16 07:30 88 30 94/47 95 Bi-pap 40 11/09/16 07:03 91 26 95 Full Face 40 11/09/16 07:00 90 30 99/49 95 Bi-pap 40 11/09/16 06:38 103/50 11/09/16 06:30 101 31 103/50 94 Bi-pap 40 11/09/16 06:00 102 30 100/48 98 Bi-pap 40 11/09/16 06:00 101/49 11/09/16 05:30 40 11/09/16 05:30 96 30 101/49 98 Bi-pap 40 11/09/16 05:26 94 48 92 Full Face 40 11/09/16 05:00 94 30 100/44 98 Bi-pap 35 11/09/16 05:00 100/44 11/09/16 04:30 98 30 106/48 98 Bi-pap 35 11/09/16 04:12 81/43 11/09/16 04:00 103 11/09/16 04:00 98.6 97 30 78/44 98 Bi-pap 35 11/09/16 04:00 35 11/09/16 04:00 78/44 11/09/16 03:30 101 30 96/47 98 Bi-pap 35 11/09/16 03:24 102 32 98 Full Face 35 11/09/16 03:00 96/51 11/09/16 03:00 100 30 96/51 98 Bi-pap 35 11/09/16 02:30 98 30 105/55 98 Bi-pap 35 11/09/16 02:00 99/47 11/09/16 02:00 96 39 99/47 98 Bi-pap 35 11/09/16 01:46 92/46 11/09/16 01:36 97 37 100 Full Face 35 11/09/16 01:30 100 32 92/46 97 Bi-pap 35 11/09/16 01:00 99 32 95/49 97 Bi-pap 35 11/09/16 01:00 95/49 11/09/16 00:45 96 38 106/68 97 Bi-pap 35 11/09/16 00:30 98 26 92/46 97 Bi-pap 35 11/09/16 00:15 99 32 101/51 98 Bi-pap 35 11/09/16 00:00 95 11/09/16 00:00 98.4 95 31 92/45 97 Bi-pap 35 11/09/16 00:00 35 11/09/16 00:00 92/45 11/08/16 23:45 98 23 88/44 97 Bi-pap 35 11/08/16 23:30 100 28 88/44 97 Bi-pap 35 11/08/16 23:15 98 26 86/44 96 Bi-pap 35 11/08/16 23:15 88/44 11/08/16 23:00 94 34 88/44 96 Bi-pap 35 11/08/16 23:00 88/44 11/08/16 22:45 96 29 102/49 96 Bi-pap 35 11/08/16 22:39 96 29 96 Full Face 35 11/08/16 22:30 93 33 85/47 95 Bi-pap 35 11/08/16 22:15 95 21 89/43 94 Bi-pap 35 11/08/16 22:00 86/47 11/08/16 22:00 94 31 86/47 90 Bi-pap 35 11/08/16 21:45 99 28 79/39 92 Bi-pap 35 11/08/16 21:30 99 29 75/41 92 Bi-pap 35 11/08/16 21:29 99 18 92 Full Face 35 11/08/16 21:15 95 29 83/33 92 Bi-pap 35 11/08/16 21:00 89 26 91/42 95 Bi-pap 35 11/08/16 21:00 91/42 11/08/16 20:50 78/40 11/08/16 20:45 90 29 78/40 93 Bi-pap 35 11/08/16 20:30 90 30 131/70 95 Bi-pap 35 11/08/16 20:00 35 11/08/16 20:00 98.4 93 30 118/57 94 Bi-pap 35 11/08/16 20:00 93 11/08/16 19:30 87 30 119/61 96 Bi-pap 35 11/08/16 19:21 86 29 94 Facial 35 11/08/16 19:00 90 21 129/59 97 Bi-pap 35 11/08/16 19:00 129/59 11/08/16 18:30 83 22 120/62 97 Bi-pap 35 11/08/16 18:00 81 23 102/59 97 Bi-pap 35 11/08/16 18:00 109/56 11/08/16 17:30 87 23 102/59 98 Bi-pap 35 11/08/16 17:00 75 23 106/50 97 Bi-pap 35 11/08/16 17:00 102/30 11/08/16 16:52 77 26 99 Facial 35 11/08/16 16:30 79 24 101/45 97 Bi-pap 35 11/08/16 16:00 35 11/08/16 16:00 74 11/08/16 16:00 115/56 11/08/16 16:00 98.1 73 19 110/50 98 Bi-pap 35 11/08/16 15:30 75 24 107/47 97 Bi-pap 35 11/08/16 15:15 80 25 98 Facial 35 11/08/16 15:00 76 24 121/53 97 Bi-pap 35 11/08/16 15:00 124/57 11/08/16 14:30 78 24 91/45 97 Bi-pap 35 11/08/16 14:00 80 24 91/45 97 Bi-pap 35 11/08/16 14:00 91/45 11/08/16 13:30 72 26 81/40 97 Bi-pap 35 11/08/16 13:29 78 26 98 Facial 35 11/08/16 13:00 85/42 11/08/16 13:00 75 26 79/44 97 Bi-pap 35 11/08/16 12:30 71 26 78/37 97 Bi-pap 35 11/08/16 12:00 77 11/08/16 12:00 98.2 73 19 77/40 98 Bi-pap 35 11/08/16 12:00 35 11/08/16 12:00 78/37 11/08/16 11:48 74 24 98 Facial 35 11/08/16 11:30 74/40 11/08/16 11:14 78/39 11/08/16 11:00 75 32 78/39 97 Bi-pap 35 Height (Feet): 5 Height (Inches): 6.00 Weight (Pounds): 153 HEENT: anicteric Respiratory/Chest: chest wall non-tender Cardiovascular: regular rhythm Abdomen: no mass Laboratory Tests Test 11/09/16 03:30 11/09/16 09:45 White Blood Count 9.5 K/UL (4.8-10.8) Red Blood Count 3.96 M/UL (4.70-6.10) L Hemoglobin 9.6 G/DL (14.2-18.0) L Hematocrit 32.2 % (42.0-52.0) L Mean Corpuscular Volume 81 FL (80-99) Mean Corpuscular Hemoglobin 24.2 PG (27.0-31.0) L Mean Corpuscular Hemoglobin Concent 29.8 G/DL (32.0-36.0) L Red Cell Distribution Width 25.6 % (11.6-14.8) H Platelet Count 102 K/UL (150-450) L Mean Platelet Volume 8.4 FL (6.5-10.1) Neutrophils (%) (Auto) 83.6 % (45.0-75.0) H Lymphocytes (%) (Auto) 7.9 % (20.0-45.0) L Monocytes (%) (Auto) 7.1 % (1.0-10.0) Eosinophils (%) (Auto) 0.9 % (0.0-3.0) Basophils (%) (Auto) 0.6 % (0.0-2.0) Sodium Level 142 mEQ/L (135-145) Potassium Level 4.1 mEQ/L (3.4-4.9) Chloride Level 111 mEQ/L (98-107) H Carbon Dioxide Level 25 mEQ/L (20-30) Anion Gap 6 (5-15) Blood Urea Nitrogen 32 mg/dL (7-23) H Creatinine 0.6 mg/dL (0.7-1.2) L Estimat Glomerular Filtration Rate > 60 mL/min (>60) Glucose Level 179 mg/dL (74-106) H Calcium Level 8.0 mg/dL (8.6-10.2) L Phosphorus Level 1.6 mg/dL (2.5-4.8) L Magnesium Level 1.5 mg/dL (1.7-2.5) L Total Bilirubin 0.6 mg/dL (0.0-1.2) Aspartate Amino Transf (AST/SGOT) 30 U/L (5-40) Alanine Aminotransferase (ALT/SGPT) 71 U/L (3-41) H Alkaline Phosphatase 43 U/L (40-129) Total Protein 6.3 g/dL (6.6-8.7) L Albumin 2.6 g/dL (3.5-5.2) L Globulin 3.7 g/dL Albumin/Globulin Ratio 0.7 (1.0-2.7) L Arterial Blood pH 7.290 (7.350-7.450) Arterial Blood Partial Pressure CO2 54.7 mmHg (35.0-45.0) H Arterial Blood Partial Pressure O2 67.2 mmHg (75.0-100.0) L Arterial Blood HCO3 35.7 mmol/L (22.0-26.0) H Arterial Blood Oxygen Saturation 93.7 % (92.0-98.0) Arterial Blood Base Excess -1.3 Anson Test Positive Current Medications Medications (Trade) Dose Ordered Sig/Dina Route PRN Reason Start Time Stop Time Status Last Admin Dose Admin Acetaminophen (Tylenol) 650 mg Q4H PRN ORAL FEVER 11/01/16 18:45 11/30/16 18:44 11/06/16 17:16 Amlodipine Besylate (Norvasc) 5 mg DAILY ORAL 11/02/16 09:00 12/01/16 08:59 11/03/16 08:45 Cefepime HCl 2 gm/ Dextrose 110 ml @ 220 mls/hr EVERY 12 HOURS IVPB 11/08/16 09:00 11/15/16 08:59 11/09/16 09:30 Chlorhexidine Gluconate (Natalia-Hex 2%) 1 applic QHS TOPIC 11/08/16 21:00 12/08/16 20:59 11/08/16 20:47 Dextrose (Dextrose 50%) STAT PRN IV Hypoglycemia 11/01/16 18:45 11/30/16 18:44 Dextrose/Sodium Chloride 1,000 ml @ 50 mls/hr Q20H IV 11/05/16 11:00 12/05/16 10:59 11/08/16 18:17 Furosemide (Lasix) 20 mg DAILY IV 11/03/16 16:00 12/03/16 15:59 11/09/16 09:15 Heparin Sodium (Porcine) (Heparin 5000 units/ml) 5,000 units EVERY 12 HOURS SUBQ 11/01/16 21:00 11/30/16 20:59 11/08/16 20:49 Indomethacin (Indocin) 50 mg TID ORAL 11/02/16 09:00 12/01/16 08:59 11/09/16 09:16 Lisinopril (Zestril) 5 mg EVERY 12 HOURS NG 11/07/16 21:00 12/07/16 20:59 11/07/16 20:44 Metronidazole 100 ml @ 100 mls/hr Q8HR IVPB 11/05/16 16:00 11/12/16 15:59 11/09/16 05:34 Norepinephrine Bitartrate 4 mg/ Dextrose 250 ml @ 0 mls/hr Q24H IV 11/08/16 11:15 12/08/16 11:14 11/09/16 09:16 Ondansetron HCl (Zofran) 4 mg Q6H PRN IVP Nausea & Vomiting 11/01/16 18:45 11/30/16 18:44 Pantoprazole (Protonix) 40 mg DAILY IVP 11/05/16 16:00 12/05/16 15:59 11/09/16 09:16 Polyethylene Glycol (Miralax) 17 gm DAILYPRN PRN ORAL Constipation 11/01/16 18:45 11/30/16 18:44 Potassium Chloride (K-Dur) 20 meq DAILY ORAL 11/04/16 12:00 12/04/16 11:59 11/09/16 09:15 Prednisolone Acetate (Pred Forte) 1 drop DAILY BOTH EYES 11/02/16 09:00 12/01/16 08:59 11/09/16 09:30 Promethazine HCl/ Codeine (Phenergan with Codeine) 5 ml Q6H PRN ORAL For Cough 11/01/16 20:30 12/01/16 08:29 Terazosin HCl (Hytrin) 2 mg BEDTIME ORAL 11/01/16 21:00 11/30/16 20:59 11/08/16 20:47 MOISES CASILLAS M.D. Nov 09, 2016 10:27
--- NOTE | 2016-11-09 10:37 | Cardiology Report ---
APPROVED REPORT EXAM: Two-dimensional and M-mode echocardiogram with Doppler and color Doppler. INDICATION Congestive Heart Failure Technically limited and difficult study due to poor acoustical windows. M-mode measurements not obtainable due to cardiac structure. Normal left ventricular chamber size. Global left ventricular hypokinesis. Worse in apical inferior and anterior akinesis. Left ventricular ejection fraction estimated to be 35%. No evidence of left ventricular hypertrophy. No evidence of pericardial or pleural effusion. Moderate left atrial enlargement by 2D. Mild right atrial and right ventricular enlargement by 2D. Aortic valve calcification with decreased cusp excursion c/w severe aortic stenosis. Thickened mitral valve leaflets with normal excursion. Mild mitral annulus and aortic root calcification. Pulmonic valve not visualized. Normal tricuspid valve structure. IVC is normal in size and collapsible with respiration. A color flow and spectral Doppler study was performed and revealed: Moderate aortic regurgitation. Peak aortic valve gradient of 114 mmHg and a mean of 77 mmHg. Aortic valve area 0.8cm2 calculated by continuity equation. Trace mitral regurgitation. Normal mitral diastolic function. Trace tricuspid regurgitation. Tricuspid systolic velocities suggests peak right ventricular systolic pressure of 46mmHg Consistent with moderate pulmonary hypertension. Clinical criteria: JUSTEN Jeffery and Alissa have been notified on 11/07/16 at 4:30 PM
[2016-11-09] MEDS: D5 1/2NS 1,000 ML IV SCH (11:57)
--- NOTE | 2016-11-09 12:44 | Diagnostic Imaging Report ---
Indication: Shortness of breath Comparison: 11/07/16 Findings: Single view the chest obtained. Again, exam is limited due to severe contraction. Nasogastric tube is in good position with distal tip in the stomach. Cardiac size is difficult to evaluate. There remains opacification of the right hemithorax, unchanged. Left lung appears relatively clear. Impression: No change from prior exam 2 days earlier.
--- NOTE | 2016-11-09 13:13 | Pulmonolgy Critical Care Note ---
Critical Care - Asmt/Plan Problems: (1) Acute respiratory failure (2) Severe anemia (3) Anemia (4) Ankylosing spondylitis (5) Ascites (6) Cardiomyopathy (7) Kyphosis Respiratory: monitor respiratory rate, adjust FIO2, CXR, ABG Cardiac: continue to monitor HR/BP, stress echo - thoracic surgery informed about Renal: keep IV fluid Infectious Disease: continue antibiotics Gastrointestinal: continue feedings/current rate Endocrine: monitor blood sugar, check TSH, continue sliding scale insulin Hematologic: monitor H/H, transfuse if hgb<8.5 Neurologic: PRN Ativan, PRN Morphine, keep patient comfortable Affect: PRN ativan Disposition: keep in ICU Time Spent (Minutes): 40 Notes Reviewed: [employer], cardio, renal Discussed with: nurses, 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, 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 - Objective Last 24 Hour Vital Signs Date Time Temp Pulse Resp B/P (MAP) Pulse Ox O2 Delivery O2 Flow Rate FiO2 11/09/16 13:00 87 29 106/46 96 Bi-pap 35 11/09/16 12:47 77 21 98 Full Face 35 11/09/16 12:00 80 11/09/16 12:00 98.1 83 30 98/55 98 Bi-pap 40 11/09/16 11:58 35 11/09/16 11:57 103/49 11/09/16 11:12 90 33 98 Full Face 35 11/09/16 11:00 87 29 105/52 96 Bi-pap 35 11/09/16 10:30 86 27 113/51 95 Bi-pap 40 11/09/16 10:00 87 30 100/59 95 Bi-pap 40 11/09/16 09:36 91 26 95 Full Face 40 11/09/16 09:30 89 30 103/52 95 Bi-pap 40 11/09/16 09:16 77/41 11/09/16 09:00 90 30 99/49 95 Bi-pap 40 11/09/16 08:30 90 30 122/59 95 Bi-pap 40 11/09/16 08:00 98.2 97 30 109/50 98 Bi-pap 40 11/09/16 08:00 40 11/09/16 08:00 97 11/09/16 07:30 88 30 94/47 95 Bi-pap 40 11/09/16 07:03 91 26 95 Full Face 40 11/09/16 07:00 90 30 99/49 95 Bi-pap 40 11/09/16 06:38 103/50 11/09/16 06:30 101 31 103/50 94 Bi-pap 40 11/09/16 06:00 102 30 100/48 98 Bi-pap 40 11/09/16 06:00 101/49 11/09/16 05:30 40 11/09/16 05:30 96 30 101/49 98 Bi-pap 40 11/09/16 05:26 94 48 92 Full Face 40 11/09/16 05:00 94 30 100/44 98 Bi-pap 35 11/09/16 05:00 100/44 11/09/16 04:30 98 30 106/48 98 Bi-pap 35 11/09/16 04:12 81/43 11/09/16 04:00 103 11/09/16 04:00 98.6 97 30 78/44 98 Bi-pap 35 11/09/16 04:00 35 11/09/16 04:00 78/44 11/09/16 03:30 101 30 96/47 98 Bi-pap 35 11/09/16 03:24 102 32 98 Full Face 35 11/09/16 03:00 96/51 11/09/16 03:00 100 30 96/51 98 Bi-pap 35 11/09/16 02:30 98 30 105/55 98 Bi-pap 35 11/09/16 02:00 99/47 11/09/16 02:00 96 39 99/47 98 Bi-pap 35 11/09/16 01:46 92/46 11/09/16 01:36 97 37 100 Full Face 35 11/09/16 01:30 100 32 92/46 97 Bi-pap 35 11/09/16 01:00 99 32 95/49 97 Bi-pap 35 11/09/16 01:00 95/49 11/09/16 00:45 96 38 106/68 97 Bi-pap 35 11/09/16 00:30 98 26 92/46 97 Bi-pap 35 11/09/16 00:15 99 32 101/51 98 Bi-pap 35 11/09/16 00:00 95 11/09/16 00:00 98.4 95 31 92/45 97 Bi-pap 35 11/09/16 00:00 35 11/09/16 00:00 92/45 11/08/16 23:45 98 23 88/44 97 Bi-pap 35 11/08/16 23:30 100 28 88/44 97 Bi-pap 35 11/08/16 23:15 98 26 86/44 96 Bi-pap 35 11/08/16 23:15 88/44 11/08/16 23:00 94 34 88/44 96 Bi-pap 35 11/08/16 23:00 88/44 11/08/16 22:45 96 29 102/49 96 Bi-pap 35 11/08/16 22:39 96 29 96 Full Face 35 11/08/16 22:30 93 33 85/47 95 Bi-pap 35 11/08/16 22:15 95 21 89/43 94 Bi-pap 35 11/08/16 22:00 86/47 11/08/16 22:00 94 31 86/47 90 Bi-pap 35 11/08/16 21:45 99 28 79/39 92 Bi-pap 35 11/08/16 21:30 99 29 75/41 92 Bi-pap 35 11/08/16 21:29 99 18 92 Full Face 35 11/08/16 21:15 95 29 83/33 92 Bi-pap 35 11/08/16 21:00 89 26 91/42 95 Bi-pap 35 11/08/16 21:00 91/42 11/08/16 20:50 78/40 11/08/16 20:45 90 29 78/40 93 Bi-pap 35 11/08/16 20:30 90 30 131/70 95 Bi-pap 35 11/08/16 20:00 35 11/08/16 20:00 98.4 93 30 118/57 94 Bi-pap 35 11/08/16 20:00 93 11/08/16 19:30 87 30 119/61 96 Bi-pap 35 11/08/16 19:21 86 29 94 Facial 35 11/08/16 19:00 90 21 129/59 97 Bi-pap 35 11/08/16 19:00 129/59 11/08/16 18:30 83 22 120/62 97 Bi-pap 35 11/08/16 18:00 81 23 102/59 97 Bi-pap 35 11/08/16 18:00 109/56 11/08/16 17:30 87 23 102/59 98 Bi-pap 35 11/08/16 17:00 75 23 106/50 97 Bi-pap 35 11/08/16 17:00 102/30 11/08/16 16:52 77 26 99 Facial 35 11/08/16 16:30 79 24 101/45 97 Bi-pap 35 11/08/16 16:00 35 11/08/16 16:00 74 11/08/16 16:00 115/56 11/08/16 16:00 98.1 73 19 110/50 98 Bi-pap 35 11/08/16 15:30 75 24 107/47 97 Bi-pap 35 11/08/16 15:15 80 25 98 Facial 35 11/08/16 15:00 76 24 121/53 97 Bi-pap 35 11/08/16 15:00 124/57 11/08/16 14:30 78 24 91/45 97 Bi-pap 35 11/08/16 14:00 80 24 91/45 97 Bi-pap 35 11/08/16 14:00 91/45 11/08/16 13:30 72 26 81/40 97 Bi-pap 35 11/08/16 13:29 78 26 98 Facial 35 Status: awake, sedated HEENT: atraumatic, normocephalic Neck: full ROM Lungs: clear, chest wall tender Heart: HR/BP unstable, regular Abdomen: non-tender, feeding tube Extremities: no C/C/E Critical Care - Subjective ROS Limited/Unobtainable: Yes ICU Day: 9 Condition: critical EKG Rhythm: Sinus Rhythm FI02: 35 Sputum Amount: None Tube Feeding Amount: 35 I&O: Intake and Output 11/09/16 11/10/16 19:00 07:00 Intake Total 977.5 ml Output Total 1300 ml Balance -322.5 ml IV Total 707.5 ml Tube Feeding 210 ml Other 60 ml Output Urine Total 1300 ml CXR: no change ESTEFANY MITCHELL Nov 09, 2016 13:13
[2016-11-09] MEDS ORDERED: D5W 275ml ONE (14:06)
[2016-11-09] MEDS ORDERED: Sterile Water Irrig 1000ml IRRIG ONE (14:06)
[2016-11-09] MEDS ORDERED: NS 275ml ONE (14:06)
[2016-11-09] MEDS ORDERED: D5 1/2NS 1000ml IV ONE ×2 (14:06→17:27)
[2016-11-09] MEDS ORDERED: Tubing IV Secondary IV ONE (14:06)
--- NOTE | 2016-11-09 15:15 | Internal Med Progress Note ---
Subjective Date of Service: Nov 09, 2016 Physician Name Miki Easton Attending Physician Raheel Dumont MD Current Medications Medications (Trade) Dose Ordered Sig/Dina Route PRN Reason Start Time Stop Time Status Last Admin Dose Admin Acetaminophen (Tylenol) 650 mg Q4H PRN ORAL FEVER 11/01/16 18:45 11/30/16 18:44 11/06/16 17:16 Amlodipine Besylate (Norvasc) 5 mg DAILY ORAL 11/02/16 09:00 12/01/16 08:59 11/03/16 08:45 Chlorhexidine Gluconate (Natalia-Hex 2%) 1 applic QHS TOPIC 11/08/16 21:00 12/08/16 20:59 11/08/16 20:47 Dextrose (Dextrose 50%) STAT PRN IV Hypoglycemia 11/01/16 18:45 11/30/16 18:44 Dextrose/Sodium Chloride 1,000 ml @ 50 mls/hr Q20H IV 11/05/16 11:00 12/05/16 10:59 11/09/16 11:57 Furosemide (Lasix) 20 mg DAILY IV 11/03/16 16:00 12/03/16 15:59 11/09/16 09:15 Heparin Sodium (Porcine) (Heparin 5000 units/ml) 5,000 units EVERY 12 HOURS SUBQ 11/01/16 21:00 11/30/16 20:59 11/08/16 20:49 Indomethacin (Indocin) 50 mg TID ORAL 11/02/16 09:00 12/01/16 08:59 11/09/16 13:01 Lisinopril (Zestril) 5 mg EVERY 12 HOURS NG 11/07/16 21:00 12/07/16 20:59 11/07/16 20:44 Norepinephrine Bitartrate 4 mg/ Dextrose 250 ml @ 0 mls/hr Q24H IV 11/08/16 11:15 12/08/16 11:14 11/09/16 14:41 Ondansetron HCl (Zofran) 4 mg Q6H PRN IVP Nausea & Vomiting 11/01/16 18:45 11/30/16 18:44 Pantoprazole (Protonix) 40 mg DAILY IVP 11/05/16 16:00 12/05/16 15:59 11/09/16 09:16 Piperacillin Sod/ Tazobactam Sod 3.375 gm/Dextrose 110 ml @ 27.5 mls/hr EVERY 8 HOURS IVPB 11/09/16 15:15 11/14/16 15:14 UNV Polyethylene Glycol (Miralax) 17 gm DAILYPRN PRN ORAL Constipation 11/01/16 18:45 11/30/16 18:44 Potassium Chloride (K-Dur) 20 meq DAILY ORAL 11/04/16 12:00 12/04/16 11:59 11/09/16 09:15 Prednisolone Acetate (Pred Forte) 1 drop DAILY BOTH EYES 11/02/16 09:00 12/01/16 08:59 11/09/16 09:30 Promethazine HCl/ Codeine (Phenergan with Codeine) 5 ml Q6H PRN ORAL For Cough 11/01/16 20:30 12/01/16 08:29 Terazosin HCl (Hytrin) 2 mg BEDTIME ORAL 11/01/16 21:00 11/30/16 20:59 11/08/16 20:47 Vancomycin HCl (Vanco rx to dose) 1 ea DAILY PRN MISC Per rx protocol 11/09/16 15:15 12/09/16 15:14 UNV Allergies: Coded Allergies: No Known Allergies (Unverified , 10/22/11) ROS Limited/Unobtainable: Yes Subjective 51 YO M admitted with cough, fever and chills. Worsening respiratory failure; Now on BIPAP. Cover for Int Med -Dr Dumont. ICU. Await transfer to [facility] Objective Last Vital Signs Date Time Temp Pulse Resp B/P (MAP) Pulse Ox O2 Delivery O2 Flow Rate FiO2 11/09/16 15:00 82 29 87/46 96 Bi-pap 35 11/09/16 12:00 98.1 11/05/16 07:00 80.0 Laboratory Tests Test 11/09/16 03:30 11/09/16 09:45 White Blood Count 9.5 K/UL (4.8-10.8) Red Blood Count 3.96 M/UL (4.70-6.10) L Hemoglobin 9.6 G/DL (14.2-18.0) L Hematocrit 32.2 % (42.0-52.0) L Mean Corpuscular Volume 81 FL (80-99) Mean Corpuscular Hemoglobin 24.2 PG (27.0-31.0) L Mean Corpuscular Hemoglobin Concent 29.8 G/DL (32.0-36.0) L Red Cell Distribution Width 25.6 % (11.6-14.8) H Platelet Count 102 K/UL (150-450) L Mean Platelet Volume 8.4 FL (6.5-10.1) Neutrophils (%) (Auto) 83.6 % (45.0-75.0) H Lymphocytes (%) (Auto) 7.9 % (20.0-45.0) L Monocytes (%) (Auto) 7.1 % (1.0-10.0) Eosinophils (%) (Auto) 0.9 % (0.0-3.0) Basophils (%) (Auto) 0.6 % (0.0-2.0) Sodium Level 142 mEQ/L (135-145) Potassium Level 4.1 mEQ/L (3.4-4.9) Chloride Level 111 mEQ/L (98-107) H Carbon Dioxide Level 25 mEQ/L (20-30) Anion Gap 6 (5-15) Blood Urea Nitrogen 32 mg/dL (7-23) H Creatinine 0.6 mg/dL (0.7-1.2) L Estimat Glomerular Filtration Rate > 60 mL/min (>60) Glucose Level 179 mg/dL (74-106) H Calcium Level 8.0 mg/dL (8.6-10.2) L Phosphorus Level 1.6 mg/dL (2.5-4.8) L Magnesium Level 1.5 mg/dL (1.7-2.5) L Total Bilirubin 0.6 mg/dL (0.0-1.2) Aspartate Amino Transf (AST/SGOT) 30 U/L (5-40) Alanine Aminotransferase (ALT/SGPT) 71 U/L (3-41) H Alkaline Phosphatase 43 U/L (40-129) Total Protein 6.3 g/dL (6.6-8.7) L Albumin 2.6 g/dL (3.5-5.2) L Globulin 3.7 g/dL Albumin/Globulin Ratio 0.7 (1.0-2.7) L Arterial Blood pH 7.290 (7.350-7.450) Arterial Blood Partial Pressure CO2 54.7 mmHg (35.0-45.0) H Arterial Blood Partial Pressure O2 67.2 mmHg (75.0-100.0) L Arterial Blood HCO3 35.7 mmol/L (22.0-26.0) H Arterial Blood Oxygen Saturation 93.7 % (92.0-98.0) Arterial Blood Base Excess -1.3 Anson Test Positive Intake and Output 11/09/16 11/10/16 19:00 07:00 Intake Total 1472.5 ml Output Total 1750 ml Balance -277.5 ml IV Total 1132.5 ml Tube Feeding 280 ml Other 60 ml Output Urine Total 1750 ml Objective General Appearance: WD/WN, no apparent distress, alert EENT: PERRL/EOMI, normal ENT inspection Neck: non-tender, muscle spasm, stiff neck, other - contractrre Cardiovascular: normal peripheral pulses, normal rate, regular rhythm, no gallop/murmur, no JVD Respiratory/Chest: BIPAP; chest wall non-tender, respiratory distress, crackles /rales, rhonchi - bilaterally, expiratory wheezing Abdomen: normal bowel sounds, non tender, soft, no organomegaly, no mass Extremities: normal range of motion Neurologic: other - contractures Skin: normal pigmentation, warm/dry Assessment/Plan Problem List: (1) Depression (2) Flexion contractures Assessment & Plan: Await physical therapy (3) Anemia Assessment & Plan: Iron def anemia. Continue IV iron (4) Ankylosing spondylitis (5) HTN (hypertension) Assessment & Plan: Continue amlodipine (6) Osteoporosis (7) Kyphosis (8) Cervical spondylitis (9) Pneumonia Assessment & Plan: See pulmonary note. Continue Cefepime per pulm (10) SOB (shortness of breath) (11) Ascites Assessment & Plan: S/P paracentesis 11/04/16. see GI note. (12) Respiratory failure Assessment & Plan: Anesthesiology unable to intubate; ENT unable to perform tracheostomy-see note. Worsening. Cont BIPAP per pulmonary. Start flagyl for possible aspiration pneumonia. Continue zosyn and vanco per ID recommendation Status: deteriorating Assessment/Plan Unable to intubate due to neck contractures. See pulmonary note. Prognosis is poor. MIKI EASTON Nov 09, 2016 15:15
--- NOTE | 2016-11-09 15:33 | Cardiac Electrophysiology PN ---
Assessment/Plan Assessment/Plan 1. Severe aortic stenosis. Not a candidate for percutaneous intervention or aortic valve replacement. Avoid beta-blockers. 2. Cardiomyopathy. Off of beta-blockers. 3. Shock, septic. DCed Norvasc and Lisinopril and Lasix. On Abx per Dr schumacher 4. Respiratory failure, currently on BiPAP, could not be intubated. Awaiting Tracheostomy. 5. Depression. 6. Flexion contractures. 7. Ankylosing spondylitis. 8. Kyphosis. 9. Ascites. 10. Anemia. Further evaluation by Gastroenterology. KASH RN Subjective Subjective In ICU on Levophed 28 mcg now. On BIPAP. sister in law at bedside. Objective Last 24 Hour Vital Signs Date Time Temp Pulse Resp B/P (MAP) Pulse Ox O2 Delivery O2 Flow Rate FiO2 11/09/16 15:00 82 29 87/46 96 Bi-pap 35 11/09/16 14:45 89 28 97 Full Face 35 11/09/16 14:41 100/50 11/09/16 14:00 88 29 107/53 96 Bi-pap 35 11/09/16 14:00 107/53 11/09/16 13:01 106/50 11/09/16 13:00 87 29 106/46 96 Bi-pap 35 11/09/16 12:47 77 21 98 Full Face 35 11/09/16 12:30 86 29 106/46 96 Bi-pap 35 11/09/16 12:00 80 11/09/16 12:00 98.1 83 30 98/55 98 Bi-pap 40 11/09/16 11:58 35 11/09/16 11:57 103/49 11/09/16 11:30 86 29 103/49 96 Bi-pap 35 11/09/16 11:12 90 33 98 Full Face 35 11/09/16 11:00 87 29 105/52 96 Bi-pap 35 11/09/16 10:30 86 27 113/51 95 Bi-pap 40 11/09/16 10:00 87 30 100/59 95 Bi-pap 40 11/09/16 09:36 91 26 95 Full Face 40 11/09/16 09:30 89 30 103/52 95 Bi-pap 40 11/09/16 09:16 77/41 11/09/16 09:00 90 30 99/49 95 Bi-pap 40 11/09/16 08:30 90 30 122/59 95 Bi-pap 40 11/09/16 08:00 98.2 97 30 109/50 98 Bi-pap 40 11/09/16 08:00 40 11/09/16 08:00 97 11/09/16 07:30 88 30 94/47 95 Bi-pap 40 11/09/16 07:03 91 26 95 Full Face 40 11/09/16 07:00 90 30 99/49 95 Bi-pap 40 11/09/16 06:38 103/50 11/09/16 06:30 101 31 103/50 94 Bi-pap 40 11/09/16 06:00 102 30 100/48 98 Bi-pap 40 11/09/16 06:00 101/49 11/09/16 05:30 40 11/09/16 05:30 96 30 101/49 98 Bi-pap 40 11/09/16 05:26 94 48 92 Full Face 40 11/09/16 05:00 94 30 100/44 98 Bi-pap 35 11/09/16 05:00 100/44 11/09/16 04:30 98 30 106/48 98 Bi-pap 35 11/09/16 04:12 81/43 11/09/16 04:00 103 11/09/16 04:00 98.6 97 30 78/44 98 Bi-pap 35 11/09/16 04:00 35 11/09/16 04:00 78/44 11/09/16 03:30 101 30 96/47 98 Bi-pap 35 11/09/16 03:24 102 32 98 Full Face 35 11/09/16 03:00 96/51 11/09/16 03:00 100 30 96/51 98 Bi-pap 35 11/09/16 02:30 98 30 105/55 98 Bi-pap 35 11/09/16 02:00 99/47 11/09/16 02:00 96 39 99/47 98 Bi-pap 35 11/09/16 01:46 92/46 11/09/16 01:36 97 37 100 Full Face 35 11/09/16 01:30 100 32 92/46 97 Bi-pap 35 11/09/16 01:00 99 32 95/49 97 Bi-pap 35 11/09/16 01:00 95/49 11/09/16 00:45 96 38 106/68 97 Bi-pap 35 11/09/16 00:30 98 26 92/46 97 Bi-pap 35 11/09/16 00:15 99 32 101/51 98 Bi-pap 35 11/09/16 00:00 95 11/09/16 00:00 98.4 95 31 92/45 97 Bi-pap 35 11/09/16 00:00 35 11/09/16 00:00 92/45 11/08/16 23:45 98 23 88/44 97 Bi-pap 35 11/08/16 23:30 100 28 88/44 97 Bi-pap 35 11/08/16 23:15 98 26 86/44 96 Bi-pap 35 11/08/16 23:15 88/44 11/08/16 23:00 94 34 88/44 96 Bi-pap 35 11/08/16 23:00 88/44 11/08/16 22:45 96 29 102/49 96 Bi-pap 35 11/08/16 22:39 96 29 96 Full Face 35 11/08/16 22:30 93 33 85/47 95 Bi-pap 35 11/08/16 22:15 95 21 89/43 94 Bi-pap 35 11/08/16 22:00 86/47 11/08/16 22:00 94 31 86/47 90 Bi-pap 35 11/08/16 21:45 99 28 79/39 92 Bi-pap 35 11/08/16 21:30 99 29 75/41 92 Bi-pap 35 11/08/16 21:29 99 18 92 Full Face 35 11/08/16 21:15 95 29 83/33 92 Bi-pap 35 11/08/16 21:00 89 26 91/42 95 Bi-pap 35 11/08/16 21:00 91/42 11/08/16 20:50 78/40 11/08/16 20:45 90 29 78/40 93 Bi-pap 35 11/08/16 20:30 90 30 131/70 95 Bi-pap 35 11/08/16 20:00 35 11/08/16 20:00 98.4 93 30 118/57 94 Bi-pap 35 11/08/16 20:00 93 11/08/16 19:30 87 30 119/61 96 Bi-pap 35 11/08/16 19:21 86 29 94 Facial 35 11/08/16 19:00 90 21 129/59 97 Bi-pap 35 11/08/16 19:00 129/59 11/08/16 18:30 83 22 120/62 97 Bi-pap 35 11/08/16 18:00 81 23 102/59 97 Bi-pap 35 11/08/16 18:00 109/56 11/08/16 17:30 87 23 102/59 98 Bi-pap 35 11/08/16 17:00 75 23 106/50 97 Bi-pap 35 11/08/16 17:00 102/30 11/08/16 16:52 77 26 99 Facial 35 11/08/16 16:30 79 24 101/45 97 Bi-pap 35 11/08/16 16:00 35 11/08/16 16:00 74 11/08/16 16:00 115/56 11/08/16 16:00 98.1 73 19 110/50 98 Bi-pap 35 Intake and Output 11/09/16 11/10/16 19:00 07:00 Intake Total 1472.5 ml Output Total 1750 ml Balance -277.5 ml IV Total 1132.5 ml Tube Feeding 280 ml Other 60 ml Output Urine Total 1750 ml Laboratory Tests Test 11/09/16 03:30 11/09/16 09:45 White Blood Count 9.5 K/UL (4.8-10.8) Red Blood Count 3.96 M/UL (4.70-6.10) L Hemoglobin 9.6 G/DL (14.2-18.0) L Hematocrit 32.2 % (42.0-52.0) L Mean Corpuscular Volume 81 FL (80-99) Mean Corpuscular Hemoglobin 24.2 PG (27.0-31.0) L Mean Corpuscular Hemoglobin Concent 29.8 G/DL (32.0-36.0) L Red Cell Distribution Width 25.6 % (11.6-14.8) H Platelet Count 102 K/UL (150-450) L Mean Platelet Volume 8.4 FL (6.5-10.1) Neutrophils (%) (Auto) 83.6 % (45.0-75.0) H Lymphocytes (%) (Auto) 7.9 % (20.0-45.0) L Monocytes (%) (Auto) 7.1 % (1.0-10.0) Eosinophils (%) (Auto) 0.9 % (0.0-3.0) Basophils (%) (Auto) 0.6 % (0.0-2.0) Sodium Level 142 mEQ/L (135-145) Potassium Level 4.1 mEQ/L (3.4-4.9) Chloride Level 111 mEQ/L (98-107) H Carbon Dioxide Level 25 mEQ/L (20-30) Anion Gap 6 (5-15) Blood Urea Nitrogen 32 mg/dL (7-23) H Creatinine 0.6 mg/dL (0.7-1.2) L Estimat Glomerular Filtration Rate > 60 mL/min (>60) Glucose Level 179 mg/dL (74-106) H Calcium Level 8.0 mg/dL (8.6-10.2) L Phosphorus Level 1.6 mg/dL (2.5-4.8) L Magnesium Level 1.5 mg/dL (1.7-2.5) L Total Bilirubin 0.6 mg/dL (0.0-1.2) Aspartate Amino Transf (AST/SGOT) 30 U/L (5-40) Alanine Aminotransferase (ALT/SGPT) 71 U/L (3-41) H Alkaline Phosphatase 43 U/L (40-129) Total Protein 6.3 g/dL (6.6-8.7) L Albumin 2.6 g/dL (3.5-5.2) L Globulin 3.7 g/dL Albumin/Globulin Ratio 0.7 (1.0-2.7) L Arterial Blood pH 7.290 (7.350-7.450) Arterial Blood Partial Pressure CO2 54.7 mmHg (35.0-45.0) H Arterial Blood Partial Pressure O2 67.2 mmHg (75.0-100.0) L Arterial Blood HCO3 35.7 mmol/L (22.0-26.0) H Arterial Blood Oxygen Saturation 93.7 % (92.0-98.0) Arterial Blood Base Excess -1.3 Anson Test Positive Objective HEAD AND NECK: No JVD or contractures. He is on BiPAP. LUNGS: Coarse rhonchi bilaterally. Cardiovascular: Regular S1 and S2 with no gallop. 2/6 systolic murmur at aortic area. ABDOMEN: Soft. EXTREMITIES: Contracted. KIMBERLY SALTER Nov 09, 2016 15:33
[2016-11-09] MEDS: Vancomycin 1250mg/D5W 250ml IVPB SCH (15:54)
--- NOTE | 2016-11-09 17:34 | General Progress Note ---
Assessment/Plan Assessment/Plan ASSESSMENT: 1. Thrombocytopenia potentially secondary to sepsis --> abd us shows hepatomegaly --> id on board 2. Anemia, secondary to chronic disease. 3. Coagulopathy, secondary to malnutrition. 4. Ankylosing spondylitis. 5. Hypertension. 6. Shortness of breath. 7. Ascites, status post paracentesis. 8. Respiratory failure. He is on BiPAP. He is not a candidate for tracheostomy as per Surgical Service. Prognosis remains poor. Subjective ROS Limited/Unobtainable: Yes Allergies: Coded Allergies: No Known Allergies (Unverified , 10/22/11) Subjective on levo gtt Objective Last 24 Hour Vital Signs Date Time Temp Pulse Resp B/P (MAP) Pulse Ox O2 Delivery O2 Flow Rate FiO2 11/09/16 17:00 84 26 105/49 96 Bi-pap 35 11/09/16 16:42 88 24 96 Full Face 35 11/09/16 16:00 98.1 88 30 111/52 98 Bi-pap 35 11/09/16 16:00 89 11/09/16 16:00 35 11/09/16 15:00 82 29 87/46 96 Bi-pap 35 11/09/16 14:45 89 28 97 Full Face 35 11/09/16 14:41 100/50 11/09/16 14:00 88 29 107/53 96 Bi-pap 35 11/09/16 14:00 107/53 11/09/16 13:01 106/50 11/09/16 13:00 87 29 106/46 96 Bi-pap 35 11/09/16 12:47 77 21 98 Full Face 35 11/09/16 12:30 86 29 106/46 96 Bi-pap 35 11/09/16 12:00 80 11/09/16 12:00 98.1 83 30 98/55 98 Bi-pap 40 11/09/16 11:58 35 11/09/16 11:57 103/49 11/09/16 11:30 86 29 103/49 96 Bi-pap 35 11/09/16 11:12 90 33 98 Full Face 35 11/09/16 11:00 87 29 105/52 96 Bi-pap 35 11/09/16 10:30 86 27 113/51 95 Bi-pap 40 11/09/16 10:00 87 30 100/59 95 Bi-pap 40 11/09/16 09:36 91 26 95 Full Face 40 11/09/16 09:30 89 30 103/52 95 Bi-pap 40 11/09/16 09:16 77/41 11/09/16 09:00 90 30 99/49 95 Bi-pap 40 11/09/16 08:30 90 30 122/59 95 Bi-pap 40 11/09/16 08:00 98.2 97 30 109/50 98 Bi-pap 40 11/09/16 08:00 40 11/09/16 08:00 97 11/09/16 07:30 88 30 94/47 95 Bi-pap 40 11/09/16 07:03 91 26 95 Full Face 40 11/09/16 07:00 90 30 99/49 95 Bi-pap 40 11/09/16 06:38 103/50 11/09/16 06:30 101 31 103/50 94 Bi-pap 40 11/09/16 06:00 102 30 100/48 98 Bi-pap 40 11/09/16 06:00 101/49 11/09/16 05:30 40 11/09/16 05:30 96 30 101/49 98 Bi-pap 40 11/09/16 05:26 94 48 92 Full Face 40 11/09/16 05:00 94 30 100/44 98 Bi-pap 35 11/09/16 05:00 100/44 11/09/16 04:30 98 30 106/48 98 Bi-pap 35 11/09/16 04:12 81/43 11/09/16 04:00 103 11/09/16 04:00 98.6 97 30 78/44 98 Bi-pap 35 11/09/16 04:00 35 11/09/16 04:00 78/44 11/09/16 03:30 101 30 96/47 98 Bi-pap 35 11/09/16 03:24 102 32 98 Full Face 35 11/09/16 03:00 96/51 11/09/16 03:00 100 30 96/51 98 Bi-pap 35 11/09/16 02:30 98 30 105/55 98 Bi-pap 35 11/09/16 02:00 99/47 11/09/16 02:00 96 39 99/47 98 Bi-pap 35 11/09/16 01:46 92/46 11/09/16 01:36 97 37 100 Full Face 35 11/09/16 01:30 100 32 92/46 97 Bi-pap 35 11/09/16 01:00 99 32 95/49 97 Bi-pap 35 11/09/16 01:00 95/49 11/09/16 00:45 96 38 106/68 97 Bi-pap 35 11/09/16 00:30 98 26 92/46 97 Bi-pap 35 11/09/16 00:15 99 32 101/51 98 Bi-pap 35 11/09/16 00:00 95 11/09/16 00:00 98.4 95 31 92/45 97 Bi-pap 35 11/09/16 00:00 35 11/09/16 00:00 92/45 11/08/16 23:45 98 23 88/44 97 Bi-pap 35 11/08/16 23:30 100 28 88/44 97 Bi-pap 35 11/08/16 23:15 98 26 86/44 96 Bi-pap 35 11/08/16 23:15 88/44 11/08/16 23:00 94 34 88/44 96 Bi-pap 35 11/08/16 23:00 88/44 11/08/16 22:45 96 29 102/49 96 Bi-pap 35 11/08/16 22:39 96 29 96 Full Face 35 11/08/16 22:30 93 33 85/47 95 Bi-pap 35 11/08/16 22:15 95 21 89/43 94 Bi-pap 35 11/08/16 22:00 86/47 11/08/16 22:00 94 31 86/47 90 Bi-pap 35 11/08/16 21:45 99 28 79/39 92 Bi-pap 35 11/08/16 21:30 99 29 75/41 92 Bi-pap 35 11/08/16 21:29 99 18 92 Full Face 35 11/08/16 21:15 95 29 83/33 92 Bi-pap 35 11/08/16 21:00 89 26 91/42 95 Bi-pap 35 11/08/16 21:00 91/42 11/08/16 20:50 78/40 11/08/16 20:45 90 29 78/40 93 Bi-pap 35 11/08/16 20:30 90 30 131/70 95 Bi-pap 35 11/08/16 20:00 35 11/08/16 20:00 98.4 93 30 118/57 94 Bi-pap 35 11/08/16 20:00 93 11/08/16 19:30 87 30 119/61 96 Bi-pap 35 11/08/16 19:21 86 29 94 Facial 35 11/08/16 19:00 90 21 129/59 97 Bi-pap 35 11/08/16 19:00 129/59 11/08/16 18:30 83 22 120/62 97 Bi-pap 35 11/08/16 18:00 81 23 102/59 97 Bi-pap 35 11/08/16 18:00 109/56 Intake and Output 11/09/16 11/10/16 19:00 07:00 Intake Total 1542.5 ml Output Total 2100 ml Balance -557.5 ml IV Total 1132.5 ml Tube Feeding 350 ml Other 60 ml Output Urine Total 2100 ml # Bowel Movements 1 Laboratory Tests 11/09/16 03:30: White Blood Count 9.5, Red Blood Count 3.96L, Hemoglobin 9.6L, Hematocrit 32.2L , Mean Corpuscular Volume 81, Mean Corpuscular Hemoglobin 24.2L, Mean Corpuscular Hemoglobin Concent 29.8L, Red Cell Distribution Width 25.6H, Platelet Count 102L, Mean Platelet Volume 8.4, Neutrophils (%) (Auto) 83.6H, Lymphocytes (%) (Auto) 7.9L, Monocytes (%) (Auto) 7.1, Eosinophils (%) (Auto) 0.9, Basophils (%) (Auto) 0.6, Sodium Level 142, Potassium Level 4.1, Chloride Level 111H, Carbon Dioxide Level 25, Anion Gap 6, Blood Urea Nitrogen 32H, Creatinine 0.6L, Estimat Glomerular Filtration Rate > 60, Glucose Level 179H, Calcium Level 8.0L, Phosphorus Level 1.6L, Magnesium Level 1.5L, Total Bilirubin 0.6, Aspartate Amino Transf (AST/SGOT) 30, Alanine Aminotransferase ( ALT/SGPT) 71H, Alkaline Phosphatase 43, Total Protein 6.3L, Albumin 2.6L, Globulin 3.7, Albumin/Globulin Ratio 0.7L 11/09/16 09:45: Arterial Blood pH 7.290L, Arterial Blood Partial Pressure CO2 54.7H, Arterial Blood Partial Pressure O2 67.2L, Arterial Blood HCO3 35.7H, Arterial Blood Oxygen Saturation 93.7, Arterial Blood Base Excess -1.3, Anson Test Positive Height (Feet): 5 Height (Inches): 6.00 Weight (Pounds): 153 General Appearance: no apparent distress EENT: normal ENT inspection Neck: normal inspection Abdomen: no mass Skin: normal pigmentation George Gonzales Nov 09, 2016 17:34
[2016-11-09] MEDS: Piperacillin/Tazobactam 3.375 GM in D5W 110 ML IVPB SCH (17:53)
[2016-11-09] MEDS: Dyna-Hex 2% Top Sol 2oz TOPIC SCH (21:10)
[2016-11-09] MEDS: Terazosin 1mg cap ORAL SCH (21:11)
--- NOTE | 2016-11-09 21:34 | General Progress Note ---
Assessment/Plan Assessment/Plan Assessment - Anemia with OB (-) x 1 - Iron deficiency - Elevated CEA - High albumin gradient ascites --> consistent with (R) heart failure - CM, severe , AI - CHF - Resp failure - poor prognosis Recommendations - Continue TF - f/u hepatitis serologies --> neg - may need another paracentesis Subjective Allergies: Coded Allergies: No Known Allergies (Unverified , 10/22/11) Subjective Seen in ICU doing poorly Family at bedside tolerating feeds Objective Last 24 Hour Vital Signs Date Time Temp Pulse Resp B/P (MAP) Pulse Ox O2 Delivery O2 Flow Rate FiO2 11/09/16 21:12 109/52 11/09/16 21:11 90 20 96 Full Face 35 11/09/16 19:16 87 31 Bi-pap 35 11/09/16 19:15 87 31 97 Full Face 35 11/09/16 19:00 104/52 11/09/16 19:00 85 26 104/52 96 Bi-pap 35 11/09/16 18:30 90 26 83/45 96 Bi-pap 35 11/09/16 18:00 84 26 105/49 96 Bi-pap 35 11/09/16 18:00 115/57 11/09/16 17:37 107/55 11/09/16 17:30 93 29 117/55 96 Bi-pap 35 11/09/16 17:00 105/49 11/09/16 17:00 84 26 105/49 96 Bi-pap 35 11/09/16 16:42 88 24 96 Full Face 35 11/09/16 16:30 91 29 115/54 96 Bi-pap 35 11/09/16 16:00 98.1 88 30 111/52 98 Bi-pap 35 11/09/16 16:00 89 11/09/16 16:00 35 11/09/16 16:00 111/52 11/09/16 15:30 87 29 114/50 96 Bi-pap 35 11/09/16 15:00 87/46 11/09/16 15:00 82 29 87/46 96 Bi-pap 35 11/09/16 14:45 89 28 97 Full Face 35 11/09/16 14:41 100/50 11/09/16 14:30 84 29 100/50 96 Bi-pap 35 11/09/16 14:00 88 29 107/53 96 Bi-pap 35 11/09/16 14:00 107/53 11/09/16 13:30 87 29 106/51 96 Bi-pap 35 11/09/16 13:01 106/50 11/09/16 13:00 87 29 106/46 96 Bi-pap 35 11/09/16 12:47 77 21 98 Full Face 35 11/09/16 12:30 86 29 106/46 96 Bi-pap 35 11/09/16 12:00 80 11/09/16 12:00 98.1 83 30 98/55 98 Bi-pap 40 11/09/16 11:58 35 11/09/16 11:57 103/49 11/09/16 11:30 86 29 103/49 96 Bi-pap 35 11/09/16 11:12 90 33 98 Full Face 35 11/09/16 11:00 87 29 105/52 96 Bi-pap 35 11/09/16 10:30 86 27 113/51 95 Bi-pap 40 11/09/16 10:00 87 30 100/59 95 Bi-pap 40 11/09/16 09:36 91 26 95 Full Face 40 11/09/16 09:30 89 30 103/52 95 Bi-pap 40 11/09/16 09:16 77/41 11/09/16 09:00 90 30 99/49 95 Bi-pap 40 11/09/16 08:30 90 30 122/59 95 Bi-pap 40 11/09/16 08:00 98.2 97 30 109/50 98 Bi-pap 40 11/09/16 08:00 40 11/09/16 08:00 97 11/09/16 07:30 88 30 94/47 95 Bi-pap 40 11/09/16 07:03 91 26 95 Full Face 40 11/09/16 07:00 90 30 99/49 95 Bi-pap 40 11/09/16 06:38 103/50 11/09/16 06:30 101 31 103/50 94 Bi-pap 40 11/09/16 06:00 102 30 100/48 98 Bi-pap 40 11/09/16 06:00 101/49 11/09/16 05:30 40 11/09/16 05:30 96 30 101/49 98 Bi-pap 40 11/09/16 05:26 94 48 92 Full Face 40 11/09/16 05:00 94 30 100/44 98 Bi-pap 35 11/09/16 05:00 100/44 11/09/16 04:30 98 30 106/48 98 Bi-pap 35 11/09/16 04:12 81/43 11/09/16 04:00 103 11/09/16 04:00 98.6 97 30 78/44 98 Bi-pap 35 11/09/16 04:00 35 11/09/16 04:00 78/44 11/09/16 03:30 101 30 96/47 98 Bi-pap 35 11/09/16 03:24 102 32 98 Full Face 35 11/09/16 03:00 96/51 11/09/16 03:00 100 30 96/51 98 Bi-pap 35 11/09/16 02:30 98 30 105/55 98 Bi-pap 35 11/09/16 02:00 99/47 11/09/16 02:00 96 39 99/47 98 Bi-pap 35 11/09/16 01:46 92/46 11/09/16 01:36 97 37 100 Full Face 35 11/09/16 01:30 100 32 92/46 97 Bi-pap 35 11/09/16 01:00 99 32 95/49 97 Bi-pap 35 11/09/16 01:00 95/49 11/09/16 00:45 96 38 106/68 97 Bi-pap 35 11/09/16 00:30 98 26 92/46 97 Bi-pap 35 11/09/16 00:15 99 32 101/51 98 Bi-pap 35 11/09/16 00:00 95 11/09/16 00:00 98.4 95 31 92/45 97 Bi-pap 35 11/09/16 00:00 35 11/09/16 00:00 92/45 11/08/16 23:45 98 23 88/44 97 Bi-pap 35 11/08/16 23:30 100 28 88/44 97 Bi-pap 35 11/08/16 23:15 98 26 86/44 96 Bi-pap 35 11/08/16 23:15 88/44 11/08/16 23:00 94 34 88/44 96 Bi-pap 35 11/08/16 23:00 88/44 11/08/16 22:45 96 29 102/49 96 Bi-pap 35 11/08/16 22:39 96 29 96 Full Face 35 11/08/16 22:30 93 33 85/47 95 Bi-pap 35 11/08/16 22:15 95 21 89/43 94 Bi-pap 35 11/08/16 22:00 86/47 11/08/16 22:00 94 31 86/47 90 Bi-pap 35 11/08/16 21:45 99 28 79/39 92 Bi-pap 35 Intake and Output 11/09/16 11/10/16 19:00 07:00 Intake Total 2612.5 ml Output Total 2300 ml Balance 312.5 ml IV Total 2102.5 ml Tube Feeding 420 ml Other 90 ml Output Urine Total 2300 ml # Bowel Movements 2 Laboratory Tests 11/09/16 03:30: White Blood Count 9.5, Red Blood Count 3.96L, Hemoglobin 9.6L, Hematocrit 32.2L , Mean Corpuscular Volume 81, Mean Corpuscular Hemoglobin 24.2L, Mean Corpuscular Hemoglobin Concent 29.8L, Red Cell Distribution Width 25.6H, Platelet Count 102L, Mean Platelet Volume 8.4, Neutrophils (%) (Auto) 83.6H, Lymphocytes (%) (Auto) 7.9L, Monocytes (%) (Auto) 7.1, Eosinophils (%) (Auto) 0.9, Basophils (%) (Auto) 0.6, Sodium Level 142, Potassium Level 4.1, Chloride Level 111H, Carbon Dioxide Level 25, Anion Gap 6, Blood Urea Nitrogen 32H, Creatinine 0.6L, Estimat Glomerular Filtration Rate > 60, Glucose Level 179H, Calcium Level 8.0L, Phosphorus Level 1.6L, Magnesium Level 1.5L, Total Bilirubin 0.6, Aspartate Amino Transf (AST/SGOT) 30, Alanine Aminotransferase ( ALT/SGPT) 71H, Alkaline Phosphatase 43, Total Protein 6.3L, Albumin 2.6L, Globulin 3.7, Albumin/Globulin Ratio 0.7L 11/09/16 09:45: Arterial Blood pH 7.290L, Arterial Blood Partial Pressure CO2 54.7H, Arterial Blood Partial Pressure O2 67.2L, Arterial Blood HCO3 35.7H, Arterial Blood Oxygen Saturation 93.7, Arterial Blood Base Excess -1.3, Anson Test Positive Height (Feet): 5 Height (Inches): 6.00 Weight (Pounds): 153 Objective (+) BIPAP NCAT neck stiff b/l ronchi RRR II/ systolic murmur abd soft distended (+) contractures NATASHA ARREDONDO Nov 09, 2016 21:34
[2016-11-10] VITALS (48 sets, daily range): BP systolic 68–126; BP diastolic 37–57
--- NOTE | 2016-11-10 01:30 | Consultation ---
DATE OF CONSULTATION: 10/31/2016 SURGEON: Kenan Slade M.D. SPECIALITY: Thoracic Surgery REFERRING PHYSICIAN: Mague Caldera M.D. History Of Present Illness: This is a 51-year-old male, with history significant for ankylosing spondylitis, quadriplegia, and osteoporosis, who presented to the hospital with productive cough and shortness of breath. Due to the prolonged dependency on BiPAP, Thoracic Surgery was then consulted for tracheostomy. PAST MEDICAL HISTORY: 1. Ankylosing spondylitis. 2. Quadriplegia. 3. Osteoporosis. 4. Hypertension. 5. Cardiac murmurs. PAST SURGICAL HISTORY: 1. Bilateral hip replacement. 2. Bilateral shoulder replacement. MEDICATIONS: Reviewed. ALLERGIES: The patient has no known drug allergies. SOCIAL HISTORY: Noncontributory. FAMILY HISTORY: Noncontributory. PHYSICAL EXAMINATION: GENERAL: On examination, he is noted to be afebrile. VITAL SIGNS: Within normal limits. CARDIAC: Regular rate and rhythm. No gallops. No murmur. RESPIRATORY: Clear to auscultation bilaterally. Neck: The neck is flexed anteriorly and with very little range of motion. Abdomen: Soft, nondistended, and nontender with normoactive bowel sounds. EXTREMITIES: Showed no evidence of cyanosis, clubbing, or edema. Laboratory and diagnostic Data: Laboratory studies performed on 11/08/2016 showed WBC of 6.9, hemoglobin 8.4, hematocrit 27, and platelet count of 82,000. Sodium is 143, potassium 3.9, chloride 113, bicarbonate 25, BUN 35, creatinine 0.8, and glucose is 135. Assessment And Plan: This is a 51-year-old male, who presented with a history of ankylosing spondylitis of the cervical spine causing the neck to be in a flexion position. The patient was evaluated at bedside. Due to the very limited range of motion at the neck level, it is difficult to perform a standard open tracheostomy. However, if the patient is able to be intubated successfully, a percutaneous route can be attempted. As such, I recommend the patient be intubated transorally and reconsult for possible percutaneous tracheostomy. I want to thank you for referring this patient to my attention. If there are any questions in regards to this patient's clinical care, please do not hesitate to contact me. [place] M.D. DR: MARIA ELENA JOB#: [id number] CC: FELIX
[2016-11-10] MEDS: Piperacillin/Tazobactam 3.375 GM in D5W 110 ML IVPB SCH ×3 (01:32→17:26)
[2016-11-10] MEDS: Vancomycin 1250mg/D5W 250ml IVPB SCH ×2 (03:31→16:06)
[2016-11-10 04:59] LABS: MEAN CORPUSCULAR HEMOGLOBIN 23.9 PG (27.0-31.0); MEAN CORPUSCULAR HGB CONC 29.1 G/DL (32.0-36.0); MEAN CORPUSCULAR VOLUME 82 FL (80-99); MEAN PLATELET VOLUME 7.4 FL (6.5-10.1); PLATELET COUNT 75 K/UL (150-450); RED BLOOD COUNT 3.97 M/UL (4.70-6.10); RED CELL DISTRIBUTION WIDTH 25.6 % (11.6-14.8); WHITE BLOOD COUNT 8.9 K/UL (4.8-10.8)
[2016-11-10 05:13] LABS: ALANINE AMINOTRANSFERASE 56 U/L (3-41); ALBUMIN/GLOBULIN RATIO 0.6 (1.0-2.7); ANION GAP 6 (5-15); ASPARTATE AMINO TRANSFERASE 31 U/L (5-40); CALCIUM 7.5 mg/dL (8.6-10.2); CARBON DIOXIDE 26 mEQ/L (20-30); CHLORIDE 104 mEQ/L (98-107); CREATININE 0.6 mg/dL (0.7-1.2); GLOMERULAR FILTRATION RATE > 60 mL/min (>60); HEMOLYSIS 0; MAGNESIUM 1.3 mg/dL (1.7-2.5); PHOSPHORUS 1.6 mg/dL (2.5-4.8); SODIUM 136 mEQ/L (135-145); TOTAL PROTEIN 5.8 g/dL (6.6-8.7)
[2016-11-10 07:48] LABS: BAND NEUTROPHILS % (MANUAL) 0 % (0-8); BASOPHILS % (MANUAL) 0 % (0-2); EOSINOPHILS % (MANUAL) 2 % (0-3); LYMPHOCYTES % (MANUAL) 10 % (20-45); NEUTROPHILS % (MANUAL) 85 % (45-75); PLATELET ESTIMATE DECREASED; PLATELET MORPHOLOGY NORMAL; TOTAL CELLS COUNTED 100
[2016-11-10 07:49] LABS: ANISOCYTOSIS 2+; HYPOCHROMASIA 1+
[2016-11-10 07:50] LABS: TARGET CELLS 1+
--- NOTE | 2016-11-10 08:34 | Infectious Diseases Prog Note ---
Assessment/Plan Assessment/Plan A; Sepsis Hypotension, shock CHF, EF=35% Aortic stenosis Pyuria, UTI Bronchitis Elevated transaminase Hepatomegaly Anemia Ascites Ankylosing spondylitis P; Continue Vancomycin & Zosyn Will f/u cultures Subjective ROS Limited/Unobtainable: Yes Allergies: Coded Allergies: No Known Allergies (Unverified , 10/22/11) Objective Vital Signs Last 24 Hour Vital Signs Date Time Temp Pulse Resp B/P (MAP) Pulse Ox O2 Delivery O2 Flow Rate FiO2 11/10/16 07:10 79/39 11/10/16 07:00 83 38 93/50 98 Bi-pap 50 11/10/16 06:44 86 28 98 Full Face 50 11/10/16 06:30 83 33 106/47 97 Bi-pap 50 11/10/16 06:00 83 28 100/48 97 Bi-pap 50 11/10/16 05:30 80 29 88/45 97 Bi-pap 50 11/10/16 05:10 95 33 95 Full Face 50 11/10/16 05:00 82 35 99/51 97 Bi-pap 50 11/10/16 05:00 99/51 11/10/16 04:59 76/39 11/10/16 04:30 82 33 90/42 96 Bi-pap 50 11/10/16 04:00 98.2 86 45 96/47 97 Bi-pap 50 11/10/16 04:00 96/47 11/10/16 04:00 84 11/10/16 04:00 50 11/10/16 03:30 89 36 106/46 95 Bi-pap 35 11/10/16 03:15 103 28 97 Full Face 50 11/10/16 03:00 85 28 109/49 97 Bi-pap 35 11/10/16 03:00 104/49 11/10/16 02:30 90 27 93/47 98 Bi-pap 35 11/10/16 02:09 97/47 11/10/16 02:00 85 23 97/42 97 Bi-pap 35 11/10/16 02:00 97/47 11/10/16 01:30 88 22 88/45 98 Bi-pap 35 11/10/16 01:12 87 25 98 Full Face 50 11/10/16 01:00 89 24 86/42 99 Bi-pap 35 11/10/16 00:30 90 29 90/56 100 Bi-pap 35 11/10/16 00:06 87 11/10/16 00:00 50 11/10/16 00:00 94 25 91/46 99 Bi-pap 35 11/09/16 23:59 93/54 11/09/16 23:58 93/54 11/09/16 23:37 65 11/09/16 23:30 104 30 90/42 98 Bi-pap 35 11/09/16 23:22 105 33 99 Full Face 35 11/09/16 23:00 93/55 11/09/16 23:00 111 23 93/55 100 Bi-pap 35 11/09/16 22:30 104 26 108/55 100 Bi-pap 35 11/09/16 22:15 99 30 93/44 100 Bi-pap 35 11/09/16 22:00 96 36 86/42 92 Bi-pap 35 11/09/16 22:00 86/46 11/09/16 21:30 90 35 97/50 96 Bi-pap 35 11/09/16 21:12 109/52 11/09/16 21:11 90 20 96 Full Face 35 11/09/16 21:00 109/52 11/09/16 21:00 92 39 109/52 96 Bi-pap 35 11/09/16 20:31 92 11/09/16 20:30 93 42 111/53 96 Bi-pap 35 11/09/16 20:00 98.5 92 26 112/59 96 Bi-pap 35 11/09/16 20:00 35 11/09/16 20:00 112/59 11/09/16 19:30 89 36 110/62 96 Bi-pap 35 11/09/16 19:16 87 31 Bi-pap 35 11/09/16 19:15 87 31 97 Full Face 35 11/09/16 19:00 104/52 11/09/16 19:00 85 26 104/52 96 Bi-pap 35 11/09/16 18:30 90 26 83/45 96 Bi-pap 35 11/09/16 18:00 84 26 105/49 96 Bi-pap 35 11/09/16 18:00 115/57 11/09/16 17:37 107/55 11/09/16 17:30 93 29 117/55 96 Bi-pap 35 11/09/16 17:00 105/49 11/09/16 17:00 84 26 105/49 96 Bi-pap 35 11/09/16 16:42 88 24 96 Full Face 35 11/09/16 16:30 91 29 115/54 96 Bi-pap 35 11/09/16 16:00 98.1 88 30 111/52 98 Bi-pap 35 11/09/16 16:00 89 11/09/16 16:00 35 11/09/16 16:00 111/52 11/09/16 15:30 87 29 114/50 96 Bi-pap 35 11/09/16 15:00 87/46 11/09/16 15:00 82 29 87/46 96 Bi-pap 35 11/09/16 14:45 89 28 97 Full Face 35 11/09/16 14:41 100/50 11/09/16 14:30 84 29 100/50 96 Bi-pap 35 11/09/16 14:00 88 29 107/53 96 Bi-pap 35 11/09/16 14:00 107/53 11/09/16 13:30 87 29 106/51 96 Bi-pap 35 11/09/16 13:01 106/50 11/09/16 13:00 87 29 106/46 96 Bi-pap 35 11/09/16 12:47 77 21 98 Full Face 35 11/09/16 12:30 86 29 106/46 96 Bi-pap 35 11/09/16 12:00 80 11/09/16 12:00 98.1 83 30 98/55 98 Bi-pap 40 11/09/16 11:58 35 11/09/16 11:57 103/49 11/09/16 11:30 86 29 103/49 96 Bi-pap 35 11/09/16 11:12 90 33 98 Full Face 35 11/09/16 11:00 87 29 105/52 96 Bi-pap 35 11/09/16 10:30 86 27 113/51 95 Bi-pap 40 11/09/16 10:00 87 30 100/59 95 Bi-pap 40 11/09/16 09:36 91 26 95 Full Face 40 11/09/16 09:30 89 30 103/52 95 Bi-pap 40 11/09/16 09:16 77/41 11/09/16 09:00 90 30 99/49 95 Bi-pap 40 Height (Feet): 5 Height (Inches): 6.00 Weight (Pounds): 154 HEENT: other - flexed neck Respiratory/Chest: respiratory distress, other - on BIPAP Cardiovascular: normal rate, other - on LEvophed Abdomen: soft, non tender, other - NG tube Extremities: other - generalizededema, left arm PICC line Neurologic/Psychiatric: unresponsiveness Microbiology Date/Time Source Procedure Growth Status 11/09/16 21:20 Sputum Gram Stain - Final Resulted 11/09/16 21:20 Sputum Sputum Culture Pending Resulted Laboratory Tests Test 11/09/16 09:45 11/10/16 03:45 Arterial Blood pH 7.290 (7.350-7.450) Arterial Blood Partial Pressure CO2 54.7 mmHg (35.0-45.0) H Arterial Blood Partial Pressure O2 67.2 mmHg (75.0-100.0) L Arterial Blood HCO3 35.7 mmol/L (22.0-26.0) H Arterial Blood Oxygen Saturation 93.7 % (92.0-98.0) Arterial Blood Base Excess -1.3 Anson Test Positive White Blood Count 8.9 K/UL (4.8-10.8) Red Blood Count 3.97 M/UL (4.70-6.10) L Hemoglobin 9.5 G/DL (14.2-18.0) L Hematocrit 32.6 % (42.0-52.0) L Mean Corpuscular Volume 82 FL (80-99) Mean Corpuscular Hemoglobin 23.9 PG (27.0-31.0) L Mean Corpuscular Hemoglobin Concent 29.1 G/DL (32.0-36.0) L Red Cell Distribution Width 25.6 % (11.6-14.8) H Platelet Count 75 K/UL (150-450) L Mean Platelet Volume 7.4 FL (6.5-10.1) Neutrophils (%) (Auto) % (45.0-75.0) Lymphocytes (%) (Auto) % (20.0-45.0) Monocytes (%) (Auto) % (1.0-10.0) Eosinophils (%) (Auto) % (0.0-3.0) Basophils (%) (Auto) % (0.0-2.0) Differential Total Cells Counted 100 Neutrophils % (Manual) 85 % (45-75) H Lymphocytes % (Manual) 10 % (20-45) L Monocytes % (Manual) 3 % (1-10) Eosinophils % (Manual) 2 % (0-3) Basophils % (Manual) 0 % (0-2) Band Neutrophils 0 % (0-8) Platelet Estimate Decreased L Platelet Morphology Normal Hypochromasia 1+ Anisocytosis 2+ Target Cells 1+ Sodium Level 136 mEQ/L (135-145) Potassium Level 4.0 mEQ/L (3.4-4.9) Chloride Level 104 mEQ/L (98-107) Carbon Dioxide Level 26 mEQ/L (20-30) Anion Gap 6 (5-15) Blood Urea Nitrogen 26 mg/dL (7-23) H Creatinine 0.6 mg/dL (0.7-1.2) L Estimat Glomerular Filtration Rate > 60 mL/min (>60) Glucose Level 151 mg/dL (74-106) H Calcium Level 7.5 mg/dL (8.6-10.2) L Phosphorus Level 1.6 mg/dL (2.5-4.8) L Magnesium Level 1.3 mg/dL (1.7-2.5) L Total Bilirubin 0.6 mg/dL (0.0-1.2) Aspartate Amino Transf (AST/SGOT) 31 U/L (5-40) Alanine Aminotransferase (ALT/SGPT) 56 U/L (3-41) H Alkaline Phosphatase 42 U/L (40-129) Total Protein 5.8 g/dL (6.6-8.7) L Albumin 2.3 g/dL (3.5-5.2) L Globulin 3.5 g/dL Albumin/Globulin Ratio 0.6 (1.0-2.7) L Current Medications Medications (Trade) Dose Ordered Sig/Dina Route PRN Reason Start Time Stop Time Status Last Admin Dose Admin Acetaminophen (Tylenol) 650 mg Q4H PRN ORAL FEVER 11/01/16 18:45 11/30/16 18:44 11/06/16 17:16 Chlorhexidine Gluconate (Natalia-Hex 2%) 1 applic QHS TOPIC 11/08/16 21:00 12/08/16 20:59 11/09/16 21:10 Dextrose (Dextrose 50%) STAT PRN IV Hypoglycemia 11/01/16 18:45 11/30/16 18:44 Dextrose/Sodium Chloride 1,000 ml @ 50 mls/hr Q20H IV 11/05/16 11:00 12/05/16 10:59 11/09/16 11:57 Heparin Sodium (Porcine) (Heparin 5000 units/ml) 5,000 units EVERY 12 HOURS SUBQ 11/01/16 21:00 11/30/16 20:59 11/08/16 20:49 Indomethacin (Indocin) 50 mg TID ORAL 11/02/16 09:00 12/01/16 08:59 11/09/16 17:53 Magnesium Sulfate 100 ml @ 100 mls/hr Q1H IVPB 11/10/16 09:00 11/10/16 12:59 Midodrine (Pro-Amatine) 10 mg THREE TIMES A DAY ORAL 11/10/16 09:00 12/10/16 08:59 Norepinephrine Bitartrate 4 mg/ Dextrose 250 ml @ 0 mls/hr Q24H IV 11/08/16 11:15 12/08/16 11:14 11/10/16 07:10 Ondansetron HCl (Zofran) 4 mg Q6H PRN IVP Nausea & Vomiting 11/01/16 18:45 11/30/16 18:44 Pantoprazole (Protonix) 40 mg DAILY IVP 11/05/16 16:00 12/05/16 15:59 11/09/16 09:16 Piperacillin Sod/ Tazobactam Sod 3.375 gm/Dextrose 110 ml @ 27.5 mls/hr Q8HR@0200,1000,1800 IVPB 11/09/16 18:00 11/16/16 17:59 11/10/16 01:32 Polyethylene Glycol (Miralax) 17 gm DAILYPRN PRN ORAL Constipation 11/01/16 18:45 11/30/16 18:44 Prednisolone Acetate (Pred Forte) 1 drop DAILY BOTH EYES 11/02/16 09:00 12/01/16 08:59 11/09/16 09:30 Promethazine HCl/ Codeine (Phenergan with Codeine) 5 ml Q6H PRN ORAL For Cough 11/01/16 20:30 12/01/16 08:29 Sodium Phosphate 30 mm/Sodium Chloride 285 ml @ 47.5 mls/hr ONCE ONCE IVPB 11/10/16 10:00 11/10/16 15:59 Terazosin HCl (Hytrin) 2 mg BEDTIME ORAL 11/01/16 21:00 11/30/16 20:59 11/09/16 21:11 Vancomycin HCl (Vanco rx to dose) 1 ea DAILY PRN MISC Per rx protocol 11/09/16 15:15 12/09/16 15:14 Vancomycin HCl/ Dextrose 250 ml @ 166.667 mls/hr Q12HR@0400,1600 IVPB 11/09/16 16:00 11/14/16 15:59 11/10/16 03:31 BHAVNA LAL Nov 10, 2016 08:34
[2016-11-10 08:55] LABS: ABG ALLEN TEST POSITIVE; ABG BASE EXCESS -1.8; ABG PCO2 70.8 mmHg (35.0-45.0)
[2016-11-10] MEDS: Heparin 5000 units/ml inj SUBQ SCH ×2 (09:00→20:55)
[2016-11-10] MEDS: D5 1/2NS 1,000 ML IV SCH (09:03)
[2016-11-10] MEDS: Indomethacin 25mg cap ORAL SCH ×3 (09:04→17:25)
[2016-11-10] MEDS: Pantoprazole Inj IVP SCH (09:05)
[2016-11-10] MEDS: Midodrine 10mg tab ORAL SCH ×3 (09:05→17:25)
[2016-11-10] MEDS: Pred Forte 1% Opth Susp 1ml BOTH EYES SCH (09:15)
--- NOTE | 2016-11-10 09:37 | Diagnostic Imaging Report ---
Indication: Shortness of breath Comparison: 11/09/2016 Findings: Single view the chest obtained. Again, exam is limited due to severe contraction. Nasogastric tube is in good position with distal tip in the stomach. Cardiac size is difficult to evaluate. There remains opacification of the right hemithorax, unchanged. Left lung appears relatively clear. Is likely small left pleural effusion. Impression: No change from prior exam one day earlier No change from XRAY CHEST 1 V with report dated 11/09/2016 12:38 PM.
[2016-11-10] MEDS: Norepinephrine Bitartrate 8 MG in D5W 500ml 550 ML IV SCH ×3 (09:40→19:39)
--- NOTE | 2016-11-10 09:53 | General Progress Note ---
Progress Note Progress Note We were consulted for tracheostomy,. 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 ALESSIO ALVARADO Nov 10, 2016 09:53
[2016-11-10] MEDS ORDERED: Sodium Phosphate 30 MM in NS 275 ML IVPB ONE (10:00)
--- NOTE | 2016-11-10 10:07 | Pulmonolgy Critical Care Note ---
Critical Care - Asmt/Plan Problems: (1) Acute respiratory failure (2) Severe anemia (3) Anemia (4) Ankylosing spondylitis (5) Ascites (6) Cardiomyopathy (7) Kyphosis Respiratory: monitor respiratory rate, adjust FIO2, CXR Cardiac: continue pressors, continue to monitor HR/BP Renal: F/U I&O Gastrointestinal: hold feedings Endocrine: monitor blood sugar, check TSH, check HgA1C Neurologic: PRN Morphine Prophylaxis: Protonix Notes Reviewed: cardio Discussed with: nurses, consultants, supervisor case loadingict development manager - Objective Last 24 Hour Vital Signs Date Time Temp Pulse Resp B/P (MAP) Pulse Ox O2 Delivery O2 Flow Rate FiO2 11/10/16 09:40 104/45 11/10/16 08:48 84 31 99 Full Face 50 11/10/16 07:10 79/39 11/10/16 07:00 83 38 93/50 98 Bi-pap 50 11/10/16 06:44 86 28 98 Full Face 50 11/10/16 06:30 83 33 106/47 97 Bi-pap 50 11/10/16 06:00 83 28 100/48 97 Bi-pap 50 11/10/16 05:30 80 29 88/45 97 Bi-pap 50 11/10/16 05:10 95 33 95 Full Face 50 11/10/16 05:00 82 35 99/51 97 Bi-pap 50 11/10/16 05:00 99/51 11/10/16 04:59 76/39 11/10/16 04:30 82 33 90/42 96 Bi-pap 50 11/10/16 04:00 98.2 86 45 96/47 97 Bi-pap 50 11/10/16 04:00 96/47 11/10/16 04:00 84 11/10/16 04:00 50 11/10/16 03:30 89 36 106/46 95 Bi-pap 35 11/10/16 03:15 103 28 97 Full Face 50 11/10/16 03:00 85 28 109/49 97 Bi-pap 35 11/10/16 03:00 104/49 11/10/16 02:30 90 27 93/47 98 Bi-pap 35 11/10/16 02:09 97/47 11/10/16 02:00 85 23 97/42 97 Bi-pap 35 11/10/16 02:00 97/47 11/10/16 01:30 88 22 88/45 98 Bi-pap 35 11/10/16 01:12 87 25 98 Full Face 50 11/10/16 01:00 89 24 86/42 99 Bi-pap 35 11/10/16 00:30 90 29 90/56 100 Bi-pap 35 11/10/16 00:06 87 11/10/16 00:00 50 11/10/16 00:00 94 25 91/46 99 Bi-pap 35 11/09/16 23:59 93/54 11/09/16 23:58 93/54 11/09/16 23:37 65 11/09/16 23:30 104 30 90/42 98 Bi-pap 35 11/09/16 23:22 105 33 99 Full Face 35 11/09/16 23:00 93/55 11/09/16 23:00 111 23 93/55 100 Bi-pap 35 11/09/16 22:30 104 26 108/55 100 Bi-pap 35 11/09/16 22:15 99 30 93/44 100 Bi-pap 35 11/09/16 22:00 96 36 86/42 92 Bi-pap 35 11/09/16 22:00 86/46 11/09/16 21:30 90 35 97/50 96 Bi-pap 35 11/09/16 21:12 109/52 11/09/16 21:11 90 20 96 Full Face 35 11/09/16 21:00 109/52 11/09/16 21:00 92 39 109/52 96 Bi-pap 35 11/09/16 20:31 92 11/09/16 20:30 93 42 111/53 96 Bi-pap 35 11/09/16 20:00 98.5 92 26 112/59 96 Bi-pap 35 11/09/16 20:00 35 11/09/16 20:00 112/59 11/09/16 19:30 89 36 110/62 96 Bi-pap 35 11/09/16 19:16 87 31 Bi-pap 35 11/09/16 19:15 87 31 97 Full Face 35 11/09/16 19:00 104/52 11/09/16 19:00 85 26 104/52 96 Bi-pap 35 11/09/16 18:30 90 26 83/45 96 Bi-pap 35 11/09/16 18:00 84 26 105/49 96 Bi-pap 35 11/09/16 18:00 115/57 11/09/16 17:37 107/55 11/09/16 17:30 93 29 117/55 96 Bi-pap 35 11/09/16 17:00 105/49 11/09/16 17:00 84 26 105/49 96 Bi-pap 35 11/09/16 16:42 88 24 96 Full Face 35 11/09/16 16:30 91 29 115/54 96 Bi-pap 35 11/09/16 16:00 98.1 88 30 111/52 98 Bi-pap 35 11/09/16 16:00 89 11/09/16 16:00 35 11/09/16 16:00 111/52 11/09/16 15:30 87 29 114/50 96 Bi-pap 35 11/09/16 15:00 87/46 11/09/16 15:00 82 29 87/46 96 Bi-pap 35 11/09/16 14:45 89 28 97 Full Face 35 11/09/16 14:41 100/50 11/09/16 14:30 84 29 100/50 96 Bi-pap 35 11/09/16 14:00 88 29 107/53 96 Bi-pap 35 11/09/16 14:00 107/53 11/09/16 13:30 87 29 106/51 96 Bi-pap 35 11/09/16 13:01 106/50 11/09/16 13:00 87 29 106/46 96 Bi-pap 35 11/09/16 12:47 77 21 98 Full Face 35 11/09/16 12:30 86 29 106/46 96 Bi-pap 35 11/09/16 12:00 80 11/09/16 12:00 98.1 83 30 98/55 98 Bi-pap 40 11/09/16 11:58 35 11/09/16 11:57 103/49 11/09/16 11:30 86 29 103/49 96 Bi-pap 35 11/09/16 11:12 90 33 98 Full Face 35 11/09/16 11:00 87 29 105/52 96 Bi-pap 35 11/09/16 10:30 86 27 113/51 95 Bi-pap 40 Status: sedated Condition: critical HEENT: atraumatic Lungs: clear Heart: HR/BP stable, regular Abdomen: non-tender, active bowel sounds, feeding tube Extremities: edema Micro: Microbiology Date/Time Source Procedure Growth Status 11/09/16 21:20 Sputum Gram Stain - Final Resulted 11/09/16 21:20 Sputum Sputum Culture Pending Resulted Critical Care - Subjective ROS Limited/Unobtainable: No ICU Day: 10 Condition: critical EKG Rhythm: Sinus Rhythm FI02: 50 Sputum Amount: None Tube Feeding Amount: 35 CXR: no change Labs: Laboratory Tests Test 11/10/16 03:45 11/10/16 08:45 White Blood Count 8.9 K/UL (4.8-10.8) Red Blood Count 3.97 M/UL (4.70-6.10) L Hemoglobin 9.5 G/DL (14.2-18.0) L Hematocrit 32.6 % (42.0-52.0) L Mean Corpuscular Volume 82 FL (80-99) Mean Corpuscular Hemoglobin 23.9 PG (27.0-31.0) L Mean Corpuscular Hemoglobin Concent 29.1 G/DL (32.0-36.0) L Red Cell Distribution Width 25.6 % (11.6-14.8) H Platelet Count 75 K/UL (150-450) L Mean Platelet Volume 7.4 FL (6.5-10.1) Neutrophils (%) (Auto) % (45.0-75.0) Lymphocytes (%) (Auto) % (20.0-45.0) Monocytes (%) (Auto) % (1.0-10.0) Eosinophils (%) (Auto) % (0.0-3.0) Basophils (%) (Auto) % (0.0-2.0) Differential Total Cells Counted 100 Neutrophils % (Manual) 85 % (45-75) H Lymphocytes % (Manual) 10 % (20-45) L Monocytes % (Manual) 3 % (1-10) Eosinophils % (Manual) 2 % (0-3) Basophils % (Manual) 0 % (0-2) Band Neutrophils 0 % (0-8) Platelet Estimate Decreased L Platelet Morphology Normal Hypochromasia 1+ Anisocytosis 2+ Target Cells 1+ Sodium Level 136 mEQ/L (135-145) Potassium Level 4.0 mEQ/L (3.4-4.9) Chloride Level 104 mEQ/L (98-107) Carbon Dioxide Level 26 mEQ/L (20-30) Anion Gap 6 (5-15) Blood Urea Nitrogen 26 mg/dL (7-23) H Creatinine 0.6 mg/dL (0.7-1.2) L Estimat Glomerular Filtration Rate > 60 mL/min (>60) Glucose Level 151 mg/dL (74-106) H Calcium Level 7.5 mg/dL (8.6-10.2) L Phosphorus Level 1.6 mg/dL (2.5-4.8) L Magnesium Level 1.3 mg/dL (1.7-2.5) L Total Bilirubin 0.6 mg/dL (0.0-1.2) Aspartate Amino Transf (AST/SGOT) 31 U/L (5-40) Alanine Aminotransferase (ALT/SGPT) 56 U/L (3-41) H Alkaline Phosphatase 42 U/L (40-129) Total Protein 5.8 g/dL (6.6-8.7) L Albumin 2.3 g/dL (3.5-5.2) L Globulin 3.5 g/dL Albumin/Globulin Ratio 0.6 (1.0-2.7) L Arterial Blood pH 7.202 (7.350-7.450) Arterial Blood Partial Pressure CO2 70.8 mmHg (35.0-45.0) *H Arterial Blood Partial Pressure O2 72.6 mmHg (75.0-100.0) L Arterial Blood HCO3 27.2 mmol/L (22.0-26.0) H Arterial Blood Oxygen Saturation 93.9 % (92.0-98.0) Arterial Blood Base Excess -1.8 Anson Test Positive ESTEFANY MITCHELL Nov 10, 2016 10:07
--- NOTE | 2016-11-10 12:50 | Consultation ---
Consult Note Consult Note asked to eval for electrolytre abnormalities- Patient in ICU on BIPAP plan for trach is aborted due to anatomical issues patient examined- data reviewed- discussed with senior management consultant/Plan Low mag , Low Phos , Low BP (1) Acute respiratory failure (2) Severe anemia (3) Anemia (4) Ankylosing spondylitis (5) Ascites (6) Cardiomyopathy (7) Kyphosis Sugg: IV mag and Phos start Midodrine per consultants HEIDI PINEDA Nov 10, 2016 12:50
--- NOTE | 2016-11-10 13:25 | Internal Med Progress Note ---
Subjective Date of Service: Nov 10, 2016 Physician Name Easton,Miki Attending Physician Raheel Dumont MD Current Medications Medications (Trade) Dose Ordered Sig/Dina Route PRN Reason Start Time Stop Time Status Last Admin Dose Admin Acetaminophen (Tylenol) 650 mg Q4H PRN ORAL FEVER 11/01/16 18:45 11/30/16 18:44 11/06/16 17:16 Chlorhexidine Gluconate (Natalia-Hex 2%) 1 applic QHS TOPIC 11/08/16 21:00 12/08/16 20:59 11/09/16 21:10 Dextrose (Dextrose 50%) STAT PRN IV Hypoglycemia 11/01/16 18:45 11/30/16 18:44 Dextrose/Sodium Chloride 1,000 ml @ 50 mls/hr Q20H IV 11/05/16 11:00 12/05/16 10:59 11/10/16 09:03 Heparin Sodium (Porcine) (Heparin 5000 units/ml) 5,000 units EVERY 12 HOURS SUBQ 11/01/16 21:00 11/30/16 20:59 11/08/16 20:49 Indomethacin (Indocin) 50 mg TID ORAL 11/02/16 09:00 12/01/16 08:59 11/10/16 09:04 Midodrine (Pro-Amatine) 10 mg THREE TIMES A DAY ORAL 11/10/16 09:00 12/10/16 08:59 11/10/16 09:05 Norepinephrine Bitartrate 8 mg/ Dextrose 558 ml @ 0 mls/hr Q24H IV 11/10/16 09:00 12/08/16 11:14 11/10/16 09:40 Ondansetron HCl (Zofran) 4 mg Q6H PRN IVP Nausea & Vomiting 11/01/16 18:45 11/30/16 18:44 Pantoprazole (Protonix) 40 mg DAILY IVP 11/05/16 16:00 12/05/16 15:59 11/10/16 09:05 Piperacillin Sod/ Tazobactam Sod 3.375 gm/Dextrose 110 ml @ 27.5 mls/hr Q8HR@0200,1000,1800 IVPB 11/09/16 18:00 11/16/16 17:59 11/10/16 09:40 Polyethylene Glycol (Miralax) 17 gm DAILYPRN PRN ORAL Constipation 11/01/16 18:45 11/30/16 18:44 Prednisolone Acetate (Pred Forte) 1 drop DAILY BOTH EYES 11/02/16 09:00 12/01/16 08:59 11/10/16 09:15 Promethazine HCl/ Codeine (Phenergan with Codeine) 5 ml Q6H PRN ORAL For Cough 11/01/16 20:30 12/01/16 08:29 Sodium Phosphate 30 mm/Sodium Chloride 285 ml @ 47.5 mls/hr ONCE ONCE IVPB 11/10/16 10:00 11/10/16 15:59 11/10/16 09:40 Terazosin HCl (Hytrin) 2 mg BEDTIME ORAL 11/01/16 21:00 11/30/16 20:59 11/09/16 21:11 Vancomycin HCl (Vanco rx to dose) 1 ea DAILY PRN MISC Per rx protocol 11/09/16 15:15 12/09/16 15:14 Vancomycin HCl/ Dextrose 250 ml @ 166.667 mls/hr Q12HR@0400,1600 IVPB 11/09/16 16:00 11/14/16 15:59 11/10/16 03:31 Allergies: Coded Allergies: No Known Allergies (Unverified , 10/22/11) Subjective 51 YO M admitted with cough, fever and chills. Worsening respiratory failure; Now on BIPAP. Continues on Levophed. Cover for Int Med -Dr Dumont. ICU. Await transfer to [facility] Objective Last Vital Signs Date Time Temp Pulse Resp B/P (MAP) Pulse Ox O2 Delivery O2 Flow Rate FiO2 11/10/16 12:42 84 28 100 Full Face 50 11/10/16 12:00 98.5 105/53 11/05/16 07:00 80.0 Laboratory Tests Test 11/10/16 03:45 11/10/16 08:45 White Blood Count 8.9 K/UL (4.8-10.8) Red Blood Count 3.97 M/UL (4.70-6.10) L Hemoglobin 9.5 G/DL (14.2-18.0) L Hematocrit 32.6 % (42.0-52.0) L Mean Corpuscular Volume 82 FL (80-99) Mean Corpuscular Hemoglobin 23.9 PG (27.0-31.0) L Mean Corpuscular Hemoglobin Concent 29.1 G/DL (32.0-36.0) L Red Cell Distribution Width 25.6 % (11.6-14.8) H Platelet Count 75 K/UL (150-450) L Mean Platelet Volume 7.4 FL (6.5-10.1) Neutrophils (%) (Auto) % (45.0-75.0) Lymphocytes (%) (Auto) % (20.0-45.0) Monocytes (%) (Auto) % (1.0-10.0) Eosinophils (%) (Auto) % (0.0-3.0) Basophils (%) (Auto) % (0.0-2.0) Differential Total Cells Counted 100 Neutrophils % (Manual) 85 % (45-75) H Lymphocytes % (Manual) 10 % (20-45) L Monocytes % (Manual) 3 % (1-10) Eosinophils % (Manual) 2 % (0-3) Basophils % (Manual) 0 % (0-2) Band Neutrophils 0 % (0-8) Platelet Estimate Decreased L Platelet Morphology Normal Hypochromasia 1+ Anisocytosis 2+ Target Cells 1+ Sodium Level 136 mEQ/L (135-145) Potassium Level 4.0 mEQ/L (3.4-4.9) Chloride Level 104 mEQ/L (98-107) Carbon Dioxide Level 26 mEQ/L (20-30) Anion Gap 6 (5-15) Blood Urea Nitrogen 26 mg/dL (7-23) H Creatinine 0.6 mg/dL (0.7-1.2) L Estimat Glomerular Filtration Rate > 60 mL/min (>60) Glucose Level 151 mg/dL (74-106) H Calcium Level 7.5 mg/dL (8.6-10.2) L Phosphorus Level 1.6 mg/dL (2.5-4.8) L Magnesium Level 1.3 mg/dL (1.7-2.5) L Total Bilirubin 0.6 mg/dL (0.0-1.2) Aspartate Amino Transf (AST/SGOT) 31 U/L (5-40) Alanine Aminotransferase (ALT/SGPT) 56 U/L (3-41) H Alkaline Phosphatase 42 U/L (40-129) Total Protein 5.8 g/dL (6.6-8.7) L Albumin 2.3 g/dL (3.5-5.2) L Globulin 3.5 g/dL Albumin/Globulin Ratio 0.6 (1.0-2.7) L Arterial Blood pH 7.202 (7.350-7.450) Arterial Blood Partial Pressure CO2 70.8 mmHg (35.0-45.0) *H Arterial Blood Partial Pressure O2 72.6 mmHg (75.0-100.0) L Arterial Blood HCO3 27.2 mmol/L (22.0-26.0) H Arterial Blood Oxygen Saturation 93.9 % (92.0-98.0) Arterial Blood Base Excess -1.8 Anson Test Positive Microbiology Date/Time Source Procedure Growth Status 11/09/16 21:20 Sputum Gram Stain - Final Resulted 11/09/16 21:20 Sputum Sputum Culture Pending Resulted 11/09/16 16:00 Urine,Clean Catch Urine Culture - Preliminary Resulted Intake and Output 11/10/16 11/11/16 19:00 07:00 Intake Total 375 ml Output Total 255 ml Balance 120 ml Free Water 100 ml Tube Feeding 175 ml Other 100 ml Output Urine Total 255 ml Objective General Appearance: WD/WN, no apparent distress, alert EENT: PERRL/EOMI, normal ENT inspection Neck: non-tender, muscle spasm, stiff neck, other - contractrre Cardiovascular: normal peripheral pulses, normal rate, regular rhythm, no gallop/murmur, no JVD Respiratory/Chest: BIPAP; chest wall non-tender, respiratory distress, crackles /rales, rhonchi - bilaterally, expiratory wheezing Abdomen: normal bowel sounds, non tender, soft, no organomegaly, no mass Extremities: normal range of motion Neurologic: other - contractures Skin: normal pigmentation, warm/dry Assessment/Plan Problem List: (1) Depression (2) Flexion contractures Assessment & Plan: physical therapy (3) Anemia Assessment & Plan: Iron def anemia. Continue IV iron (4) Ankylosing spondylitis (5) HTN (hypertension) Assessment & Plan: Continue amlodipine (6) Osteoporosis (7) Kyphosis (8) Cervical spondylitis (9) Pneumonia Assessment & Plan: Continue BIPAP. See pulmonary note. Continue Cefepime per pulm (10) SOB (shortness of breath) (11) Ascites Assessment & Plan: S/P paracentesis 11/04/16. see GI note. (12) Respiratory failure Assessment & Plan: Anesthesiology unable to intubate; ENT unable to perform tracheostomy-see note. Worsening. Cont BIPAP per pulmonary. Start flagyl for possible aspiration pneumonia. Continue zosyn and vanco per ID recommendation Assessment/Plan Unable to intubate due to neck contractures. See pulmonary note. Prognosis is poor. MIKI EASTON Nov 10, 2016 13:25
[2016-11-10] MEDS ORDERED: D5 1/2NS 1000ml IV ONE (15:40)
[2016-11-10] MEDS ORDERED: NS 275ml ONE (15:40)
[2016-11-10] MEDS ORDERED: Tubing IV Secondary IV ONE (15:40)
--- NOTE | 2016-11-10 20:22 | General Progress Note ---
Assessment/Plan Assessment/Plan ASSESSMENT: 1. Thrombocytopenia potentially secondary to sepsis --> abd us shows hepatomegaly --> id on board 2. Anemia, secondary to chronic disease. --> watch counts. HH stable 3. Coagulopathy, secondary to malnutrition. 4. Ankylosing spondylitis. 5. Hypertension. 6. Shortness of breath. 7. Ascites, status post paracentesis. 8. Respiratory failure. He is on BiPAP. He is not a candidate for tracheostomy as per Surgical Service. Prognosis remains poor. Subjective Constitutional: Reports: no symptoms HEENT: Reports: no symptoms Cardiovascular: Reports: no symptoms Respiratory: Reports: no symptoms Gastrointestinal/Abdominal: Reports: no symptoms Genitourinary: Reports: no symptoms Neurologic/Psychiatric: Reports: no symptoms Endocrine: Reports: no symptoms Hematologic/Lymphatic: Reports: no symptoms Allergies: Coded Allergies: No Known Allergies (Unverified , 10/22/11) Subjective on levo gtt, unable to have surgery, HH stable Objective Last 24 Hour Vital Signs Date Time Temp Pulse Resp B/P (MAP) Pulse Ox O2 Delivery O2 Flow Rate FiO2 11/10/16 19:39 81/37 11/10/16 19:22 81 37 99 Full Face 50 11/10/16 18:30 87 31 107/52 98 Bi-pap 50 11/10/16 18:00 88 34 98/47 98 Bi-pap 50 11/10/16 17:30 86 33 104/48 98 Bi-pap 50 11/10/16 17:00 86 30 110/50 99 Bi-pap 50 11/10/16 16:47 89 32 100 Full Face 50 11/10/16 16:30 86 31 104/50 98 Bi-pap 50 11/10/16 16:00 84 11/10/16 16:00 98.3 84 34 98/49 100 Bi-pap 50 11/10/16 16:00 50 11/10/16 15:30 83 48 100/46 100 Bi-pap 50 11/10/16 15:00 83 41 106/50 100 Bi-pap 50 11/10/16 14:43 103/49 11/10/16 14:31 86 29 100 Full Face 50 11/10/16 14:30 82 31 107/52 100 Bi-pap 50 11/10/16 14:00 85 30 101/55 100 Bi-pap 50 11/10/16 13:30 84 27 106/51 100 Bi-pap 50 11/10/16 13:00 84 27 100/51 100 Bi-pap 50 11/10/16 12:42 84 28 100 Full Face 50 11/10/16 12:30 84 27 99/49 100 Bi-pap 50 11/10/16 12:00 83 11/10/16 12:00 50 11/10/16 12:00 98.5 83 23 105/53 100 Bi-pap 50 11/10/16 11:30 83 25 99/47 100 Bi-pap 50 11/10/16 11:12 87 27 99 Full Face 50 11/10/16 11:00 50 11/10/16 11:00 85 26 126/55 100 Bi-pap 50 11/10/16 10:30 85 28 100/52 100 Bi-pap 50 11/10/16 10:00 85 29 108/51 100 Bi-pap 50 11/10/16 09:40 104/45 11/10/16 09:30 85 30 103/46 99 Bi-pap 50 11/10/16 09:00 86 32 104/46 99 Bi-pap 50 11/10/16 08:48 84 31 99 Full Face 50 11/10/16 08:30 87 34 103/48 99 Bi-pap 50 11/10/16 08:00 85 11/10/16 08:00 97.5 88 34 111/54 99 Bi-pap 50 11/10/16 08:00 50 11/10/16 07:30 86 34 100/51 99 Bi-pap 50 11/10/16 07:10 79/39 11/10/16 07:00 83 38 93/50 98 Bi-pap 50 11/10/16 06:44 86 28 98 Full Face 50 11/10/16 06:30 83 33 106/47 97 Bi-pap 50 11/10/16 06:00 83 28 100/48 97 Bi-pap 50 11/10/16 05:30 80 29 88/45 97 Bi-pap 50 11/10/16 05:10 95 33 95 Full Face 50 11/10/16 05:00 82 35 99/51 97 Bi-pap 50 11/10/16 05:00 99/51 11/10/16 04:59 76/39 11/10/16 04:30 82 33 90/42 96 Bi-pap 50 11/10/16 04:00 98.2 86 45 96/47 97 Bi-pap 50 11/10/16 04:00 96/47 11/10/16 04:00 84 11/10/16 04:00 50 11/10/16 03:30 89 36 106/46 95 Bi-pap 35 11/10/16 03:15 103 28 97 Full Face 50 11/10/16 03:00 85 28 109/49 97 Bi-pap 35 11/10/16 03:00 104/49 11/10/16 02:30 90 27 93/47 98 Bi-pap 35 11/10/16 02:09 97/47 11/10/16 02:00 85 23 97/42 97 Bi-pap 35 11/10/16 02:00 97/47 11/10/16 01:30 88 22 88/45 98 Bi-pap 35 11/10/16 01:12 87 25 98 Full Face 50 11/10/16 01:00 89 24 86/42 99 Bi-pap 35 11/10/16 00:30 90 29 90/56 100 Bi-pap 35 11/10/16 00:06 87 11/10/16 00:00 50 11/10/16 00:00 94 25 91/46 99 Bi-pap 35 11/09/16 23:59 93/54 11/09/16 23:58 93/54 11/09/16 23:37 65 11/09/16 23:30 104 30 90/42 98 Bi-pap 35 11/09/16 23:22 105 33 99 Full Face 35 11/09/16 23:00 93/55 11/09/16 23:00 111 23 93/55 100 Bi-pap 35 11/09/16 22:30 104 26 108/55 100 Bi-pap 35 11/09/16 22:15 99 30 93/44 100 Bi-pap 35 11/09/16 22:00 96 36 86/42 92 Bi-pap 35 11/09/16 22:00 86/46 11/09/16 21:30 90 35 97/50 96 Bi-pap 35 11/09/16 21:12 109/52 11/09/16 21:11 90 20 96 Full Face 35 11/09/16 21:00 109/52 11/09/16 21:00 92 39 109/52 96 Bi-pap 35 11/09/16 20:31 92 11/09/16 20:30 93 42 111/53 96 Bi-pap 35 Intake and Output 11/10/16 11/11/16 19:00 07:00 Intake Total 3477.920 ml Output Total 495 ml Balance 2982.920 ml Free Water 150 ml IV Total 2757.920 ml Tube Feeding 420 ml Other 150 ml Output Urine Total 495 ml Laboratory Tests 11/10/16 03:45: White Blood Count 8.9, Red Blood Count 3.97L, Hemoglobin 9.5L, Hematocrit 32.6L , Mean Corpuscular Volume 82, Mean Corpuscular Hemoglobin 23.9L, Mean Corpuscular Hemoglobin Concent 29.1L, Red Cell Distribution Width 25.6H, Platelet Count 75L, Mean Platelet Volume 7.4, Neutrophils (%) (Auto) , Lymphocytes (%) (Auto) , Monocytes (%) (Auto) , Eosinophils (%) (Auto) , Basophils (%) (Auto) , Differential Total Cells Counted 100, Neutrophils % ( Manual) 85H, Lymphocytes % (Manual) 10L, Monocytes % (Manual) 3, Eosinophils % ( Manual) 2, Basophils % (Manual) 0, Band Neutrophils 0, Platelet Estimate DecreasedL, Platelet Morphology Normal, Hypochromasia 1+, Anisocytosis 2+, Target Cells 1+, Sodium Level 136, Potassium Level 4.0, Chloride Level 104, Carbon Dioxide Level 26, Anion Gap 6, Blood Urea Nitrogen 26H, Creatinine 0.6L, Estimat Glomerular Filtration Rate > 60, Glucose Level 151H, Calcium Level 7.5L , Phosphorus Level 1.6L, Magnesium Level 1.3L, Total Bilirubin 0.6, Aspartate Amino Transf (AST/SGOT) 31, Alanine Aminotransferase (ALT/SGPT) 56H, Alkaline Phosphatase 42, Total Protein 5.8L, Albumin 2.3L, Globulin 3.5, Albumin/ Globulin Ratio 0.6L 11/10/16 08:45: Arterial Blood pH 7.202*L, Arterial Blood Partial Pressure CO2 70.8*H, Arterial Blood Partial Pressure O2 72.6L, Arterial Blood HCO3 27.2H, Arterial Blood Oxygen Saturation 93.9, Arterial Blood Base Excess -1.8, Anson Test Positive Height (Feet): 5 Height (Inches): 6.00 Weight (Pounds): 154 General Appearance: no apparent distress EENT: normal ENT inspection Neck: normal alignment Cardiovascular: normal peripheral pulses Respiratory/Chest: normal breath sounds Neurologic: electrician second II-XII grossly normal Skin: warm/dry George Gonzales Nov 10, 2016 20:22
[2016-11-10] MEDS: Terazosin 1mg cap ORAL SCH (20:53)
[2016-11-10] MEDS: Dyna-Hex 2% Top Sol 2oz TOPIC SCH (20:54)
[2016-11-11] VITALS (49 sets, daily range): BP systolic 84–115; BP diastolic 40–93
[2016-11-11] MEDS: Norepinephrine Bitartrate 8 MG in D5W 500ml 550 ML IV SCH ×5 (00:06→20:52)
[2016-11-11] MEDS: Piperacillin/Tazobactam 3.375 GM in D5W 110 ML IVPB SCH ×2 (01:31→09:16)
[2016-11-11] MEDS: Vancomycin 1250mg/D5W 250ml IVPB SCH (04:00)
[2016-11-11 04:04] LABS: MEAN CORPUSCULAR HEMOGLOBIN 25.1 PG (27.0-31.0); MEAN CORPUSCULAR HGB CONC 30.5 G/DL (32.0-36.0); MEAN CORPUSCULAR VOLUME 82 FL (80-99); MEAN PLATELET VOLUME 7.2 FL (6.5-10.1); PLATELET COUNT 74 K/UL (150-450); RED BLOOD COUNT 3.93 M/UL (4.70-6.10); RED CELL DISTRIBUTION WIDTH 27.1 % (11.6-14.8); WHITE BLOOD COUNT 7.9 K/UL (4.8-10.8)
[2016-11-11 04:15] LABS: MAGNESIUM 1.9 mg/dL (1.7-2.5); PHOSPHORUS 3.3 mg/dL (2.5-4.8)
[2016-11-11 04:16] LABS: ALANINE AMINOTRANSFERASE 50 U/L (3-41); ALBUMIN/GLOBULIN RATIO 0.6 (1.0-2.7); ANION GAP 8 (5-15); ASPARTATE AMINO TRANSFERASE 35 U/L (5-40); CALCIUM 7.4 mg/dL (8.6-10.2); CARBON DIOXIDE 24 mEQ/L (20-30); CHLORIDE 97 mEQ/L (98-107); CREATININE 0.8 mg/dL (0.7-1.2); GLOMERULAR FILTRATION RATE > 60 mL/min (>60); HEMOLYSIS 1; POTASSIUM 3.9 mEQ/L (3.4-4.9); SODIUM 129 mEQ/L (135-145)
[2016-11-11 05:14] LABS: INR 1.3 (0.9-1.1); PROTHROMBIN TIME 14.1 SEC (9.30-11.50)
[2016-11-11] MEDS: D5 1/2NS 1,000 ML IV SCH (06:51)
--- NOTE | 2016-11-11 07:07 | General Progress Note ---
Assessment/Plan Assessment/Plan Assessment - edema and recurrent ascites - abdominal distention likely making respiration more difficult - Anemia with OB (-) x 1 - Iron deficiency - Elevated CEA - High albumin gradient ascites --> consistent with (R) heart failure - CM, severe , AI - CHF - Resp failure - poor prognosis Recommendations - Continue TF - f/u hepatitis serologies --> neg - will order repeat paracentesis - poor prognosis (Delayed entry - encounter date 11/10/16) Subjective Allergies: Coded Allergies: No Known Allergies (Unverified , 10/22/11) Subjective Seen in ICU doing poorly tolerating feeds abd more distended Objective Last 24 Hour Vital Signs Date Time Temp Pulse Resp B/P (MAP) Pulse Ox O2 Delivery O2 Flow Rate FiO2 11/11/16 06:32 79 31 98 Full Face 80 11/11/16 06:30 78 35 101/46 90 Bi-pap 70 11/11/16 06:00 80 39 109/55 91 Bi-pap 70 11/11/16 06:00 109/55 11/11/16 05:30 78 32 100/48 96 Bi-pap 70 11/11/16 05:02 78 29 96 Full Face 70 11/11/16 05:00 94/45 11/11/16 05:00 78 34 94/45 95 Bi-pap 70 11/11/16 04:42 86/48 11/11/16 04:30 77 31 86/48 95 Bi-pap 70 11/11/16 04:00 78 11/11/16 04:00 97.6 78 31 93/43 95 Bi-pap 70 11/11/16 04:00 70 11/11/16 04:00 93/43 11/11/16 03:30 80 37 93/41 93 Bi-pap 70 11/11/16 03:15 80 26 95 Full Face 70 11/11/16 03:00 83 35 90/40 96 Bi-pap 70 11/11/16 03:00 90/40 11/11/16 02:30 89 38 104/50 97 Bi-pap 70 11/11/16 02:00 101/55 11/11/16 02:00 85 33 101/55 99 Bi-pap 70 11/11/16 01:30 82 22 90/42 99 Bi-pap 50 11/11/16 01:19 86 34 84 Full Face 100 11/11/16 01:00 85 35 100/44 99 Bi-pap 50 11/11/16 01:00 100/44 11/11/16 00:30 84 32 96/46 99 Bi-pap 50 11/11/16 00:09 83 11/11/16 00:06 96/43 11/11/16 00:00 97.7 84 30 96/43 99 Bi-pap 50 11/11/16 00:00 50 11/11/16 00:00 96/43 11/10/16 23:30 83 30 95/41 99 Bi-pap 50 11/10/16 23:00 93/38 11/10/16 23:00 84 36 93/38 99 Bi-pap 50 11/10/16 22:59 83 24 100 Full Face 50 11/10/16 22:30 84 33 97/42 99 Bi-pap 50 11/10/16 22:00 108/49 11/10/16 22:00 85 34 108/49 98 Bi-pap 50 11/10/16 21:30 85 33 100/46 98 Bi-pap 50 11/10/16 21:09 85 33 99 Full Face 50 11/10/16 21:00 105/50 11/10/16 21:00 86 33 111/48 99 Bi-pap 50 11/10/16 20:30 85 36 100/57 99 Bi-pap 50 11/10/16 20:00 98.7 84 34 68/48 100 Bi-pap 50 11/10/16 20:00 68/48 11/10/16 20:00 50 11/10/16 19:53 83 11/10/16 19:39 81/37 11/10/16 19:30 84 37 81/37 99 Bi-pap 50 11/10/16 19:22 81 37 99 Full Face 50 11/10/16 19:00 106/49 11/10/16 19:00 86 34 106/49 99 Bi-pap 50 11/10/16 18:30 87 31 107/52 98 Bi-pap 50 11/10/16 18:00 88 34 98/47 98 Bi-pap 50 11/10/16 17:30 86 33 104/48 98 Bi-pap 50 11/10/16 17:00 86 30 110/50 99 Bi-pap 50 11/10/16 16:47 89 32 100 Full Face 50 11/10/16 16:30 86 31 104/50 98 Bi-pap 50 11/10/16 16:00 84 11/10/16 16:00 98.3 84 34 98/49 100 Bi-pap 50 11/10/16 16:00 50 11/10/16 15:30 83 48 100/46 100 Bi-pap 50 11/10/16 15:00 83 41 106/50 100 Bi-pap 50 11/10/16 14:43 103/49 11/10/16 14:31 86 29 100 Full Face 50 11/10/16 14:30 82 31 107/52 100 Bi-pap 50 11/10/16 14:00 85 30 101/55 100 Bi-pap 50 11/10/16 13:30 84 27 106/51 100 Bi-pap 50 11/10/16 13:00 84 27 100/51 100 Bi-pap 50 11/10/16 12:42 84 28 100 Full Face 50 11/10/16 12:30 84 27 99/49 100 Bi-pap 50 11/10/16 12:00 83 11/10/16 12:00 50 11/10/16 12:00 98.5 83 23 105/53 100 Bi-pap 50 11/10/16 11:30 83 25 99/47 100 Bi-pap 50 11/10/16 11:12 87 27 99 Full Face 50 11/10/16 11:00 50 11/10/16 11:00 85 26 126/55 100 Bi-pap 50 11/10/16 10:30 85 28 100/52 100 Bi-pap 50 11/10/16 10:00 85 29 108/51 100 Bi-pap 50 11/10/16 09:40 104/45 11/10/16 09:30 85 30 103/46 99 Bi-pap 50 11/10/16 09:00 86 32 104/46 99 Bi-pap 50 11/10/16 08:48 84 31 99 Full Face 50 11/10/16 08:30 87 34 103/48 99 Bi-pap 50 11/10/16 08:00 85 11/10/16 08:00 97.5 88 34 111/54 99 Bi-pap 50 11/10/16 08:00 50 11/10/16 07:30 86 34 100/51 99 Bi-pap 50 11/10/16 07:10 79/39 Laboratory Tests 11/10/16 08:45: Arterial Blood pH 7.202*L, Arterial Blood Partial Pressure CO2 70.8*H, Arterial Blood Partial Pressure O2 72.6L, Arterial Blood HCO3 27.2H, Arterial Blood Oxygen Saturation 93.9, Arterial Blood Base Excess -1.8, [place] Test Positive 11/11/16 02:45: White Blood Count 7.9, Red Blood Count 3.93L, Hemoglobin 9.9L, Hematocrit 32.3L , Mean Corpuscular Volume 82, Mean Corpuscular Hemoglobin 25.1L, Mean Corpuscular Hemoglobin Concent 30.5L, Red Cell Distribution Width 27.1H, Platelet Count 74L, Mean Platelet Volume 7.2, Neutrophils (%) (Auto) , Lymphocytes (%) (Auto) , Monocytes (%) (Auto) , Eosinophils (%) (Auto) , Basophils (%) (Auto) , Prothrombin Time 14.1H, Prothromb Time International Ratio 1.3H, Activated Partial Thromboplast Time 41H, Sodium Level 129L, Potassium Level 3.9, Chloride Level 97L, Carbon Dioxide Level 24, Anion Gap 8, Blood Urea Nitrogen 26H, Creatinine 0.8, Estimat Glomerular Filtration Rate > 60 , Glucose Level 156H, Calcium Level 7.4L, Phosphorus Level 3.3, Magnesium Level 1.9, Total Bilirubin 0.6, Aspartate Amino Transf (AST/SGOT) 35, Alanine Aminotransferase (ALT/SGPT) 50H, Alkaline Phosphatase 51, Total Protein 6.0L, Albumin 2.4L, Globulin 3.6, Albumin/Globulin Ratio 0.6L, Vancomycin Level Trough 35.6H Height (Feet): 5 Height (Inches): 6.00 Weight (Pounds): 167 Objective (+) BIPAP NCAT neck stiff b/l ronchi RRR II/ systolic murmur abd soft distended (+) contractures (+) edema on extremities NATASHA ARREDONDO Nov 11, 2016 07:07
[2016-11-11] MEDS: Heparin 5000 units/ml inj SUBQ SCH ×2 (08:39→20:55)
[2016-11-11] MEDS: Midodrine 10mg tab ORAL SCH ×3 (08:39→17:58)
[2016-11-11] MEDS: Pred Forte 1% Opth Susp 1ml BOTH EYES SCH (08:40)
[2016-11-11] MEDS: Pantoprazole Inj IVP SCH (08:40)
[2016-11-11] MEDS: Indomethacin 25mg cap ORAL SCH ×3 (09:16→17:58)
--- NOTE | 2016-11-11 09:19 | General Progress Note ---
Progress Note Progress Note Severe Kyphosis, unable to place trach because of contracture-fixed flexed neck... Currently on high dose pressors and B/P 100 systolic. Breathing through BiPAP OK with 100 % saturation. FABIANA KHOURY Nov 11, 2016 09:19
--- NOTE | 2016-11-11 09:41 | Infectious Diseases Prog Note ---
Assessment/Plan Assessment/Plan Assesment: #Hypotension on pressors> shock 11/09, afebrile, no leukocytosis- so far no infectious process identified? ?PNA, r/o bacteremia, r/o SBP, r/o cholecystitis ; maxed on pressors -CXR 11/10: . There remains opacification of the righthemithorax, unchanged. Left lung appears relatively clear. Is likely small left pleural effusion. -BCx 11/09 NTD x4 -sp cx 11/09: normal [place] -Ucx 100K yeast (colonizer), no u/a done #Abd distention, mod ascites- r/o SBP #Possible Asp Pneum , s/p Rx 11/09 #CoNS bacteremia in 1/ sets, likely contaminant, 02/13, afebrile -10/31 + 02/13, 11/02 Bcx Neg x4 # Pyuria. Urine culture : Neg , SP RX -u/a 10/31 mild pyuria:WBC 10-15 # Elevated liver function tests, rule out hepatobiliary disease ; resolving - hepatitis panel : Neg - CT of ABD : Heterogeneous appearance of the liver may suggest hepatocellular disease or hepatic congestion. Moderate ascites. -Abd u/s: Slightly increased hepatic echogenicity. Hepatomegaly. Trace ascites. Gallbladder sludge. No stones. Markedly thickened gallbladder wall is likely reactive, related to adjacent hepatocellular inflammation, given stated clinical history. It could also be due to the hemodynamic derangements caused by the liver disease. Also probably exaggerated due to nondistention of the gallbladder. The possibility of acalculous acute cholecystitis or cholecystitis secondary to occult cholelithiasis not completely excludable, however. Consider hepatobiliary nuclearscanning if there is high clinical suspicion Negative for dilated ducts. #. Mid thoracic unstageable pressure ulcer. # HIV: Neg # Thrombocytopenia. # Coagulopathy. #. Ankylosing spondylosis/kyphosis/cervical spondylosis with chronic contractures. #. Tobacco abuse. #. Urine toxicology positive for marijuana. # No known drug allergies. # Full Code. PLAN: -Swicth Zosyn to Meropenem given shock for broader coverage, Continue IV Vancomycin (currently on hold given supratherapeutic levels) (abx d #3) s/p IV cefepime day # 9 , Flagyl d# 5 11/09 ( 09/01 SP IV Vancomycin d# 2 ) -repeat infectious work up -Abd u/s- r/o cholecystitis -for paracentesis, please send fuid cell count and cultures -F/u LFTs, - f/u repeat Bcx -. Monitor CBC and temperatures. -. Monitor CMP -. Monitor chest x-ray. -. Wound care. -. BiPAP Discussed with RN and RT. Subjective Allergies: Coded Allergies: No Known Allergies (Unverified , 10/22/11) Subjective afebrile Cx NTD no leukocytosis supratherapeutic vanco at 36 Max on levophed at 30 patient DNR/DNI no diarrhea Objective Vital Signs Last 24 Hour Vital Signs Date Time Temp Pulse Resp B/P (MAP) Pulse Ox O2 Delivery O2 Flow Rate FiO2 11/11/16 09:12 78 30 100 Full Face 70 11/11/16 09:00 81 21 96/46 96 Bi-pap 80 11/11/16 08:00 82 11/11/16 08:00 97.6 80 31 113/93 95 Bi-pap 80 11/11/16 08:00 80 11/11/16 07:00 81 22 105/44 96 Bi-pap 70 11/11/16 06:32 79 31 98 Full Face 80 11/11/16 06:30 78 35 101/46 90 Bi-pap 70 11/11/16 06:00 80 39 109/55 91 Bi-pap 70 11/11/16 06:00 109/55 11/11/16 05:30 78 32 100/48 96 Bi-pap 70 11/11/16 05:02 78 29 96 Full Face 70 11/11/16 05:00 94/45 11/11/16 05:00 78 34 94/45 95 Bi-pap 70 11/11/16 04:42 86/48 11/11/16 04:30 77 31 86/48 95 Bi-pap 70 11/11/16 04:00 78 11/11/16 04:00 97.6 78 31 93/43 95 Bi-pap 70 11/11/16 04:00 70 11/11/16 04:00 93/43 11/11/16 03:30 80 37 93/41 93 Bi-pap 70 11/11/16 03:15 80 26 95 Full Face 70 11/11/16 03:00 83 35 90/40 96 Bi-pap 70 11/11/16 03:00 90/40 11/11/16 02:30 89 38 104/50 97 Bi-pap 70 11/11/16 02:00 101/55 11/11/16 02:00 85 33 101/55 99 Bi-pap 70 11/11/16 01:30 82 22 90/42 99 Bi-pap 50 11/11/16 01:19 86 34 84 Full Face 100 11/11/16 01:00 85 35 100/44 99 Bi-pap 50 11/11/16 01:00 100/44 11/11/16 00:30 84 32 96/46 99 Bi-pap 50 11/11/16 00:09 83 11/11/16 00:06 96/43 11/11/16 00:00 97.7 84 30 96/43 99 Bi-pap 50 11/11/16 00:00 50 11/11/16 00:00 96/43 11/10/16 23:30 83 30 95/41 99 Bi-pap 50 11/10/16 23:00 93/38 11/10/16 23:00 84 36 93/38 99 Bi-pap 50 11/10/16 22:59 83 24 100 Full Face 50 11/10/16 22:30 84 33 97/42 99 Bi-pap 50 11/10/16 22:00 108/49 11/10/16 22:00 85 34 108/49 98 Bi-pap 50 11/10/16 21:30 85 33 100/46 98 Bi-pap 50 11/10/16 21:09 85 33 99 Full Face 50 11/10/16 21:00 105/50 11/10/16 21:00 86 33 111/48 99 Bi-pap 50 11/10/16 20:30 85 36 100/57 99 Bi-pap 50 11/10/16 20:00 98.7 84 34 68/48 100 Bi-pap 50 11/10/16 20:00 68/48 11/10/16 20:00 50 11/10/16 19:53 83 11/10/16 19:39 81/37 11/10/16 19:30 84 37 81/37 99 Bi-pap 50 11/10/16 19:22 81 37 99 Full Face 50 11/10/16 19:00 106/49 11/10/16 19:00 86 34 106/49 99 Bi-pap 50 11/10/16 18:30 87 31 107/52 98 Bi-pap 50 11/10/16 18:00 88 34 98/47 98 Bi-pap 50 11/10/16 17:30 86 33 104/48 98 Bi-pap 50 11/10/16 17:00 86 30 110/50 99 Bi-pap 50 11/10/16 16:47 89 32 100 Full Face 50 11/10/16 16:30 86 31 104/50 98 Bi-pap 50 11/10/16 16:00 84 11/10/16 16:00 98.3 84 34 98/49 100 Bi-pap 50 11/10/16 16:00 50 11/10/16 15:30 83 48 100/46 100 Bi-pap 50 11/10/16 15:00 83 41 106/50 100 Bi-pap 50 11/10/16 14:43 103/49 11/10/16 14:31 86 29 100 Full Face 50 11/10/16 14:30 82 31 107/52 100 Bi-pap 50 11/10/16 14:00 85 30 101/55 100 Bi-pap 50 11/10/16 13:30 84 27 106/51 100 Bi-pap 50 11/10/16 13:00 84 27 100/51 100 Bi-pap 50 11/10/16 12:42 84 28 100 Full Face 50 11/10/16 12:30 84 27 99/49 100 Bi-pap 50 11/10/16 12:00 83 11/10/16 12:00 50 11/10/16 12:00 98.5 83 23 105/53 100 Bi-pap 50 11/10/16 11:30 83 25 99/47 100 Bi-pap 50 11/10/16 11:12 87 27 99 Full Face 50 11/10/16 11:00 50 11/10/16 11:00 85 26 126/55 100 Bi-pap 50 11/10/16 10:30 85 28 100/52 100 Bi-pap 50 11/10/16 10:00 85 29 108/51 100 Bi-pap 50 Height (Feet): 5 Height (Inches): 6.00 Weight (Pounds): 167 Objective GENERAL: No apparent distress, nontoxic appearing. Vital Signs: Maximum temperature 98.4 degrees, blood pressure 100/57, heart rate in the 90s, respiratory rate 18, and saturation 99% on nasal cannula. HEENT/NECK: Neck contracted. CARDIOVASCULAR: Regular rate and rhythm. No murmurs. PULMONARY: Coarse breath sounds bilaterally. ABDOMINAL: Bowel sounds present. Soft, nondistended, and nontender. EXTREMITIES: Contractures in all four extremities. SKIN: Unstageable decubitus over the mid thoracic spine. NEUROLOGICAL: Alert and oriented x3. Microbiology Date/Time Source Procedure Growth Status 11/09/16 16:00 Blood Blood Culture - Preliminary NO GROWTH AFTER 24 HOURS Resulted 11/09/16 16:00 Blood Blood Culture - Preliminary NO GROWTH AFTER 24 HOURS Resulted 11/09/16 21:20 Sputum Gram Stain - Final Complete 11/09/16 21:20 Sputum Sputum Culture - Final NORMAL UPPER RESPIRATORY [place] PRESENT Complete 11/09/16 16:00 Urine,Clean Catch Urine Culture - Preliminary YEAST Resulted Laboratory Tests Test 11/11/16 02:45 White Blood Count 7.9 K/UL (4.8-10.8) Red Blood Count 3.93 M/UL (4.70-6.10) L Hemoglobin 9.9 G/DL (14.2-18.0) L Hematocrit 32.3 % (42.0-52.0) L Mean Corpuscular Volume 82 FL (80-99) Mean Corpuscular Hemoglobin 25.1 PG (27.0-31.0) L Mean Corpuscular Hemoglobin Concent 30.5 G/DL (32.0-36.0) L Red Cell Distribution Width 27.1 % (11.6-14.8) H Platelet Count 74 K/UL (150-450) L Mean Platelet Volume 7.2 FL (6.5-10.1) Neutrophils (%) (Auto) % (45.0-75.0) Lymphocytes (%) (Auto) % (20.0-45.0) Monocytes (%) (Auto) % (1.0-10.0) Eosinophils (%) (Auto) % (0.0-3.0) Basophils (%) (Auto) % (0.0-2.0) Prothrombin Time 14.1 SEC (9.30-11.50) H Prothromb Time International Ratio 1.3 (0.9-1.1) H Activated Partial Thromboplast Time 41 SEC (23-33) H Sodium Level 129 mEQ/L (135-145) L Potassium Level 3.9 mEQ/L (3.4-4.9) Chloride Level 97 mEQ/L (98-107) L Carbon Dioxide Level 24 mEQ/L (20-30) Anion Gap 8 (5-15) Blood Urea Nitrogen 26 mg/dL (7-23) H Creatinine 0.8 mg/dL (0.7-1.2) Estimat Glomerular Filtration Rate > 60 mL/min (>60) Glucose Level 156 mg/dL (74-106) H Calcium Level 7.4 mg/dL (8.6-10.2) L Phosphorus Level 3.3 mg/dL (2.5-4.8) Magnesium Level 1.9 mg/dL (1.7-2.5) Total Bilirubin 0.6 mg/dL (0.0-1.2) Aspartate Amino Transf (AST/SGOT) 35 U/L (5-40) Alanine Aminotransferase (ALT/SGPT) 50 U/L (3-41) H Alkaline Phosphatase 51 U/L (40-129) Total Protein 6.0 g/dL (6.6-8.7) L Albumin 2.4 g/dL (3.5-5.2) L Globulin 3.6 g/dL Albumin/Globulin Ratio 0.6 (1.0-2.7) L Vancomycin Level Trough 35.6 ug/mL (5.0-12.0) H Current Medications Medications (Trade) Dose Ordered Sig/Dina Route PRN Reason Start Time Stop Time Status Last Admin Dose Admin Acetaminophen (Tylenol) 650 mg Q4H PRN ORAL FEVER 11/01/16 18:45 11/30/16 18:44 11/06/16 17:16 Chlorhexidine Gluconate (Natalia-Hex 2%) 1 applic QHS TOPIC 11/08/16 21:00 12/08/16 20:59 11/10/16 20:54 Dextrose (Dextrose 50%) STAT PRN IV Hypoglycemia 11/01/16 18:45 11/30/16 18:44 Heparin Sodium (Porcine) (Heparin 5000 units/ml) 5,000 units EVERY 12 HOURS SUBQ 11/01/16 21:00 11/30/16 20:59 11/08/16 20:49 Indomethacin (Indocin) 50 mg TID ORAL 11/02/16 09:00 12/01/16 08:59 11/11/16 09:16 Midodrine (Pro-Amatine) 10 mg THREE TIMES A DAY ORAL 11/10/16 09:00 12/10/16 08:59 11/11/16 08:39 Norepinephrine Bitartrate 8 mg/ Dextrose 558 ml @ 0 mls/hr Q24H IV 11/10/16 09:00 12/08/16 11:14 11/11/16 04:42 Ondansetron HCl (Zofran) 4 mg Q6H PRN IVP Nausea & Vomiting 11/01/16 18:45 11/30/16 18:44 Pantoprazole (Protonix) 40 mg DAILY IVP 11/05/16 16:00 12/05/16 15:59 11/11/16 08:40 Piperacillin Sod/ Tazobactam Sod 3.375 gm/Dextrose 110 ml @ 27.5 mls/hr Q8HR@0200,1000,1800 IVPB 11/09/16 18:00 11/16/16 17:59 11/11/16 09:16 Polyethylene Glycol (Miralax) 17 gm DAILYPRN PRN ORAL Constipation 11/01/16 18:45 11/30/16 18:44 Prednisolone Acetate (Pred Forte) 1 drop DAILY BOTH EYES 11/02/16 09:00 12/01/16 08:59 11/11/16 08:40 Promethazine HCl/ Codeine (Phenergan with Codeine) 5 ml Q6H PRN ORAL For Cough 11/01/16 20:30 12/01/16 08:29 Sodium Chloride 250 ml @ 30 mls/hr ONCE ONCE IV 11/11/16 10:00 11/11/16 18:19 Terazosin HCl (Hytrin) 2 mg BEDTIME ORAL 11/01/16 21:00 11/30/16 20:59 11/10/16 20:53 Vancomycin HCl (Vanco rx to dose) 1 ea DAILY PRN MISC Per rx protocol 11/09/16 15:15 12/09/16 15:14 Loli Roberto M.D. Nov 11, 2016 09:41
[2016-11-11] MEDS ORDERED: NaCl 3% 500ml 250 ML IV ONE (10:00)
[2016-11-11] MEDS ORDERED: 1/2 NS 1000ml IV ONE ×2 (10:19→10:20)
[2016-11-11] MEDS ORDERED: Tubing IV Secondary IV ONE (10:20)
[2016-11-11] MEDS ORDERED: NS 275ml ONE ×2 (10:20→10:22)
--- NOTE | 2016-11-11 11:04 | Pulmonolgy Critical Care Note ---
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 We continue the current care. Pt remains DNI since it would not be even technically possible. Critical Care - Objective Last 24 Hour Vital Signs Date Time Temp Pulse Resp B/P (MAP) Pulse Ox O2 Delivery O2 Flow Rate FiO2 11/11/16 10:00 79 21 104/45 96 Bi-pap 80 11/11/16 09:45 99/48 11/11/16 09:12 78 30 100 Full Face 70 11/11/16 09:00 81 21 96/46 96 Bi-pap 80 11/11/16 08:00 82 11/11/16 08:00 97.6 80 31 113/93 95 Bi-pap 80 11/11/16 08:00 80 11/11/16 07:00 81 22 105/44 96 Bi-pap 70 11/11/16 06:32 79 31 98 Full Face 80 11/11/16 06:30 78 35 101/46 90 Bi-pap 70 11/11/16 06:00 80 39 109/55 91 Bi-pap 70 11/11/16 06:00 109/55 11/11/16 05:30 78 32 100/48 96 Bi-pap 70 11/11/16 05:02 78 29 96 Full Face 70 11/11/16 05:00 94/45 11/11/16 05:00 78 34 94/45 95 Bi-pap 70 11/11/16 04:42 86/48 11/11/16 04:30 77 31 86/48 95 Bi-pap 70 11/11/16 04:00 78 11/11/16 04:00 97.6 78 31 93/43 95 Bi-pap 70 11/11/16 04:00 70 11/11/16 04:00 93/43 11/11/16 03:30 80 37 93/41 93 Bi-pap 70 11/11/16 03:15 80 26 95 Full Face 70 11/11/16 03:00 83 35 90/40 96 Bi-pap 70 11/11/16 03:00 90/40 11/11/16 02:30 89 38 104/50 97 Bi-pap 70 11/11/16 02:00 101/55 11/11/16 02:00 85 33 101/55 99 Bi-pap 70 11/11/16 01:30 82 22 90/42 99 Bi-pap 50 11/11/16 01:19 86 34 84 Full Face 100 11/11/16 01:00 85 35 100/44 99 Bi-pap 50 11/11/16 01:00 100/44 11/11/16 00:30 84 32 96/46 99 Bi-pap 50 11/11/16 00:09 83 11/11/16 00:06 96/43 11/11/16 00:00 97.7 84 30 96/43 99 Bi-pap 50 11/11/16 00:00 50 11/11/16 00:00 96/43 11/10/16 23:30 83 30 95/41 99 Bi-pap 50 11/10/16 23:00 93/38 11/10/16 23:00 84 36 93/38 99 Bi-pap 50 11/10/16 22:59 83 24 100 Full Face 50 11/10/16 22:30 84 33 97/42 99 Bi-pap 50 11/10/16 22:00 108/49 11/10/16 22:00 85 34 108/49 98 Bi-pap 50 11/10/16 21:30 85 33 100/46 98 Bi-pap 50 11/10/16 21:09 85 33 99 Full Face 50 11/10/16 21:00 105/50 11/10/16 21:00 86 33 111/48 99 Bi-pap 50 11/10/16 20:30 85 36 100/57 99 Bi-pap 50 11/10/16 20:00 98.7 84 34 68/48 100 Bi-pap 50 11/10/16 20:00 68/48 11/10/16 20:00 50 11/10/16 19:53 83 11/10/16 19:39 81/37 11/10/16 19:30 84 37 81/37 99 Bi-pap 50 11/10/16 19:22 81 37 99 Full Face 50 11/10/16 19:00 106/49 11/10/16 19:00 86 34 106/49 99 Bi-pap 50 11/10/16 18:30 87 31 107/52 98 Bi-pap 50 11/10/16 18:00 88 34 98/47 98 Bi-pap 50 11/10/16 17:30 86 33 104/48 98 Bi-pap 50 11/10/16 17:00 86 30 110/50 99 Bi-pap 50 11/10/16 16:47 89 32 100 Full Face 50 11/10/16 16:30 86 31 104/50 98 Bi-pap 50 11/10/16 16:00 84 11/10/16 16:00 98.3 84 34 98/49 100 Bi-pap 50 11/10/16 16:00 50 11/10/16 15:30 83 48 100/46 100 Bi-pap 50 11/10/16 15:00 83 41 106/50 100 Bi-pap 50 11/10/16 14:43 103/49 11/10/16 14:31 86 29 100 Full Face 50 11/10/16 14:30 82 31 107/52 100 Bi-pap 50 11/10/16 14:00 85 30 101/55 100 Bi-pap 50 11/10/16 13:30 84 27 106/51 100 Bi-pap 50 11/10/16 13:00 84 27 100/51 100 Bi-pap 50 11/10/16 12:42 84 28 100 Full Face 50 11/10/16 12:30 84 27 99/49 100 Bi-pap 50 11/10/16 12:00 83 11/10/16 12:00 50 11/10/16 12:00 98.5 83 23 105/53 100 Bi-pap 50 11/10/16 11:30 83 25 99/47 100 Bi-pap 50 11/10/16 11:12 87 27 99 Full Face 50 Status: somnolent Condition: critical HEENT: atraumatic Neck: full ROM Lungs: chest wall tender Heart: HR/BP stable, HR/BP unstable Abdomen: soft, active bowel sounds, feeding tube Extremities: edema Decubiti: location Micro: Microbiology Date/Time Source Procedure Growth Status 11/09/16 16:00 Blood Blood Culture - Preliminary NO GROWTH AFTER 24 HOURS Resulted 11/09/16 16:00 Blood Blood Culture - Preliminary NO GROWTH AFTER 24 HOURS Resulted 11/09/16 21:20 Sputum Gram Stain - Final Complete 11/09/16 21:20 Sputum Sputum Culture - Final NORMAL UPPER RESPIRATORY [place] PRESENT Complete 11/09/16 16:00 Urine,Clean Catch Urine Culture - Preliminary YEAST Resulted Critical Care - Subjective ROS Limited/Unobtainable: No ICU Day: 10 Intubation Day: 10 Condition: critical EKG Rhythm: Sinus Rhythm FI02: 80 Sputum Amount: None Fluids: levophed Tube Feeding Amount: 0 I&O: Intake and Output 11/11/16 11/12/16 19:00 07:00 Intake Total 0 ml Output Total 80 ml Balance -80 ml Tube Feeding 0 ml Output Urine Total 80 ml CXR: no change Labs: Laboratory Tests Test 11/11/16 02:45 White Blood Count 7.9 K/UL (4.8-10.8) Red Blood Count 3.93 M/UL (4.70-6.10) L Hemoglobin 9.9 G/DL (14.2-18.0) L Hematocrit 32.3 % (42.0-52.0) L Mean Corpuscular Volume 82 FL (80-99) Mean Corpuscular Hemoglobin 25.1 PG (27.0-31.0) L Mean Corpuscular Hemoglobin Concent 30.5 G/DL (32.0-36.0) L Red Cell Distribution Width 27.1 % (11.6-14.8) H Platelet Count 74 K/UL (150-450) L Mean Platelet Volume 7.2 FL (6.5-10.1) Neutrophils (%) (Auto) % (45.0-75.0) Lymphocytes (%) (Auto) % (20.0-45.0) Monocytes (%) (Auto) % (1.0-10.0) Eosinophils (%) (Auto) % (0.0-3.0) Basophils (%) (Auto) % (0.0-2.0) Prothrombin Time 14.1 SEC (9.30-11.50) H Prothromb Time International Ratio 1.3 (0.9-1.1) H Activated Partial Thromboplast Time 41 SEC (23-33) H Sodium Level 129 mEQ/L (135-145) L Potassium Level 3.9 mEQ/L (3.4-4.9) Chloride Level 97 mEQ/L (98-107) L Carbon Dioxide Level 24 mEQ/L (20-30) Anion Gap 8 (5-15) Blood Urea Nitrogen 26 mg/dL (7-23) H Creatinine 0.8 mg/dL (0.7-1.2) Estimat Glomerular Filtration Rate > 60 mL/min (>60) Glucose Level 156 mg/dL (74-106) H Calcium Level 7.4 mg/dL (8.6-10.2) L Phosphorus Level 3.3 mg/dL (2.5-4.8) Magnesium Level 1.9 mg/dL (1.7-2.5) Total Bilirubin 0.6 mg/dL (0.0-1.2) Aspartate Amino Transf (AST/SGOT) 35 U/L (5-40) Alanine Aminotransferase (ALT/SGPT) 50 U/L (3-41) H Alkaline Phosphatase 51 U/L (40-129) Total Protein 6.0 g/dL (6.6-8.7) L Albumin 2.4 g/dL (3.5-5.2) L Globulin 3.6 g/dL Albumin/Globulin Ratio 0.6 (1.0-2.7) L Vancomycin Level Trough 35.6 ug/mL (5.0-12.0) H ESTEFANY MITCHELL Nov 11, 2016 11:04
--- NOTE | 2016-11-11 11:12 | General Progress Note ---
Assessment/Plan Status: unchanged Assessment/Plan Low mag , Low Phos , Low BP improved (1) Acute respiratory failure (2) Severe anemia (3) Anemia (4) Ankylosing spondylitis (5) Ascites (6) Cardiomyopathy (7) Kyphosis 3% Saline 250 cc On Midodrine per consultants Subjective ROS Limited/Unobtainable: Yes Allergies: Coded Allergies: No Known Allergies (Unverified , 10/22/11) Objective Last 24 Hour Vital Signs Date Time Temp Pulse Resp B/P (MAP) Pulse Ox O2 Delivery O2 Flow Rate FiO2 11/11/16 10:00 79 21 104/45 96 Bi-pap 80 11/11/16 09:45 99/48 11/11/16 09:12 78 30 100 Full Face 70 11/11/16 09:00 81 21 96/46 96 Bi-pap 80 11/11/16 08:00 82 11/11/16 08:00 97.6 80 31 113/93 95 Bi-pap 80 11/11/16 08:00 80 11/11/16 07:00 81 22 105/44 96 Bi-pap 70 11/11/16 06:32 79 31 98 Full Face 80 11/11/16 06:30 78 35 101/46 90 Bi-pap 70 11/11/16 06:00 80 39 109/55 91 Bi-pap 70 11/11/16 06:00 109/55 11/11/16 05:30 78 32 100/48 96 Bi-pap 70 11/11/16 05:02 78 29 96 Full Face 70 11/11/16 05:00 94/45 11/11/16 05:00 78 34 94/45 95 Bi-pap 70 11/11/16 04:42 86/48 11/11/16 04:30 77 31 86/48 95 Bi-pap 70 11/11/16 04:00 78 11/11/16 04:00 97.6 78 31 93/43 95 Bi-pap 70 11/11/16 04:00 70 11/11/16 04:00 93/43 11/11/16 03:30 80 37 93/41 93 Bi-pap 70 11/11/16 03:15 80 26 95 Full Face 70 11/11/16 03:00 83 35 90/40 96 Bi-pap 70 11/11/16 03:00 90/40 11/11/16 02:30 89 38 104/50 97 Bi-pap 70 11/11/16 02:00 101/55 11/11/16 02:00 85 33 101/55 99 Bi-pap 70 11/11/16 01:30 82 22 90/42 99 Bi-pap 50 11/11/16 01:19 86 34 84 Full Face 100 11/11/16 01:00 85 35 100/44 99 Bi-pap 50 11/11/16 01:00 100/44 11/11/16 00:30 84 32 96/46 99 Bi-pap 50 11/11/16 00:09 83 11/11/16 00:06 96/43 11/11/16 00:00 97.7 84 30 96/43 99 Bi-pap 50 11/11/16 00:00 50 11/11/16 00:00 96/43 11/10/16 23:30 83 30 95/41 99 Bi-pap 50 11/10/16 23:00 93/38 11/10/16 23:00 84 36 93/38 99 Bi-pap 50 11/10/16 22:59 83 24 100 Full Face 50 11/10/16 22:30 84 33 97/42 99 Bi-pap 50 11/10/16 22:00 108/49 11/10/16 22:00 85 34 108/49 98 Bi-pap 50 11/10/16 21:30 85 33 100/46 98 Bi-pap 50 11/10/16 21:09 85 33 99 Full Face 50 11/10/16 21:00 105/50 11/10/16 21:00 86 33 111/48 99 Bi-pap 50 11/10/16 20:30 85 36 100/57 99 Bi-pap 50 11/10/16 20:00 98.7 84 34 68/48 100 Bi-pap 50 11/10/16 20:00 68/48 11/10/16 20:00 50 11/10/16 19:53 83 11/10/16 19:39 81/37 11/10/16 19:30 84 37 81/37 99 Bi-pap 50 11/10/16 19:22 81 37 99 Full Face 50 11/10/16 19:00 106/49 11/10/16 19:00 86 34 106/49 99 Bi-pap 50 11/10/16 18:30 87 31 107/52 98 Bi-pap 50 11/10/16 18:00 88 34 98/47 98 Bi-pap 50 11/10/16 17:30 86 33 104/48 98 Bi-pap 50 11/10/16 17:00 86 30 110/50 99 Bi-pap 50 11/10/16 16:47 89 32 100 Full Face 50 11/10/16 16:30 86 31 104/50 98 Bi-pap 50 11/10/16 16:00 84 11/10/16 16:00 98.3 84 34 98/49 100 Bi-pap 50 11/10/16 16:00 50 11/10/16 15:30 83 48 100/46 100 Bi-pap 50 11/10/16 15:00 83 41 106/50 100 Bi-pap 50 11/10/16 14:43 103/49 11/10/16 14:31 86 29 100 Full Face 50 11/10/16 14:30 82 31 107/52 100 Bi-pap 50 11/10/16 14:00 85 30 101/55 100 Bi-pap 50 11/10/16 13:30 84 27 106/51 100 Bi-pap 50 11/10/16 13:00 84 27 100/51 100 Bi-pap 50 11/10/16 12:42 84 28 100 Full Face 50 11/10/16 12:30 84 27 99/49 100 Bi-pap 50 11/10/16 12:00 83 11/10/16 12:00 50 11/10/16 12:00 98.5 83 23 105/53 100 Bi-pap 50 11/10/16 11:30 83 25 99/47 100 Bi-pap 50 11/10/16 11:12 87 27 99 Full Face 50 Intake and Output 11/11/16 11/12/16 19:00 07:00 Intake Total 0 ml Output Total 80 ml Balance -80 ml Tube Feeding 0 ml Output Urine Total 80 ml Laboratory Tests 11/11/16 02:45: White Blood Count 7.9, Red Blood Count 3.93L, Hemoglobin 9.9L, Hematocrit 32.3L , Mean Corpuscular Volume 82, Mean Corpuscular Hemoglobin 25.1L, Mean Corpuscular Hemoglobin Concent 30.5L, Red Cell Distribution Width 27.1H, Platelet Count 74L, Mean Platelet Volume 7.2, Neutrophils (%) (Auto) , Lymphocytes (%) (Auto) , Monocytes (%) (Auto) , Eosinophils (%) (Auto) , Basophils (%) (Auto) , Prothrombin Time 14.1H, Prothromb Time International Ratio 1.3H, Activated Partial Thromboplast Time 41H, Sodium Level 129L, Potassium Level 3.9, Chloride Level 97L, Carbon Dioxide Level 24, Anion Gap 8, Blood Urea Nitrogen 26H, Creatinine 0.8, Estimat Glomerular Filtration Rate > 60 , Glucose Level 156H, Calcium Level 7.4L, Phosphorus Level 3.3, Magnesium Level 1.9, Total Bilirubin 0.6, Aspartate Amino Transf (AST/SGOT) 35, Alanine Aminotransferase (ALT/SGPT) 50H, Alkaline Phosphatase 51, Total Protein 6.0L, Albumin 2.4L, Globulin 3.6, Albumin/Globulin Ratio 0.6L, Vancomycin Level Trough 35.6H Height (Feet): 5 Height (Inches): 6.00 Weight (Pounds): 167 General Appearance: mild distress EENT: other - BIPAP Objective no change in PE HEIDI PINEDA Nov 11, 2016 11:12
--- NOTE | 2016-11-11 11:58 | Internal Med Progress Note ---
Subjective Date of Service: Nov 11, 2016 Physician Name GinMiki Attending Physician Raheel Dumont MD Current Medications Medications (Trade) Dose Ordered Sig/Dina Route PRN Reason Start Time Stop Time Status Last Admin Dose Admin Acetaminophen (Tylenol) 650 mg Q4H PRN ORAL FEVER 11/01/16 18:45 11/30/16 18:44 11/06/16 17:16 Chlorhexidine Gluconate (Natalia-Hex 2%) 1 applic QHS TOPIC 11/08/16 21:00 12/08/16 20:59 11/10/16 20:54 Dextrose (Dextrose 50%) STAT PRN IV Hypoglycemia 11/01/16 18:45 11/30/16 18:44 Heparin Sodium (Porcine) (Heparin 5000 units/ml) 5,000 units EVERY 12 HOURS SUBQ 11/01/16 21:00 11/30/16 20:59 11/08/16 20:49 Hydrocortisone (Solu-CORTEF) 100 mg EVERY 8 HOURS IV 11/11/16 14:00 12/11/16 13:59 Indomethacin (Indocin) 50 mg TID ORAL 11/02/16 09:00 12/01/16 08:59 11/11/16 09:16 Midodrine (Pro-Amatine) 10 mg THREE TIMES A DAY ORAL 11/10/16 09:00 12/10/16 08:59 11/11/16 08:39 Norepinephrine Bitartrate 8 mg/ Dextrose 558 ml @ 0 mls/hr Q24H IV 11/10/16 09:00 12/08/16 11:14 11/11/16 09:45 Ondansetron HCl (Zofran) 4 mg Q6H PRN IVP Nausea & Vomiting 11/01/16 18:45 11/30/16 18:44 Pantoprazole (Protonix) 40 mg DAILY IVP 11/05/16 16:00 12/05/16 15:59 11/11/16 08:40 Piperacillin Sod/ Tazobactam Sod 3.375 gm/Dextrose 110 ml @ 27.5 mls/hr Q8HR@0200,1000,1800 IVPB 11/09/16 18:00 11/16/16 17:59 11/11/16 09:16 Polyethylene Glycol (Miralax) 17 gm DAILYPRN PRN ORAL Constipation 11/01/16 18:45 11/30/16 18:44 Prednisolone Acetate (Pred Forte) 1 drop DAILY BOTH EYES 11/02/16 09:00 12/01/16 08:59 11/11/16 08:40 Promethazine HCl/ Codeine (Phenergan with Codeine) 5 ml Q6H PRN ORAL For Cough 11/01/16 20:30 12/01/16 08:29 Sodium Chloride 250 ml @ 30 mls/hr ONCE ONCE IV 11/11/16 10:00 11/11/16 18:19 11/11/16 09:44 Terazosin HCl (Hytrin) 2 mg BEDTIME ORAL 11/01/16 21:00 11/30/16 20:59 11/10/16 20:53 Allergies: Coded Allergies: No Known Allergies (Unverified , 10/22/11) ROS Limited/Unobtainable: Yes Subjective 51 YO M admitted with cough, fever and chills. Worsening respiratory failure; Now on BIPAP. Continues on Levophed. Cover for [facility] -Dr Dumont. ICU. Await transfer to [facility] Objective Last Vital Signs Date Time Temp Pulse Resp B/P (MAP) Pulse Ox O2 Delivery O2 Flow Rate FiO2 11/11/16 11:01 76 30 100 Full Face 60 11/11/16 11:00 95/42 11/11/16 08:00 97.6 11/05/16 07:00 80.0 Laboratory Tests Test 11/11/16 02:45 White Blood Count 7.9 K/UL (4.8-10.8) Red Blood Count 3.93 M/UL (4.70-6.10) L Hemoglobin 9.9 G/DL (14.2-18.0) L Hematocrit 32.3 % (42.0-52.0) L Mean Corpuscular Volume 82 FL (80-99) Mean Corpuscular Hemoglobin 25.1 PG (27.0-31.0) L Mean Corpuscular Hemoglobin Concent 30.5 G/DL (32.0-36.0) L Red Cell Distribution Width 27.1 % (11.6-14.8) H Platelet Count 74 K/UL (150-450) L Mean Platelet Volume 7.2 FL (6.5-10.1) Neutrophils (%) (Auto) % (45.0-75.0) Lymphocytes (%) (Auto) % (20.0-45.0) Monocytes (%) (Auto) % (1.0-10.0) Eosinophils (%) (Auto) % (0.0-3.0) Basophils (%) (Auto) % (0.0-2.0) Prothrombin Time 14.1 SEC (9.30-11.50) H Prothromb Time International Ratio 1.3 (0.9-1.1) H Activated Partial Thromboplast Time 41 SEC (23-33) H Sodium Level 129 mEQ/L (135-145) L Potassium Level 3.9 mEQ/L (3.4-4.9) Chloride Level 97 mEQ/L (98-107) L Carbon Dioxide Level 24 mEQ/L (20-30) Anion Gap 8 (5-15) Blood Urea Nitrogen 26 mg/dL (7-23) H Creatinine 0.8 mg/dL (0.7-1.2) Estimat Glomerular Filtration Rate > 60 mL/min (>60) Glucose Level 156 mg/dL (74-106) H Calcium Level 7.4 mg/dL (8.6-10.2) L Phosphorus Level 3.3 mg/dL (2.5-4.8) Magnesium Level 1.9 mg/dL (1.7-2.5) Total Bilirubin 0.6 mg/dL (0.0-1.2) Aspartate Amino Transf (AST/SGOT) 35 U/L (5-40) Alanine Aminotransferase (ALT/SGPT) 50 U/L (3-41) H Alkaline Phosphatase 51 U/L (40-129) Total Protein 6.0 g/dL (6.6-8.7) L Albumin 2.4 g/dL (3.5-5.2) L Globulin 3.6 g/dL Albumin/Globulin Ratio 0.6 (1.0-2.7) L Vancomycin Level Trough 35.6 ug/mL (5.0-12.0) H Microbiology Date/Time Source Procedure Growth Status 11/09/16 16:00 Blood Blood Culture - Preliminary NO GROWTH AFTER 24 HOURS Resulted 11/09/16 16:00 Blood Blood Culture - Preliminary NO GROWTH AFTER 24 HOURS Resulted 11/09/16 21:20 Sputum Gram Stain - Final Complete 11/09/16 21:20 Sputum Sputum Culture - Final NORMAL UPPER RESPIRATORY SANAZ PRESENT Complete 11/09/16 16:00 Urine,Clean Catch Urine Culture - Preliminary YEAST Resulted Intake and Output 11/11/16 11/12/16 19:00 07:00 Intake Total 0 ml Output Total 80 ml Balance -80 ml Tube Feeding 0 ml Output Urine Total 80 ml Objective General Appearance: WD/WN, no apparent distress, alert EENT: PERRL/EOMI, normal ENT inspection Neck: non-tender, muscle spasm, stiff neck, other - contractrre Cardiovascular: normal peripheral pulses, normal rate, regular rhythm, no gallop/murmur, no JVD Respiratory/Chest: BIPAP; chest wall non-tender, respiratory distress, crackles /rales, rhonchi - bilaterally, expiratory wheezing Abdomen: normal bowel sounds, non tender, soft, no organomegaly, no mass Extremities: normal range of motion Neurologic: other - contractures Skin: normal pigmentation, warm/dry Assessment/Plan Problem List: (1) Depression (2) Flexion contractures Assessment & Plan: physical therapy (3) Anemia Assessment & Plan: Iron def anemia. Continue IV iron (4) Ankylosing spondylitis (5) HTN (hypertension) Assessment & Plan: Continue amlodipine (6) Osteoporosis (7) Kyphosis (8) Cervical spondylitis (9) Pneumonia Assessment & Plan: Continue BIPAP. See pulmonary note. Continue Cefepime per pulm (10) SOB (shortness of breath) (11) Ascites Assessment & Plan: S/P paracentesis 11/04/16. see GI note. (12) Respiratory failure Assessment & Plan: Anesthesiology unable to intubate; ENT unable to perform tracheostomy-see note. Worsening. Cont BIPAP per pulmonary. Start flagyl for possible aspiration pneumonia. Continue zosyn and vanco per ID recommendation (13) Hypotension Assessment & Plan: Presumed sepsis, however no definite source. Continue levophed. Continue zosyn per ID. Assessment/Plan Unable to intubate due to neck contractures. See pulmonary note. Prognosis is poor. Transfer to [facility] when bed available. MIKI EASTON Nov 11, 2016 11:58
[2016-11-11] MEDS: Hydrocortisone 100mg Inj IV SCH ×2 (13:19→21:53)
[2016-11-11] MEDS: Meropenem 1 GM in NS 110 ML IVPB SCH ×2 (13:43→21:53)
--- NOTE | 2016-11-11 13:59 | Cardiac Electrophysiology PN ---
Assessment/Plan Assessment/Plan 1. Severe aortic stenosis. Not a candidate for percutaneous intervention or aortic valve replacement. Avoid beta-blockers. 2. Cardiomyopathy. Off of beta-blockers. 3. Shock, septic. On Abx and Levophed per Dr schumacher 4. Respiratory failure, currently on BiPAP, could not be intubated. Evaluated by ENT and surgery. Not able to have Tracheostomy. 5. Depression. 6. Flexion contractures. 7. Ankylosing spondylitis. 8. Kyphosis. 9. Ascites. 10. Anemia. . DW RN and family Subjective Subjective In ICU on Levophed 25 mcg now. On BIPAP. Sister in law and RN at bedside.No arrhythmias reported Objective Last 24 Hour Vital Signs Date Time Temp Pulse Resp B/P (MAP) Pulse Ox O2 Delivery O2 Flow Rate FiO2 11/11/16 13:14 80 22 100 Full Face 50 11/11/16 13:00 98.0 80 19 111/51 98 Bi-pap 60 11/11/16 12:00 60 11/11/16 12:00 80 11/11/16 12:00 98.0 82 19 109/50 98 Bi-pap 60 11/11/16 11:01 76 30 100 Full Face 60 11/11/16 11:00 77 20 95/42 98 Bi-pap 60 11/11/16 10:00 79 21 104/45 96 Bi-pap 80 11/11/16 09:45 99/48 11/11/16 09:12 78 30 100 Full Face 70 11/11/16 09:00 81 21 96/46 96 Bi-pap 80 11/11/16 08:00 82 11/11/16 08:00 97.6 80 31 113/93 95 Bi-pap 80 11/11/16 08:00 80 11/11/16 07:00 81 22 105/44 96 Bi-pap 70 11/11/16 06:32 79 31 98 Full Face 80 11/11/16 06:30 78 35 101/46 90 Bi-pap 70 11/11/16 06:00 80 39 109/55 91 Bi-pap 70 11/11/16 06:00 109/55 11/11/16 05:30 78 32 100/48 96 Bi-pap 70 11/11/16 05:02 78 29 96 Full Face 70 11/11/16 05:00 94/45 11/11/16 05:00 78 34 94/45 95 Bi-pap 70 11/11/16 04:42 86/48 11/11/16 04:30 77 31 86/48 95 Bi-pap 70 11/11/16 04:00 78 11/11/16 04:00 97.6 78 31 93/43 95 Bi-pap 70 11/11/16 04:00 70 11/11/16 04:00 93/43 11/11/16 03:30 80 37 93/41 93 Bi-pap 70 11/11/16 03:15 80 26 95 Full Face 70 11/11/16 03:00 83 35 90/40 96 Bi-pap 70 11/11/16 03:00 90/40 11/11/16 02:30 89 38 104/50 97 Bi-pap 70 11/11/16 02:00 101/55 11/11/16 02:00 85 33 101/55 99 Bi-pap 70 11/11/16 01:30 82 22 90/42 99 Bi-pap 50 11/11/16 01:19 86 34 84 Full Face 100 11/11/16 01:00 85 35 100/44 99 Bi-pap 50 11/11/16 01:00 100/44 11/11/16 00:30 84 32 96/46 99 Bi-pap 50 11/11/16 00:09 83 11/11/16 00:06 96/43 11/11/16 00:00 97.7 84 30 96/43 99 Bi-pap 50 11/11/16 00:00 50 11/11/16 00:00 96/43 11/10/16 23:30 83 30 95/41 99 Bi-pap 50 11/10/16 23:00 93/38 11/10/16 23:00 84 36 93/38 99 Bi-pap 50 11/10/16 22:59 83 24 100 Full Face 50 11/10/16 22:30 84 33 97/42 99 Bi-pap 50 11/10/16 22:00 108/49 11/10/16 22:00 85 34 108/49 98 Bi-pap 50 11/10/16 21:30 85 33 100/46 98 Bi-pap 50 11/10/16 21:09 85 33 99 Full Face 50 11/10/16 21:00 105/50 11/10/16 21:00 86 33 111/48 99 Bi-pap 50 11/10/16 20:30 85 36 100/57 99 Bi-pap 50 11/10/16 20:00 98.7 84 34 68/48 100 Bi-pap 50 11/10/16 20:00 68/48 11/10/16 20:00 50 11/10/16 19:53 83 11/10/16 19:39 81/37 11/10/16 19:30 84 37 81/37 99 Bi-pap 50 11/10/16 19:22 81 37 99 Full Face 50 11/10/16 19:00 106/49 11/10/16 19:00 86 34 106/49 99 Bi-pap 50 11/10/16 18:30 87 31 107/52 98 Bi-pap 50 11/10/16 18:00 88 34 98/47 98 Bi-pap 50 11/10/16 17:30 86 33 104/48 98 Bi-pap 50 11/10/16 17:00 86 30 110/50 99 Bi-pap 50 11/10/16 16:47 89 32 100 Full Face 50 11/10/16 16:30 86 31 104/50 98 Bi-pap 50 11/10/16 16:00 84 11/10/16 16:00 98.3 84 34 98/49 100 Bi-pap 50 11/10/16 16:00 50 11/10/16 15:30 83 48 100/46 100 Bi-pap 50 11/10/16 15:00 83 41 106/50 100 Bi-pap 50 11/10/16 14:43 103/49 11/10/16 14:31 86 29 100 Full Face 50 11/10/16 14:30 82 31 107/52 100 Bi-pap 50 11/10/16 14:00 85 30 101/55 100 Bi-pap 50 Intake and Output 11/11/16 11/12/16 19:00 07:00 Intake Total 0 ml Output Total 170 ml Balance -170 ml Tube Feeding 0 ml Output Urine Total 170 ml Laboratory Tests Test 11/11/16 02:45 White Blood Count 7.9 K/UL (4.8-10.8) Red Blood Count 3.93 M/UL (4.70-6.10) L Hemoglobin 9.9 G/DL (14.2-18.0) L Hematocrit 32.3 % (42.0-52.0) L Mean Corpuscular Volume 82 FL (80-99) Mean Corpuscular Hemoglobin 25.1 PG (27.0-31.0) L Mean Corpuscular Hemoglobin Concent 30.5 G/DL (32.0-36.0) L Red Cell Distribution Width 27.1 % (11.6-14.8) H Platelet Count 74 K/UL (150-450) L Mean Platelet Volume 7.2 FL (6.5-10.1) Neutrophils (%) (Auto) % (45.0-75.0) Lymphocytes (%) (Auto) % (20.0-45.0) Monocytes (%) (Auto) % (1.0-10.0) Eosinophils (%) (Auto) % (0.0-3.0) Basophils (%) (Auto) % (0.0-2.0) Prothrombin Time 14.1 SEC (9.30-11.50) H Prothromb Time International Ratio 1.3 (0.9-1.1) H Activated Partial Thromboplast Time 41 SEC (23-33) H Sodium Level 129 mEQ/L (135-145) L Potassium Level 3.9 mEQ/L (3.4-4.9) Chloride Level 97 mEQ/L (98-107) L Carbon Dioxide Level 24 mEQ/L (20-30) Anion Gap 8 (5-15) Blood Urea Nitrogen 26 mg/dL (7-23) H Creatinine 0.8 mg/dL (0.7-1.2) Estimat Glomerular Filtration Rate > 60 mL/min (>60) Glucose Level 156 mg/dL (74-106) H Uric Acid 5.0 mg/dL (3.0-7.5) Calcium Level 7.4 mg/dL (8.6-10.2) L Phosphorus Level 3.3 mg/dL (2.5-4.8) Magnesium Level 1.9 mg/dL (1.7-2.5) Total Bilirubin 0.6 mg/dL (0.0-1.2) Aspartate Amino Transf (AST/SGOT) 35 U/L (5-40) Alanine Aminotransferase (ALT/SGPT) 50 U/L (3-41) H Alkaline Phosphatase 51 U/L (40-129) Total Protein 6.0 g/dL (6.6-8.7) L Albumin 2.4 g/dL (3.5-5.2) L Globulin 3.6 g/dL Albumin/Globulin Ratio 0.6 (1.0-2.7) L Vancomycin Level Trough 35.6 ug/mL (5.0-12.0) H Microbiology Date/Time Source Procedure Growth Status 11/09/16 16:00 Blood Blood Culture - Preliminary NO GROWTH AFTER 24 HOURS Resulted 11/09/16 16:00 Blood Blood Culture - Preliminary NO GROWTH AFTER 24 HOURS Resulted 11/09/16 21:20 Sputum Gram Stain - Final Complete 11/09/16 21:20 Sputum Sputum Culture - Final NORMAL UPPER RESPIRATORY SANAZ PRESENT Complete 11/09/16 16:00 Urine,Clean Catch Urine Culture - Preliminary YEAST Resulted Objective HEAD AND NECK: No JVD. He is on BiPAP. LUNGS: Coarse rhonchi bilaterally. Cardiovascular: Regular S1 and S2 with no gallop. 2/6 systolic murmur at aortic area. ABDOMEN: Soft. EXTREMITIES: Contracted. KIMBERLY SALTER Nov 11, 2016 13:59
[2016-11-11 14:29] LABS: APPEARANCE,URINE SLIGHTLY CLOUDY; KETONES,URINE NEGATIVE (NEGATIVE); LEUKOCYTE ESTERASE ,URINE 1+ (NEGATIVE); NITRITE,URINE NEGATIVE (NEGATIVE); PH,URINE 5 (4.5-8.0); PROTEIN,URINE 2+ (NEGATIVE); UROBILINOGEN,URINE NORMAL MG/DL (0.0-1.0)
[2016-11-11 14:41] LABS: BACTERIA,URINE FEW /HPF; SQUAMOUS EPITHELIAL CELL,UR OCCASIONAL /LPF (NONE/OCC)
[2016-11-11 14:42] LABS: YEAST,URINE FEW /HPF
[2016-11-11] MEDS ORDERED: Vancomycin 1.5 GM/D5W 250ML IVPB SCH (15:00)
[2016-11-11] MEDS ORDERED: Surgicel 4in x 8in TOPIC ONE (16:15)
--- NOTE | 2016-11-11 16:58 | Wound Care Consultation ---
Wound Assessment Wound Assessment #1: Wound Present on Admission: No New Wound: Yes Status Change of Wound: No Wound Location Body Site Modif: left Wound Location Body Site: other - cheek Wound Type: pressure ulcer Cristhian Test: Does not Cristhian Pressure Ulcer Stage: deep tissue injury Wound Thickness: Full Thickness Wound Length: 4.0 Wound Width: 1.5 Wound Depth: utd Percent of Wound Purple/Maroon: 100 Wound Drainage Amount: None Wound Drainage Odor: None/Absent Tissue Surrounding Wound: Erythemic Wound General Appearance: Reddened - purple Wound Assessment #2: Wound Number: 2 Wound Present on Admission: No New Wound: Yes Status Change of Wound: No Wound Location Body Site Modif: right Wound Location Body Site: other - cheek Wound Type: pressure ulcer Cristhian Test: Does not Cristhian Pressure Ulcer Stage: deep tissue injury Wound Thickness: Full Thickness Wound Length: 0.5 Wound Width: 0.5 Wound Depth: utd Percent of Wound Purple/Maroon: 100 Wound Drainage Amount: None Wound Drainage Odor: None/Absent Tissue Surrounding Wound: Erythemic Wound General Appearance: Reddened - purple Wound Assessment #3: Wound Number: 3 Wound Present on Admission: No New Wound: Yes Status Change of Wound: No Wound Location Body Site Modif: posterior Wound Location Body Site: other - neck Wound Type: pressure ulcer Cristhian Test: Does not Cristhian Pressure Ulcer Stage: deep tissue injury Wound Thickness: Full Thickness Wound Length: 0.5 Wound Width: 5.0 Wound Depth: utd Percent of Wound Purple/Maroon: 100 Wound Drainage Amount: None Wound Drainage Odor: None/Absent Tissue Surrounding Wound: Intact Wound General Appearance: Reddened - purple Wound Comment #1 Left cheek DTI caused by medical devices #2 Right cheek DTI caused by medical devices #3 Back of the neck DTI pressure ulcer recommendations -keep clean and dry -Turn and reposition -Local wound care per protocol -Optimize nutrition -Assess and f/u accordingly for any changes YELENA MCGOVERN RN Nov 11, 2016 16:58
--- NOTE | 2016-11-11 16:58 | Diagnostic Imaging Report ---
Indications: Ascites Procedure: Informed consent obtained. Ultrasound used to localize optimal puncture site. Sterile prepping and draping over the optimum site. Local anesthesia with 1% lidocaine. Under real-time ultrasound guidance, puncture of the peritoneal space performed using paracentesis needle. Digital image was saved and archived. Stylet removed. Catheter placed to vacuum bottle suction. Fluid was aspirated. Patient tolerated procedure well, without immediate complication. Fluid was obtained was cloudy. Findings: Followup sonography demonstrates complete resolution of peritoneal fluid Impression: Successful ultrasound-guided paracentesis, yielding 200 cc of fluid
[2016-11-11] MEDS ORDERED: Vancomycin 1250mg/D5W 250ml IVPB SCH (20:00)
[2016-11-11] MEDS: Terazosin 1mg cap ORAL SCH (20:55)
[2016-11-11] MEDS: Dyna-Hex 2% Top Sol 2oz TOPIC SCH (20:55)
--- NOTE | 2016-11-11 21:02 | General Progress Note ---
Assessment/Plan Assessment/Plan Assessment - edema and recurrent ascites - Anemia with OB (-) x 1 - Iron deficiency - Elevated CEA - High albumin gradient ascites --> consistent with (R) heart failure - CM, severe , AI - CHF - Resp failure - poor prognosis Recommendations - Continue TF - Paracentesis PRN - poor prognosis Subjective Allergies: Coded Allergies: No Known Allergies (Unverified , 10/22/11) Subjective Seen in ICU earlier today s/p paracentesis had some paracentesis site bleeding/oozing - stopped with local pressure Objective Last 24 Hour Vital Signs Date Time Temp Pulse Resp B/P (MAP) Pulse Ox O2 Delivery O2 Flow Rate FiO2 11/11/16 20:52 94/41 11/11/16 20:00 97.6 82 35 98/41 98 Bi-pap 50 11/11/16 20:00 50 11/11/16 19:40 91 32 100 Full Face 50 11/11/16 19:40 50 11/11/16 19:00 80 20 102/41 98 Bi-pap 60 11/11/16 18:30 80 20 104/44 98 Bi-pap 60 11/11/16 18:00 80 20 100/42 98 Bi-pap 60 11/11/16 17:30 81 20 102/47 98 Bi-pap 60 11/11/16 17:01 81 23 99 Full Face 60 11/11/16 17:00 80 20 100/42 98 Bi-pap 60 11/11/16 16:30 82 20 100/83 98 Bi-pap 60 11/11/16 16:00 78 11/11/16 16:00 97.9 80 19 101/55 98 Bi-pap 60 11/11/16 16:00 60 11/11/16 15:43 110/60 11/11/16 15:30 81 20 104/51 98 Bi-pap 60 11/11/16 15:00 80 20 108/51 98 Bi-pap 60 11/11/16 14:42 78 20 100 Full Face 50 11/11/16 14:30 79 20 115/56 98 Bi-pap 60 11/11/16 14:00 78 20 109/51 98 Bi-pap 60 11/11/16 13:30 79 20 104/50 98 Bi-pap 60 11/11/16 13:14 80 22 100 Full Face 50 11/11/16 13:00 98.0 80 19 111/51 98 Bi-pap 60 11/11/16 12:30 79 20 110/51 98 Bi-pap 60 11/11/16 12:00 60 11/11/16 12:00 80 11/11/16 12:00 98.0 82 19 109/50 98 Bi-pap 60 11/11/16 11:30 78 20 102/49 98 Bi-pap 60 11/11/16 11:01 76 30 100 Full Face 60 11/11/16 11:00 77 20 95/42 98 Bi-pap 60 11/11/16 10:30 80 20 107/45 98 Bi-pap 60 11/11/16 10:00 79 21 104/45 96 Bi-pap 80 11/11/16 09:45 99/48 11/11/16 09:30 79 21 84/45 96 Bi-pap 80 11/11/16 09:12 78 30 100 Full Face 70 11/11/16 09:00 81 21 96/46 96 Bi-pap 80 11/11/16 08:30 81 21 103/53 96 Bi-pap 80 11/11/16 08:00 82 11/11/16 08:00 97.6 80 31 113/93 95 Bi-pap 80 11/11/16 08:00 80 11/11/16 07:30 81 22 110/56 96 Bi-pap 70 11/11/16 07:00 81 22 105/44 96 Bi-pap 70 11/11/16 06:32 79 31 98 Full Face 80 11/11/16 06:30 78 35 101/46 90 Bi-pap 70 11/11/16 06:00 80 39 109/55 91 Bi-pap 70 11/11/16 06:00 109/55 11/11/16 05:30 78 32 100/48 96 Bi-pap 70 11/11/16 05:02 78 29 96 Full Face 70 11/11/16 05:00 94/45 11/11/16 05:00 78 34 94/45 95 Bi-pap 70 11/11/16 04:42 86/48 11/11/16 04:30 77 31 86/48 95 Bi-pap 70 11/11/16 04:00 78 11/11/16 04:00 97.6 78 31 93/43 95 Bi-pap 70 11/11/16 04:00 70 11/11/16 04:00 93/43 11/11/16 03:30 80 37 93/41 93 Bi-pap 70 11/11/16 03:15 80 26 95 Full Face 70 11/11/16 03:00 83 35 90/40 96 Bi-pap 70 11/11/16 03:00 90/40 11/11/16 02:30 89 38 104/50 97 Bi-pap 70 11/11/16 02:00 101/55 11/11/16 02:00 85 33 101/55 99 Bi-pap 70 11/11/16 01:30 82 22 90/42 99 Bi-pap 50 11/11/16 01:19 86 34 84 Full Face 100 11/11/16 01:00 85 35 100/44 99 Bi-pap 50 11/11/16 01:00 100/44 11/11/16 00:30 84 32 96/46 99 Bi-pap 50 11/11/16 00:09 83 11/11/16 00:06 96/43 11/11/16 00:00 97.7 84 30 96/43 99 Bi-pap 50 11/11/16 00:00 50 11/11/16 00:00 96/43 11/10/16 23:30 83 30 95/41 99 Bi-pap 50 11/10/16 23:00 93/38 11/10/16 23:00 84 36 93/38 99 Bi-pap 50 11/10/16 22:59 83 24 100 Full Face 50 11/10/16 22:30 84 33 97/42 99 Bi-pap 50 11/10/16 22:00 108/49 11/10/16 22:00 85 34 108/49 98 Bi-pap 50 11/10/16 21:30 85 33 100/46 98 Bi-pap 50 11/10/16 21:09 85 33 99 Full Face 50 11/10/16 21:00 105/50 11/10/16 21:00 86 33 111/48 99 Bi-pap 50 Intake and Output 11/11/16 11/12/16 19:00 07:00 Intake Total 1729.95 ml Output Total 550 ml 100 ml Balance 1179.95 ml -100 ml IV Total 1659.95 ml Tube Feeding 70 ml Output Urine Total 350 ml 100 ml Other 200 ml Laboratory Tests 11/11/16 02:45: White Blood Count 7.9, Red Blood Count 3.93L, Hemoglobin 9.9L, Hematocrit 32.3L , Mean Corpuscular Volume 82, Mean Corpuscular Hemoglobin 25.1L, Mean Corpuscular Hemoglobin Concent 30.5L, Red Cell Distribution Width 27.1H, Platelet Count 74L, Mean Platelet Volume 7.2, Neutrophils (%) (Auto) , Lymphocytes (%) (Auto) , Monocytes (%) (Auto) , Eosinophils (%) (Auto) , Basophils (%) (Auto) , Prothrombin Time 14.1H, Prothromb Time International Ratio 1.3H, Activated Partial Thromboplast Time 41H, Sodium Level 129L, Potassium Level 3.9, Chloride Level 97L, Carbon Dioxide Level 24, Anion Gap 8, Blood Urea Nitrogen 26H, Creatinine 0.8, Estimat Glomerular Filtration Rate > 60 , Glucose Level 156H, Uric Acid 5.0, Calcium Level 7.4L, Phosphorus Level 3.3, Magnesium Level 1.9, Total Bilirubin 0.6, Aspartate Amino Transf (AST/SGOT) 35, Alanine Aminotransferase (ALT/SGPT) 50H, Alkaline Phosphatase 51, Total Protein 6.0L, Albumin 2.4L, Globulin 3.6, Albumin/Globulin Ratio 0.6L, Vancomycin Level Trough 35.6H 11/11/16 13:00: Urine Color Yellow, Urine Appearance Slightly cloudy, Urine pH 5, Urine Specific [place] 1.015, Urine Protein 2+H, Urine Glucose (UA) Negative, Urine Ketones Negative, Urine Occult Blood 4+H, Urine Nitrite Negative, Urine Bilirubin Negative, Urine Urobilinogen Normal, Urine Leukocyte Esterase 1+H, Urine RBC 5-10H, Urine WBC 2-4, Urine Squamous Epithelial Cells Occasional, Urine Bacteria Few, Urine Yeast FewH 11/11/16 16:00: Body Fluid Source [Pending], Body Fluid Volume [Pending], Body Fluid Appearance [Pending], Body Fluid RBC [Pending], Body Fluid Total Nucleated Cells [Pending] , Body Fluid Polynuclear WBCs (%) [Pending], Body Fluid Mononuclear WBCs (%) [ Pending], Body Fluid Mesothelial Cells (%) [Pending], Body Fluid Glucose [ Pending], Body Fluid Total Protein [Pending], Body Fluid Albumin [Pending] Height (Feet): 5 Height (Inches): 6.00 Weight (Pounds): 167 Objective (+) BIPAP NCAT neck stiff b/l ronchi RRR II/ systolic murmur abd soft distended (+) contractures (+) edema on extremities NATASHA ARREDONDO Nov 11, 2016 21:02
[2016-11-11 21:25] LABS: APPEARANCE, BODY FLUID HAZY; BD FL SOURCE PARACENTESIS; BD FL VOLUME 22 mL; BODY FLUID NUCLEATED CELLS 20 /CUMM
[2016-11-11 21:26] LABS: BODY FLUID RBC 4480 /CUMM; MONONUCLEAR WBC 71 %; POLYMORPHONUCLEAR WBC 14 %
[2016-11-12] VITALS (32 sets, daily range): BP systolic 67–126; BP diastolic 42–74
[2016-11-12] MEDS: Hydrocortisone 100mg Inj IV SCH ×3 (05:32→21:44)
[2016-11-12] MEDS: Meropenem 1 GM in NS 110 ML IVPB SCH ×3 (05:33→21:41)
[2016-11-12 06:24] LABS: MEAN CORPUSCULAR HEMOGLOBIN 24.5 PG (27.0-31.0); MEAN CORPUSCULAR HGB CONC 29.9 G/DL (32.0-36.0); MEAN CORPUSCULAR VOLUME 82 FL (80-99); MEAN PLATELET VOLUME 7.8 FL (6.5-10.1); PLATELET COUNT 83 K/UL (150-450); RED BLOOD COUNT 4.23 M/UL (4.70-6.10); RED CELL DISTRIBUTION WIDTH 26.4 % (11.6-14.8); WHITE BLOOD COUNT 6.8 K/UL (4.8-10.8)
[2016-11-12 06:32] LABS: ALANINE AMINOTRANSFERASE 44 U/L (3-41); ALBUMIN/GLOBULIN RATIO 0.5 (1.0-2.7); ANION GAP 10 (5-15); ASPARTATE AMINO TRANSFERASE 35 U/L (5-40); CALCIUM 7.2 mg/dL (8.6-10.2); CARBON DIOXIDE 22 mEQ/L (20-30); CHLORIDE 93 mEQ/L (98-107); CREATININE 1.1 mg/dL (0.7-1.2); GLOMERULAR FILTRATION RATE > 60 mL/min (>60); HEMOLYSIS 0; MAGNESIUM 1.9 mg/dL (1.7-2.5); PHOSPHORUS 3.7 mg/dL (2.5-4.8); POTASSIUM 4.2 mEQ/L (3.4-4.9); SODIUM 125 mEQ/L (135-145)
[2016-11-12] MEDS: Norepinephrine Bitartrate 8 MG in D5W 500ml 550 ML IV SCH (06:44)
[2016-11-12] MEDS: Heparin 5000 units/ml inj SUBQ SCH ×2 (07:46→20:59)
--- NOTE | 2016-11-12 07:52 | Pulmonolgy Critical Care Note ---
Critical Care - Asmt/Plan Problems: (1) Acute respiratory failure (2) Severe anemia (3) Anemia (4) Ankylosing spondylitis (5) Ascites (6) Cardiomyopathy (7) Kyphosis Assessment/Plan: had paracentesis, with subsequent bleeding from the site. 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 - Objective Last 24 Hour Vital Signs Date Time Temp Pulse Resp B/P (MAP) Pulse Ox O2 Delivery O2 Flow Rate FiO2 11/12/16 07:06 75 22 100 Full Face 50 11/12/16 07:00 75 32 101/42 100 Bi-pap 50 11/12/16 06:44 109/46 11/12/16 06:30 78 32 109/46 99 Bi-pap 50 11/12/16 06:00 77 24 109/47 100 Bi-pap 50 11/12/16 05:30 78 23 105/48 100 Bi-pap 50 11/12/16 05:15 77 30 100 Full Face 50 11/12/16 05:00 77 21 111/45 100 Bi-pap 50 11/12/16 04:30 78 25 105/44 100 Bi-pap 50 11/12/16 04:00 50 11/12/16 04:00 97.8 77 29 101/47 96 Bi-pap 50 11/12/16 04:00 76 11/12/16 03:30 78 29 104/46 98 Bi-pap 50 11/12/16 03:08 79 24 100 Full Face 50 11/12/16 03:00 79 30 106/50 99 Bi-pap 50 11/12/16 02:30 78 28 103/49 99 Bi-pap 50 11/12/16 02:00 79 28 102/49 97 Bi-pap 50 11/12/16 01:30 79 30 103/51 98 Bi-pap 50 11/12/16 01:00 79 29 101/50 99 Bi-pap 50 11/12/16 00:34 79 30 98 Full Face 50 11/12/16 00:30 79 30 102/51 99 Bi-pap 50 11/12/16 00:00 50 11/12/16 00:00 97.7 80 29 100/48 98 Bi-pap 50 11/12/16 00:00 80 11/11/16 23:30 80 30 98/55 96 Bi-pap 50 11/11/16 23:15 89 31 109/54 94 Bi-pap 50 11/11/16 23:13 89 33 98 Full Face 50 11/11/16 23:00 85 30 115/61 96 Bi-pap 50 11/11/16 22:30 87 31 108/67 96 Bi-pap 50 11/11/16 22:00 82 32 109/46 98 Bi-pap 50 11/11/16 21:30 80 30 100/41 100 Bi-pap 50 11/11/16 21:17 89 29 100 Full Face 50 11/11/16 21:00 80 20 99/43 100 Bi-pap 50 11/11/16 20:52 94/41 11/11/16 20:30 81 36 94/41 98 Bi-pap 50 11/11/16 20:00 80 11/11/16 20:00 97.6 82 35 98/41 98 Bi-pap 50 11/11/16 20:00 50 11/11/16 19:40 91 32 100 Full Face 50 11/11/16 19:40 50 11/11/16 19:30 81 27 101/41 100 Bi-pap 50 11/11/16 19:00 80 20 102/41 98 Bi-pap 60 11/11/16 18:30 80 20 104/44 98 Bi-pap 60 11/11/16 18:00 80 20 100/42 98 Bi-pap 60 11/11/16 17:30 81 20 102/47 98 Bi-pap 60 11/11/16 17:01 81 23 99 Full Face 60 11/11/16 17:00 80 20 100/42 98 Bi-pap 60 11/11/16 16:30 82 20 100/83 98 Bi-pap 60 11/11/16 16:00 78 11/11/16 16:00 97.9 80 19 101/55 98 Bi-pap 60 11/11/16 16:00 60 11/11/16 15:43 110/60 11/11/16 15:30 81 20 104/51 98 Bi-pap 60 11/11/16 15:00 80 20 108/51 98 Bi-pap 60 11/11/16 14:42 78 20 100 Full Face 50 11/11/16 14:30 79 20 115/56 98 Bi-pap 60 11/11/16 14:00 78 20 109/51 98 Bi-pap 60 11/11/16 13:30 79 20 104/50 98 Bi-pap 60 11/11/16 13:14 80 22 100 Full Face 50 11/11/16 13:00 98.0 80 19 111/51 98 Bi-pap 60 11/11/16 12:30 79 20 110/51 98 Bi-pap 60 11/11/16 12:00 60 11/11/16 12:00 80 11/11/16 12:00 98.0 82 19 109/50 98 Bi-pap 60 11/11/16 11:30 78 20 102/49 98 Bi-pap 60 11/11/16 11:01 76 30 100 Full Face 60 11/11/16 11:00 77 20 95/42 98 Bi-pap 60 11/11/16 10:30 80 20 107/45 98 Bi-pap 60 11/11/16 10:00 79 21 104/45 96 Bi-pap 80 11/11/16 09:45 99/48 11/11/16 09:30 79 21 84/45 96 Bi-pap 80 11/11/16 09:12 78 30 100 Full Face 70 11/11/16 09:00 81 21 96/46 96 Bi-pap 80 11/11/16 08:30 81 21 103/53 96 Bi-pap 80 11/11/16 08:00 82 11/11/16 08:00 97.6 80 31 113/93 95 Bi-pap 80 11/11/16 08:00 80 Status: awake Condition: critical HEENT: atraumatic Neck: full ROM Lungs: clear Heart: HR/BP stable, HR/BP unstable Abdomen: soft, active bowel sounds Extremities: no C/C/E, edema Micro: Microbiology Date/Time Source Procedure Growth Status 11/09/16 16:00 Blood Blood Culture - Preliminary NO GROWTH AFTER 48 HOURS Resulted 11/09/16 16:00 Blood Blood Culture - Preliminary NO GROWTH AFTER 48 HOURS Resulted 11/09/16 21:20 Sputum Gram Stain - Final Complete 11/09/16 21:20 Sputum Sputum Culture - Final NORMAL UPPER RESPIRATORY SANAZ PRESENT Complete 11/09/16 16:00 Urine,Clean Catch Urine Culture - Preliminary YEAST Resulted Critical Care - Subjective ROS Limited/Unobtainable: Yes ICU Day: 12 Intubation Day: bipap Condition: critical EKG Rhythm: Sinus Rhythm FI02: 50 Sputum Amount: None Fluids: none Drips: levophed/ less than yesterday Tube Feeding Amount: 35 CXR: no change Labs: Laboratory Tests Test 11/11/16 13:00 11/11/16 16:00 11/12/16 05:00 Urine Color Yellow Urine Appearance Slightly cloudy Urine pH 5 (4.5-8.0) Urine Specific [place] 1.015 (1.005-1.035) Urine Protein 2+ (NEGATIVE) H Urine Glucose (UA) Negative (NEGATIVE) Urine Ketones Negative (NEGATIVE) Urine Occult Blood 4+ (NEGATIVE) H Urine Nitrite Negative (NEGATIVE) Urine Bilirubin Negative (NEGATIVE) Urine Urobilinogen Normal MG/DL (0.0-1.0) Urine Leukocyte Esterase 1+ (NEGATIVE) H Urine RBC 5-10 /HPF (0 - 0) H Urine WBC 2-4 /HPF (0 - 0) Urine Squamous Epithelial Cells Occasional /LPF Urine Bacteria Few /HPF (NONE) Urine Yeast Few /HPF (NONE) H Body Fluid Source Paracentesis Body Fluid Volume 22 mL Body Fluid Appearance Hazy Body Fluid RBC 4480 /CUMM Body Fluid Total Nucleated Cells 20 /CUMM Body Fluid Polynuclear WBCs (%) 14 % Body Fluid Mononuclear WBCs (%) 71 % Body Fluid Mesothelial Cells (%) 15 % Body Fluid Glucose Pending Body Fluid Total Protein Pending Body Fluid Albumin Pending White Blood Count 6.8 K/UL (4.8-10.8) Red Blood Count 4.23 M/UL (4.70-6.10) L Hemoglobin 10.4 G/DL (14.2-18.0) L Hematocrit 34.7 % (42.0-52.0) L Mean Corpuscular Volume 82 FL (80-99) Mean Corpuscular Hemoglobin 24.5 PG (27.0-31.0) L Mean Corpuscular Hemoglobin Concent 29.9 G/DL (32.0-36.0) L Red Cell Distribution Width 26.4 % (11.6-14.8) H Platelet Count 83 K/UL (150-450) L Mean Platelet Volume 7.8 FL (6.5-10.1) Neutrophils (%) (Auto) % (45.0-75.0) Lymphocytes (%) (Auto) % (20.0-45.0) Monocytes (%) (Auto) % (1.0-10.0) Eosinophils (%) (Auto) % (0.0-3.0) Basophils (%) (Auto) % (0.0-2.0) Neutrophils % (Manual) Pending Lymphocytes % (Manual) Pending Platelet Estimate Pending Platelet Morphology Pending Sodium Level 125 mEQ/L (135-145) L Potassium Level 4.2 mEQ/L (3.4-4.9) Chloride Level 93 mEQ/L (98-107) L Carbon Dioxide Level 22 mEQ/L (20-30) Anion Gap 10 (5-15) Blood Urea Nitrogen 30 mg/dL (7-23) H Creatinine 1.1 mg/dL (0.7-1.2) Estimat Glomerular Filtration Rate > 60 mL/min (>60) Glucose Level 162 mg/dL (74-106) H Calcium Level 7.2 mg/dL (8.6-10.2) L Phosphorus Level 3.7 mg/dL (2.5-4.8) Magnesium Level 1.9 mg/dL (1.7-2.5) Total Bilirubin 0.6 mg/dL (0.0-1.2) Aspartate Amino Transf (AST/SGOT) 35 U/L (5-40) Alanine Aminotransferase (ALT/SGPT) 44 U/L (3-41) H Alkaline Phosphatase 44 U/L (40-129) Total Protein 6.0 g/dL (6.6-8.7) L Albumin 2.1 g/dL (3.5-5.2) L Globulin 3.9 g/dL Albumin/Globulin Ratio 0.5 (1.0-2.7) L ESTEFANY MITCHELL Nov 12, 2016 07:52
[2016-11-12] MEDS: Pantoprazole Inj IVP SCH (08:31)
[2016-11-12] MEDS: Indomethacin 25mg cap ORAL SCH ×3 (08:31→17:25)
[2016-11-12] MEDS: Midodrine 10mg tab ORAL SCH ×3 (08:31→17:25)
[2016-11-12] MEDS: Pred Forte 1% Opth Susp 1ml BOTH EYES SCH (08:31)
[2016-11-12 08:33] LABS: ABG ALLEN TEST POSITIVE; ABG BASE EXCESS -5.6; ABG PCO2 52.9 mmHg (35.0-45.0)
[2016-11-12 08:51] LABS: ANISOCYTOSIS 3+; BAND NEUTROPHILS % (MANUAL) 2 % (0-8); BASOPHILS % (MANUAL) 0 % (0-2); EOSINOPHILS % (MANUAL) 0 % (0-3); LYMPHOCYTES % (MANUAL) 3 % (20-45); MACROCYTES 1+; NEUTROPHILS % (MANUAL) 92 % (45-75); PLATELET ESTIMATE DECREASED; PLATELET MORPHOLOGY NORMAL; TOTAL CELLS COUNTED 100
[2016-11-12 08:52] LABS: MICROCYTES 1+
[2016-11-12 08:53] LABS: HYPOCHROMASIA 1+
[2016-11-12 08:54] LABS: BURR CELLS OCCASIONAL
--- NOTE | 2016-11-12 09:12 | General Progress Note ---
Assessment/Plan Assessment/Plan ASSESSMENT: 1. Thrombocytopenia potentially secondary to sepsis --> abd us shows hepatomegaly --> id on board 2. Anemia, secondary to chronic disease. --> watch counts. HH stable --> hgb goal 8-1- 3. Coagulopathy, secondary to malnutrition. 4. Ankylosing spondylitis. 5. Hypertension. 6. Shortness of breath. 7. Ascites, status post paracentesis. 8. Respiratory failure. He is on BiPAP. He is not a candidate for tracheostomy as per Surgical Service. Prognosis remains poor. Subjective Date patient seen: Nov 11, 2016 ROS Limited/Unobtainable: Yes Allergies: Coded Allergies: No Known Allergies (Unverified , 10/22/11) Subjective on levo, on bipap Objective Last 24 Hour Vital Signs Date Time Temp Pulse Resp B/P (MAP) Pulse Ox O2 Delivery O2 Flow Rate FiO2 11/12/16 09:00 73 31 105/43 100 Bi-pap 50 11/12/16 08:00 76 11/12/16 08:00 50 11/12/16 08:00 97.8 74 29 105/45 96 Bi-pap 50 11/12/16 07:30 74 31 96/42 100 Bi-pap 50 11/12/16 07:06 75 22 100 Full Face 50 11/12/16 07:00 75 32 101/42 100 Bi-pap 50 11/12/16 06:44 109/46 11/12/16 06:30 78 32 109/46 99 Bi-pap 50 11/12/16 06:00 77 24 109/47 100 Bi-pap 50 11/12/16 05:30 78 23 105/48 100 Bi-pap 50 11/12/16 05:15 77 30 100 Full Face 50 11/12/16 05:00 77 21 111/45 100 Bi-pap 50 11/12/16 04:30 78 25 105/44 100 Bi-pap 50 11/12/16 04:00 50 11/12/16 04:00 97.8 77 29 101/47 96 Bi-pap 50 11/12/16 04:00 76 11/12/16 03:30 78 29 104/46 98 Bi-pap 50 11/12/16 03:08 79 24 100 Full Face 50 11/12/16 03:00 79 30 106/50 99 Bi-pap 50 11/12/16 02:30 78 28 103/49 99 Bi-pap 50 11/12/16 02:00 79 28 102/49 97 Bi-pap 50 11/12/16 01:30 79 30 103/51 98 Bi-pap 50 11/12/16 01:00 79 29 101/50 99 Bi-pap 50 11/12/16 00:34 79 30 98 Full Face 50 11/12/16 00:30 79 30 102/51 99 Bi-pap 50 11/12/16 00:00 50 11/12/16 00:00 97.7 80 29 100/48 98 Bi-pap 50 11/12/16 00:00 80 11/11/16 23:30 80 30 98/55 96 Bi-pap 50 11/11/16 23:15 89 31 109/54 94 Bi-pap 50 11/11/16 23:13 89 33 98 Full Face 50 11/11/16 23:00 85 30 115/61 96 Bi-pap 50 11/11/16 22:30 87 31 108/67 96 Bi-pap 50 11/11/16 22:00 82 32 109/46 98 Bi-pap 50 11/11/16 21:30 80 30 100/41 100 Bi-pap 50 11/11/16 21:17 89 29 100 Full Face 50 11/11/16 21:00 80 20 99/43 100 Bi-pap 50 11/11/16 20:52 94/41 11/11/16 20:30 81 36 94/41 98 Bi-pap 50 11/11/16 20:00 80 11/11/16 20:00 97.6 82 35 98/41 98 Bi-pap 50 11/11/16 20:00 50 11/11/16 19:40 91 32 100 Full Face 50 11/11/16 19:40 50 11/11/16 19:30 81 27 101/41 100 Bi-pap 50 11/11/16 19:00 80 20 102/41 98 Bi-pap 60 11/11/16 18:30 80 20 104/44 98 Bi-pap 60 11/11/16 18:00 80 20 100/42 98 Bi-pap 60 11/11/16 17:30 81 20 102/47 98 Bi-pap 60 11/11/16 17:01 81 23 99 Full Face 60 11/11/16 17:00 80 20 100/42 98 Bi-pap 60 11/11/16 16:30 82 20 100/83 98 Bi-pap 60 11/11/16 16:00 78 11/11/16 16:00 97.9 80 19 101/55 98 Bi-pap 60 11/11/16 16:00 60 11/11/16 15:43 110/60 11/11/16 15:30 81 20 104/51 98 Bi-pap 60 11/11/16 15:00 80 20 108/51 98 Bi-pap 60 11/11/16 14:42 78 20 100 Full Face 50 11/11/16 14:30 79 20 115/56 98 Bi-pap 60 11/11/16 14:00 78 20 109/51 98 Bi-pap 60 11/11/16 13:30 79 20 104/50 98 Bi-pap 60 11/11/16 13:14 80 22 100 Full Face 50 11/11/16 13:00 98.0 80 19 111/51 98 Bi-pap 60 11/11/16 12:30 79 20 110/51 98 Bi-pap 60 11/11/16 12:00 60 11/11/16 12:00 80 11/11/16 12:00 98.0 82 19 109/50 98 Bi-pap 60 11/11/16 11:30 78 20 102/49 98 Bi-pap 60 11/11/16 11:01 76 30 100 Full Face 60 11/11/16 11:00 77 20 95/42 98 Bi-pap 60 11/11/16 10:30 80 20 107/45 98 Bi-pap 60 11/11/16 10:00 79 21 104/45 96 Bi-pap 80 11/11/16 09:45 99/48 11/11/16 09:30 79 21 84/45 96 Bi-pap 80 11/11/16 09:12 78 30 100 Full Face 70 Intake and Output 11/12/16 11/13/16 19:00 07:00 Intake Total 70 ml Output Total 15 ml Balance 55 ml Tube Feeding 70 ml Output Urine Total 15 ml Laboratory Tests 11/11/16 13:00: Urine Color Yellow, Urine Appearance Slightly cloudy, Urine pH 5, Urine Specific [place] 1.015, Urine Protein 2+H, Urine Glucose (UA) Negative, Urine Ketones Negative, Urine Occult Blood 4+H, Urine Nitrite Negative, Urine Bilirubin Negative, Urine Urobilinogen Normal, Urine Leukocyte Esterase 1+H, Urine RBC 5-10H, Urine WBC 2-4, Urine Squamous Epithelial Cells Occasional, Urine Bacteria Few, Urine Yeast FewH 11/11/16 16:00: Body Fluid Source Paracentesis, Body Fluid Volume 22, Body Fluid Appearance Hazy , Body Fluid RBC 4480, Body Fluid Total Nucleated Cells 20, Body Fluid Polynuclear WBCs (%) 14, Body Fluid Mononuclear WBCs (%) 71, Body Fluid Mesothelial Cells (%) 15, Body Fluid Glucose [Pending], Body Fluid Total Protein [Pending], Body Fluid Albumin [Pending] 11/12/16 05:00: White Blood Count 6.8, Red Blood Count 4.23L, Hemoglobin 10.4L, Hematocrit 34.7L , Mean Corpuscular Volume 82, Mean Corpuscular Hemoglobin 24.5L, Mean Corpuscular Hemoglobin Concent 29.9L, Red Cell Distribution Width 26.4H, Platelet Count 83L, Mean Platelet Volume 7.8, Neutrophils (%) (Auto) , Lymphocytes (%) (Auto) , Monocytes (%) (Auto) , Eosinophils (%) (Auto) , Basophils (%) (Auto) , Differential Total Cells Counted 100, Neutrophils % ( Manual) 92H, Lymphocytes % (Manual) 3L, Monocytes % (Manual) 3, Eosinophils % ( Manual) 0, Basophils % (Manual) 0, Band Neutrophils 2, Platelet Estimate DecreasedL, Platelet Morphology Normal, Hypochromasia 1+, Anisocytosis 3+, Microcytosis 1+, Macrocytosis 1+, [place] Cells Occasional, Sodium Level 125L, Potassium Level 4.2, Chloride Level 93L, Carbon Dioxide Level 22, Anion Gap 10, Blood Urea Nitrogen 30H, Creatinine 1.1, Estimat Glomerular Filtration Rate > 60 , Glucose Level 162H, Calcium Level 7.2L, Phosphorus Level 3.7, Magnesium Level 1.9, Total Bilirubin 0.6, Aspartate Amino Transf (AST/SGOT) 35, Alanine Aminotransferase (ALT/SGPT) 44H, Alkaline Phosphatase 44, Total Protein 6.0L, Albumin 2.1L, Globulin 3.9, Albumin/Globulin Ratio 0.5L 11/12/16 07:50: Arterial Blood pH 7.237*L, Arterial Blood Partial Pressure CO2 52.9H, Arterial Blood Partial Pressure O2 81.3, Arterial Blood HCO3 22.0, Arterial Blood Oxygen Saturation 95.4, Arterial Blood Base Excess -5.6, [place] Test Positive Height (Feet): 5 Height (Inches): 6.00 Weight (Pounds): 168 General Appearance: no apparent distress EENT: normal ENT inspection Neck: normal alignment Cardiovascular: normal rate Respiratory/Chest: no accessory muscle use Abdomen: no organomegaly Neurologic: oriented x 3 George Gonzales Nov 12, 2016 09:12
--- NOTE | 2016-11-12 09:29 | Diagnostic Imaging Report ---
Indication:Abdominal pain Technique: Grayscale and duplex Doppler imaging of the abdomen performed. Comparison: None Findings: The liver is abnormal in appearance measuring about 19 cm with a heterogeneous coarse echotexture. There is thickening of the gallbladder wall which is nonspecific. There is mild ascites. Both kidneys are echogenic. The pancreas and aorta are poorly seen on this study. There is diffuse subcutaneous edema. The main portal vein is patent by color Doppler. There is no biliary ductal dilatation seen. CBD is between 6 and 7 mm in diameter. Impression: Hepatomegaly. Heterogeneous echotexture may be indicative of chronic liver disease. Please correlate clinically. Mild to moderate ascites. Normal size spleen Thickened gallbladder wall nonspecific Medical renal disease.
--- NOTE | 2016-11-12 10:47 | General Progress Note ---
Assessment/Plan Status: unchanged Status Narrative Na lower- Urine out put low- 450 cc urine retention Assessment/Plan Low mag , Low Phos , Low BP improved Na lower- Urine out put low- 450 cc urine retention (1) Acute respiratory failure (2) Severe anemia (3) Anemia (4) Ankylosing spondylitis (5) Ascites (6) Cardiomyopathy (7) Kyphosis plan: dominguez- 3% Saline 250 cc On Midodrine per consultants monitor renal parameters Subjective ROS Limited/Unobtainable: Yes Allergies: Coded Allergies: No Known Allergies (Unverified , 10/22/11) Objective Last 24 Hour Vital Signs Date Time Temp Pulse Resp B/P (MAP) Pulse Ox O2 Delivery O2 Flow Rate FiO2 11/12/16 10:00 72 30 126/64 100 Bi-pap 50 11/12/16 09:27 74 22 100 Full Face 50 11/12/16 09:00 73 31 105/43 100 Bi-pap 50 11/12/16 08:00 76 11/12/16 08:00 50 11/12/16 08:00 97.8 74 29 105/45 96 Bi-pap 50 11/12/16 07:30 74 31 96/42 100 Bi-pap 50 11/12/16 07:06 75 22 100 Full Face 50 11/12/16 07:00 75 32 101/42 100 Bi-pap 50 11/12/16 06:44 109/46 11/12/16 06:30 78 32 109/46 99 Bi-pap 50 11/12/16 06:00 77 24 109/47 100 Bi-pap 50 11/12/16 05:30 78 23 105/48 100 Bi-pap 50 11/12/16 05:15 77 30 100 Full Face 50 11/12/16 05:00 77 21 111/45 100 Bi-pap 50 11/12/16 04:30 78 25 105/44 100 Bi-pap 50 11/12/16 04:00 50 11/12/16 04:00 97.8 77 29 101/47 96 Bi-pap 50 11/12/16 04:00 76 11/12/16 03:30 78 29 104/46 98 Bi-pap 50 11/12/16 03:08 79 24 100 Full Face 50 11/12/16 03:00 79 30 106/50 99 Bi-pap 50 11/12/16 02:30 78 28 103/49 99 Bi-pap 50 11/12/16 02:00 79 28 102/49 97 Bi-pap 50 11/12/16 01:30 79 30 103/51 98 Bi-pap 50 11/12/16 01:00 79 29 101/50 99 Bi-pap 50 11/12/16 00:34 79 30 98 Full Face 50 11/12/16 00:30 79 30 102/51 99 Bi-pap 50 11/12/16 00:00 50 11/12/16 00:00 97.7 80 29 100/48 98 Bi-pap 50 11/12/16 00:00 80 11/11/16 23:30 80 30 98/55 96 Bi-pap 50 11/11/16 23:15 89 31 109/54 94 Bi-pap 50 11/11/16 23:13 89 33 98 Full Face 50 11/11/16 23:00 85 30 115/61 96 Bi-pap 50 11/11/16 22:30 87 31 108/67 96 Bi-pap 50 11/11/16 22:00 82 32 109/46 98 Bi-pap 50 11/11/16 21:30 80 30 100/41 100 Bi-pap 50 11/11/16 21:17 89 29 100 Full Face 50 11/11/16 21:00 80 20 99/43 100 Bi-pap 50 11/11/16 20:52 94/41 11/11/16 20:30 81 36 94/41 98 Bi-pap 50 11/11/16 20:00 80 11/11/16 20:00 97.6 82 35 98/41 98 Bi-pap 50 11/11/16 20:00 50 11/11/16 19:40 91 32 100 Full Face 50 11/11/16 19:40 50 11/11/16 19:30 81 27 101/41 100 Bi-pap 50 11/11/16 19:00 80 20 102/41 98 Bi-pap 60 11/11/16 18:30 80 20 104/44 98 Bi-pap 60 11/11/16 18:00 80 20 100/42 98 Bi-pap 60 11/11/16 17:30 81 20 102/47 98 Bi-pap 60 11/11/16 17:01 81 23 99 Full Face 60 11/11/16 17:00 80 20 100/42 98 Bi-pap 60 11/11/16 16:30 82 20 100/83 98 Bi-pap 60 11/11/16 16:00 78 11/11/16 16:00 97.9 80 19 101/55 98 Bi-pap 60 11/11/16 16:00 60 11/11/16 15:43 110/60 11/11/16 15:30 81 20 104/51 98 Bi-pap 60 11/11/16 15:00 80 20 108/51 98 Bi-pap 60 11/11/16 14:42 78 20 100 Full Face 50 11/11/16 14:30 79 20 115/56 98 Bi-pap 60 11/11/16 14:00 78 20 109/51 98 Bi-pap 60 11/11/16 13:30 79 20 104/50 98 Bi-pap 60 11/11/16 13:14 80 22 100 Full Face 50 11/11/16 13:00 98.0 80 19 111/51 98 Bi-pap 60 11/11/16 12:30 79 20 110/51 98 Bi-pap 60 11/11/16 12:00 60 11/11/16 12:00 80 11/11/16 12:00 98.0 82 19 109/50 98 Bi-pap 60 11/11/16 11:30 78 20 102/49 98 Bi-pap 60 11/11/16 11:01 76 30 100 Full Face 60 11/11/16 11:00 77 20 95/42 98 Bi-pap 60 Intake and Output 11/12/16 11/13/16 19:00 07:00 Intake Total 238.92 ml Output Total 15 ml Balance 223.92 ml IV Total 133.92 ml Tube Feeding 105 ml Output Urine Total 15 ml Laboratory Tests 11/11/16 13:00: Urine Color Yellow, Urine Appearance Slightly cloudy, Urine pH 5, Urine Specific Twining 1.015, Urine Protein 2+H, Urine Glucose (UA) Negative, Urine Ketones Negative, Urine Occult Blood 4+H, Urine Nitrite Negative, Urine Bilirubin Negative, Urine Urobilinogen Normal, Urine Leukocyte Esterase 1+H, Urine RBC 5-10H, Urine WBC 2-4, Urine Squamous Epithelial Cells Occasional, Urine Bacteria Few, Urine Yeast FewH 11/11/16 16:00: Body Fluid Source Paracentesis, Body Fluid Volume 22, Body Fluid Appearance Hazy , Body Fluid RBC 4480, Body Fluid Total Nucleated Cells 20, Body Fluid Polynuclear WBCs (%) 14, Body Fluid Mononuclear WBCs (%) 71, Body Fluid Mesothelial Cells (%) 15, Body Fluid Glucose [Pending], Body Fluid Total Protein [Pending], Body Fluid Albumin [Pending] 11/12/16 05:00: White Blood Count 6.8, Red Blood Count 4.23L, Hemoglobin 10.4L, Hematocrit 34.7L , Mean Corpuscular Volume 82, Mean Corpuscular Hemoglobin 24.5L, Mean Corpuscular Hemoglobin Concent 29.9L, Red Cell Distribution Width 26.4H, Platelet Count 83L, Mean Platelet Volume 7.8, Neutrophils (%) (Auto) , Lymphocytes (%) (Auto) , Monocytes (%) (Auto) , Eosinophils (%) (Auto) , Basophils (%) (Auto) , Differential Total Cells Counted 100, Neutrophils % ( Manual) 92H, Lymphocytes % (Manual) 3L, Monocytes % (Manual) 3, Eosinophils % ( Manual) 0, Basophils % (Manual) 0, Band Neutrophils 2, Platelet Estimate DecreasedL, Platelet Morphology Normal, Hypochromasia 1+, Anisocytosis 3+, Microcytosis 1+, Macrocytosis 1+, Danielle Cells Occasional, Sodium Level 125L, Potassium Level 4.2, Chloride Level 93L, Carbon Dioxide Level 22, Anion Gap 10, Blood Urea Nitrogen 30H, Creatinine 1.1, Estimat Glomerular Filtration Rate > 60 , Glucose Level 162H, Calcium Level 7.2L, Phosphorus Level 3.7, Magnesium Level 1.9, Total Bilirubin 0.6, Aspartate Amino Transf (AST/SGOT) 35, Alanine Aminotransferase (ALT/SGPT) 44H, Alkaline Phosphatase 44, Total Protein 6.0L, Albumin 2.1L, Globulin 3.9, Albumin/Globulin Ratio 0.5L 11/12/16 07:50: Arterial Blood pH 7.237*L, Arterial Blood Partial Pressure CO2 52.9H, Arterial Blood Partial Pressure O2 81.3, Arterial Blood HCO3 22.0, Arterial Blood Oxygen Saturation 95.4, Arterial Blood Base Excess -5.6, Anson Test Positive Height (Feet): 5 Height (Inches): 6.00 Weight (Pounds): 168 EENT: other - BIPAPA on Cardiovascular: normal rate Respiratory/Chest: decreased breath sounds Abdomen: soft Objective no change in PE HEIDI PINEDA Nov 12, 2016 10:47
--- NOTE | 2016-11-12 11:52 | Diagnostic Imaging Report ---
Indication: Dyspnea Comparison: 11/10/16 A single view chest radiograph was obtained. Findings: Study is limited with obscuring of much of the upper lung field. There is a suggestion of a moderate left pleural effusion. Cardiac silhouette is markedly enlarged. There is a pulmonary edema present. The findings are very similar to the prior occasion. The nasogastric tube is present and is in good position. A right shoulder prosthesis again noted. Impression: Evidence of pulmonary edema and left pleural effusion. Very limited study without obvious change from the prior exam
[2016-11-12] MEDS ORDERED: NaCl 3% 500ml 500 ML IV ONE (12:00)
--- NOTE | 2016-11-12 15:23 | General Progress Note ---
Assessment/Plan Assessment/Plan Assessment - edema and recurrent ascites - Anemia with OB (-) x 1 - Iron deficiency - Elevated CEA - High albumin gradient ascites --> consistent with (R) heart failure - CM, severe , AI - CHF - Resp failure - poor prognosis Recommendations - Continue TF - Paracentesis PRN - poor prognosis - BIPAP - cardiology f/u Subjective Allergies: Coded Allergies: No Known Allergies (Unverified , 10/22/11) Subjective Seen in ICU earlier today doing poorly on halo BIPAP mask Objective Last 24 Hour Vital Signs Date Time Temp Pulse Resp B/P (MAP) Pulse Ox O2 Delivery O2 Flow Rate FiO2 11/12/16 15:13 73 19 100 Full Face 50 11/12/16 14:00 78 30 107/53 100 Bi-pap 50 11/12/16 13:00 77 30 121/58 100 Bi-pap 50 11/12/16 12:45 74 20 100 Full Face 50 11/12/16 12:00 50 11/12/16 12:00 78 11/12/16 12:00 98.1 75 30 118/62 100 Bi-pap 50 11/12/16 11:04 72 20 100 Full Face 50 11/12/16 11:00 77 30 114/67 100 Bi-pap 50 11/12/16 10:00 72 30 126/64 100 Bi-pap 50 11/12/16 09:27 74 22 100 Full Face 50 11/12/16 09:00 73 31 105/43 100 Bi-pap 50 11/12/16 08:00 76 11/12/16 08:00 50 11/12/16 08:00 97.8 74 29 105/45 96 Bi-pap 50 11/12/16 07:30 74 31 96/42 100 Bi-pap 50 11/12/16 07:06 75 22 100 Full Face 50 11/12/16 07:00 75 32 101/42 100 Bi-pap 50 11/12/16 06:44 109/46 11/12/16 06:30 78 32 109/46 99 Bi-pap 50 11/12/16 06:00 77 24 109/47 100 Bi-pap 50 11/12/16 05:30 78 23 105/48 100 Bi-pap 50 11/12/16 05:15 77 30 100 Full Face 50 11/12/16 05:00 77 21 111/45 100 Bi-pap 50 11/12/16 04:30 78 25 105/44 100 Bi-pap 50 11/12/16 04:00 50 11/12/16 04:00 97.8 77 29 101/47 96 Bi-pap 50 11/12/16 04:00 76 11/12/16 03:30 78 29 104/46 98 Bi-pap 50 11/12/16 03:08 79 24 100 Full Face 50 11/12/16 03:00 79 30 106/50 99 Bi-pap 50 11/12/16 02:30 78 28 103/49 99 Bi-pap 50 11/12/16 02:00 79 28 102/49 97 Bi-pap 50 11/12/16 01:30 79 30 103/51 98 Bi-pap 50 11/12/16 01:00 79 29 101/50 99 Bi-pap 50 11/12/16 00:34 79 30 98 Full Face 50 11/12/16 00:30 79 30 102/51 99 Bi-pap 50 11/12/16 00:00 50 11/12/16 00:00 97.7 80 29 100/48 98 Bi-pap 50 11/12/16 00:00 80 11/11/16 23:30 80 30 98/55 96 Bi-pap 50 11/11/16 23:15 89 31 109/54 94 Bi-pap 50 11/11/16 23:13 89 33 98 Full Face 50 11/11/16 23:00 85 30 115/61 96 Bi-pap 50 11/11/16 22:30 87 31 108/67 96 Bi-pap 50 11/11/16 22:00 82 32 109/46 98 Bi-pap 50 11/11/16 21:30 80 30 100/41 100 Bi-pap 50 11/11/16 21:17 89 29 100 Full Face 50 11/11/16 21:00 80 20 99/43 100 Bi-pap 50 11/11/16 20:52 94/41 11/11/16 20:30 81 36 94/41 98 Bi-pap 50 11/11/16 20:00 80 11/11/16 20:00 97.6 82 35 98/41 98 Bi-pap 50 11/11/16 20:00 50 11/11/16 19:40 91 32 100 Full Face 50 11/11/16 19:40 50 11/11/16 19:30 81 27 101/41 100 Bi-pap 50 11/11/16 19:00 80 20 102/41 98 Bi-pap 60 11/11/16 18:30 80 20 104/44 98 Bi-pap 60 11/11/16 18:00 80 20 100/42 98 Bi-pap 60 11/11/16 17:30 81 20 102/47 98 Bi-pap 60 11/11/16 17:01 81 23 99 Full Face 60 11/11/16 17:00 80 20 100/42 98 Bi-pap 60 11/11/16 16:30 82 20 100/83 98 Bi-pap 60 11/11/16 16:00 78 11/11/16 16:00 97.9 80 19 101/55 98 Bi-pap 60 11/11/16 16:00 60 11/11/16 15:43 110/60 11/11/16 15:30 81 20 104/51 98 Bi-pap 60 Intake and Output 11/12/16 11/13/16 19:00 07:00 Intake Total 459.14 ml Output Total 235 ml Balance 224.14 ml IV Total 214.14 ml Tube Feeding 245 ml Output Urine Total 235 ml Laboratory Tests 11/11/16 16:00: Body Fluid Source Paracentesis, Body Fluid Volume 22, Body Fluid Appearance Hazy , Body Fluid RBC 4480, Body Fluid Total Nucleated Cells 20, Body Fluid Polynuclear WBCs (%) 14, Body Fluid Mononuclear WBCs (%) 71, Body Fluid Mesothelial Cells (%) 15, Body Fluid Glucose [Pending], Body Fluid Total Protein [Pending], Body Fluid Albumin [Pending] 11/12/16 05:00: White Blood Count 6.8, Red Blood Count 4.23L, Hemoglobin 10.4L, Hematocrit 34.7L , Mean Corpuscular Volume 82, Mean Corpuscular Hemoglobin 24.5L, Mean Corpuscular Hemoglobin Concent 29.9L, Red Cell Distribution Width 26.4H, Platelet Count 83L, Mean Platelet Volume 7.8, Neutrophils (%) (Auto) , Lymphocytes (%) (Auto) , Monocytes (%) (Auto) , Eosinophils (%) (Auto) , Basophils (%) (Auto) , Differential Total Cells Counted 100, Neutrophils % ( Manual) 92H, Lymphocytes % (Manual) 3L, Monocytes % (Manual) 3, Eosinophils % ( Manual) 0, Basophils % (Manual) 0, Band Neutrophils 2, Platelet Estimate DecreasedL, Platelet Morphology Normal, Hypochromasia 1+, Anisocytosis 3+, Microcytosis 1+, Macrocytosis 1+, Danielle Cells Occasional, Sodium Level 125L, Potassium Level 4.2, Chloride Level 93L, Carbon Dioxide Level 22, Anion Gap 10, Blood Urea Nitrogen 30H, Creatinine 1.1, Estimat Glomerular Filtration Rate > 60 , Glucose Level 162H, Calcium Level 7.2L, Phosphorus Level 3.7, Magnesium Level 1.9, Total Bilirubin 0.6, Aspartate Amino Transf (AST/SGOT) 35, Alanine Aminotransferase (ALT/SGPT) 44H, Alkaline Phosphatase 44, Total Protein 6.0L, Albumin 2.1L, Globulin 3.9, Albumin/Globulin Ratio 0.5L 11/12/16 07:50: Arterial Blood pH 7.237*L, Arterial Blood Partial Pressure CO2 52.9H, Arterial Blood Partial Pressure O2 81.3, Arterial Blood HCO3 22.0, Arterial Blood Oxygen Saturation 95.4, Arterial Blood Base Excess -5.6, Anson Test Positive 11/12/16 11:52: Urine Osmolality 326L, Urine Random Sodium 21 Height (Feet): 5 Height (Inches): 6.00 Weight (Pounds): 168 Objective (+) BIPAP NCAT neck stiff b/l ronchi RRR II/ systolic murmur abd soft distended (+) contractures (+) edema on extremities NATASHA ARREDONDO Nov 12, 2016 15:23
--- NOTE | 2016-11-12 15:41 | Internal Med Progress Note ---
Subjective Date of Service: Nov 12, 2016 Physician Name Miki Easton Attending Physician Raheel Dumont MD Current Medications Medications (Trade) Dose Ordered Sig/Dina Route PRN Reason Start Time Stop Time Status Last Admin Dose Admin Acetaminophen (Tylenol) 650 mg Q4H PRN ORAL FEVER 11/01/16 18:45 11/30/16 18:44 11/06/16 17:16 Chlorhexidine Gluconate (Natalia-Hex 2%) 1 applic QHS TOPIC 11/08/16 21:00 12/08/16 20:59 11/11/16 20:55 Dextrose (Dextrose 50%) STAT PRN IV Hypoglycemia 11/01/16 18:45 11/30/16 18:44 Heparin Sodium (Porcine) (Heparin 5000 units/ml) 5,000 units EVERY 12 HOURS SUBQ 11/01/16 21:00 11/30/16 20:59 11/08/16 20:49 Hydrocortisone (Solu-CORTEF) 100 mg EVERY 8 HOURS IV 11/11/16 14:00 12/11/16 13:59 11/12/16 13:39 Indomethacin (Indocin) 50 mg TID ORAL 11/02/16 09:00 12/01/16 08:59 11/12/16 13:39 Meropenem 1 gm/ Sodium Chloride 110 ml @ 220 mls/hr Q8HR IVPB 11/11/16 14:00 11/16/16 13:59 11/12/16 14:42 Midodrine (Pro-Amatine) 10 mg THREE TIMES A DAY ORAL 11/10/16 09:00 12/10/16 08:59 11/12/16 13:40 Norepinephrine Bitartrate 8 mg/ Dextrose 558 ml @ 0 mls/hr Q24H IV 11/10/16 09:00 12/08/16 11:14 11/12/16 06:44 Ondansetron HCl (Zofran) 4 mg Q6H PRN IVP Nausea & Vomiting 11/01/16 18:45 11/30/16 18:44 Pantoprazole (Protonix) 40 mg DAILY IVP 11/05/16 16:00 12/05/16 15:59 11/12/16 08:31 Polyethylene Glycol (Miralax) 17 gm DAILYPRN PRN ORAL Constipation 11/01/16 18:45 11/30/16 18:44 Prednisolone Acetate (Pred Forte) 1 drop DAILY BOTH EYES 11/02/16 09:00 12/01/16 08:59 11/12/16 08:31 Promethazine HCl/ Codeine (Phenergan with Codeine) 5 ml Q6H PRN ORAL For Cough 11/01/16 20:30 12/01/16 08:29 Sodium Chloride 500 ml @ 30 mls/hr ONCE ONCE IV 11/12/16 12:00 11/13/16 04:39 11/12/16 12:57 Terazosin HCl (Hytrin) 2 mg BEDTIME ORAL 11/01/16 21:00 11/30/16 20:59 11/10/16 20:53 Vancomycin HCl (Vanco rx to dose) 1 ea DAILY PRN MISC Per rx protocol 11/11/16 12:00 12/11/16 11:59 Vancomycin HCl/ Dextrose 250 ml @ 166.667 mls/hr Q24H IVPB 11/11/16 20:00 11/16/16 19:59 11/11/16 20:01 Allergies: Coded Allergies: No Known Allergies (Unverified , 10/22/11) ROS Limited/Unobtainable: Yes Subjective 51 YO M admitted with cough, fever and chills. Worsening respiratory failure; Now on BIPAP/full face mask. Continues on Levophed. Cover for Int Med -Dr Dumont. ICU. S/P paracentesis 11/11/16. Objective Last Vital Signs Date Time Temp Pulse Resp B/P (MAP) Pulse Ox O2 Delivery O2 Flow Rate FiO2 11/12/16 15:13 73 19 100 Full Face 50 11/12/16 15:00 113/58 11/12/16 12:00 98.1 11/05/16 07:00 80.0 Laboratory Tests Test 11/11/16 16:00 11/12/16 05:00 11/12/16 07:50 11/12/16 11:52 Body Fluid Source Paracentesis Body Fluid Volume 22 mL Body Fluid Appearance Hazy Body Fluid RBC 4480 /CUMM Body Fluid Total Nucleated Cells 20 /CUMM Body Fluid Polynuclear WBCs (%) 14 % Body Fluid Mononuclear WBCs (%) 71 % Body Fluid Mesothelial Cells (%) 15 % Body Fluid Glucose Pending Body Fluid Total Protein Pending Body Fluid Albumin Pending White Blood Count 6.8 K/UL (4.8-10.8) Red Blood Count 4.23 M/UL (4.70-6.10) L Hemoglobin 10.4 G/DL (14.2-18.0) L Hematocrit 34.7 % (42.0-52.0) L Mean Corpuscular Volume 82 FL (80-99) Mean Corpuscular Hemoglobin 24.5 PG (27.0-31.0) L Mean Corpuscular Hemoglobin Concent 29.9 G/DL (32.0-36.0) L Red Cell Distribution Width 26.4 % (11.6-14.8) H Platelet Count 83 K/UL (150-450) L Mean Platelet Volume 7.8 FL (6.5-10.1) Neutrophils (%) (Auto) % (45.0-75.0) Lymphocytes (%) (Auto) % (20.0-45.0) Monocytes (%) (Auto) % (1.0-10.0) Eosinophils (%) (Auto) % (0.0-3.0) Basophils (%) (Auto) % (0.0-2.0) Differential Total Cells Counted 100 Neutrophils % (Manual) 92 % (45-75) H Lymphocytes % (Manual) 3 % (20-45) L Monocytes % (Manual) 3 % (1-10) Eosinophils % (Manual) 0 % (0-3) Basophils % (Manual) 0 % (0-2) Band Neutrophils 2 % (0-8) Platelet Estimate Decreased L Platelet Morphology Normal Hypochromasia 1+ Anisocytosis 3+ Microcytosis 1+ Macrocytosis 1+ Danielle Cells Occasional Sodium Level 125 mEQ/L (135-145) L Potassium Level 4.2 mEQ/L (3.4-4.9) Chloride Level 93 mEQ/L (98-107) L Carbon Dioxide Level 22 mEQ/L (20-30) Anion Gap 10 (5-15) Blood Urea Nitrogen 30 mg/dL (7-23) H Creatinine 1.1 mg/dL (0.7-1.2) Estimat Glomerular Filtration Rate > 60 mL/min (>60) Glucose Level 162 mg/dL (74-106) H Calcium Level 7.2 mg/dL (8.6-10.2) L Phosphorus Level 3.7 mg/dL (2.5-4.8) Magnesium Level 1.9 mg/dL (1.7-2.5) Total Bilirubin 0.6 mg/dL (0.0-1.2) Aspartate Amino Transf (AST/SGOT) 35 U/L (5-40) Alanine Aminotransferase (ALT/SGPT) 44 U/L (3-41) H Alkaline Phosphatase 44 U/L (40-129) Total Protein 6.0 g/dL (6.6-8.7) L Albumin 2.1 g/dL (3.5-5.2) L Globulin 3.9 g/dL Albumin/Globulin Ratio 0.5 (1.0-2.7) L Arterial Blood pH 7.237 (7.350-7.450) Arterial Blood Partial Pressure CO2 52.9 mmHg (35.0-45.0) H Arterial Blood Partial Pressure O2 81.3 mmHg (75.0-100.0) Arterial Blood HCO3 22.0 mmol/L (22.0-26.0) Arterial Blood Oxygen Saturation 95.4 % (92.0-98.0) Arterial Blood Base Excess -5.6 Anson Test Positive Urine Osmolality 326 mOsm/kg (429-449) L Urine Random Sodium 21 mmol/L Microbiology Date/Time Source Procedure Growth Status 11/09/16 16:00 Blood Blood Culture - Preliminary NO GROWTH AFTER 48 HOURS Resulted 11/09/16 16:00 Blood Blood Culture - Preliminary NO GROWTH AFTER 48 HOURS Resulted 11/11/16 16:00 Ascities Fluid Gram Stain - Final Resulted 11/11/16 16:00 Ascities Fluid Body Fluid Culture - Preliminary NO GROWTH AFTER 24 HOURS Resulted 11/09/16 21:20 Sputum Gram Stain - Final Complete 11/09/16 21:20 Sputum Sputum Culture - Final NORMAL UPPER RESPIRATORY SANAZ PRESENT Complete 11/11/16 13:00 Urine,Clean Catch Urine Culture - Preliminary Resulted 11/09/16 16:00 Urine,Clean Catch Urine Culture - Final Darlyn Tropicalis Complete Intake and Output 11/12/16 11/13/16 19:00 07:00 Intake Total 494.14 ml Output Total 275 ml Balance 219.14 ml IV Total 214.14 ml Tube Feeding 280 ml Output Urine Total 275 ml Objective General Appearance: WD/WN, no apparent distress, alert EENT: PERRL/EOMI, normal ENT inspection Neck: non-tender, muscle spasm, stiff neck, other - contractrre Cardiovascular: normal peripheral pulses, normal rate, regular rhythm, no gallop/murmur, no JVD Respiratory/Chest: BIPAP; chest wall non-tender, respiratory distress, crackles /rales, rhonchi - bilaterally, expiratory wheezing Abdomen: normal bowel sounds, non tender, soft, no organomegaly, no mass Extremities: normal range of motion Neurologic: other - contractures Skin: normal pigmentation, warm/dry Assessment/Plan Problem List: (1) Depression (2) Flexion contractures Assessment & Plan: physical therapy (3) Anemia Assessment & Plan: Iron def anemia. Continue IV iron (4) Ankylosing spondylitis (5) HTN (hypertension) Assessment & Plan: Continue amlodipine (6) Osteoporosis (7) Kyphosis (8) Cervical spondylitis (9) Pneumonia Assessment & Plan: Continue BIPAP. See pulmonary note. Continue Cefepime per pulm (10) SOB (shortness of breath) (11) Ascites Assessment & Plan: S/P paracentesis 11/11/16. see GI note. (12) Respiratory failure Assessment & Plan: Anesthesiology unable to intubate; ENT unable to perform tracheostomy-see note. Worsening. Cont BIPAP per pulmonary. Start flagyl for possible aspiration pneumonia. Continue zosyn and vanco per ID recommendation (13) Hypotension Assessment & Plan: Presumed sepsis, however no definite source. Continue levophed. Continue zosyn per ID. (14) Hyponatremia Assessment & Plan: Continue hypertonic saline per nephrology Status: unchanged Assessment/Plan Unable to intubate due to neck contractures. See pulmonary note. Prognosis is poor. Transfer to [facility] when bed available. MIKI EASTON Nov 12, 2016 15:41
[2016-11-12] MEDS ORDERED: Tubing IV Secondary IV ONE (15:58)
[2016-11-12] MEDS ORDERED: D5 1/2NS 1000ml IV ONE (15:58)
[2016-11-12] MEDS ORDERED: 1/2 NS 1000ml IV ONE (15:58)
--- NOTE | 2016-11-12 17:11 | Infectious Diseases Prog Note ---
Assessment/Plan Assessment/Plan Assesment: #Hypotension on pressors> shock 11/09, afebrile, no leukocytosis; now off pressors- so far no infectious process identified? ?PNA, r/o bacteremia, r/o SBP , r/o cholecystitis -11/11 Bcx NTD -CXR 11/12: . Evidence of pulmonary edema and left pleural effusion. -BCx 11/09 NTD x4 -sp cx 11/09: normal [place] -Ucx 100K yeast (colonizer), no u/a done #Abd distention, mod ascites- -s/p parecentesis 11/11; WBC 20 ( N 14)- not consistent with SBP -Renal u/s: Hepatomegaly. Heterogeneous echotexture may be indicative of chronic liver disease. Mild to moderate ascites.Thickened gallbladder wall nonspecific. #Possible Asp Pneum , s/p Rx 11/09 #CoNS bacteremia in 1/ sets, likely contaminant, 02/13, afebrile -10/31 + 02/13, 11/02 Bcx Neg x4 # Pyuria. Urine culture : Neg , SP RX -u/a 10/31 mild pyuria:WBC 10-15 -ucx 11/09 C. tropicalis (colonzier) -11/11 u/a WBC 2-4; ucx NTD # Elevated liver function tests, rule out hepatobiliary disease ; resolving - hepatitis panel : Neg - CT of ABD : Heterogeneous appearance of the liver may suggest hepatocellular disease or hepatic congestion. Moderate ascites. -Abd u/s: Slightly increased hepatic echogenicity. Hepatomegaly. Trace ascites. Gallbladder sludge. No stones. Markedly thickened gallbladder wall is likely reactive, related to adjacent hepatocellular inflammation, given stated clinical history. It could also be due to the hemodynamic derangements caused by the liver disease. Also probably exaggerated due to nondistention of the gallbladder. The possibility of acalculous acute cholecystitis or cholecystitis secondary to occult cholelithiasis not completely excludable, however. Consider hepatobiliary nuclearscanning if there is high clinical suspicion Negative for dilated ducts. #. Mid thoracic unstageable pressure ulcer. # HIV: Neg # Thrombocytopenia. # Coagulopathy. #. Ankylosing spondylosis/kyphosis/cervical spondylosis with chronic contractures. #. Tobacco abuse. #. Urine toxicology positive for marijuana. # No known drug allergies. # Full Code. PLAN: -Continue Meropenem #2 given shock for broader and IV Vancomycin (currently on hold given supratherapeutic levels) (abx d #4) pending repeat cx s/p IV cefepime day # 9 , Flagyl d# 5 11/09 ( 09/01 SP IV Vancomycin d# 2 ) -low threshold for HIDA if febrile, leukocytosis or worsenign LFts. -F/u LFTs, - f/u repeat Bcx -. Monitor CBC and temperatures. -. Monitor CMP -. Monitor chest x-ray. -. Wound care. -. BiPAP Discussed with RN. Subjective Allergies: Coded Allergies: No Known Allergies (Unverified , 10/22/11) Subjective afebrile Cx NTD no leukocytosis s/p paracentesis, fluid not consistent with SBP off presors now Objective Vital Signs Last 24 Hour Vital Signs Date Time Temp Pulse Resp B/P (MAP) Pulse Ox O2 Delivery O2 Flow Rate FiO2 11/12/16 16:30 77 24 100 Full Face 50 11/12/16 16:00 79.9 74 30 113/74 100 Bi-pap 50 11/12/16 16:00 50 11/12/16 16:00 76 11/12/16 15:13 73 19 100 Full Face 50 11/12/16 15:00 72 19 113/58 100 Bi-pap 50 11/12/16 14:00 78 30 107/53 100 Bi-pap 50 11/12/16 13:00 77 30 121/58 100 Bi-pap 50 11/12/16 12:45 74 20 100 Full Face 50 11/12/16 12:00 50 11/12/16 12:00 78 11/12/16 12:00 98.1 75 30 118/62 100 Bi-pap 50 11/12/16 11:04 72 20 100 Full Face 50 11/12/16 11:00 77 30 114/67 100 Bi-pap 50 11/12/16 10:00 72 30 126/64 100 Bi-pap 50 11/12/16 09:27 74 22 100 Full Face 50 11/12/16 09:00 73 31 105/43 100 Bi-pap 50 11/12/16 08:00 76 11/12/16 08:00 50 11/12/16 08:00 97.8 74 29 105/45 96 Bi-pap 50 11/12/16 07:30 74 31 96/42 100 Bi-pap 50 11/12/16 07:06 75 22 100 Full Face 50 11/12/16 07:00 75 32 101/42 100 Bi-pap 50 11/12/16 06:44 109/46 11/12/16 06:30 78 32 109/46 99 Bi-pap 50 11/12/16 06:00 77 24 109/47 100 Bi-pap 50 11/12/16 05:30 78 23 105/48 100 Bi-pap 50 11/12/16 05:15 77 30 100 Full Face 50 11/12/16 05:00 77 21 111/45 100 Bi-pap 50 11/12/16 04:30 78 25 105/44 100 Bi-pap 50 11/12/16 04:00 50 11/12/16 04:00 97.8 77 29 101/47 96 Bi-pap 50 11/12/16 04:00 76 11/12/16 03:30 78 29 104/46 98 Bi-pap 50 11/12/16 03:08 79 24 100 Full Face 50 11/12/16 03:00 79 30 106/50 99 Bi-pap 50 11/12/16 02:30 78 28 103/49 99 Bi-pap 50 11/12/16 02:00 79 28 102/49 97 Bi-pap 50 11/12/16 01:30 79 30 103/51 98 Bi-pap 50 11/12/16 01:00 79 29 101/50 99 Bi-pap 50 11/12/16 00:34 79 30 98 Full Face 50 11/12/16 00:30 79 30 102/51 99 Bi-pap 50 11/12/16 00:00 50 11/12/16 00:00 97.7 80 29 100/48 98 Bi-pap 50 11/12/16 00:00 80 11/11/16 23:30 80 30 98/55 96 Bi-pap 50 11/11/16 23:15 89 31 109/54 94 Bi-pap 50 11/11/16 23:13 89 33 98 Full Face 50 11/11/16 23:00 85 30 115/61 96 Bi-pap 50 11/11/16 22:30 87 31 108/67 96 Bi-pap 50 11/11/16 22:00 82 32 109/46 98 Bi-pap 50 11/11/16 21:30 80 30 100/41 100 Bi-pap 50 11/11/16 21:17 89 29 100 Full Face 50 11/11/16 21:00 80 20 99/43 100 Bi-pap 50 11/11/16 20:52 94/41 11/11/16 20:30 81 36 94/41 98 Bi-pap 50 11/11/16 20:00 80 11/11/16 20:00 97.6 82 35 98/41 98 Bi-pap 50 11/11/16 20:00 50 11/11/16 19:40 91 32 100 Full Face 50 11/11/16 19:40 50 11/11/16 19:30 81 27 101/41 100 Bi-pap 50 11/11/16 19:00 80 20 102/41 98 Bi-pap 60 11/11/16 18:30 80 20 104/44 98 Bi-pap 60 11/11/16 18:00 80 20 100/42 98 Bi-pap 60 11/11/16 17:30 81 20 102/47 98 Bi-pap 60 Height (Feet): 5 Height (Inches): 6.00 Weight (Pounds): 168 Objective GENERAL: No apparent distress, nontoxic appearing. anasarca HEENT/NECK: Neck contracted. CARDIOVASCULAR: Regular rate and rhythm. No murmurs. PULMONARY: Coarse breath sounds bilaterally. ABDOMINAL: Bowel sounds present. Soft, nondistended, and nontender. EXTREMITIES: Contractures in all four extremities. +3 pitting edema SKIN: Unstageable decubitus over the mid thoracic spine. NEUROLOGICAL: Alert and oriented x3. Microbiology Date/Time Source Procedure Growth Status 11/11/16 16:00 Ascities Fluid Gram Stain - Final Resulted 11/11/16 16:00 Ascities Fluid Body Fluid Culture - Preliminary NO GROWTH AFTER 24 HOURS Resulted 11/09/16 21:20 Sputum Gram Stain - Final Complete 11/09/16 21:20 Sputum Sputum Culture - Final NORMAL UPPER RESPIRATORY [place] PRESENT Complete 11/11/16 13:00 Urine,Clean Catch Urine Culture - Preliminary Resulted Laboratory Tests Test 11/12/16 05:00 11/12/16 07:50 11/12/16 11:52 White Blood Count 6.8 K/UL (4.8-10.8) Red Blood Count 4.23 M/UL (4.70-6.10) L Hemoglobin 10.4 G/DL (14.2-18.0) L Hematocrit 34.7 % (42.0-52.0) L Mean Corpuscular Volume 82 FL (80-99) Mean Corpuscular Hemoglobin 24.5 PG (27.0-31.0) L Mean Corpuscular Hemoglobin Concent 29.9 G/DL (32.0-36.0) L Red Cell Distribution Width 26.4 % (11.6-14.8) H Platelet Count 83 K/UL (150-450) L Mean Platelet Volume 7.8 FL (6.5-10.1) Neutrophils (%) (Auto) % (45.0-75.0) Lymphocytes (%) (Auto) % (20.0-45.0) Monocytes (%) (Auto) % (1.0-10.0) Eosinophils (%) (Auto) % (0.0-3.0) Basophils (%) (Auto) % (0.0-2.0) Differential Total Cells Counted 100 Neutrophils % (Manual) 92 % (45-75) H Lymphocytes % (Manual) 3 % (20-45) L Monocytes % (Manual) 3 % (1-10) Eosinophils % (Manual) 0 % (0-3) Basophils % (Manual) 0 % (0-2) Band Neutrophils 2 % (0-8) Platelet Estimate Decreased L Platelet Morphology Normal Hypochromasia 1+ Anisocytosis 3+ Microcytosis 1+ Macrocytosis 1+ Danielle Cells Occasional Sodium Level 125 mEQ/L (135-145) L Potassium Level 4.2 mEQ/L (3.4-4.9) Chloride Level 93 mEQ/L (98-107) L Carbon Dioxide Level 22 mEQ/L (20-30) Anion Gap 10 (5-15) Blood Urea Nitrogen 30 mg/dL (7-23) H Creatinine 1.1 mg/dL (0.7-1.2) Estimat Glomerular Filtration Rate > 60 mL/min (>60) Glucose Level 162 mg/dL (74-106) H Calcium Level 7.2 mg/dL (8.6-10.2) L Phosphorus Level 3.7 mg/dL (2.5-4.8) Magnesium Level 1.9 mg/dL (1.7-2.5) Total Bilirubin 0.6 mg/dL (0.0-1.2) Aspartate Amino Transf (AST/SGOT) 35 U/L (5-40) Alanine Aminotransferase (ALT/SGPT) 44 U/L (3-41) H Alkaline Phosphatase 44 U/L (40-129) Total Protein 6.0 g/dL (6.6-8.7) L Albumin 2.1 g/dL (3.5-5.2) L Globulin 3.9 g/dL Albumin/Globulin Ratio 0.5 (1.0-2.7) L Arterial Blood pH 7.237 (7.350-7.450) Arterial Blood Partial Pressure CO2 52.9 mmHg (35.0-45.0) H Arterial Blood Partial Pressure O2 81.3 mmHg (75.0-100.0) Arterial Blood HCO3 22.0 mmol/L (22.0-26.0) Arterial Blood Oxygen Saturation 95.4 % (92.0-98.0) Arterial Blood Base Excess -5.6 Anson Test Positive Urine Osmolality 326 mOsm/kg (429-449) L Urine Random Sodium 21 mmol/L Current Medications Medications (Trade) Dose Ordered Sig/Dina Route PRN Reason Start Time Stop Time Status Last Admin Dose Admin Acetaminophen (Tylenol) 650 mg Q4H PRN ORAL FEVER 11/01/16 18:45 11/30/16 18:44 11/06/16 17:16 Chlorhexidine Gluconate (Natalia-Hex 2%) 1 applic QHS TOPIC 11/08/16 21:00 12/08/16 20:59 11/11/16 20:55 Dextrose (Dextrose 50%) STAT PRN IV Hypoglycemia 11/01/16 18:45 11/30/16 18:44 Heparin Sodium (Porcine) (Heparin 5000 units/ml) 5,000 units EVERY 12 HOURS SUBQ 11/01/16 21:00 11/30/16 20:59 11/08/16 20:49 Hydrocortisone (Solu-CORTEF) 100 mg EVERY 8 HOURS IV 11/11/16 14:00 12/11/16 13:59 11/12/16 13:39 Indomethacin (Indocin) 50 mg TID ORAL 11/02/16 09:00 12/01/16 08:59 11/12/16 13:39 Meropenem 1 gm/ Sodium Chloride 110 ml @ 220 mls/hr Q8HR IVPB 11/11/16 14:00 11/16/16 13:59 11/12/16 14:42 Midodrine (Pro-Amatine) 10 mg THREE TIMES A DAY ORAL 11/10/16 09:00 12/10/16 08:59 11/12/16 13:40 Norepinephrine Bitartrate 8 mg/ Dextrose 558 ml @ 0 mls/hr Q24H IV 11/10/16 09:00 12/08/16 11:14 11/12/16 06:44 Ondansetron HCl (Zofran) 4 mg Q6H PRN IVP Nausea & Vomiting 11/01/16 18:45 11/30/16 18:44 Pantoprazole (Protonix) 40 mg DAILY IVP 11/05/16 16:00 12/05/16 15:59 11/12/16 08:31 Polyethylene Glycol (Miralax) 17 gm DAILYPRN PRN ORAL Constipation 11/01/16 18:45 11/30/16 18:44 Prednisolone Acetate (Pred Forte) 1 drop DAILY BOTH EYES 11/02/16 09:00 12/01/16 08:59 11/12/16 08:31 Promethazine HCl/ Codeine (Phenergan with Codeine) 5 ml Q6H PRN ORAL For Cough 11/01/16 20:30 12/01/16 08:29 Sodium Chloride 500 ml @ 30 mls/hr ONCE ONCE IV 11/12/16 12:00 11/13/16 04:39 11/12/16 12:57 Terazosin HCl (Hytrin) 2 mg BEDTIME ORAL 11/01/16 21:00 11/30/16 20:59 11/10/16 20:53 Vancomycin HCl (Vanco rx to dose) 1 ea DAILY PRN MISC Per rx protocol 11/11/16 12:00 12/11/16 11:59 Vancomycin HCl/ Dextrose 250 ml @ 166.667 mls/hr Q24H IVPB 11/11/16 20:00 11/16/16 19:59 11/11/16 20:01 Loli Roberto M.D. Nov 12, 2016 17:11
--- NOTE | 2016-11-12 17:54 | General Progress Note ---
Assessment/Plan Assessment/Plan ASSESSMENT: 1. Thrombocytopenia potentially secondary to sepsis vs liver disease --> abd us shows hepatomegaly --> id on board 2. Anemia, secondary to chronic disease. --> watch counts. HH stable --> hgb goal 8-10 3. Coagulopathy, secondary to malnutrition. 4. Ankylosing spondylitis. 5. Hypertension. 6. Shortness of breath. 7. Ascites, status post paracentesis. 8. Respiratory failure. He is on BiPAP. He is not a candidate for tracheostomy as per Surgical Service. Prognosis remains poor. Subjective Allergies: Coded Allergies: No Known Allergies (Unverified , 10/22/11) All Systems: reviewed and negative except above Subjective afebrile, on levo, on bipap. [facility] Last 24 Hour Vital Signs Date Time Temp Pulse Resp B/P (MAP) Pulse Ox O2 Delivery O2 Flow Rate FiO2 11/12/16 17:00 76 20 114/56 100 Bi-pap 50 11/12/16 16:30 77 24 100 Full Face 50 11/12/16 16:00 97.7 74 30 113/74 100 Bi-pap 50 11/12/16 16:00 50 11/12/16 16:00 76 11/12/16 15:13 73 19 100 Full Face 50 11/12/16 15:00 72 19 113/58 100 Bi-pap 50 11/12/16 14:00 78 30 107/53 100 Bi-pap 50 11/12/16 13:00 77 30 121/58 100 Bi-pap 50 11/12/16 12:45 74 20 100 Full Face 50 11/12/16 12:00 50 11/12/16 12:00 78 11/12/16 12:00 98.1 75 30 118/62 100 Bi-pap 50 11/12/16 11:04 72 20 100 Full Face 50 11/12/16 11:00 77 30 114/67 100 Bi-pap 50 11/12/16 10:00 72 30 126/64 100 Bi-pap 50 11/12/16 09:27 74 22 100 Full Face 50 11/12/16 09:00 73 31 105/43 100 Bi-pap 50 11/12/16 08:00 76 11/12/16 08:00 50 11/12/16 08:00 97.8 74 29 105/45 96 Bi-pap 50 10/3/17 07:30 74 31 96/42 100 Bi-pap 50 11/12/16 07:06 75 22 100 Full Face 50 11/12/16 07:00 75 32 101/42 100 Bi-pap 50 11/12/16 06:44 109/46 11/12/16 06:30 78 32 109/46 99 Bi-pap 50 11/12/16 06:00 77 24 109/47 100 Bi-pap 50 11/12/16 05:30 78 23 105/48 100 Bi-pap 50 11/12/16 05:15 77 30 100 Full Face 50 11/12/16 05:00 77 21 111/45 100 Bi-pap 50 11/12/16 04:30 78 25 105/44 100 Bi-pap 50 11/12/16 04:00 50 11/12/16 04:00 97.8 77 29 101/47 96 Bi-pap 50 11/12/16 04:00 76 11/12/16 03:30 78 29 104/46 98 Bi-pap 50 11/12/16 03:08 79 24 100 Full Face 50 11/12/16 03:00 79 30 106/50 99 Bi-pap 50 11/12/16 02:30 78 28 103/49 99 Bi-pap 50 11/12/16 02:00 79 28 102/49 97 Bi-pap 50 11/12/16 01:30 79 30 103/51 98 Bi-pap 50 11/12/16 01:00 79 29 101/50 99 Bi-pap 50 11/12/16 00:34 79 30 98 Full Face 50 11/12/16 00:30 79 30 102/51 99 Bi-pap 50 11/12/16 00:00 50 11/12/16 00:00 97.7 80 29 100/48 98 Bi-pap 50 11/12/16 00:00 80 11/11/16 23:30 80 30 98/55 96 Bi-pap 50 11/11/16 23:15 89 31 109/54 94 Bi-pap 50 11/11/16 23:13 89 33 98 Full Face 50 11/11/16 23:00 85 30 115/61 96 Bi-pap 50 11/11/16 22:30 87 31 108/67 96 Bi-pap 50 11/11/16 22:00 82 32 109/46 98 Bi-pap 50 11/11/16 21:30 80 30 100/41 100 Bi-pap 50 11/11/16 21:17 89 29 100 Full Face 50 11/11/16 21:00 80 20 99/43 100 Bi-pap 50 11/11/16 20:52 94/41 11/11/16 20:30 81 36 94/41 98 Bi-pap 50 11/11/16 20:00 80 11/11/16 20:00 97.6 82 35 98/41 98 Bi-pap 50 11/11/16 20:00 50 11/11/16 19:40 91 32 100 Full Face 50 11/11/16 19:40 50 11/11/16 19:30 81 27 101/41 100 Bi-pap 50 11/11/16 19:00 80 20 102/41 98 Bi-pap 60 11/11/16 18:30 80 20 104/44 98 Bi-pap 60 11/11/16 18:00 80 20 100/42 98 Bi-pap 60 Intake and Output 11/12/16 11/13/16 19:00 07:00 Intake Total 734.14 ml Output Total 315 ml Balance 419.14 ml IV Total 384.14 ml Tube Feeding 350 ml Output Urine Total 315 ml Laboratory Tests 11/12/16 05:00: White Blood Count 6.8, Red Blood Count 4.23L, Hemoglobin 10.4L, Hematocrit 34.7L , Mean Corpuscular Volume 82, Mean Corpuscular Hemoglobin 24.5L, Mean Corpuscular Hemoglobin Concent 29.9L, Red Cell Distribution Width 26.4H, Platelet Count 83L, Mean Platelet Volume 7.8, Neutrophils (%) (Auto) , Lymphocytes (%) (Auto) , Monocytes (%) (Auto) , Eosinophils (%) (Auto) , Basophils (%) (Auto) , Differential Total Cells Counted 100, Neutrophils % ( Manual) 92H, Lymphocytes % (Manual) 3L, Monocytes % (Manual) 3, Eosinophils % ( Manual) 0, Basophils % (Manual) 0, Band Neutrophils 2, Platelet Estimate DecreasedL, Platelet Morphology Normal, Hypochromasia 1+, Anisocytosis 3+, Microcytosis 1+, Macrocytosis 1+, Aurora Cells Occasional, Sodium Level 125L, Potassium Level 4.2, Chloride Level 93L, Carbon Dioxide Level 22, Anion Gap 10, Blood Urea Nitrogen 30H, Creatinine 1.1, Estimat Glomerular Filtration Rate > 60 , Glucose Level 162H, Calcium Level 7.2L, Phosphorus Level 3.7, Magnesium Level 1.9, Total Bilirubin 0.6, Aspartate Amino Transf (AST/SGOT) 35, Alanine Aminotransferase (ALT/SGPT) 44H, Alkaline Phosphatase 44, Total Protein 6.0L, Albumin 2.1L, Globulin 3.9, Albumin/Globulin Ratio 0.5L 11/12/16 07:50: Arterial Blood pH 7.237*L, Arterial Blood Partial Pressure CO2 52.9H, Arterial Blood Partial Pressure O2 81.3, Arterial Blood HCO3 22.0, Arterial Blood Oxygen Saturation 95.4, Arterial Blood Base Excess -5.6, Anson Test Positive 11/12/16 11:52: Urine Osmolality 326L, Urine Random Sodium 21 Height (Feet): 5 Height (Inches): 6.00 Weight (Pounds): 168 General Appearance: no apparent distress EENT: normal ENT inspection Neck: normal alignment Cardiovascular: no gallop/murmur Abdomen: non tender 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
--- NOTE | 2016-11-12 18:11 | Cardiac Electrophysiology PN ---
Assessment/Plan Assessment/Plan 1. Severe aortic stenosis. Not a candidate for percutaneous intervention or aortic valve replacement. Avoid beta-blockers. 2. Cardiomyopathy. Off of beta-blockers. 3. S/P septic Shock. On Abx per Dr schumacher. Off pressors 4. Respiratory failure, currently on BiPAP, could not be intubated. Evaluated by ENT and surgery. Not able to have Tracheostomy. 5. Depression. 6. Flexion contractures. 7. Ankylosing spondylitis. 8. Kyphosis. 9. Ascites. 10. Anemia. . DW RN Subjective Subjective In ICU off Levophed and more alert. On BIPAP. RN at bedside.No arrhythmias reported Objective Last 24 Hour Vital Signs Date Time Temp Pulse Resp B/P (MAP) Pulse Ox O2 Delivery O2 Flow Rate FiO2 11/12/16 18:00 76 19 112/57 100 Bi-pap 50 11/12/16 17:00 76 20 114/56 100 Bi-pap 50 11/12/16 16:30 77 24 100 Full Face 50 11/12/16 16:00 97.7 74 30 113/74 100 Bi-pap 50 11/12/16 16:00 50 11/12/16 16:00 76 11/12/16 15:13 73 19 100 Full Face 50 11/12/16 15:00 72 19 113/58 100 Bi-pap 50 11/12/16 14:00 78 30 107/53 100 Bi-pap 50 11/12/16 13:00 77 30 121/58 100 Bi-pap 50 11/12/16 12:45 74 20 100 Full Face 50 11/12/16 12:00 50 11/12/16 12:00 78 11/12/16 12:00 98.1 75 30 118/62 100 Bi-pap 50 11/12/16 11:04 72 20 100 Full Face 50 11/12/16 11:00 77 30 114/67 100 Bi-pap 50 11/12/16 10:00 72 30 126/64 100 Bi-pap 50 11/12/16 09:27 74 22 100 Full Face 50 11/12/16 09:00 73 31 105/43 100 Bi-pap 50 11/12/16 08:00 76 11/12/16 08:00 50 11/12/16 08:00 97.8 74 29 105/45 96 Bi-pap 50 11/12/16 07:30 74 31 96/42 100 Bi-pap 50 11/12/16 07:06 75 22 100 Full Face 50 11/12/16 07:00 75 32 101/42 100 Bi-pap 50 11/12/16 06:44 109/46 11/12/16 06:30 78 32 109/46 99 Bi-pap 50 11/12/16 06:00 77 24 109/47 100 Bi-pap 50 11/12/16 05:30 78 23 105/48 100 Bi-pap 50 11/12/16 05:15 77 30 100 Full Face 50 11/12/16 05:00 77 21 111/45 100 Bi-pap 50 11/12/16 04:30 78 25 105/44 100 Bi-pap 50 11/12/16 04:00 50 11/12/16 04:00 97.8 77 29 101/47 96 Bi-pap 50 11/12/16 04:00 76 11/12/16 03:30 78 29 104/46 98 Bi-pap 50 11/12/16 03:08 79 24 100 Full Face 50 11/12/16 03:00 79 30 106/50 99 Bi-pap 50 11/12/16 02:30 78 28 103/49 99 Bi-pap 50 11/12/16 02:00 79 28 102/49 97 Bi-pap 50 11/12/16 01:30 79 30 103/51 98 Bi-pap 50 11/12/16 01:00 79 29 101/50 99 Bi-pap 50 11/12/16 00:34 79 30 98 Full Face 50 11/12/16 00:30 79 30 102/51 99 Bi-pap 50 11/12/16 00:00 50 11/12/16 00:00 97.7 80 29 100/48 98 Bi-pap 50 11/12/16 00:00 80 11/11/16 23:30 80 30 98/55 96 Bi-pap 50 11/11/16 23:15 89 31 109/54 94 Bi-pap 50 11/11/16 23:13 89 33 98 Full Face 50 11/11/16 23:00 85 30 115/61 96 Bi-pap 50 11/11/16 22:30 87 31 108/67 96 Bi-pap 50 11/11/16 22:00 82 32 109/46 98 Bi-pap 50 11/11/16 21:30 80 30 100/41 100 Bi-pap 50 11/11/16 21:17 89 29 100 Full Face 50 11/11/16 21:00 80 20 99/43 100 Bi-pap 50 11/11/16 20:52 94/41 11/11/16 20:30 81 36 94/41 98 Bi-pap 50 11/11/16 20:00 80 11/11/16 20:00 97.6 82 35 98/41 98 Bi-pap 50 11/11/16 20:00 50 11/11/16 19:40 91 32 100 Full Face 50 11/11/16 19:40 50 11/11/16 19:30 81 27 101/41 100 Bi-pap 50 11/11/16 19:00 80 20 102/41 98 Bi-pap 60 11/11/16 18:30 80 20 104/44 98 Bi-pap 60 Intake and Output 11/12/16 11/13/16 19:00 07:00 Intake Total 769.14 ml Output Total 325 ml Balance 444.14 ml IV Total 384.14 ml Tube Feeding 385 ml Output Urine Total 325 ml # Bowel Movements 1 Laboratory Tests Test 11/12/16 05:00 11/12/16 07:50 11/12/16 11:52 White Blood Count 6.8 K/UL (4.8-10.8) Red Blood Count 4.23 M/UL (4.70-6.10) L Hemoglobin 10.4 G/DL (14.2-18.0) L Hematocrit 34.7 % (42.0-52.0) L Mean Corpuscular Volume 82 FL (80-99) Mean Corpuscular Hemoglobin 24.5 PG (27.0-31.0) L Mean Corpuscular Hemoglobin Concent 29.9 G/DL (32.0-36.0) L Red Cell Distribution Width 26.4 % (11.6-14.8) H Platelet Count 83 K/UL (150-450) L Mean Platelet Volume 7.8 FL (6.5-10.1) Neutrophils (%) (Auto) % (45.0-75.0) Lymphocytes (%) (Auto) % (20.0-45.0) Monocytes (%) (Auto) % (1.0-10.0) Eosinophils (%) (Auto) % (0.0-3.0) Basophils (%) (Auto) % (0.0-2.0) Differential Total Cells Counted 100 Neutrophils % (Manual) 92 % (45-75) H Lymphocytes % (Manual) 3 % (20-45) L Monocytes % (Manual) 3 % (1-10) Eosinophils % (Manual) 0 % (0-3) Basophils % (Manual) 0 % (0-2) Band Neutrophils 2 % (0-8) Platelet Estimate Decreased L Platelet Morphology Normal Hypochromasia 1+ Anisocytosis 3+ Microcytosis 1+ Macrocytosis 1+ Danielle Cells Occasional Sodium Level 125 mEQ/L (135-145) L Potassium Level 4.2 mEQ/L (3.4-4.9) Chloride Level 93 mEQ/L (98-107) L Carbon Dioxide Level 22 mEQ/L (20-30) Anion Gap 10 (5-15) Blood Urea Nitrogen 30 mg/dL (7-23) H Creatinine 1.1 mg/dL (0.7-1.2) Estimat Glomerular Filtration Rate > 60 mL/min (>60) Glucose Level 162 mg/dL (74-106) H Calcium Level 7.2 mg/dL (8.6-10.2) L Phosphorus Level 3.7 mg/dL (2.5-4.8) Magnesium Level 1.9 mg/dL (1.7-2.5) Total Bilirubin 0.6 mg/dL (0.0-1.2) Aspartate Amino Transf (AST/SGOT) 35 U/L (5-40) Alanine Aminotransferase (ALT/SGPT) 44 U/L (3-41) H Alkaline Phosphatase 44 U/L (40-129) Total Protein 6.0 g/dL (6.6-8.7) L Albumin 2.1 g/dL (3.5-5.2) L Globulin 3.9 g/dL Albumin/Globulin Ratio 0.5 (1.0-2.7) L Arterial Blood pH 7.237 (7.350-7.450) Arterial Blood Partial Pressure CO2 52.9 mmHg (35.0-45.0) H Arterial Blood Partial Pressure O2 81.3 mmHg (75.0-100.0) Arterial Blood HCO3 22.0 mmol/L (22.0-26.0) Arterial Blood Oxygen Saturation 95.4 % (92.0-98.0) Arterial Blood Base Excess -5.6 Anson Test Positive Urine Osmolality 326 mOsm/kg (429-449) L Urine Random Sodium 21 mmol/L Microbiology Date/Time Source Procedure Growth Status 11/11/16 16:00 Ascities Fluid Gram Stain - Final Resulted 11/11/16 16:00 Ascities Fluid Body Fluid Culture - Preliminary NO GROWTH AFTER 24 HOURS Resulted 11/09/16 21:20 Sputum Gram Stain - Final Complete 11/09/16 21:20 Sputum Sputum Culture - Final NORMAL UPPER RESPIRATORY SANAZ PRESENT Complete 11/11/16 13:00 Urine,Clean Catch Urine Culture - Preliminary Resulted Objective HEAD AND NECK: No JVD. He is on BiPAP. LUNGS: Coarse rhonchi bilaterally. Cardiovascular: Regular S1 and S2 with no gallop. 2/6 systolic murmur at aortic area. ABDOMEN: Soft. EXTREMITIES: Contracted. 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
[2016-11-12] MEDS: Terazosin 1mg cap ORAL SCH (20:58)
[2016-11-12] MEDS: Dyna-Hex 2% Top Sol 2oz TOPIC SCH (21:01)
[2016-11-13] VITALS (24 sets, daily range): BP systolic 97–117; BP diastolic 39–89
[2016-11-13] MEDS: Meropenem 1 GM in NS 110 ML IVPB SCH ×3 (05:37→21:41)
[2016-11-13] MEDS: Hydrocortisone 100mg Inj IV SCH ×3 (05:37→21:43)
[2016-11-13 06:00] LABS: MEAN CORPUSCULAR HEMOGLOBIN 24.8 PG (27.0-31.0); MEAN CORPUSCULAR HGB CONC 30.4 G/DL (32.0-36.0); MEAN CORPUSCULAR VOLUME 82 FL (80-99); MEAN PLATELET VOLUME 7.3 FL (6.5-10.1); PLATELET COUNT 108 K/UL (150-450); RED CELL DISTRIBUTION WIDTH 28.2 % (11.6-14.8)
[2016-11-13 06:36] LABS: ALANINE AMINOTRANSFERASE 52 U/L (3-41); ALBUMIN/GLOBULIN RATIO 0.7 (1.0-2.7); ANION GAP 10 (5-15); ASPARTATE AMINO TRANSFERASE 61 U/L (5-40); CALCIUM 7.4 mg/dL (8.6-10.2); CARBON DIOXIDE 23 mEQ/L (20-30); CHLORIDE 96 mEQ/L (98-107); CREATININE 1.6 mg/dL (0.7-1.2); CRP QUANT 1.8 mg/dL (< 0.5); GLOMERULAR FILTRATION RATE 45.4 mL/min (>60); HEMOLYSIS 3; MAGNESIUM 2.4 mg/dL (1.7-2.5); PHOSPHORUS 4.3 mg/dL (2.5-4.8); POTASSIUM 3.9 mEQ/L (3.4-4.9); SODIUM 129 mEQ/L (135-145); TOTAL PROTEIN 5.7 g/dL (6.6-8.7); URIC ACID 6.2 mg/dL (3.0-7.5)
[2016-11-13 07:15] LABS: OSMOLALITY SERUM 285 mOsm/kg (297-317)
[2016-11-13] MEDS: Norepinephrine Bitartrate 8 MG in D5W 500ml 550 ML IV SCH (08:42)
[2016-11-13] MEDS: Heparin 5000 units/ml inj SUBQ SCH ×2 (08:42→20:54)
[2016-11-13] MEDS: Pred Forte 1% Opth Susp 1ml BOTH EYES SCH (09:15)
[2016-11-13] MEDS: Midodrine 10mg tab ORAL SCH ×3 (09:15→17:18)
[2016-11-13] MEDS: Indomethacin 25mg cap ORAL SCH (09:16)
[2016-11-13] MEDS: Pantoprazole Inj IVP SCH (09:16)
[2016-11-13 09:57] LABS: ANISOCYTOSIS 3+; BAND NEUTROPHILS % (MANUAL) 2 % (0-8); BASOPHILS % (MANUAL) 0 % (0-2); EOSINOPHILS % (MANUAL) 0 % (0-3); HYPOCHROMASIA 2+; LYMPHOCYTES % (MANUAL) 7 % (20-45); NEUTROPHILS % (MANUAL) 87 % (45-75); NUCLEATED RED BLOOD CELLS 3 /100 WBC; PLATELET ESTIMATE DECREASED; PLATELET MORPHOLOGY NORMAL; TOTAL CELLS COUNTED 100
[2016-11-13 09:59] LABS: MACROCYTES 1+
--- NOTE | 2016-11-13 10:03 | General Progress Note ---
Assessment/Plan Status: deteriorating Status Narrative Renal parameters worse- Urine out put down Assessment/Plan Acute renal failure- low urine- Cr up Low mag , Low Phos , Low BP improved Urine out put low- 450 cc urine retention (1) Acute respiratory failure (2) Severe anemia (3) Anemia (4) Ankylosing spondylitis (5) Ascites (6) Cardiomyopathy (7) Kyphosis Plan: dominguez- Albumin- DC Indocin On Midodrine per consultants monitor renal parameters- ultimate prognosis remains poor Subjective ROS Limited/Unobtainable: Yes Allergies: Coded Allergies: No Known Allergies (Unverified , 10/22/11) Objective Last 24 Hour Vital Signs Date Time Temp Pulse Resp B/P (MAP) Pulse Ox O2 Delivery O2 Flow Rate FiO2 11/13/16 09:32 80 19 100 Full Face 45 11/13/16 09:00 74 22 102/51 100 Bi-pap 50 11/13/16 08:00 98.0 80 26 101/55 100 Bi-pap 50 11/13/16 08:00 50 11/13/16 08:00 78 11/13/16 07:30 72 19 100 Full Face 45 11/13/16 07:00 73 22 97/44 100 Bi-pap 50 11/13/16 06:00 73 23 104/48 100 Bi-pap 50 11/13/16 05:16 71 21 94 Full Face 50 11/13/16 05:00 94 22 100/48 100 Bi-pap 50 11/13/16 04:00 50 11/13/16 04:00 97.9 76 26 104/55 100 Bi-pap 50 11/13/16 04:00 80 11/13/16 03:30 70 20 95 Full Face 50 11/13/16 03:00 78 22 100/50 99 Bi-pap 50 11/13/16 02:00 80 20 103/55 98 Bi-pap 50 11/13/16 01:04 72 22 98 Full Face 50 11/13/16 01:00 78 20 102/48 100 Bi-pap 50 11/13/16 00:00 76 11/13/16 00:00 50 11/13/16 00:00 97.9 77 29 103/51 99 Bi-pap 50 11/12/16 23:30 73 20 98 Full Face 50 11/12/16 23:00 76 30 67/43 99 Bi-pap 50 11/12/16 22:00 77 30 97/48 99 Bi-pap 50 11/12/16 21:30 78 24 94 Full Face 50 11/12/16 21:00 76 23 99/45 99 Bi-pap 50 11/12/16 20:00 78 11/12/16 20:00 50 11/12/16 20:00 98.1 75 22 95/49 100 Bi-pap 50 11/12/16 19:30 75 25 100 Full Face 50 11/12/16 19:00 76 19 112/53 100 Bi-pap 50 11/12/16 18:00 76 19 112/57 100 Bi-pap 50 11/12/16 17:00 76 20 114/56 100 Bi-pap 50 11/12/16 16:30 77 24 100 Full Face 50 11/12/16 16:00 97.7 74 30 113/74 100 Bi-pap 50 11/12/16 16:00 50 11/12/16 16:00 76 11/12/16 15:13 73 19 100 Full Face 50 11/12/16 15:00 72 19 113/58 100 Bi-pap 50 11/12/16 14:00 78 30 107/53 100 Bi-pap 50 11/12/16 13:00 77 30 121/58 100 Bi-pap 50 11/12/16 12:45 74 20 100 Full Face 50 11/12/16 12:00 50 11/12/16 12:00 78 11/12/16 12:00 98.1 75 30 118/62 100 Bi-pap 50 11/12/16 11:04 72 20 100 Full Face 50 11/12/16 11:00 77 30 114/67 100 Bi-pap 50 11/12/16 10:00 72 30 126/64 100 Bi-pap 50 Intake and Output 11/13/16 11/14/16 19:00 07:00 Intake Total 70 ml Output Total 0 ml Balance 70 ml Tube Feeding 70 ml Output Urine Total 0 ml # Bowel Movements 2 Laboratory Tests 11/12/16 11:52: Urine Osmolality 326L, Urine Random Sodium 21 11/12/16 19:30: Vancomycin Level Trough 43.5H 11/13/16 04:30: White Blood Count 8.0, Red Blood Count 4.00L, Hemoglobin 9.9L, Hematocrit 32.6L , Mean Corpuscular Volume 82, Mean Corpuscular Hemoglobin 24.8L, Mean Corpuscular Hemoglobin Concent 30.4L, Red Cell Distribution Width 28.2H, Platelet Count 108L, Mean Platelet Volume 7.3, Neutrophils (%) (Auto) , Lymphocytes (%) (Auto) , Monocytes (%) (Auto) , Eosinophils (%) (Auto) , Basophils (%) (Auto) , Neutrophils % (Manual) [Pending], Lymphocytes % (Manual) [Pending], Platelet Estimate [Pending], Platelet Morphology [Pending], Sodium Level 129L, Potassium Level 3.9, Chloride Level 96L, Carbon Dioxide Level 23, Anion Gap 10, Blood Urea Nitrogen 39H, Creatinine 1.6H, Estimat Glomerular Filtration Rate 45.4, Glucose Level 111H, Osmolality 285L, Uric Acid 6.2, Calcium Level 7.4L, Phosphorus Level 4.3, Magnesium Level 2.4, Total Bilirubin 0.5, Aspartate Amino Transf (AST/SGOT) 61H, Alanine Aminotransferase (ALT/SGPT) 52H, Alkaline Phosphatase 48, C-Reactive Protein, Quantitative 1.8H, Pro-B-Type Natriuretic Peptide > 11631B, Total Protein 5.7L, Albumin 2.4L, Globulin 3.3, Albumin/Globulin Ratio 0.7L, Thyroid Stimulating Hormone (TSH) 5.210H Height (Feet): 5 Height (Inches): 6.00 Weight (Pounds): 176 EENT: other - on BIPAP Cardiovascular: normal rate Respiratory/Chest: decreased breath sounds Abdomen: soft Objective no change in PE HEIDI PINEDA Nov 13, 2016 10:03
[2016-11-13] MEDS: DOPamine 400mg/250ml 250 ML IV SCH (10:09)
--- NOTE | 2016-11-13 10:27 | Pulmonolgy Critical Care Note ---
Critical Care - Asmt/Plan Problems: (1) Acute respiratory failure (2) Severe anemia (3) Anemia (4) Ankylosing spondylitis (5) Ascites (6) Cardiomyopathy (7) Kyphosis Respiratory: monitor respiratory rate, adjust FIO2, CXR Cardiac: continue to monitor HR/BP Renal: F/U I&O Infectious Disease: check cultures, continue antibiotics Gastrointestinal: continue feedings/current rate Endocrine: monitor blood sugar, check HgA1C Neurologic: PRN Ativan, PRN Morphine Affect: PRN ativan Prophylaxis: Heparin Notes Reviewed: marketing community liaison Discussed with: nurses, consultants, bottle casermanager package - Objective Last 24 Hour Vital Signs Date Time Temp Pulse Resp B/P (MAP) Pulse Ox O2 Delivery O2 Flow Rate FiO2 11/13/16 10:09 108/55 11/13/16 10:00 70 21 108/55 100 Bi-pap 50 11/13/16 09:32 80 19 100 Full Face 45 11/13/16 09:00 74 22 102/51 100 Bi-pap 50 11/13/16 08:00 98.0 80 26 101/55 100 Bi-pap 50 11/13/16 08:00 50 11/13/16 08:00 78 11/13/16 07:30 72 19 100 Full Face 45 11/13/16 07:00 73 22 97/44 100 Bi-pap 50 11/13/16 06:00 73 23 104/48 100 Bi-pap 50 11/13/16 05:16 71 21 94 Full Face 50 11/13/16 05:00 94 22 100/48 100 Bi-pap 50 11/13/16 04:00 50 11/13/16 04:00 97.9 76 26 104/55 100 Bi-pap 50 11/13/16 04:00 80 11/13/16 03:30 70 20 95 Full Face 50 11/13/16 03:00 78 22 100/50 99 Bi-pap 50 11/13/16 02:00 80 20 103/55 98 Bi-pap 50 11/13/16 01:04 72 22 98 Full Face 50 11/13/16 01:00 78 20 102/48 100 Bi-pap 50 11/13/16 00:00 76 11/13/16 00:00 50 11/13/16 00:00 97.9 77 29 103/51 99 Bi-pap 50 11/12/16 23:30 73 20 98 Full Face 50 11/12/16 23:00 76 30 67/43 99 Bi-pap 50 11/12/16 22:00 77 30 97/48 99 Bi-pap 50 11/12/16 21:30 78 24 94 Full Face 50 11/12/16 21:00 76 23 99/45 99 Bi-pap 50 11/12/16 20:00 78 11/12/16 20:00 50 11/12/16 20:00 98.1 75 22 95/49 100 Bi-pap 50 11/12/16 19:30 75 25 100 Full Face 50 11/12/16 19:00 76 19 112/53 100 Bi-pap 50 11/12/16 18:00 76 19 112/57 100 Bi-pap 50 11/12/16 17:00 76 20 114/56 100 Bi-pap 50 11/12/16 16:30 77 24 100 Full Face 50 11/12/16 16:00 97.7 74 30 113/74 100 Bi-pap 50 11/12/16 16:00 50 11/12/16 16:00 76 11/12/16 15:13 73 19 100 Full Face 50 11/12/16 15:00 72 19 113/58 100 Bi-pap 50 11/12/16 14:00 78 30 107/53 100 Bi-pap 50 11/12/16 13:00 77 30 121/58 100 Bi-pap 50 11/12/16 12:45 74 20 100 Full Face 50 11/12/16 12:00 50 11/12/16 12:00 78 11/12/16 12:00 98.1 75 30 118/62 100 Bi-pap 50 11/12/16 11:04 72 20 100 Full Face 50 11/12/16 11:00 77 30 114/67 100 Bi-pap 50 Status: awake Condition: critical HEENT: atraumatic Lungs: clear Heart: HR/BP unstable Abdomen: soft, non-tender Extremities: no C/C/E, edema Decubiti: location Micro: Microbiology Date/Time Source Procedure Growth Status 11/11/16 14:00 Blood Blood Culture - Preliminary NO GROWTH AFTER 24 HOURS Resulted 11/11/16 16:00 Ascities Fluid Gram Stain - Final Resulted 11/11/16 16:00 Ascities Fluid Body Fluid Culture - Preliminary NO GROWTH AFTER 48 HOURS Resulted 11/11/16 13:00 Urine,Clean Catch Urine Culture - Preliminary YEAST Resulted Critical Care - Subjective ICU Day: 13 Intubation Day: still on bipap Condition: critical EKG Rhythm: Sinus Rhythm FI02: 50 Sputum Amount: None Drips: off levophed, Tube Feeding Amount: 35 I&O: Intake and Output 11/13/16 11/14/16 19:00 07:00 Intake Total 105 ml Output Total 0 ml Balance 105 ml Tube Feeding 105 ml Output Urine Total 0 ml # Bowel Movements 2 CXR: no change Labs: Laboratory Tests Test 11/12/16 11:52 11/12/16 19:30 11/13/16 04:30 Urine Osmolality 326 mOsm/kg (429-449) L Urine Random Sodium 21 mmol/L Vancomycin Level Trough 43.5 ug/mL (5.0-12.0) H White Blood Count 8.0 K/UL (4.8-10.8) Red Blood Count 4.00 M/UL (4.70-6.10) L Hemoglobin 9.9 G/DL (14.2-18.0) L Hematocrit 32.6 % (42.0-52.0) L Mean Corpuscular Volume 82 FL (80-99) Mean Corpuscular Hemoglobin 24.8 PG (27.0-31.0) L Mean Corpuscular Hemoglobin Concent 30.4 G/DL (32.0-36.0) L Red Cell Distribution Width 28.2 % (11.6-14.8) H Platelet Count 108 K/UL (150-450) L Mean Platelet Volume 7.3 FL (6.5-10.1) Neutrophils (%) (Auto) % (45.0-75.0) Lymphocytes (%) (Auto) % (20.0-45.0) Monocytes (%) (Auto) % (1.0-10.0) Eosinophils (%) (Auto) % (0.0-3.0) Basophils (%) (Auto) % (0.0-2.0) Differential Total Cells Counted 100 Neutrophils % (Manual) 87 % (45-75) H Lymphocytes % (Manual) 7 % (20-45) L Monocytes % (Manual) 4 % (1-10) Eosinophils % (Manual) 0 % (0-3) Basophils % (Manual) 0 % (0-2) Band Neutrophils 2 % (0-8) Nucleated Red Blood Cells 3 /100 WBC Platelet Estimate Decreased L Platelet Morphology Normal Hypochromasia 2+ Anisocytosis 3+ Macrocytosis 1+ Sodium Level 129 mEQ/L (135-145) L Potassium Level 3.9 mEQ/L (3.4-4.9) Chloride Level 96 mEQ/L (98-107) L Carbon Dioxide Level 23 mEQ/L (20-30) Anion Gap 10 (5-15) Blood Urea Nitrogen 39 mg/dL (7-23) H Creatinine 1.6 mg/dL (0.7-1.2) H Estimat Glomerular Filtration Rate 45.4 mL/min (>60) Glucose Level 111 mg/dL (74-106) H Osmolality 285 mOsm/kg (297-317) L Uric Acid 6.2 mg/dL (3.0-7.5) Calcium Level 7.4 mg/dL (8.6-10.2) L Phosphorus Level 4.3 mg/dL (2.5-4.8) Magnesium Level 2.4 mg/dL (1.7-2.5) Total Bilirubin 0.5 mg/dL (0.0-1.2) Aspartate Amino Transf (AST/SGOT) 61 U/L (5-40) H Alanine Aminotransferase (ALT/SGPT) 52 U/L (3-41) H Alkaline Phosphatase 48 U/L (40-129) C-Reactive Protein, Quantitative 1.8 mg/dL (< 0.5) H Pro-B-Type Natriuretic Peptide > 90534 pg/mL (0-125) H Total Protein 5.7 g/dL (6.6-8.7) L Albumin 2.4 g/dL (3.5-5.2) L Globulin 3.3 g/dL Albumin/Globulin Ratio 0.7 (1.0-2.7) L Thyroid Stimulating Hormone (TSH) 5.210 uIU/mL (0.300-4.500) ESTEFANY MITCHELL Nov 13, 2016 10:27
[2016-11-13] MEDS ORDERED: NS 275ml ONE (11:04)
--- NOTE | 2016-11-13 13:18 | Internal Med Progress Note ---
Subjective Date of Service: Nov 13, 2016 Physician Name Miki Easton Attending Physician Raheel Dumont MD Current Medications Medications (Trade) Dose Ordered Sig/Dina Route PRN Reason Start Time Stop Time Status Last Admin Dose Admin Acetaminophen (Tylenol) 650 mg Q4H PRN ORAL FEVER 11/01/16 18:45 11/30/16 18:44 11/12/16 19:29 Chlorhexidine Gluconate (Natalia-Hex 2%) 1 applic QHS TOPIC 11/08/16 21:00 12/08/16 20:59 11/12/16 21:01 Dextrose (Dextrose 50%) STAT PRN IV Hypoglycemia 11/01/16 18:45 11/30/16 18:44 Dopamine HCl/ Dextrose 250 ml @ 0 mls/hr Q24H IV 11/13/16 10:00 12/13/16 09:59 11/13/16 10:09 Heparin Sodium (Porcine) (Heparin 5000 units/ml) 5,000 units EVERY 12 HOURS SUBQ 11/01/16 21:00 11/30/16 20:59 11/08/16 20:49 Hydrocortisone (Solu-CORTEF) 100 mg EVERY 8 HOURS IV 11/11/16 14:00 12/11/16 13:59 11/13/16 05:37 Meropenem 1 gm/ Sodium Chloride 110 ml @ 220 mls/hr Q8HR IVPB 11/11/16 14:00 11/16/16 13:59 11/13/16 05:37 Midodrine (Pro-Amatine) 10 mg THREE TIMES A DAY ORAL 11/10/16 09:00 12/10/16 08:59 11/13/16 09:15 Norepinephrine Bitartrate 8 mg/ Dextrose 558 ml @ 0 mls/hr Q24H IV 11/10/16 09:00 12/08/16 11:14 11/12/16 06:44 Ondansetron HCl (Zofran) 4 mg Q6H PRN IVP Nausea & Vomiting 11/01/16 18:45 11/30/16 18:44 Pantoprazole (Protonix) 40 mg DAILY IVP 11/05/16 16:00 12/05/16 15:59 11/13/16 09:16 Polyethylene Glycol (Miralax) 17 gm DAILYPRN PRN ORAL Constipation 11/01/16 18:45 11/30/16 18:44 Prednisolone Acetate (Pred Forte) 1 drop DAILY BOTH EYES 11/02/16 09:00 12/01/16 08:59 11/13/16 09:15 Promethazine HCl/ Codeine (Phenergan with Codeine) 5 ml Q6H PRN ORAL For Cough 11/01/16 20:30 12/01/16 08:29 Vancomycin HCl (Vanco rx to dose) 1 ea DAILY PRN MISC Per rx protocol 11/11/16 12:00 12/11/16 11:59 Allergies: Coded Allergies: No Known Allergies (Unverified , 10/22/11) ROS Limited/Unobtainable: Yes Subjective 51 YO M admitted with cough, fever and chills. Worsening respiratory failure; Now on BIPAP. Continues on Levophed and dopamine. Cover for Int Med -Dr Dumont. ICU. S/P paracentesis 11/11/16. Objective Last Vital Signs Date Time Temp Pulse Resp B/P (MAP) Pulse Ox O2 Delivery O2 Flow Rate FiO2 11/13/16 12:00 94 11/13/16 12:00 21 117/63 100 Bi-pap 50 11/13/16 08:00 98.0 11/05/16 07:00 80.0 Laboratory Tests Test 11/12/16 19:30 11/13/16 04:30 Vancomycin Level Trough 43.5 ug/mL (5.0-12.0) H White Blood Count 8.0 K/UL (4.8-10.8) Red Blood Count 4.00 M/UL (4.70-6.10) L Hemoglobin 9.9 G/DL (14.2-18.0) L Hematocrit 32.6 % (42.0-52.0) L Mean Corpuscular Volume 82 FL (80-99) Mean Corpuscular Hemoglobin 24.8 PG (27.0-31.0) L Mean Corpuscular Hemoglobin Concent 30.4 G/DL (32.0-36.0) L Red Cell Distribution Width 28.2 % (11.6-14.8) H Platelet Count 108 K/UL (150-450) L Mean Platelet Volume 7.3 FL (6.5-10.1) Neutrophils (%) (Auto) % (45.0-75.0) Lymphocytes (%) (Auto) % (20.0-45.0) Monocytes (%) (Auto) % (1.0-10.0) Eosinophils (%) (Auto) % (0.0-3.0) Basophils (%) (Auto) % (0.0-2.0) Differential Total Cells Counted 100 Neutrophils % (Manual) 87 % (45-75) H Lymphocytes % (Manual) 7 % (20-45) L Monocytes % (Manual) 4 % (1-10) Eosinophils % (Manual) 0 % (0-3) Basophils % (Manual) 0 % (0-2) Band Neutrophils 2 % (0-8) Nucleated Red Blood Cells 3 /100 WBC Platelet Estimate Decreased L Platelet Morphology Normal Hypochromasia 2+ Anisocytosis 3+ Macrocytosis 1+ Sodium Level 129 mEQ/L (135-145) L Potassium Level 3.9 mEQ/L (3.4-4.9) Chloride Level 96 mEQ/L (98-107) L Carbon Dioxide Level 23 mEQ/L (20-30) Anion Gap 10 (5-15) Blood Urea Nitrogen 39 mg/dL (7-23) H Creatinine 1.6 mg/dL (0.7-1.2) H Estimat Glomerular Filtration Rate 45.4 mL/min (>60) Glucose Level 111 mg/dL (74-106) H Osmolality 285 mOsm/kg (297-317) L Uric Acid 6.2 mg/dL (3.0-7.5) Calcium Level 7.4 mg/dL (8.6-10.2) L Phosphorus Level 4.3 mg/dL (2.5-4.8) Magnesium Level 2.4 mg/dL (1.7-2.5) Total Bilirubin 0.5 mg/dL (0.0-1.2) Aspartate Amino Transf (AST/SGOT) 61 U/L (5-40) H Alanine Aminotransferase (ALT/SGPT) 52 U/L (3-41) H Alkaline Phosphatase 48 U/L (40-129) C-Reactive Protein, Quantitative 1.8 mg/dL (< 0.5) H Pro-B-Type Natriuretic Peptide > 41497 pg/mL (0-125) H Total Protein 5.7 g/dL (6.6-8.7) L Albumin 2.4 g/dL (3.5-5.2) L Globulin 3.3 g/dL Albumin/Globulin Ratio 0.7 (1.0-2.7) L Thyroid Stimulating Hormone (TSH) 5.210 uIU/mL (0.300-4.500) Microbiology Date/Time Source Procedure Growth Status 11/11/16 14:00 Blood Blood Culture - Preliminary NO GROWTH AFTER 24 HOURS Resulted 11/11/16 16:00 Ascities Fluid Gram Stain - Final Resulted 11/11/16 16:00 Ascities Fluid Body Fluid Culture - Preliminary NO GROWTH AFTER 48 HOURS Resulted 11/11/16 13:00 Urine,Clean Catch Urine Culture - Preliminary YEAST Resulted Intake and Output 11/13/16 11/14/16 19:00 07:00 Intake Total 686.978 ml Output Total 0 ml Balance 686.978 ml IV Total 511.978 ml Tube Feeding 175 ml Output Urine Total 0 ml # Bowel Movements 2 Objective General Appearance: WD/WN, no apparent distress, alert EENT: PERRL/EOMI, normal ENT inspection Neck: non-tender, muscle spasm, stiff neck, other - contractrre Cardiovascular: normal peripheral pulses, normal rate, regular rhythm, no gallop/murmur, no JVD Respiratory/Chest: BIPAP; chest wall non-tender, respiratory distress, crackles /rales, rhonchi - bilaterally, expiratory wheezing Abdomen: normal bowel sounds, non tender, soft, no organomegaly, no mass Extremities: normal range of motion Neurologic: other - contractures Skin: normal pigmentation, warm/dry Assessment/Plan Problem List: (1) Depression (2) Flexion contractures Assessment & Plan: physical therapy (3) Anemia Assessment & Plan: Iron def anemia. Continue IV iron (4) Ankylosing spondylitis (5) HTN (hypertension) Assessment & Plan: Continue amlodipine (6) Osteoporosis (7) Kyphosis (8) Cervical spondylitis (9) Pneumonia Assessment & Plan: Continue BIPAP. See pulmonary note. Continue Cefepime per pulm (10) SOB (shortness of breath) Assessment & Plan: Neck collar and BIPAP (11) Ascites Assessment & Plan: S/P paracentesis 11/11/16. see GI note. (12) Respiratory failure Assessment & Plan: Anesthesiology unable to intubate; ENT unable to perform tracheostomy-see note. Worsening. Cont BIPAP per pulmonary. Start flagyl for possible aspiration pneumonia. Continue zosyn and vanco per ID recommendation (13) Hypotension Assessment & Plan: Presumed sepsis, however no definite source. Continue levophed and dopamine. Continue meropenem and vanco per ID. (14) Hyponatremia Assessment & Plan: Continue hypertonic saline per nephrology Assessment/Plan Unable to intubate due to neck contractures. See pulmonary note. Prognosis is poor. Transfer to [facility] when bed available. MIKI EASTON Nov 13, 2016 13:18
--- NOTE | 2016-11-13 14:14 | Cardiac Electrophysiology PN ---
Assessment/Plan Assessment/Plan 1. Severe aortic stenosis. Not a candidate for percutaneous intervention or aortic valve replacement. Avoid beta-blockers. 2. Cardiomyopathy. Off of beta-blockers. 3. S/P septic Shock. On Abx per Dr schumacher. On renal dose doapmine. 4. Respiratory failure, currently on BiPAP, could not be intubated. Evaluated by ENT and surgery. Not able to have Tracheostomy. 5. Depression. 6. Flexion contractures. 7. Ankylosing spondylitis. 8. Kyphosis. 9. Ascites. 10. Anemia. . DW RN Subjective Subjective In ICU now on renal dose dopamine. On BIPAP. RN at bedside.No arrhythmias reported. DNR and DNI Objective Last 24 Hour Vital Signs Date Time Temp Pulse Resp B/P (MAP) Pulse Ox O2 Delivery O2 Flow Rate FiO2 11/13/16 13:00 98.2 90 21 117/62 100 Bi-pap 50 11/13/16 12:00 94 11/13/16 12:00 90 21 117/63 100 Bi-pap 50 11/13/16 12:00 50 11/13/16 11:00 91 21 112/46 100 Bi-pap 50 11/13/16 10:09 108/55 11/13/16 10:00 70 21 108/55 100 Bi-pap 50 11/13/16 09:32 80 19 100 Full Face 45 11/13/16 09:00 74 22 102/51 100 Bi-pap 50 11/13/16 08:00 98.0 80 26 101/55 100 Bi-pap 50 11/13/16 08:00 50 11/13/16 08:00 78 11/13/16 07:30 72 19 100 Full Face 45 11/13/16 07:00 73 22 97/44 100 Bi-pap 50 11/13/16 06:00 73 23 104/48 100 Bi-pap 50 11/13/16 05:16 71 21 94 Full Face 50 11/13/16 05:00 94 22 100/48 100 Bi-pap 50 11/13/16 04:00 50 11/13/16 04:00 97.9 76 26 104/55 100 Bi-pap 50 11/13/16 04:00 80 11/13/16 03:30 70 20 95 Full Face 50 11/13/16 03:00 78 22 100/50 99 Bi-pap 50 11/13/16 02:00 80 20 103/55 98 Bi-pap 50 11/13/16 01:04 72 22 98 Full Face 50 11/13/16 01:00 78 20 102/48 100 Bi-pap 50 11/13/16 00:00 76 11/13/16 00:00 50 11/13/16 00:00 97.9 77 29 103/51 99 Bi-pap 50 11/12/16 23:30 73 20 98 Full Face 50 11/12/16 23:00 76 30 67/43 99 Bi-pap 50 11/12/16 22:00 77 30 97/48 99 Bi-pap 50 11/12/16 21:30 78 24 94 Full Face 50 11/12/16 21:00 76 23 99/45 99 Bi-pap 50 11/12/16 20:00 78 11/12/16 20:00 50 11/12/16 20:00 98.1 75 22 95/49 100 Bi-pap 50 11/12/16 19:30 75 25 100 Full Face 50 11/12/16 19:00 76 19 112/53 100 Bi-pap 50 11/12/16 18:00 76 19 112/57 100 Bi-pap 50 11/12/16 17:00 76 20 114/56 100 Bi-pap 50 11/12/16 16:30 77 24 100 Full Face 50 11/12/16 16:00 97.7 74 30 113/74 100 Bi-pap 50 11/12/16 16:00 50 11/12/16 16:00 76 11/12/16 15:13 73 19 100 Full Face 50 11/12/16 15:00 72 19 113/58 100 Bi-pap 50 Intake and Output 11/13/16 11/14/16 19:00 07:00 Intake Total 721.978 ml Output Total 0 ml Balance 721.978 ml IV Total 511.978 ml Tube Feeding 210 ml Output Urine Total 0 ml # Bowel Movements 2 Laboratory Tests Test 11/12/16 19:30 11/13/16 04:30 Vancomycin Level Trough 43.5 ug/mL (5.0-12.0) H White Blood Count 8.0 K/UL (4.8-10.8) Red Blood Count 4.00 M/UL (4.70-6.10) L Hemoglobin 9.9 G/DL (14.2-18.0) L Hematocrit 32.6 % (42.0-52.0) L Mean Corpuscular Volume 82 FL (80-99) Mean Corpuscular Hemoglobin 24.8 PG (27.0-31.0) L Mean Corpuscular Hemoglobin Concent 30.4 G/DL (32.0-36.0) L Red Cell Distribution Width 28.2 % (11.6-14.8) H Platelet Count 108 K/UL (150-450) L Mean Platelet Volume 7.3 FL (6.5-10.1) Neutrophils (%) (Auto) % (45.0-75.0) Lymphocytes (%) (Auto) % (20.0-45.0) Monocytes (%) (Auto) % (1.0-10.0) Eosinophils (%) (Auto) % (0.0-3.0) Basophils (%) (Auto) % (0.0-2.0) Differential Total Cells Counted 100 Neutrophils % (Manual) 87 % (45-75) H Lymphocytes % (Manual) 7 % (20-45) L Monocytes % (Manual) 4 % (1-10) Eosinophils % (Manual) 0 % (0-3) Basophils % (Manual) 0 % (0-2) Band Neutrophils 2 % (0-8) Nucleated Red Blood Cells 3 /100 WBC Platelet Estimate Decreased L Platelet Morphology Normal Hypochromasia 2+ Anisocytosis 3+ Macrocytosis 1+ Sodium Level 129 mEQ/L (135-145) L Potassium Level 3.9 mEQ/L (3.4-4.9) Chloride Level 96 mEQ/L (98-107) L Carbon Dioxide Level 23 mEQ/L (20-30) Anion Gap 10 (5-15) Blood Urea Nitrogen 39 mg/dL (7-23) H Creatinine 1.6 mg/dL (0.7-1.2) H Estimat Glomerular Filtration Rate 45.4 mL/min (>60) Glucose Level 111 mg/dL (74-106) H Osmolality 285 mOsm/kg (297-317) L Uric Acid 6.2 mg/dL (3.0-7.5) Calcium Level 7.4 mg/dL (8.6-10.2) L Phosphorus Level 4.3 mg/dL (2.5-4.8) Magnesium Level 2.4 mg/dL (1.7-2.5) Total Bilirubin 0.5 mg/dL (0.0-1.2) Aspartate Amino Transf (AST/SGOT) 61 U/L (5-40) H Alanine Aminotransferase (ALT/SGPT) 52 U/L (3-41) H Alkaline Phosphatase 48 U/L (40-129) C-Reactive Protein, Quantitative 1.8 mg/dL (< 0.5) H Pro-B-Type Natriuretic Peptide > 01970 pg/mL (0-125) H Total Protein 5.7 g/dL (6.6-8.7) L Albumin 2.4 g/dL (3.5-5.2) L Globulin 3.3 g/dL Albumin/Globulin Ratio 0.7 (1.0-2.7) L Thyroid Stimulating Hormone (TSH) 5.210 uIU/mL (0.300-4.500) Microbiology Date/Time Source Procedure Growth Status 11/11/16 14:00 Blood Blood Culture - Preliminary NO GROWTH AFTER 24 HOURS Resulted 11/11/16 16:00 Ascities Fluid Gram Stain - Final Resulted 11/11/16 16:00 Ascities Fluid Body Fluid Culture - Preliminary NO GROWTH AFTER 48 HOURS Resulted 11/13/16 04:30 Sputum Gram Stain - Final Resulted 11/13/16 04:30 Sputum Sputum Culture Pending Resulted 11/11/16 13:00 Urine,Clean Catch Urine Culture - Preliminary YEAST Resulted Objective HEAD AND NECK: No JVD. He is on BiPAP. LUNGS: Coarse rhonchi bilaterally. Cardiovascular: Regular S1 and S2 with no gallop. 2/6 systolic murmur at aortic area. ABDOMEN: Soft. EXTREMITIES: Contracted. KIMBERLY SALTER Nov 13, 2016 14:14
--- NOTE | 2016-11-13 16:42 | General Progress Note ---
Assessment/Plan Assessment/Plan ASSESSMENT: 1. Thrombocytopenia potentially secondary to sepsis vs liver disease --> abd us shows hepatomegaly --> id on board --> plt count improving 2. Anemia, secondary to chronic disease. --> watch counts. HH stable --> hgb goal 8-10 3. Coagulopathy, secondary to malnutrition. 4. Ankylosing spondylitis. 5. Hypertension. 6. Shortness of breath. 7. Ascites, status post paracentesis. 8. Respiratory failure. He is on BiPAP. He is not a candidate for tracheostomy as per Surgical Service. Prognosis remains poor. Subjective Constitutional: Reports: no symptoms HEENT: Reports: no symptoms Cardiovascular: Reports: no symptoms Respiratory: Reports: no symptoms Gastrointestinal/Abdominal: Reports: no symptoms Genitourinary: Reports: no symptoms Neurologic/Psychiatric: Reports: no symptoms Endocrine: Reports: no symptoms Hematologic/Lymphatic: Reports: no symptoms Allergies: Coded Allergies: No Known Allergies (Unverified , 10/22/11) Subjective afebrile,no bleeding reported. pending transfer to [facility] Objective Last 24 Hour Vital Signs Date Time Temp Pulse Resp B/P (MAP) Pulse Ox O2 Delivery O2 Flow Rate FiO2 11/13/16 16:00 50 11/13/16 16:00 88 11/13/16 15:00 97 21 113/62 100 Bi-pap 50 11/13/16 14:00 94 21 109/44 100 Bi-pap 50 11/13/16 13:15 75 19 100 Full Face 45 11/13/16 13:00 98.2 90 21 117/62 100 Bi-pap 50 11/13/16 12:00 94 11/13/16 12:00 90 21 117/63 100 Bi-pap 50 11/13/16 12:00 50 11/13/16 11:09 75 19 100 Full Face 45 11/13/16 11:00 91 21 112/46 100 Bi-pap 50 11/13/16 10:09 108/55 11/13/16 10:00 70 21 108/55 100 Bi-pap 50 11/13/16 09:32 80 19 100 Full Face 45 11/13/16 09:06 73 27 95 Full Face 45 11/13/16 09:00 74 22 102/51 100 Bi-pap 50 11/13/16 08:00 98.0 80 26 101/55 100 Bi-pap 50 10/4/17 08:00 50 11/13/16 08:00 78 11/13/16 07:30 72 19 100 Full Face 45 11/13/16 07:00 73 22 97/44 100 Bi-pap 50 11/13/16 06:00 73 23 104/48 100 Bi-pap 50 11/13/16 05:16 71 21 94 Full Face 50 11/13/16 05:00 94 22 100/48 100 Bi-pap 50 11/13/16 04:00 50 11/13/16 04:00 97.9 76 26 104/55 100 Bi-pap 50 11/13/16 04:00 80 11/13/16 03:30 70 20 95 Full Face 50 11/13/16 03:00 78 22 100/50 99 Bi-pap 50 11/13/16 02:00 80 20 103/55 98 Bi-pap 50 11/13/16 01:04 72 22 98 Full Face 50 11/13/16 01:00 78 20 102/48 100 Bi-pap 50 11/13/16 00:00 76 11/13/16 00:00 50 11/13/16 00:00 97.9 77 29 103/51 99 Bi-pap 50 11/12/16 23:30 73 20 98 Full Face 50 11/12/16 23:00 76 30 67/43 99 Bi-pap 50 11/12/16 22:00 77 30 97/48 99 Bi-pap 50 11/12/16 21:30 78 24 94 Full Face 50 11/12/16 21:00 76 23 99/45 99 Bi-pap 50 11/12/16 20:00 78 11/12/16 20:00 50 11/12/16 20:00 98.1 75 22 95/49 100 Bi-pap 50 11/12/16 19:30 75 25 100 Full Face 50 11/12/16 19:00 76 19 112/53 100 Bi-pap 50 11/12/16 18:00 76 19 112/57 100 Bi-pap 50 11/12/16 17:00 76 20 114/56 100 Bi-pap 50 Intake and Output 11/13/16 11/14/16 19:00 07:00 Intake Total 954.945 ml Output Total 20 ml Balance 934.945 ml IV Total 639.945 ml Tube Feeding 315 ml Output Urine Total 20 ml # Bowel Movements 3 Laboratory Tests 11/12/16 19:30: Vancomycin Level Trough 43.5H 11/13/16 04:30: White Blood Count 8.0, Red Blood Count 4.00L, Hemoglobin 9.9L, Hematocrit 32.6L , Mean Corpuscular Volume 82, Mean Corpuscular Hemoglobin 24.8L, Mean Corpuscular Hemoglobin Concent 30.4L, Red Cell Distribution Width 28.2H, Platelet Count 108L, Mean Platelet Volume 7.3, Neutrophils (%) (Auto) , Lymphocytes (%) (Auto) , Monocytes (%) (Auto) , Eosinophils (%) (Auto) , Basophils (%) (Auto) , Differential Total Cells Counted 100, Neutrophils % ( Manual) 87H, Lymphocytes % (Manual) 7L, Monocytes % (Manual) 4, Eosinophils % ( Manual) 0, Basophils % (Manual) 0, Band Neutrophils 2, Nucleated Red Blood Cells 3, Platelet Estimate DecreasedL, Platelet Morphology Normal, Hypochromasia 2+, Anisocytosis 3+, Macrocytosis 1+, Sodium Level 129L, Potassium Level 3.9, Chloride Level 96L, Carbon Dioxide Level 23, Anion Gap 10, Blood Urea Nitrogen 39H, Creatinine 1.6H, Estimat Glomerular Filtration Rate 45.4, Glucose Level 111H, Osmolality 285L, Uric Acid 6.2, Calcium Level 7.4L, Phosphorus Level 4.3, Magnesium Level 2.4, Total Bilirubin 0.5, Aspartate Amino Transf (AST/SGOT) 61H, Alanine Aminotransferase (ALT/SGPT) 52H, Alkaline Phosphatase 48, C-Reactive Protein, Quantitative 1.8H, Pro-B-Type Natriuretic Peptide > 81349N, Total Protein 5.7L, Albumin 2.4L, Globulin 3.3, Albumin/ Globulin Ratio 0.7L, Thyroid Stimulating Hormone (TSH) 5.210H Height (Feet): 5 Height (Inches): 6.00 Weight (Pounds): 176 General Appearance: no apparent distress EENT: normal ENT inspection Neck: normal alignment Cardiovascular: normal peripheral pulses Respiratory/Chest: chest wall non-tender Abdomen: normal bowel sounds Extremities: normal range of motion Neurologic: staff research associate II-XII grossly normal Skin: normal pigmentation George Gonzales Nov 13, 2016 16:42
--- NOTE | 2016-11-13 19:15 | General Progress Note ---
Assessment/Plan Assessment/Plan Assessment - edema and recurrent ascites - Anemia with OB (-) x 1 - Iron deficiency - Elevated CEA - High albumin gradient ascites --> consistent with (R) heart failure - CM, severe , AI - CHF - Resp failure - dysphagia - cannot place PEG due to ascites - poor prognosis Recommendations - Continue TF via NGT - Paracentesis PRN - poor prognosis - BIPAP - cardiology f/u Subjective Allergies: Coded Allergies: No Known Allergies (Unverified , 10/22/11) Subjective Seen in ICU earlier today doing poorly on halo BIPAP mask tolerating TF but at low rate Objective Last 24 Hour Vital Signs Date Time Temp Pulse Resp B/P (MAP) Pulse Ox O2 Delivery O2 Flow Rate FiO2 11/13/16 19:09 83 17 96 50 11/13/16 19:00 80 30 98/50 98 Bi-pap 50 11/13/16 18:00 80 21 106/89 96 Bi-pap 50 11/13/16 17:24 91 27 94 Full Face 45 11/13/16 17:00 84 21 101/39 96 Bi-pap 50 11/13/16 16:00 98.2 69 20 115/49 100 Bi-pap 50 11/13/16 16:00 50 11/13/16 16:00 88 11/13/16 15:16 93 29 94 Full Face 45 11/13/16 15:00 97 21 113/62 100 Bi-pap 50 11/13/16 14:00 94 21 109/44 100 Bi-pap 50 11/13/16 13:15 75 19 100 Full Face 45 11/13/16 13:00 98.2 90 21 117/62 100 Bi-pap 50 11/13/16 12:00 94 11/13/16 12:00 90 21 117/63 100 Bi-pap 50 11/13/16 12:00 50 11/13/16 11:09 75 19 100 Full Face 45 11/13/16 11:00 91 21 112/46 100 Bi-pap 50 11/13/16 10:09 108/55 11/13/16 10:00 70 21 108/55 100 Bi-pap 50 11/13/16 09:32 80 19 100 Full Face 45 11/13/16 09:06 73 27 95 Full Face 45 11/13/16 09:00 74 22 102/51 100 Bi-pap 50 11/13/16 08:00 98.0 80 26 101/55 100 Bi-pap 50 11/13/16 08:00 50 11/13/16 08:00 78 11/13/16 07:30 72 19 100 Full Face 45 11/13/16 07:00 73 22 97/44 100 Bi-pap 50 11/13/16 06:00 73 23 104/48 100 Bi-pap 50 11/13/16 05:16 71 21 94 Full Face 50 11/13/16 05:00 94 22 100/48 100 Bi-pap 50 11/13/16 04:00 50 11/13/16 04:00 97.9 76 26 104/55 100 Bi-pap 50 11/13/16 04:00 80 11/13/16 03:30 70 20 95 Full Face 50 11/13/16 03:00 78 22 100/50 99 Bi-pap 50 11/13/16 02:00 80 20 103/55 98 Bi-pap 50 11/13/16 01:04 72 22 98 Full Face 50 11/13/16 01:00 78 20 102/48 100 Bi-pap 50 11/13/16 00:00 76 11/13/16 00:00 50 11/13/16 00:00 97.9 77 29 103/51 99 Bi-pap 50 11/12/16 23:30 73 20 98 Full Face 50 11/12/16 23:00 76 30 67/43 99 Bi-pap 50 11/12/16 22:00 77 30 97/48 99 Bi-pap 50 11/12/16 21:30 78 24 94 Full Face 50 11/12/16 21:00 76 23 99/45 99 Bi-pap 50 11/12/16 20:00 78 11/12/16 20:00 50 11/12/16 20:00 98.1 75 22 95/49 100 Bi-pap 50 11/12/16 19:30 75 25 100 Full Face 50 Intake and Output 11/13/16 11/14/16 19:00 07:00 Intake Total 1098.871 ml Output Total 20 ml Balance 1078.871 ml IV Total 678.871 ml Tube Feeding 420 ml Output Urine Total 20 ml # Bowel Movements 5 Laboratory Tests 11/12/16 19:30: Vancomycin Level Trough 43.5H 11/13/16 04:30: White Blood Count 8.0, Red Blood Count 4.00L, Hemoglobin 9.9L, Hematocrit 32.6L , Mean Corpuscular Volume 82, Mean Corpuscular Hemoglobin 24.8L, Mean Corpuscular Hemoglobin Concent 30.4L, Red Cell Distribution Width 28.2H, Platelet Count 108L, Mean Platelet Volume 7.3, Neutrophils (%) (Auto) , Lymphocytes (%) (Auto) , Monocytes (%) (Auto) , Eosinophils (%) (Auto) , Basophils (%) (Auto) , Differential Total Cells Counted 100, Neutrophils % ( Manual) 87H, Lymphocytes % (Manual) 7L, Monocytes % (Manual) 4, Eosinophils % ( Manual) 0, Basophils % (Manual) 0, Band Neutrophils 2, Nucleated Red Blood Cells 3, Platelet Estimate DecreasedL, Platelet Morphology Normal, Hypochromasia 2+, Anisocytosis 3+, Macrocytosis 1+, Sodium Level 129L, Potassium Level 3.9, Chloride Level 96L, Carbon Dioxide Level 23, Anion Gap 10, Blood Urea Nitrogen 39H, Creatinine 1.6H, Estimat Glomerular Filtration Rate 45.4, Glucose Level 111H, Osmolality 285L, Uric Acid 6.2, Calcium Level 7.4L, Phosphorus Level 4.3, Magnesium Level 2.4, Total Bilirubin 0.5, Aspartate Amino Transf (AST/SGOT) 61H, Alanine Aminotransferase (ALT/SGPT) 52H, Alkaline Phosphatase 48, C-Reactive Protein, Quantitative 1.8H, Pro-B-Type Natriuretic Peptide > 47991W, Total Protein 5.7L, Albumin 2.4L, Globulin 3.3, Albumin/ Globulin Ratio 0.7L, Thyroid Stimulating Hormone (TSH) 5.210H Height (Feet): 5 Height (Inches): 6.00 Weight (Pounds): 176 Objective (+) BIPAP NCAT neck stiff b/l ronchi RRR II/ systolic murmur abd soft distended (+) contractures (+) edema on extremities NATASHA ARREDONDO Nov 13, 2016 19:15
--- NOTE | 2016-11-13 20:20 | Infectious Diseases Prog Note ---
Assessment/Plan Assessment/Plan Assesment: #Hypotension on pressors> shock 11/09, afebrile, no leukocytosis; now off pressors- so far no infectious process identified -sp cx 11/13 pending -11/11 Bcx NTD -CXR 11/12: . Evidence of pulmonary edema and left pleural effusion. -BCx 11/09 NTD x4 -sp cx 11/09: normal [place] -Ucx 100K yeast (colonizer), no u/a done #Abd distention, mod ascites- -s/p parecentesis 11/11; WBC 20 ( N 14)- not consistent with SBP; cx NTD -Renal u/s: Hepatomegaly. Heterogeneous echotexture may be indicative of chronic liver disease. Mild to moderate ascites.Thickened gallbladder wall nonspecific. #RUSTY- likely 2ry to hypotension vs vanco vs combination of both #Possible Asp Pneum , s/p Rx 11/09 #CoNS bacteremia in 1/4 sets, likely contaminant, 02/13, afebrile -10/31 + 02/13, 11/02 Bcx Neg x4 # Pyuria. Urine culture : Neg , SP RX -u/a 10/31 mild pyuria:WBC 10-15 -ucx 11/09 C. tropicalis (colonzier) -11/11 u/a WBC 2-4; ucx NTD # Elevated liver function tests, rule out hepatobiliary disease ; resolving - hepatitis panel : Neg - CT of ABD : Heterogeneous appearance of the liver may suggest hepatocellular disease or hepatic congestion. Moderate ascites. -Abd u/s: Slightly increased hepatic echogenicity. Hepatomegaly. Trace ascites. Gallbladder sludge. No stones. Markedly thickened gallbladder wall is likely reactive, related to adjacent hepatocellular inflammation, given stated clinical history. It could also be due to the hemodynamic derangements caused by the liver disease. Also probably exaggerated due to nondistention of the gallbladder. The possibility of acalculous acute cholecystitis or cholecystitis secondary to occult cholelithiasis not completely excludable, however. Consider hepatobiliary nuclearscanning if there is high clinical suspicion Negative for dilated ducts. #. Mid thoracic unstageable pressure ulcer. # HIV: Neg # Thrombocytopenia. # Coagulopathy. #. Ankylosing spondylosis/kyphosis/cervical spondylosis with chronic contractures. #. Tobacco abuse. #. Urine toxicology positive for marijuana. # No known drug allergies. # Full Code. PLAN: -Will d/c IV Vanco given no MRSA isolation and supratherapeutic levels/RUSTY -Continue IV Meropenem #3 (Abx 5) for now -if remains afebrile, Cx neg, will likely d/c tomorrow -s/p 5d IV Vanco 11/13 (empiric) s/p IV cefepime day # 9 , Flagyl d# 5 11/09 ( 09/01 SP IV Vancomycin d# 2 ) -low threshold for HIDA if febrile, leukocytosis or worsenign LFts. -F/u LFTs, - f/u repeat Bcx -. Monitor CBC and temperatures. -. Monitor CMP -. Monitor chest x-ray. -. Wound care. -. BiPAP Discussed with RN. Subjective Allergies: Coded Allergies: No Known Allergies (Unverified , 10/22/11) Subjective afebrile Cx NTD no leukocytosis RUSTY- supratherapeutic vanco levels at 40 Objective Vital Signs Last 24 Hour Vital Signs Date Time Temp Pulse Resp B/P (MAP) Pulse Ox O2 Delivery O2 Flow Rate FiO2 11/13/16 19:09 83 17 96 50 11/13/16 19:00 80 30 98/50 98 Bi-pap 50 11/13/16 18:00 80 21 106/89 96 Bi-pap 50 11/13/16 17:24 91 27 94 Full Face 45 11/13/16 17:00 84 21 101/39 96 Bi-pap 50 11/13/16 16:00 98.2 69 20 115/49 100 Bi-pap 50 11/13/16 16:00 50 11/13/16 16:00 88 11/13/16 15:16 93 29 94 Full Face 45 11/13/16 15:00 97 21 113/62 100 Bi-pap 50 11/13/16 14:00 94 21 109/44 100 Bi-pap 50 11/13/16 13:15 75 19 100 Full Face 45 11/13/16 13:00 98.2 90 21 117/62 100 Bi-pap 50 11/13/16 12:00 94 11/13/16 12:00 90 21 117/63 100 Bi-pap 50 11/13/16 12:00 50 11/13/16 11:09 75 19 100 Full Face 45 11/13/16 11:00 91 21 112/46 100 Bi-pap 50 11/13/16 10:09 108/55 11/13/16 10:00 70 21 108/55 100 Bi-pap 50 11/13/16 09:32 80 19 100 Full Face 45 11/13/16 09:06 73 27 95 Full Face 45 11/13/16 09:00 74 22 102/51 100 Bi-pap 50 11/13/16 08:00 98.0 80 26 101/55 100 Bi-pap 50 11/13/16 08:00 50 11/13/16 08:00 78 11/13/16 07:30 72 19 100 Full Face 45 11/13/16 07:00 73 22 97/44 100 Bi-pap 50 11/13/16 06:00 73 23 104/48 100 Bi-pap 50 11/13/16 05:16 71 21 94 Full Face 50 11/13/16 05:00 94 22 100/48 100 Bi-pap 50 11/13/16 04:00 50 11/13/16 04:00 97.9 76 26 104/55 100 Bi-pap 50 11/13/16 04:00 80 11/13/16 03:30 70 20 95 Full Face 50 11/13/16 03:00 78 22 100/50 99 Bi-pap 50 11/13/16 02:00 80 20 103/55 98 Bi-pap 50 11/13/16 01:04 72 22 98 Full Face 50 11/13/16 01:00 78 20 102/48 100 Bi-pap 50 11/13/16 00:00 76 11/13/16 00:00 50 11/13/16 00:00 97.9 77 29 103/51 99 Bi-pap 50 11/12/16 23:30 73 20 98 Full Face 50 11/12/16 23:00 76 30 67/43 99 Bi-pap 50 11/12/16 22:00 77 30 97/48 99 Bi-pap 50 11/12/16 21:30 78 24 94 Full Face 50 11/12/16 21:00 76 23 99/45 99 Bi-pap 50 Height (Feet): 5 Height (Inches): 6.00 Weight (Pounds): 176 Objective GENERAL: No apparent distress, nontoxic appearing. anasarca HEENT/NECK: Neck contracted. CARDIOVASCULAR: Regular rate and rhythm. No murmurs. PULMONARY: Coarse breath sounds bilaterally. ABDOMINAL: Bowel sounds present. Soft, nondistended, and nontender. EXTREMITIES: Contractures in all four extremities. +3 pitting edema SKIN: Unstageable decubitus over the mid thoracic spine. NEUROLOGICAL: Alert and oriented x3. Microbiology Date/Time Source Procedure Growth Status 11/11/16 14:00 Blood Blood Culture - Preliminary NO GROWTH AFTER 24 HOURS Resulted 11/11/16 16:00 Ascities Fluid Gram Stain - Final Resulted 11/11/16 16:00 Ascities Fluid Body Fluid Culture - Preliminary NO GROWTH AFTER 48 HOURS Resulted 11/13/16 04:30 Sputum Gram Stain - Final Resulted 11/13/16 04:30 Sputum Sputum Culture Pending Resulted 11/11/16 13:00 Urine,Clean Catch Urine Culture - Preliminary YEAST Resulted Laboratory Tests Test 11/13/16 04:30 White Blood Count 8.0 K/UL (4.8-10.8) Red Blood Count 4.00 M/UL (4.70-6.10) L Hemoglobin 9.9 G/DL (14.2-18.0) L Hematocrit 32.6 % (42.0-52.0) L Mean Corpuscular Volume 82 FL (80-99) Mean Corpuscular Hemoglobin 24.8 PG (27.0-31.0) L Mean Corpuscular Hemoglobin Concent 30.4 G/DL (32.0-36.0) L Red Cell Distribution Width 28.2 % (11.6-14.8) H Platelet Count 108 K/UL (150-450) L Mean Platelet Volume 7.3 FL (6.5-10.1) Neutrophils (%) (Auto) % (45.0-75.0) Lymphocytes (%) (Auto) % (20.0-45.0) Monocytes (%) (Auto) % (1.0-10.0) Eosinophils (%) (Auto) % (0.0-3.0) Basophils (%) (Auto) % (0.0-2.0) Differential Total Cells Counted 100 Neutrophils % (Manual) 87 % (45-75) H Lymphocytes % (Manual) 7 % (20-45) L Monocytes % (Manual) 4 % (1-10) Eosinophils % (Manual) 0 % (0-3) Basophils % (Manual) 0 % (0-2) Band Neutrophils 2 % (0-8) Nucleated Red Blood Cells 3 /100 WBC Platelet Estimate Decreased L Platelet Morphology Normal Hypochromasia 2+ Anisocytosis 3+ Macrocytosis 1+ Sodium Level 129 mEQ/L (135-145) L Potassium Level 3.9 mEQ/L (3.4-4.9) Chloride Level 96 mEQ/L (98-107) L Carbon Dioxide Level 23 mEQ/L (20-30) Anion Gap 10 (5-15) Blood Urea Nitrogen 39 mg/dL (7-23) H Creatinine 1.6 mg/dL (0.7-1.2) H Estimat Glomerular Filtration Rate 45.4 mL/min (>60) Glucose Level 111 mg/dL (74-106) H Osmolality 285 mOsm/kg (297-317) L Uric Acid 6.2 mg/dL (3.0-7.5) Calcium Level 7.4 mg/dL (8.6-10.2) L Phosphorus Level 4.3 mg/dL (2.5-4.8) Magnesium Level 2.4 mg/dL (1.7-2.5) Total Bilirubin 0.5 mg/dL (0.0-1.2) Aspartate Amino Transf (AST/SGOT) 61 U/L (5-40) H Alanine Aminotransferase (ALT/SGPT) 52 U/L (3-41) H Alkaline Phosphatase 48 U/L (40-129) C-Reactive Protein, Quantitative 1.8 mg/dL (< 0.5) H Pro-B-Type Natriuretic Peptide > 92375 pg/mL (0-125) H Total Protein 5.7 g/dL (6.6-8.7) L Albumin 2.4 g/dL (3.5-5.2) L Globulin 3.3 g/dL Albumin/Globulin Ratio 0.7 (1.0-2.7) L Thyroid Stimulating Hormone (TSH) 5.210 uIU/mL (0.300-4.500) Current Medications Medications (Trade) Dose Ordered Sig/Dina Route PRN Reason Start Time Stop Time Status Last Admin Dose Admin Acetaminophen (Tylenol) 650 mg Q4H PRN ORAL FEVER 11/01/16 18:45 11/30/16 18:44 11/12/16 19:29 Chlorhexidine Gluconate (Natalia-Hex 2%) 1 applic QHS TOPIC 11/08/16 21:00 12/08/16 20:59 11/12/16 21:01 Dextrose (Dextrose 50%) STAT PRN IV Hypoglycemia 11/01/16 18:45 11/30/16 18:44 Dopamine HCl/ Dextrose 250 ml @ 0 mls/hr Q24H IV 11/13/16 10:00 12/13/16 09:59 11/13/16 10:09 Heparin Sodium (Porcine) (Heparin 5000 units/ml) 5,000 units EVERY 12 HOURS SUBQ 11/01/16 21:00 11/30/16 20:59 11/08/16 20:49 Hydrocortisone (Solu-CORTEF) 100 mg EVERY 8 HOURS IV 11/11/16 14:00 12/11/16 13:59 11/13/16 14:24 Meropenem 1 gm/ Sodium Chloride 110 ml @ 220 mls/hr Q8HR IVPB 11/11/16 14:00 11/16/16 13:59 11/13/16 14:23 Midodrine (Pro-Amatine) 10 mg THREE TIMES A DAY ORAL 11/10/16 09:00 12/10/16 08:59 11/13/16 17:18 Norepinephrine Bitartrate 8 mg/ Dextrose 558 ml @ 0 mls/hr Q24H IV 11/10/16 09:00 12/08/16 11:14 11/12/16 06:44 Ondansetron HCl (Zofran) 4 mg Q6H PRN IVP Nausea & Vomiting 11/01/16 18:45 11/30/16 18:44 Pantoprazole (Protonix) 40 mg DAILY IVP 11/05/16 16:00 12/05/16 15:59 11/13/16 09:16 Polyethylene Glycol (Miralax) 17 gm DAILYPRN PRN ORAL Constipation 11/01/16 18:45 11/30/16 18:44 Prednisolone Acetate (Pred Forte) 1 drop DAILY BOTH EYES 11/02/16 09:00 12/01/16 08:59 11/13/16 09:15 Promethazine HCl/ Codeine (Phenergan with Codeine) 5 ml Q6H PRN ORAL For Cough 11/01/16 20:30 12/01/16 08:29 Vancomycin HCl (Vanco rx to dose) 1 ea DAILY PRN MISC Per rx protocol 11/11/16 12:00 12/11/16 11:59 Loli Roberto M.D. Nov 13, 2016 20:20
[2016-11-13] MEDS: Dyna-Hex 2% Top Sol 2oz TOPIC SCH (20:53)
[2016-11-14] VITALS (37 sets, daily range): BP systolic 0–122; BP diastolic 0–79
[2016-11-14] MEDS: Hydrocortisone 100mg Inj IV SCH ×3 (05:43→21:33)
[2016-11-14] MEDS: Meropenem 1 GM in NS 110 ML IVPB SCH (05:44)
[2016-11-14 06:24] LABS: MEAN CORPUSCULAR VOLUME 83 FL (80-99); MEAN PLATELET VOLUME 7.5 FL (6.5-10.1); PLATELET COUNT 110 K/UL (150-450); RED BLOOD COUNT 3.59 M/UL (4.70-6.10); WHITE BLOOD COUNT 8.2 K/UL (4.8-10.8)
[2016-11-14 06:48] LABS: ALANINE AMINOTRANSFERASE 55 U/L (3-41); ALBUMIN/GLOBULIN RATIO 0.9 (1.0-2.7); ANION GAP 11 (5-15); ASPARTATE AMINO TRANSFERASE 70 U/L (5-40); CALCIUM 7.6 mg/dL (8.6-10.2); CARBON DIOXIDE 23 mEQ/L (20-30); CHLORIDE 95 mEQ/L (98-107); CRP QUANT 1.3 mg/dL (< 0.5); GLOMERULAR FILTRATION RATE 35.1 mL/min (>60); HEMOLYSIS 2; MAGNESIUM 2.4 mg/dL (1.7-2.5); PHOSPHORUS 6.2 mg/dL (2.5-4.8); POTASSIUM 4.1 mEQ/L (3.4-4.9); SODIUM 129 mEQ/L (135-145); TOTAL PROTEIN 5.7 g/dL (6.6-8.7); URIC ACID 6.9 mg/dL (3.0-7.5)
[2016-11-14 08:39] LABS: ANISOCYTOSIS 2+; BAND NEUTROPHILS % (MANUAL) 0 % (0-8); BASOPHILS % (MANUAL) 0 % (0-2); EOSINOPHILS % (MANUAL) 0 % (0-3); HYPOCHROMASIA 1+; LYMPHOCYTES % (MANUAL) 5 % (20-45); NEUTROPHILS % (MANUAL) 90 % (45-75); PLATELET ESTIMATE DECREASED; PLATELET MORPHOLOGY NORMAL; TOTAL CELLS COUNTED 100
[2016-11-14] MEDS: Norepinephrine Bitartrate 8 MG in D5W 500ml 550 ML IV SCH (09:00)
[2016-11-14] MEDS: Heparin 5000 units/ml inj SUBQ SCH ×2 (09:00→21:00)
--- NOTE | 2016-11-14 09:02 | Wound Care Consultation ---
Wound Assessment Wound Assessment : Wound Present on Admission: No New Wound: Yes Status Change of Wound: No Wound Location Body Site Modif: posterior Wound Location Body Site: other - neck Wound Type: pressure ulcer Cristhian Test: Does not Cristhian Pressure Ulcer Stage: deep tissue injury Wound Thickness: Full Thickness Wound Length: 2.8 Wound Width: 2.5 Wound Depth: utd Percent of Wound Purple/Maroon: 100 Wound Drainage Amount: None Wound Drainage Odor: None/Absent Tissue Surrounding Wound: Intact Wound General Appearance: Reddened - purple Wound Comment #1 Mid thoracic spine unstageable pressure ulcer. Dry Black eschar pilled off. Noted wound bed size L 0.5 x W 0.3, still unstageable with yellow slough at tis time. #2 Open wound on mid upper chest with yellow slough. Etiology unknown #3 Posterior left mandible bone with dry scab. #4 Left cheek DTI caused by medical devices #5 Right cheek DTI caused by medical devices #6 Back of the neck DTI pressure ulcer Reassessed this Pt no new recommendation at this time. will cont same wound care treatment. YELENA MCGOVERN RN Nov 14, 2016 09:02
--- NOTE | 2016-11-14 09:07 | Infectious Diseases Prog Note ---
Assessment/Plan Assessment/Plan Assesment: #Hypotension on pressors> shock 11/09, afebrile, no leukocytosis; now off pressors- so far no infectious process identified -sp cx 11/13 normal [place] to date -11/11 Bcx NTD -CXR 11/12: . Evidence of pulmonary edema and left pleural effusion. -BCx 11/09 NTD x4 -sp cx 11/09: normal [place] -Ucx 100K yeast (colonizer), no u/a done #Abd distention, mod ascites- -s/p parecentesis 11/11; WBC 20 ( N 14)- not consistent with SBP; cx NTD -Renal u/s: Hepatomegaly. Heterogeneous echotexture may be indicative of chronic liver disease. Mild to moderate ascites.Thickened gallbladder wall nonspecific. #RUSTY- likely 2ry to hypotension vs vanco vs combination of both #Possible Asp Pneum , s/p Rx 11/09 #CoNS bacteremia in 1/4 sets, likely contaminant, 02/13, afebrile -10/31 + 02/13, 11/02 Bcx Neg x4 # Pyuria. Urine culture : Neg , SP RX -u/a 10/31 mild pyuria:WBC 10-15 -ucx 11/09 C. tropicalis (colonzier) -11/11 u/a WBC 2-4; ucx NTD # Elevated liver function tests, rule out hepatobiliary disease ; resolving - hepatitis panel : Neg - CT of ABD : Heterogeneous appearance of the liver may suggest hepatocellular disease or hepatic congestion. Moderate ascites. -Abd u/s: Slightly increased hepatic echogenicity. Hepatomegaly. Trace ascites. Gallbladder sludge. No stones. Markedly thickened gallbladder wall is likely reactive, related to adjacent hepatocellular inflammation, given stated clinical history. It could also be due to the hemodynamic derangements caused by the liver disease. Also probably exaggerated due to nondistention of the gallbladder. The possibility of acalculous acute cholecystitis or cholecystitis secondary to occult cholelithiasis not completely excludable, however. Consider hepatobiliary nuclearscanning if there is high clinical suspicion Negative for dilated ducts. #. Mid thoracic unstageable pressure ulcer. # HIV: Neg # Thrombocytopenia. # Coagulopathy. #. Ankylosing spondylosis/kyphosis/cervical spondylosis with chronic contractures. #. Tobacco abuse. #. Urine toxicology positive for marijuana. # No known drug allergies. # Full Code. PLAN: -Continue empiric IV Meropenem #5 (Abx 07/17) -s/p 5d IV Vanco 11/13 (empiric) s/p IV cefepime day # 9 , Flagyl d# 5 11/09 ( 09/01 SP IV Vancomycin d# 2 ) -low threshold for HIDA if febrile, leukocytosis or worsenign LFts. -F/u LFTs, - f/u repeat Bcx -. Monitor CBC and temperatures. -. Monitor CMP -. Monitor chest x-ray. -. Wound care. -. BiPAP Discussed with RN. Subjective Allergies: Coded Allergies: No Known Allergies (Unverified , 10/22/11) Subjective afebrile Cx NTD no leukocytosis worsenign cr BP stable off pressors Objective Vital Signs Last 24 Hour Vital Signs Date Time Temp Pulse Resp B/P (MAP) Pulse Ox O2 Delivery O2 Flow Rate FiO2 11/14/16 08:00 70 11/14/16 08:00 95 11/14/16 08:00 98.5 96 24 105/54 97 Bi-pap 70 11/14/16 07:00 97 25 104/44 98 Bi-pap 70 11/14/16 06:56 98 27 100 Full Face 70 11/14/16 06:00 91 25 101/52 98 Bi-pap 70 11/14/16 05:00 95 25 106/53 98 Bi-pap 70 11/14/16 04:38 97 23 97 Full Face 70 11/14/16 04:00 97.9 97 35 113/52 98 Bi-pap 70 11/14/16 04:00 96 11/14/16 04:00 70 11/14/16 03:00 98 29 103/58 97 Bi-pap 100 11/14/16 02:59 93 23 97 Full Face 70 11/14/16 02:00 100 29 109/58 97 Bi-pap 100 11/14/16 01:17 105 29 95 Full Face 80 11/14/16 01:00 99 29 109/59 98 Bi-pap 100 11/14/16 00:00 100 11/14/16 00:00 97.9 97 35 110/62 98 Bi-pap 100 11/14/16 00:00 95 11/13/16 23:08 94 25 94 Full Face 50 11/13/16 23:00 92 20 106/57 98 Bi-pap 50 11/13/16 22:00 95 20 103/56 97 Bi-pap 50 11/13/16 21:00 92 21 105/48 98 Bi-pap 50 11/13/16 20:44 84 16 96 Full Face 50 11/13/16 20:00 50 11/13/16 20:00 95 11/13/16 20:00 98.1 78 20 109/55 98 Bi-pap 50 11/13/16 19:09 83 17 96 50 11/13/16 19:00 80 30 98/50 98 Bi-pap 50 11/13/16 18:00 80 21 106/89 96 Bi-pap 50 11/13/16 17:24 91 27 94 Full Face 45 11/13/16 17:00 84 21 101/39 96 Bi-pap 50 11/13/16 16:00 98.2 69 20 115/49 100 Bi-pap 50 11/13/16 16:00 50 11/13/16 16:00 88 11/13/16 15:16 93 29 94 Full Face 45 11/13/16 15:00 97 21 113/62 100 Bi-pap 50 11/13/16 14:00 94 21 109/44 100 Bi-pap 50 11/13/16 13:15 75 19 100 Full Face 45 11/13/16 13:00 98.2 90 21 117/62 100 Bi-pap 50 11/13/16 12:00 94 11/13/16 12:00 90 21 117/63 100 Bi-pap 50 11/13/16 12:00 50 11/13/16 11:09 75 19 100 Full Face 45 11/13/16 11:00 91 21 112/46 100 Bi-pap 50 11/13/16 10:09 108/55 11/13/16 10:00 70 21 108/55 100 Bi-pap 50 11/13/16 09:32 80 19 100 Full Face 45 11/13/16 09:06 73 27 95 Full Face 45 Height (Feet): 5 Height (Inches): 6.00 Weight (Pounds): 179 Objective GENERAL: No apparent distress, nontoxic appearing. anasarca HEENT/NECK: Neck contracted. CARDIOVASCULAR: Regular rate and rhythm. No murmurs. PULMONARY: Coarse breath sounds bilaterally. ABDOMINAL: Bowel sounds present. Soft, nondistended, and nontender. EXTREMITIES: Contractures in all four extremities. +3 pitting edema SKIN: Unstageable decubitus over the mid thoracic spine. NEUROLOGICAL: Alert and oriented x3. Microbiology Date/Time Source Procedure Growth Status 11/13/16 04:30 Blood Blood Culture - Preliminary NO GROWTH AFTER 24 HOURS Resulted 11/12/16 18:00 Blood Blood Culture - Preliminary NO GROWTH AFTER 24 HOURS Resulted 11/11/16 14:00 Blood Blood Culture - Preliminary NO GROWTH AFTER 48 HOURS Resulted 11/11/16 16:00 Ascities Fluid Gram Stain - Final Resulted 11/11/16 16:00 Ascities Fluid Body Fluid Culture - Preliminary NO GROWTH AFTER 48 HOURS Resulted 11/13/16 04:30 Sputum Gram Stain - Final Resulted 11/13/16 04:30 Sputum Sputum Culture - Preliminary NORMAL UPPER RESPIRATORY [place] AT 24 ... Resulted 11/11/16 13:00 Urine,Clean Catch Urine Culture - Final Darlyn Tropicalis Complete Laboratory Tests Test 11/14/16 06:00 White Blood Count 8.2 K/UL (4.8-10.8) Red Blood Count 3.59 M/UL (4.70-6.10) L Hemoglobin 9.0 G/DL (14.2-18.0) L Hematocrit 29.9 % (42.0-52.0) L Mean Corpuscular Volume 83 FL (80-99) Mean Corpuscular Hemoglobin 25.0 PG (27.0-31.0) L Mean Corpuscular Hemoglobin Concent 30.0 G/DL (32.0-36.0) L Red Cell Distribution Width 29.0 % (11.6-14.8) H Platelet Count 110 K/UL (150-450) L Mean Platelet Volume 7.5 FL (6.5-10.1) Neutrophils (%) (Auto) % (45.0-75.0) Lymphocytes (%) (Auto) % (20.0-45.0) Monocytes (%) (Auto) % (1.0-10.0) Eosinophils (%) (Auto) % (0.0-3.0) Basophils (%) (Auto) % (0.0-2.0) Differential Total Cells Counted 100 Neutrophils % (Manual) 90 % (45-75) H Lymphocytes % (Manual) 5 % (20-45) L Monocytes % (Manual) 5 % (1-10) Eosinophils % (Manual) 0 % (0-3) Basophils % (Manual) 0 % (0-2) Band Neutrophils 0 % (0-8) Platelet Estimate Decreased L Platelet Morphology Normal Hypochromasia 1+ Anisocytosis 2+ Sodium Level 129 mEQ/L (135-145) L Potassium Level 4.1 mEQ/L (3.4-4.9) Chloride Level 95 mEQ/L (98-107) L Carbon Dioxide Level 23 mEQ/L (20-30) Anion Gap 11 (5-15) Blood Urea Nitrogen 47 mg/dL (7-23) H Creatinine 2.0 mg/dL (0.7-1.2) H Estimat Glomerular Filtration Rate 35.1 mL/min (>60) Glucose Level 150 mg/dL (74-106) H Uric Acid 6.9 mg/dL (3.0-7.5) Calcium Level 7.6 mg/dL (8.6-10.2) L Phosphorus Level 6.2 mg/dL (2.5-4.8) H Magnesium Level 2.4 mg/dL (1.7-2.5) Total Bilirubin 0.4 mg/dL (0.0-1.2) Aspartate Amino Transf (AST/SGOT) 70 U/L (5-40) H Alanine Aminotransferase (ALT/SGPT) 55 U/L (3-41) H Alkaline Phosphatase 44 U/L (40-129) C-Reactive Protein, Quantitative 1.3 mg/dL (< 0.5) H Pro-B-Type Natriuretic Peptide > 01621 pg/mL (0-125) H Total Protein 5.7 g/dL (6.6-8.7) L Albumin 2.8 g/dL (3.5-5.2) L Globulin 2.9 g/dL Albumin/Globulin Ratio 0.9 (1.0-2.7) L Current Medications Medications (Trade) Dose Ordered Sig/Dina Route PRN Reason Start Time Stop Time Status Last Admin Dose Admin Acetaminophen (Tylenol) 650 mg Q4H PRN ORAL FEVER 11/01/16 18:45 11/30/16 18:44 11/12/16 19:29 Chlorhexidine Gluconate (Natalia-Hex 2%) 1 applic QHS TOPIC 11/08/16 21:00 12/08/16 20:59 11/13/16 20:53 Dextrose (Dextrose 50%) STAT PRN IV Hypoglycemia 11/01/16 18:45 11/30/16 18:44 Dopamine HCl/ Dextrose 250 ml @ 0 mls/hr Q24H IV 11/13/16 10:00 12/13/16 09:59 11/13/16 10:09 Heparin Sodium (Porcine) (Heparin 5000 units/ml) 5,000 units EVERY 12 HOURS SUBQ 11/01/16 21:00 11/30/16 20:59 11/08/16 20:49 Hydrocortisone (Solu-CORTEF) 100 mg EVERY 8 HOURS IV 11/11/16 14:00 12/11/16 13:59 11/14/16 05:43 Meropenem 1 gm/ Sodium Chloride 110 ml @ 220 mls/hr Q8HR IVPB 11/11/16 14:00 11/16/16 13:59 11/14/16 05:44 Midodrine (Pro-Amatine) 10 mg THREE TIMES A DAY ORAL 11/10/16 09:00 12/10/16 08:59 11/13/16 17:18 Norepinephrine Bitartrate 8 mg/ Dextrose 558 ml @ 0 mls/hr Q24H IV 11/10/16 09:00 12/08/16 11:14 11/12/16 06:44 Ondansetron HCl (Zofran) 4 mg Q6H PRN IVP Nausea & Vomiting 11/01/16 18:45 11/30/16 18:44 Pantoprazole (Protonix) 40 mg DAILY IVP 11/05/16 16:00 12/05/16 15:59 11/13/16 09:16 Polyethylene Glycol (Miralax) 17 gm DAILYPRN PRN ORAL Constipation 11/01/16 18:45 11/30/16 18:44 Prednisolone Acetate (Pred Forte) 1 drop DAILY BOTH EYES 11/02/16 09:00 12/01/16 08:59 11/13/16 09:15 Promethazine HCl/ Codeine (Phenergan with Codeine) 5 ml Q6H PRN ORAL For Cough 11/01/16 20:30 12/01/16 08:29 Loli Roberto M.D. Nov 14, 2016 09:07
[2016-11-14] MEDS: Midodrine 10mg tab ORAL SCH ×3 (09:21→17:52)
[2016-11-14] MEDS: Pantoprazole Inj IVP SCH (09:21)
[2016-11-14] MEDS: Pred Forte 1% Opth Susp 1ml BOTH EYES SCH (09:21)
[2016-11-14] MEDS: DOPamine 400mg/250ml 250 ML IV SCH ×2 (10:00→16:59)
--- NOTE | 2016-11-14 10:10 | Pulmonolgy Critical Care Note ---
Critical Care - Asmt/Plan Problems: (1) Acute respiratory failure (2) Severe anemia (3) Anemia (4) Ankylosing spondylitis (5) Ascites (6) Cardiomyopathy (7) Kyphosis Respiratory: monitor respiratory rate, adjust FIO2, CXR Cardiac: continue pressors, continue to monitor HR/BP Renal: F/U I&O, keep IV fluid, check electrolytes Infectious Disease: check cultures, continue antibiotics Gastrointestinal: continue feedings/current rate Endocrine: monitor blood sugar Hematologic: monitor H/H, transfuse if hgb<8.5 Neurologic: PRN Ativan, keep patient comfortable Affect: PRN ativan Notes Reviewed: cardio, renal Discussed with: nurses, consultants, machine adjuster leader case trim, family member Critical Care - Objective Last 24 Hour Vital Signs Date Time Temp Pulse Resp B/P (MAP) Pulse Ox O2 Delivery O2 Flow Rate FiO2 11/14/16 09:12 90 25 95 Full Face 70 11/14/16 09:00 103/48 11/14/16 08:00 70 11/14/16 08:00 95 11/14/16 08:00 98.5 96 24 105/54 97 Bi-pap 70 11/14/16 07:00 97 25 104/44 98 Bi-pap 70 11/14/16 06:56 98 27 100 Full Face 70 11/14/16 06:00 91 25 101/52 98 Bi-pap 70 11/14/16 05:00 95 25 106/53 98 Bi-pap 70 11/14/16 04:38 97 23 97 Full Face 70 11/14/16 04:00 97.9 97 35 113/52 98 Bi-pap 70 11/14/16 04:00 96 11/14/16 04:00 70 11/14/16 03:00 98 29 103/58 97 Bi-pap 100 11/14/16 02:59 93 23 97 Full Face 70 11/14/16 02:00 100 29 109/58 97 Bi-pap 100 11/14/16 01:17 105 29 95 Full Face 80 11/14/16 01:00 99 29 109/59 98 Bi-pap 100 11/14/16 00:00 100 11/14/16 00:00 97.9 97 35 110/62 98 Bi-pap 100 11/14/16 00:00 95 11/13/16 23:08 94 25 94 Full Face 50 11/13/16 23:00 92 20 106/57 98 Bi-pap 50 11/13/16 22:00 95 20 103/56 97 Bi-pap 50 11/13/16 21:00 92 21 105/48 98 Bi-pap 50 11/13/16 20:44 84 16 96 Full Face 50 11/13/16 20:00 50 11/13/16 20:00 95 11/13/16 20:00 98.1 78 20 109/55 98 Bi-pap 50 11/13/16 19:09 83 17 96 50 11/13/16 19:00 80 30 98/50 98 Bi-pap 50 11/13/16 18:00 80 21 106/89 96 Bi-pap 50 11/13/16 17:24 91 27 94 Full Face 45 11/13/16 17:00 84 21 101/39 96 Bi-pap 50 11/13/16 16:00 98.2 69 20 115/49 100 Bi-pap 50 11/13/16 16:00 50 11/13/16 16:00 88 11/13/16 15:16 93 29 94 Full Face 45 11/13/16 15:00 97 21 113/62 100 Bi-pap 50 11/13/16 14:00 94 21 109/44 100 Bi-pap 50 11/13/16 13:15 75 19 100 Full Face 45 11/13/16 13:00 98.2 90 21 117/62 100 Bi-pap 50 11/13/16 12:00 94 11/13/16 12:00 90 21 117/63 100 Bi-pap 50 11/13/16 12:00 50 11/13/16 11:09 75 19 100 Full Face 45 11/13/16 11:00 91 21 112/46 100 Bi-pap 50 Status: awake Condition: critical HEENT: atraumatic Neck: full ROM Lungs: clear Heart: HR/BP stable, HR/BP unstable Abdomen: soft, non-tender, feeding tube Extremities: edema Decubiti: location Micro: Microbiology Date/Time Source Procedure Growth Status 11/13/16 04:30 Blood Blood Culture - Preliminary NO GROWTH AFTER 24 HOURS Resulted 11/12/16 18:00 Blood Blood Culture - Preliminary NO GROWTH AFTER 24 HOURS Resulted 11/11/16 14:00 Blood Blood Culture - Preliminary NO GROWTH AFTER 48 HOURS Resulted 11/11/16 16:00 Ascities Fluid Gram Stain - Final Resulted 11/11/16 16:00 Ascities Fluid Body Fluid Culture - Preliminary NO GROWTH AFTER 72 HOURS Resulted 11/13/16 04:30 Sputum Gram Stain - Final Resulted 11/13/16 04:30 Sputum Sputum Culture - Preliminary NORMAL UPPER RESPIRATORY [place] AT 24 ... Resulted 11/11/16 13:00 Urine,Clean Catch Urine Culture - Final Darlyn Tropicalis Complete Critical Care - Subjective ROS Limited/Unobtainable: No ICU Day: 14 Condition: critical EKG Rhythm: Sinus Rhythm FI02: 70 Vent Support Breath Rate: 14 Sputum Amount: None Drips: dopamin renal dose Tube Feeding Amount: 35 I&O: Intake and Output 11/14/16 11/15/16 19:00 07:00 Intake Total 43.989 ml Output Total 0 ml Balance 43.989 ml IV Total 8.989 ml Tube Feeding 35 ml Output Urine Total 0 ml CXR: no change Labs: Laboratory Tests Test 11/14/16 06:00 White Blood Count 8.2 K/UL (4.8-10.8) Red Blood Count 3.59 M/UL (4.70-6.10) L Hemoglobin 9.0 G/DL (14.2-18.0) L Hematocrit 29.9 % (42.0-52.0) L Mean Corpuscular Volume 83 FL (80-99) Mean Corpuscular Hemoglobin 25.0 PG (27.0-31.0) L Mean Corpuscular Hemoglobin Concent 30.0 G/DL (32.0-36.0) L Red Cell Distribution Width 29.0 % (11.6-14.8) H Platelet Count 110 K/UL (150-450) L Mean Platelet Volume 7.5 FL (6.5-10.1) Neutrophils (%) (Auto) % (45.0-75.0) Lymphocytes (%) (Auto) % (20.0-45.0) Monocytes (%) (Auto) % (1.0-10.0) Eosinophils (%) (Auto) % (0.0-3.0) Basophils (%) (Auto) % (0.0-2.0) Differential Total Cells Counted 100 Neutrophils % (Manual) 90 % (45-75) H Lymphocytes % (Manual) 5 % (20-45) L Monocytes % (Manual) 5 % (1-10) Eosinophils % (Manual) 0 % (0-3) Basophils % (Manual) 0 % (0-2) Band Neutrophils 0 % (0-8) Platelet Estimate Decreased L Platelet Morphology Normal Hypochromasia 1+ Anisocytosis 2+ Sodium Level 129 mEQ/L (135-145) L Potassium Level 4.1 mEQ/L (3.4-4.9) Chloride Level 95 mEQ/L (98-107) L Carbon Dioxide Level 23 mEQ/L (20-30) Anion Gap 11 (5-15) Blood Urea Nitrogen 47 mg/dL (7-23) H Creatinine 2.0 mg/dL (0.7-1.2) H Estimat Glomerular Filtration Rate 35.1 mL/min (>60) Glucose Level 150 mg/dL (74-106) H Uric Acid 6.9 mg/dL (3.0-7.5) Calcium Level 7.6 mg/dL (8.6-10.2) L Phosphorus Level 6.2 mg/dL (2.5-4.8) H Magnesium Level 2.4 mg/dL (1.7-2.5) Total Bilirubin 0.4 mg/dL (0.0-1.2) Aspartate Amino Transf (AST/SGOT) 70 U/L (5-40) H Alanine Aminotransferase (ALT/SGPT) 55 U/L (3-41) H Alkaline Phosphatase 44 U/L (40-129) C-Reactive Protein, Quantitative 1.3 mg/dL (< 0.5) H Pro-B-Type Natriuretic Peptide > 49145 pg/mL (0-125) H Total Protein 5.7 g/dL (6.6-8.7) L Albumin 2.8 g/dL (3.5-5.2) L Globulin 2.9 g/dL Albumin/Globulin Ratio 0.9 (1.0-2.7) L ESTEFANY MITCHELL Nov 14, 2016 10:10
--- NOTE | 2016-11-14 13:07 | General Progress Note ---
Assessment/Plan Status: unchanged, deteriorating Status Narrative Cr rising- Low UO Assessment/Plan Acute renal failure- low urine- Cr up Low mag , Low Phos , Low BP improved Urine out put low- 450 cc urine retention (1) Acute respiratory failure (2) Severe anemia (3) Anemia (4) Ankylosing spondylitis (5) Ascites (6) Cardiomyopathy (7) Kyphosis Plan: dominguez- Albumin- and 3% saline DC Indocin On Midodrine per consultants monitor renal parameters- ultimate prognosis remains poor Subjective ROS Limited/Unobtainable: Yes Allergies: Coded Allergies: No Known Allergies (Unverified , 10/22/11) Objective Last 24 Hour Vital Signs Date Time Temp Pulse Resp B/P (MAP) Pulse Ox O2 Delivery O2 Flow Rate FiO2 11/14/16 12:00 70 11/14/16 12:00 97.9 97 20 112/61 95 Bi-pap 70 11/14/16 12:00 97 11/14/16 11:30 96 23 105/40 96 Bi-pap 70 11/14/16 11:07 93 24 95 Full Face 70 11/14/16 11:00 96 23 100/40 96 Bi-pap 70 11/14/16 10:30 93 22 103/45 95 Bi-pap 70 11/14/16 10:00 103/45 11/14/16 10:00 96 22 108/40 97 Bi-pap 70 11/14/16 09:30 97 24 103/53 98 Bi-pap 70 11/14/16 09:12 90 25 95 Full Face 70 11/14/16 09:00 103/48 11/14/16 09:00 95 24 101/54 97 Bi-pap 70 11/14/16 08:00 70 11/14/16 08:00 95 11/14/16 08:00 98.5 96 24 105/54 97 Bi-pap 70 11/14/16 07:00 97 25 104/44 98 Bi-pap 70 11/14/16 06:56 98 27 100 Full Face 70 11/14/16 06:00 91 25 101/52 98 Bi-pap 70 11/14/16 05:00 95 25 106/53 98 Bi-pap 70 11/14/16 04:38 97 23 97 Full Face 70 11/14/16 04:00 97.9 97 35 113/52 98 Bi-pap 70 11/14/16 04:00 96 11/14/16 04:00 70 11/14/16 03:00 98 29 103/58 97 Bi-pap 100 11/14/16 02:59 93 23 97 Full Face 70 11/14/16 02:00 100 29 109/58 97 Bi-pap 100 11/14/16 01:17 105 29 95 Full Face 80 11/14/16 01:00 99 29 109/59 98 Bi-pap 100 11/14/16 00:00 100 11/14/16 00:00 97.9 97 35 110/62 98 Bi-pap 100 11/14/16 00:00 95 11/13/16 23:08 94 25 94 Full Face 50 11/13/16 23:00 92 20 106/57 98 Bi-pap 50 11/13/16 22:00 95 20 103/56 97 Bi-pap 50 11/13/16 21:00 92 21 105/48 98 Bi-pap 50 11/13/16 20:44 84 16 96 Full Face 50 11/13/16 20:00 50 11/13/16 20:00 95 11/13/16 20:00 98.1 78 20 109/55 98 Bi-pap 50 11/13/16 19:09 83 17 96 50 11/13/16 19:00 80 30 98/50 98 Bi-pap 50 11/13/16 18:00 80 21 106/89 96 Bi-pap 50 11/13/16 17:24 91 27 94 Full Face 45 11/13/16 17:00 84 21 101/39 96 Bi-pap 50 11/13/16 16:00 98.2 69 20 115/49 100 Bi-pap 50 11/13/16 16:00 50 11/13/16 16:00 88 11/13/16 15:16 93 29 94 Full Face 45 11/13/16 15:00 97 21 113/62 100 Bi-pap 50 11/13/16 14:00 94 21 109/44 100 Bi-pap 50 11/13/16 13:15 75 19 100 Full Face 45 Intake and Output 11/14/16 11/15/16 19:00 07:00 Intake Total 269.915 ml Output Total 0 ml Balance 269.915 ml IV Total 44.915 ml Tube Feeding 175 ml Other 50 ml Output Urine Total 0 ml Laboratory Tests 11/14/16 06:00: White Blood Count 8.2, Red Blood Count 3.59L, Hemoglobin 9.0L, Hematocrit 29.9L , Mean Corpuscular Volume 83, Mean Corpuscular Hemoglobin 25.0L, Mean Corpuscular Hemoglobin Concent 30.0L, Red Cell Distribution Width 29.0H, Platelet Count 110L, Mean Platelet Volume 7.5, Neutrophils (%) (Auto) , Lymphocytes (%) (Auto) , Monocytes (%) (Auto) , Eosinophils (%) (Auto) , Basophils (%) (Auto) , Differential Total Cells Counted 100, Neutrophils % ( Manual) 90H, Lymphocytes % (Manual) 5L, Monocytes % (Manual) 5, Eosinophils % ( Manual) 0, Basophils % (Manual) 0, Band Neutrophils 0, Platelet Estimate DecreasedL, Platelet Morphology Normal, Hypochromasia 1+, Anisocytosis 2+, Sodium Level 129L, Potassium Level 4.1, Chloride Level 95L, Carbon Dioxide Level 23, Anion Gap 11, Blood Urea Nitrogen 47H, Creatinine 2.0H, Estimat Glomerular Filtration Rate 35.1, Glucose Level 150H, Uric Acid 6.9, Calcium Level 7.6L, Phosphorus Level 6.2H, Magnesium Level 2.4, Total Bilirubin 0.4, Aspartate Amino Transf (AST/SGOT) 70H, Alanine Aminotransferase (ALT/SGPT) 55H, Alkaline Phosphatase 44, C-Reactive Protein, Quantitative 1.3H, Pro-B-Type Natriuretic Peptide > 34065G, Total Protein 5.7L, Albumin 2.8L, Globulin 2.9, Albumin/Globulin Ratio 0.9L Height (Feet): 5 Height (Inches): 6.00 Weight (Pounds): 179 General Appearance: lethargic EENT: other - on ventimask Cardiovascular: tachycardia Respiratory/Chest: other - severe kyphosis Abdomen: soft Objective no change in PE HEIDI PINEDA Nov 14, 2016 13:07
[2016-11-14] MEDS ORDERED: NaCl 3% 500ml 500 ML IV ONE (14:00)
[2016-11-14] MEDS ORDERED: NS 275ml ONE ×2 (15:16→22:53)
--- NOTE | 2016-11-14 15:48 | Internal Med Progress Note ---
Subjective Date of Service: Nov 14, 2016 Physician Name Miki Easton Attending Physician Raheel Dumont MD Current Medications Medications (Trade) Dose Ordered Sig/Dina Route PRN Reason Start Time Stop Time Status Last Admin Dose Admin Acetaminophen (Tylenol) 650 mg Q4H PRN ORAL FEVER 11/01/16 18:45 11/30/16 18:44 11/12/16 19:29 Chlorhexidine Gluconate (Natalia-Hex 2%) 1 applic QHS TOPIC 11/08/16 21:00 12/08/16 20:59 11/13/16 20:53 Dextrose (Dextrose 50%) STAT PRN IV Hypoglycemia 11/01/16 18:45 11/30/16 18:44 Dopamine HCl/ Dextrose 250 ml @ 0 mls/hr Q24H IV 11/13/16 10:00 12/13/16 09:59 11/13/16 10:09 Heparin Sodium (Porcine) (Heparin 5000 units/ml) 5,000 units EVERY 12 HOURS SUBQ 11/01/16 21:00 11/30/16 20:59 11/08/16 20:49 Hydrocortisone (Solu-CORTEF) 100 mg EVERY 8 HOURS IV 11/11/16 14:00 12/11/16 13:59 11/14/16 13:53 Meropenem 1 gm/ Sodium Chloride 110 ml @ 220 mls/hr Q12HR@0600,1800 IVPB 11/14/16 18:00 11/19/16 17:59 Midodrine (Pro-Amatine) 10 mg THREE TIMES A DAY ORAL 11/10/16 09:00 12/10/16 08:59 11/14/16 13:52 Norepinephrine Bitartrate 8 mg/ Dextrose 558 ml @ 0 mls/hr Q24H IV 11/10/16 09:00 12/08/16 11:14 11/12/16 06:44 Ondansetron HCl (Zofran) 4 mg Q6H PRN IVP Nausea & Vomiting 11/01/16 18:45 11/30/16 18:44 Pantoprazole (Protonix) 40 mg DAILY IVP 11/05/16 16:00 12/05/16 15:59 11/14/16 09:21 Polyethylene Glycol (Miralax) 17 gm DAILYPRN PRN ORAL Constipation 11/01/16 18:45 11/30/16 18:44 Prednisolone Acetate (Pred Forte) 1 drop DAILY BOTH EYES 11/02/16 09:00 12/01/16 08:59 11/14/16 09:21 Promethazine HCl/ Codeine (Phenergan with Codeine) 5 ml Q6H PRN ORAL For Cough 11/01/16 20:30 12/01/16 08:29 Sodium Chloride 500 ml @ 30 mls/hr ONCE ONCE IV 11/14/16 14:00 11/15/16 06:39 11/14/16 13:53 Allergies: Coded Allergies: No Known Allergies (Unverified , 10/22/11) ROS Limited/Unobtainable: Yes Subjective 51 YO M admitted with cough, fever and chills. Worsening respiratory failure; on BIPAP. Continues on Levophed. Cover for Int Med -Dr Dumont. ICU. S/P paracentesis 11/11/16. Objective Last Vital Signs Date Time Temp Pulse Resp B/P (MAP) Pulse Ox O2 Delivery O2 Flow Rate FiO2 11/14/16 15:30 95 24 99/51 94 Bi-pap 70 11/14/16 12:00 97.9 11/05/16 07:00 80.0 Laboratory Tests Test 11/14/16 06:00 White Blood Count 8.2 K/UL (4.8-10.8) Red Blood Count 3.59 M/UL (4.70-6.10) L Hemoglobin 9.0 G/DL (14.2-18.0) L Hematocrit 29.9 % (42.0-52.0) L Mean Corpuscular Volume 83 FL (80-99) Mean Corpuscular Hemoglobin 25.0 PG (27.0-31.0) L Mean Corpuscular Hemoglobin Concent 30.0 G/DL (32.0-36.0) L Red Cell Distribution Width 29.0 % (11.6-14.8) H Platelet Count 110 K/UL (150-450) L Mean Platelet Volume 7.5 FL (6.5-10.1) Neutrophils (%) (Auto) % (45.0-75.0) Lymphocytes (%) (Auto) % (20.0-45.0) Monocytes (%) (Auto) % (1.0-10.0) Eosinophils (%) (Auto) % (0.0-3.0) Basophils (%) (Auto) % (0.0-2.0) Differential Total Cells Counted 100 Neutrophils % (Manual) 90 % (45-75) H Lymphocytes % (Manual) 5 % (20-45) L Monocytes % (Manual) 5 % (1-10) Eosinophils % (Manual) 0 % (0-3) Basophils % (Manual) 0 % (0-2) Band Neutrophils 0 % (0-8) Platelet Estimate Decreased L Platelet Morphology Normal Hypochromasia 1+ Anisocytosis 2+ Sodium Level 129 mEQ/L (135-145) L Potassium Level 4.1 mEQ/L (3.4-4.9) Chloride Level 95 mEQ/L (98-107) L Carbon Dioxide Level 23 mEQ/L (20-30) Anion Gap 11 (5-15) Blood Urea Nitrogen 47 mg/dL (7-23) H Creatinine 2.0 mg/dL (0.7-1.2) H Estimat Glomerular Filtration Rate 35.1 mL/min (>60) Glucose Level 150 mg/dL (74-106) H Uric Acid 6.9 mg/dL (3.0-7.5) Calcium Level 7.6 mg/dL (8.6-10.2) L Phosphorus Level 6.2 mg/dL (2.5-4.8) H Magnesium Level 2.4 mg/dL (1.7-2.5) Total Bilirubin 0.4 mg/dL (0.0-1.2) Aspartate Amino Transf (AST/SGOT) 70 U/L (5-40) H Alanine Aminotransferase (ALT/SGPT) 55 U/L (3-41) H Alkaline Phosphatase 44 U/L (40-129) C-Reactive Protein, Quantitative 1.3 mg/dL (< 0.5) H Pro-B-Type Natriuretic Peptide > 05349 pg/mL (0-125) H Total Protein 5.7 g/dL (6.6-8.7) L Albumin 2.8 g/dL (3.5-5.2) L Globulin 2.9 g/dL Albumin/Globulin Ratio 0.9 (1.0-2.7) L Microbiology Date/Time Source Procedure Growth Status 11/13/16 04:30 Blood Blood Culture - Preliminary Resulted 11/12/16 18:00 Blood Blood Culture - Preliminary Resulted 11/11/16 16:00 Ascities Fluid Gram Stain - Final Resulted 11/11/16 16:00 Ascities Fluid Body Fluid Culture - Preliminary NO GROWTH AFTER 72 HOURS Resulted 11/13/16 04:30 Sputum Gram Stain - Final Resulted 11/13/16 04:30 Sputum Sputum Culture - Preliminary NORMAL UPPER RESPIRATORY SANAZ AT 24 ... Resulted Intake and Output 11/14/16 11/15/16 19:00 07:00 Intake Total 442.881 ml Output Total 0 ml Balance 442.881 ml IV Total 62.881 ml Tube Feeding 280 ml Other 100 ml Output Urine Total 0 ml Objective General Appearance: WD/WN, no apparent distress, alert EENT: PERRL/EOMI, normal ENT inspection Neck: non-tender, muscle spasm, stiff neck, other - contractrre Cardiovascular: normal peripheral pulses, normal rate, regular rhythm, no gallop/murmur, no JVD Respiratory/Chest: BIPAP; chest wall non-tender, respiratory distress, crackles /rales, rhonchi - bilaterally, expiratory wheezing Abdomen: normal bowel sounds, non tender, soft, no organomegaly, no mass Extremities: normal range of motion Neurologic: other - contractures Skin: normal pigmentation, warm/dry Assessment/Plan Problem List: (1) Depression (2) Flexion contractures Assessment & Plan: physical therapy (3) Anemia Assessment & Plan: Iron def anemia. Continue IV iron (4) Ankylosing spondylitis (5) HTN (hypertension) Assessment & Plan: Continue amlodipine (6) Osteoporosis (7) Kyphosis (8) Cervical spondylitis (9) Pneumonia Assessment & Plan: Continue BIPAP. See pulmonary note. Continue meropenem per ID (10) SOB (shortness of breath) Assessment & Plan: Neck collar and BIPAP (11) Ascites Assessment & Plan: S/P paracentesis 11/11/16. see GI note. (12) Respiratory failure Assessment & Plan: Anesthesiology unable to intubate; ENT unable to perform tracheostomy-see note. Worsening. Cont BIPAP per pulmonary. Continue meropenem per ID recommendation (13) Hypotension Assessment & Plan: Presumed sepsis, however no definite source. Continue levophed and dopamine. Continue meropenem and vanco per ID. (14) Hyponatremia Assessment & Plan: Continue hypertonic saline per nephrology Status: not improved MIKI EASTON Nov 14, 2016 15:48
--- NOTE | 2016-11-14 17:25 | General Progress Note ---
Assessment/Plan Assessment/Plan ASSESSMENT: 1. Thrombocytopenia potentially secondary to sepsis vs liver disease --> abd us shows hepatomegaly --> id on board --> plt count improving 2. Anemia, secondary to chronic disease. --> watch counts. --> hgb goal 8-10 --> transfuse if hgb below 8 3. Coagulopathy, secondary to malnutrition. 4. Ankylosing spondylitis. 5. Hypertension. 6. Shortness of breath. 7. Ascites, status post paracentesis. --> pathology report negative for malignancy 8. Respiratory failure. He is on BiPAP. He is not a candidate for tracheostomy as per Surgical Service. Prognosis remains poor. Subjective Constitutional: Reports: no symptoms HEENT: Reports: no symptoms Cardiovascular: Reports: no symptoms Respiratory: Reports: no symptoms Gastrointestinal/Abdominal: Reports: no symptoms Genitourinary: Reports: no symptoms Neurologic/Psychiatric: Reports: no symptoms Endocrine: Reports: no symptoms Hematologic/Lymphatic: Reports: anemia Allergies: Coded Allergies: No Known Allergies (Unverified , 10/22/11) Subjective HH decreasing. lethargic, unresponsive to voice Objective Last 24 Hour Vital Signs Date Time Temp Pulse Resp B/P (MAP) Pulse Ox O2 Delivery O2 Flow Rate FiO2 11/14/16 17:07 93 27 93 Full Face 70 11/14/16 16:59 100/41 11/14/16 16:30 95 26 100/41 94 Bi-pap 70 11/14/16 16:00 91 11/14/16 16:00 98.1 96 22 102/51 95 Bi-pap 70 11/14/16 16:00 70 11/14/16 15:30 95 24 99/51 94 Bi-pap 70 11/14/16 15:00 94 24 106/48 95 Bi-pap 70 11/14/16 14:50 98 23 95 Full Face 70 11/14/16 14:30 93 22 110/71 96 Bi-pap 70 11/14/16 14:00 95 24 102/71 96 Bi-pap 70 11/14/16 13:30 96 23 104/51 96 Bi-pap 70 11/14/16 13:06 97 22 94 Full Face 70 11/14/16 13:00 96 23 122/77 97 Bi-pap 70 11/14/16 12:00 70 11/14/16 12:00 97.9 97 20 112/61 95 Bi-pap 70 11/14/16 12:00 97 11/14/16 11:30 96 23 105/40 96 Bi-pap 70 11/14/16 11:07 93 24 95 Full Face 70 11/14/16 11:00 96 23 100/40 96 Bi-pap 70 11/14/16 10:30 93 22 103/45 95 Bi-pap 70 11/14/16 10:00 103/45 11/14/16 10:00 96 22 108/40 97 Bi-pap 70 11/14/16 09:30 97 24 103/53 98 Bi-pap 70 11/14/16 09:12 90 25 95 Full Face 70 11/14/16 09:00 103/48 11/14/16 09:00 95 24 101/54 97 Bi-pap 70 11/14/16 08:00 70 11/14/16 08:00 95 11/14/16 08:00 98.5 96 24 105/54 97 Bi-pap 70 11/14/16 07:00 97 25 104/44 98 Bi-pap 70 11/14/16 06:56 98 27 100 Full Face 70 11/14/16 06:00 91 25 101/52 98 Bi-pap 70 11/14/16 05:00 95 25 106/53 98 Bi-pap 70 11/14/16 04:38 97 23 97 Full Face 70 11/14/16 04:00 97.9 97 35 113/52 98 Bi-pap 70 11/14/16 04:00 96 11/14/16 04:00 70 11/14/16 03:00 98 29 103/58 97 Bi-pap 100 11/14/16 02:59 93 23 97 Full Face 70 11/14/16 02:00 100 29 109/58 97 Bi-pap 100 11/14/16 01:17 105 29 95 Full Face 80 11/14/16 01:00 99 29 109/59 98 Bi-pap 100 11/14/16 00:00 100 11/14/16 00:00 97.9 97 35 110/62 98 Bi-pap 100 11/14/16 00:00 95 11/13/16 23:08 94 25 94 Full Face 50 11/13/16 23:00 92 20 106/57 98 Bi-pap 50 11/13/16 22:00 95 20 103/56 97 Bi-pap 50 11/13/16 21:00 92 21 105/48 98 Bi-pap 50 11/13/16 20:44 84 16 96 Full Face 50 11/13/16 20:00 50 11/13/16 20:00 95 11/13/16 20:00 98.1 78 20 109/55 98 Bi-pap 50 11/13/16 19:09 83 17 96 50 11/13/16 19:00 80 30 98/50 98 Bi-pap 50 11/13/16 18:00 80 21 106/89 96 Bi-pap 50 11/13/16 17:24 91 27 94 Full Face 45 Intake and Output 11/14/16 11/15/16 19:00 07:00 Intake Total 555.847 ml Output Total 0 ml Balance 555.847 ml IV Total 140.847 ml Tube Feeding 315 ml Other 100 ml Output Urine Total 0 ml Laboratory Tests 11/14/16 06:00: White Blood Count 8.2, Red Blood Count 3.59L, Hemoglobin 9.0L, Hematocrit 29.9L , Mean Corpuscular Volume 83, Mean Corpuscular Hemoglobin 25.0L, Mean Corpuscular Hemoglobin Concent 30.0L, Red Cell Distribution Width 29.0H, Platelet Count 110L, Mean Platelet Volume 7.5, Neutrophils (%) (Auto) , Lymphocytes (%) (Auto) , Monocytes (%) (Auto) , Eosinophils (%) (Auto) , Basophils (%) (Auto) , Differential Total Cells Counted 100, Neutrophils % ( Manual) 90H, Lymphocytes % (Manual) 5L, Monocytes % (Manual) 5, Eosinophils % ( Manual) 0, Basophils % (Manual) 0, Band Neutrophils 0, Platelet Estimate DecreasedL, Platelet Morphology Normal, Hypochromasia 1+, Anisocytosis 2+, Sodium Level 129L, Potassium Level 4.1, Chloride Level 95L, Carbon Dioxide Level 23, Anion Gap 11, Blood Urea Nitrogen 47H, Creatinine 2.0H, Estimat Glomerular Filtration Rate 35.1, Glucose Level 150H, Uric Acid 6.9, Calcium Level 7.6L, Phosphorus Level 6.2H, Magnesium Level 2.4, Total Bilirubin 0.4, Aspartate Amino Transf (AST/SGOT) 70H, Alanine Aminotransferase (ALT/SGPT) 55H, Alkaline Phosphatase 44, C-Reactive Protein, Quantitative 1.3H, Pro-B-Type Natriuretic Peptide > 98320K, Total Protein 5.7L, Albumin 2.8L, Globulin 2.9, Albumin/Globulin Ratio 0.9L Height (Feet): 5 Height (Inches): 6.00 Weight (Pounds): 179 General Appearance: no apparent distress EENT: normal ENT inspection Neck: normal alignment Cardiovascular: normal peripheral pulses Respiratory/Chest: no accessory muscle use Edema: mild edema 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
--- NOTE | 2016-11-14 17:33 | Cardiac Electrophysiology PN ---
Assessment/Plan Assessment/Plan 1. Severe aortic stenosis. Not a candidate for percutaneous intervention or aortic valve replacement. Avoid beta-blockers. 2. Cardiomyopathy. Off of beta-blockers. 3. S/P septic Shock. On Abx per Dr schumacher. On renal dose doapmine. 4. Respiratory failure, currently on BiPAP, could not be intubated. Evaluated by ENT and surgery. Not able to have Tracheostomy. 5. Depression. 6. Flexion contractures. 7. Ankylosing spondylitis. 8. Kyphosis. 9. Ascites. 10. Anemia. 11. Anasarca and renal failure with poor urine output . DW RN Subjective Subjective In ICU on renal dose dopamine. On BIPAP. RN at bedside.Sinus tach. DNR and DNI Objective Last 24 Hour Vital Signs Date Time Temp Pulse Resp B/P (MAP) Pulse Ox O2 Delivery O2 Flow Rate FiO2 11/14/16 17:07 93 27 93 Full Face 70 11/14/16 16:59 100/41 11/14/16 16:30 95 26 100/41 94 Bi-pap 70 11/14/16 16:00 91 11/14/16 16:00 98.1 96 22 102/51 95 Bi-pap 70 11/14/16 16:00 70 11/14/16 15:30 95 24 99/51 94 Bi-pap 70 11/14/16 15:00 94 24 106/48 95 Bi-pap 70 11/14/16 14:50 98 23 95 Full Face 70 11/14/16 14:30 93 22 110/71 96 Bi-pap 70 11/14/16 14:00 95 24 102/71 96 Bi-pap 70 11/14/16 13:30 96 23 104/51 96 Bi-pap 70 11/14/16 13:06 97 22 94 Full Face 70 11/14/16 13:00 96 23 122/77 97 Bi-pap 70 11/14/16 12:00 70 11/14/16 12:00 97.9 97 20 112/61 95 Bi-pap 70 11/14/16 12:00 97 11/14/16 11:30 96 23 105/40 96 Bi-pap 70 11/14/16 11:07 93 24 95 Full Face 70 11/14/16 11:00 96 23 100/40 96 Bi-pap 70 11/14/16 10:30 93 22 103/45 95 Bi-pap 70 11/14/16 10:00 103/45 11/14/16 10:00 96 22 108/40 97 Bi-pap 70 11/14/16 09:30 97 24 103/53 98 Bi-pap 70 11/14/16 09:12 90 25 95 Full Face 70 11/14/16 09:00 103/48 11/14/16 09:00 95 24 101/54 97 Bi-pap 70 11/14/16 08:00 70 11/14/16 08:00 95 11/14/16 08:00 98.5 96 24 105/54 97 Bi-pap 70 11/14/16 07:00 97 25 104/44 98 Bi-pap 70 11/14/16 06:56 98 27 100 Full Face 70 11/14/16 06:00 91 25 101/52 98 Bi-pap 70 11/14/16 05:00 95 25 106/53 98 Bi-pap 70 11/14/16 04:38 97 23 97 Full Face 70 11/14/16 04:00 97.9 97 35 113/52 98 Bi-pap 70 11/14/16 04:00 96 11/14/16 04:00 70 11/14/16 03:00 98 29 103/58 97 Bi-pap 100 11/14/16 02:59 93 23 97 Full Face 70 11/14/16 02:00 100 29 109/58 97 Bi-pap 100 11/14/16 01:17 105 29 95 Full Face 80 11/14/16 01:00 99 29 109/59 98 Bi-pap 100 11/14/16 00:00 100 11/14/16 00:00 97.9 97 35 110/62 98 Bi-pap 100 11/14/16 00:00 95 11/13/16 23:08 94 25 94 Full Face 50 11/13/16 23:00 92 20 106/57 98 Bi-pap 50 11/13/16 22:00 95 20 103/56 97 Bi-pap 50 11/13/16 21:00 92 21 105/48 98 Bi-pap 50 11/13/16 20:44 84 16 96 Full Face 50 11/13/16 20:00 50 11/13/16 20:00 95 11/13/16 20:00 98.1 78 20 109/55 98 Bi-pap 50 11/13/16 19:09 83 17 96 50 11/13/16 19:00 80 30 98/50 98 Bi-pap 50 11/13/16 18:00 80 21 106/89 96 Bi-pap 50 Intake and Output 11/14/16 11/15/16 19:00 07:00 Intake Total 555.847 ml Output Total 0 ml Balance 555.847 ml IV Total 140.847 ml Tube Feeding 315 ml Other 100 ml Output Urine Total 0 ml Laboratory Tests Test 11/14/16 06:00 White Blood Count 8.2 K/UL (4.8-10.8) Red Blood Count 3.59 M/UL (4.70-6.10) L Hemoglobin 9.0 G/DL (14.2-18.0) L Hematocrit 29.9 % (42.0-52.0) L Mean Corpuscular Volume 83 FL (80-99) Mean Corpuscular Hemoglobin 25.0 PG (27.0-31.0) L Mean Corpuscular Hemoglobin Concent 30.0 G/DL (32.0-36.0) L Red Cell Distribution Width 29.0 % (11.6-14.8) H Platelet Count 110 K/UL (150-450) L Mean Platelet Volume 7.5 FL (6.5-10.1) Neutrophils (%) (Auto) % (45.0-75.0) Lymphocytes (%) (Auto) % (20.0-45.0) Monocytes (%) (Auto) % (1.0-10.0) Eosinophils (%) (Auto) % (0.0-3.0) Basophils (%) (Auto) % (0.0-2.0) Differential Total Cells Counted 100 Neutrophils % (Manual) 90 % (45-75) H Lymphocytes % (Manual) 5 % (20-45) L Monocytes % (Manual) 5 % (1-10) Eosinophils % (Manual) 0 % (0-3) Basophils % (Manual) 0 % (0-2) Band Neutrophils 0 % (0-8) Platelet Estimate Decreased L Platelet Morphology Normal Hypochromasia 1+ Anisocytosis 2+ Sodium Level 129 mEQ/L (135-145) L Potassium Level 4.1 mEQ/L (3.4-4.9) Chloride Level 95 mEQ/L (98-107) L Carbon Dioxide Level 23 mEQ/L (20-30) Anion Gap 11 (5-15) Blood Urea Nitrogen 47 mg/dL (7-23) H Creatinine 2.0 mg/dL (0.7-1.2) H Estimat Glomerular Filtration Rate 35.1 mL/min (>60) Glucose Level 150 mg/dL (74-106) H Uric Acid 6.9 mg/dL (3.0-7.5) Calcium Level 7.6 mg/dL (8.6-10.2) L Phosphorus Level 6.2 mg/dL (2.5-4.8) H Magnesium Level 2.4 mg/dL (1.7-2.5) Total Bilirubin 0.4 mg/dL (0.0-1.2) Aspartate Amino Transf (AST/SGOT) 70 U/L (5-40) H Alanine Aminotransferase (ALT/SGPT) 55 U/L (3-41) H Alkaline Phosphatase 44 U/L (40-129) C-Reactive Protein, Quantitative 1.3 mg/dL (< 0.5) H Pro-B-Type Natriuretic Peptide > 82937 pg/mL (0-125) H Total Protein 5.7 g/dL (6.6-8.7) L Albumin 2.8 g/dL (3.5-5.2) L Globulin 2.9 g/dL Albumin/Globulin Ratio 0.9 (1.0-2.7) L Microbiology Date/Time Source Procedure Growth Status 11/13/16 04:30 Blood Blood Culture - Preliminary Resulted 11/12/16 18:00 Blood Blood Culture - Preliminary Resulted 11/13/16 04:30 Sputum Gram Stain - Final Resulted 11/13/16 04:30 Sputum Sputum Culture - Preliminary NORMAL UPPER RESPIRATORY SANAZ AT 24 ... Resulted Objective HEAD AND NECK: No JVD on BiPAP. LUNGS: Coarse rhonchi bilaterally. Cardiovascular: Regular S1 and S2 with no gallop. 2/6 systolic murmur at aortic area. ABDOMEN: Soft.Scrotal edema EXTREMITIES: Contracted and swollen KIMBERLY SALTER Nov 14, 2016 17:33
[2016-11-14] MEDS ORDERED: Meropenem 1 GM in NS 110 ML IVPB SCH (18:00)
--- NOTE | 2016-11-14 21:16 | General Progress Note ---
Assessment/Plan Assessment/Plan Assessment - edema and recurrent ascites - Anemia with OB (-) x 1 - Iron deficiency - Elevated CEA - High albumin gradient ascites --> consistent with (R) heart failure - CM, severe , AI - CHF - Resp failure - Renal failure - dysphagia - cannot place PEG due to ascites - poor prognosis Recommendations - Continue TF via NGT - Periodic paracentesis PRN - poor prognosis - BIPAP - cardiology f/u Subjective Allergies: Coded Allergies: No Known Allergies (Unverified , 10/22/11) Subjective Seen in ICU earlier today doing poorly on halo BIPAP mask tolerating TF Azotemia worse Objective Last 24 Hour Vital Signs Date Time Temp Pulse Resp B/P (MAP) Pulse Ox O2 Delivery O2 Flow Rate FiO2 11/14/16 19:20 105 26 Bi-pap 80 11/14/16 19:18 105 26 94 80 11/14/16 19:00 101 30 97/42 93 Bi-pap 80 11/14/16 18:00 105 30 101/53 93 Bi-pap 100 11/14/16 17:30 102 28 122/65 94 Bi-pap 100 11/14/16 17:07 93 27 93 Full Face 70 11/14/16 17:00 98 28 98/41 95 Bi-pap 70 11/14/16 16:59 100/41 11/14/16 16:30 95 26 100/41 94 Bi-pap 70 11/14/16 16:00 91 11/14/16 16:00 98.1 96 22 102/51 95 Bi-pap 70 11/14/16 16:00 70 11/14/16 15:30 95 24 99/51 94 Bi-pap 70 11/14/16 15:00 94 24 106/48 95 Bi-pap 70 11/14/16 14:50 98 23 95 Full Face 70 11/14/16 14:30 93 22 110/71 96 Bi-pap 70 11/14/16 14:00 95 24 102/71 96 Bi-pap 70 11/14/16 13:30 96 23 104/51 96 Bi-pap 70 11/14/16 13:06 97 22 94 Full Face 70 11/14/16 13:00 96 23 122/77 97 Bi-pap 70 11/14/16 12:00 70 11/14/16 12:00 97.9 97 20 112/61 95 Bi-pap 70 11/14/16 12:00 97 11/14/16 11:30 96 23 105/40 96 Bi-pap 70 11/14/16 11:07 93 24 95 Full Face 70 11/14/16 11:00 96 23 100/40 96 Bi-pap 70 11/14/16 10:30 93 22 103/45 95 Bi-pap 70 11/14/16 10:00 103/45 11/14/16 10:00 96 22 108/40 97 Bi-pap 70 11/14/16 09:30 97 24 103/53 98 Bi-pap 70 11/14/16 09:12 90 25 95 Full Face 70 11/14/16 09:00 103/48 11/14/16 09:00 95 24 101/54 97 Bi-pap 70 11/14/16 08:00 70 11/14/16 08:00 95 11/14/16 08:00 98.5 96 24 105/54 97 Bi-pap 70 11/14/16 07:00 97 25 104/44 98 Bi-pap 70 11/14/16 06:56 98 27 100 Full Face 70 11/14/16 06:00 91 25 101/52 98 Bi-pap 70 11/14/16 05:00 95 25 106/53 98 Bi-pap 70 11/14/16 04:38 97 23 97 Full Face 70 11/14/16 04:00 97.9 97 35 113/52 98 Bi-pap 70 11/14/16 04:00 96 11/14/16 04:00 70 11/14/16 03:00 98 29 103/58 97 Bi-pap 100 11/14/16 02:59 93 23 97 Full Face 70 11/14/16 02:00 100 29 109/58 97 Bi-pap 100 11/14/16 01:17 105 29 95 Full Face 80 11/14/16 01:00 99 29 109/59 98 Bi-pap 100 11/14/16 00:00 100 11/14/16 00:00 97.9 97 35 110/62 98 Bi-pap 100 11/14/16 00:00 95 11/13/16 23:08 94 25 94 Full Face 50 11/13/16 23:00 92 20 106/57 98 Bi-pap 50 11/13/16 22:00 95 20 103/56 97 Bi-pap 50 Intake and Output 11/14/16 11/15/16 19:00 07:00 Intake Total 852.796 ml Output Total 20 ml Balance 832.796 ml IV Total 367.796 ml Tube Feeding 385 ml Other 100 ml Output Urine Total 20 ml # Bowel Movements 1 Laboratory Tests 11/14/16 06:00: White Blood Count 8.2, Red Blood Count 3.59L, Hemoglobin 9.0L, Hematocrit 29.9L , Mean Corpuscular Volume 83, Mean Corpuscular Hemoglobin 25.0L, Mean Corpuscular Hemoglobin Concent 30.0L, Red Cell Distribution Width 29.0H, Platelet Count 110L, Mean Platelet Volume 7.5, Neutrophils (%) (Auto) , Lymphocytes (%) (Auto) , Monocytes (%) (Auto) , Eosinophils (%) (Auto) , Basophils (%) (Auto) , Differential Total Cells Counted 100, Neutrophils % ( Manual) 90H, Lymphocytes % (Manual) 5L, Monocytes % (Manual) 5, Eosinophils % ( Manual) 0, Basophils % (Manual) 0, Band Neutrophils 0, Platelet Estimate DecreasedL, Platelet Morphology Normal, Hypochromasia 1+, Anisocytosis 2+, Sodium Level 129L, Potassium Level 4.1, Chloride Level 95L, Carbon Dioxide Level 23, Anion Gap 11, Blood Urea Nitrogen 47H, Creatinine 2.0H, Estimat Glomerular Filtration Rate 35.1, Glucose Level 150H, Uric Acid 6.9, Calcium Level 7.6L, Phosphorus Level 6.2H, Magnesium Level 2.4, Total Bilirubin 0.4, Aspartate Amino Transf (AST/SGOT) 70H, Alanine Aminotransferase (ALT/SGPT) 55H, Alkaline Phosphatase 44, C-Reactive Protein, Quantitative 1.3H, Pro-B-Type Natriuretic Peptide > 13494T, Total Protein 5.7L, Albumin 2.8L, Globulin 2.9, Albumin/Globulin Ratio 0.9L Height (Feet): 5 Height (Inches): 6.00 Weight (Pounds): 179 Objective (+) BIPAP NCAT neck stiff b/l ronreba RRR II/ systolic murmur abd soft distended (+) contractures (+) edema on extremities NATASHA ARREDONDO Nov 14, 2016 21:16
[2016-11-14] MEDS: Dyna-Hex 2% Top Sol 2oz TOPIC SCH (21:23)
[2016-11-14] MEDS ORDERED: Atropine Sulfate 1mg Inj *FOR SURGERY CHARGING ONLY ONE (22:47)
[2016-11-14] MEDS ORDERED: Atropine Inj 1mg/10ml Syr ONE (22:53)
[2016-11-14] MEDS ORDERED: DOPamine 400mg/250ml BTL IV ONE (22:53)
[2016-11-14] MEDS ORDERED: Tubing IV Secondary IV ONE (22:53)
--- NOTE | 2016-11-15 02:53 | Emergency Room Report ---
Physical Exam A CODE BLUE was called in the ICU. This patient is a chemical code only. He's on BiPAP and is DO NOT INTUBATE. No CPR is to be performed either eye. Apparently he is tender on Levophed. His blood pressure was stable at least an hour ago. He became bradycardic and asystolic. The sedimentation rate was 34 with a blood pressure of 55/46. Atropine 1 amp was given in 2 amps of epinephrine were given before I arrived. No CPR was being performed as this was according to the patient's advanced directives. Last 24 Hour Vital Signs Date Time Temp Pulse Resp B/P (MAP) Pulse Ox O2 Delivery O2 Flow Rate FiO2 11/14/16 22:54 0 0 0/0 0 Bi-pap 100 11/14/16 22:48 0 34 55/46 57 Bi-pap 80 11/14/16 22:30 29 19 55/46 57 Bi-pap 80 11/14/16 22:00 107 37 103/65 89 Bi-pap 80 11/14/16 21:30 105 37 103/79 90 Bi-pap 80 11/14/16 21:25 106 29 92 Full Face 100 11/14/16 21:00 103 39 102/57 91 Bi-pap 80 11/14/16 20:30 103 48 97/56 93 Bi-pap 80 11/14/16 20:00 98.6 103 29 92/60 94 Bi-pap 80 11/14/16 20:00 80 11/14/16 20:00 103 11/14/16 19:30 103 28 100/54 94 Bi-pap 80 11/14/16 19:20 105 26 Bi-pap 80 11/14/16 19:18 105 26 94 80 11/14/16 19:00 101 30 97/42 93 Bi-pap 80 11/14/16 18:00 105 30 101/53 93 Bi-pap 100 11/14/16 17:30 102 28 122/65 94 Bi-pap 100 11/14/16 17:07 93 27 93 Full Face 70 11/14/16 17:00 98 28 98/41 95 Bi-pap 70 11/14/16 16:59 100/41 11/14/16 16:30 95 26 100/41 94 Bi-pap 70 11/14/16 16:00 91 11/14/16 16:00 98.1 96 22 102/51 95 Bi-pap 70 11/14/16 16:00 70 11/14/16 15:30 95 24 99/51 94 Bi-pap 70 11/14/16 15:00 94 24 106/48 95 Bi-pap 70 11/14/16 14:50 98 23 95 Full Face 70 11/14/16 14:30 93 22 110/71 96 Bi-pap 70 11/14/16 14:00 95 24 102/71 96 Bi-pap 70 11/14/16 13:30 96 23 104/51 96 Bi-pap 70 11/14/16 13:06 97 22 94 Full Face 70 11/14/16 13:00 96 23 122/77 97 Bi-pap 70 11/14/16 12:00 70 11/14/16 12:00 97.9 97 20 112/61 95 Bi-pap 70 11/14/16 12:00 97 11/14/16 11:30 96 23 105/40 96 Bi-pap 70 11/14/16 11:07 93 24 95 Full Face 70 11/14/16 11:00 96 23 100/40 96 Bi-pap 70 11/14/16 10:30 93 22 103/45 95 Bi-pap 70 11/14/16 10:00 103/45 11/14/16 10:00 96 22 108/40 97 Bi-pap 70 11/14/16 09:30 97 24 103/53 98 Bi-pap 70 11/14/16 09:12 90 25 95 Full Face 70 11/14/16 09:00 103/48 11/14/16 09:00 95 24 101/54 97 Bi-pap 70 11/14/16 08:00 70 11/14/16 08:00 95 11/14/16 08:00 98.5 96 24 105/54 97 Bi-pap 70 11/14/16 07:00 97 25 104/44 98 Bi-pap 70 11/14/16 06:56 98 27 100 Full Face 70 11/14/16 06:00 91 25 101/52 98 Bi-pap 70 11/14/16 05:00 95 25 106/53 98 Bi-pap 70 11/14/16 04:38 97 23 97 Full Face 70 11/14/16 04:00 97.9 97 35 113/52 98 Bi-pap 70 11/14/16 04:00 96 11/14/16 04:00 70 11/14/16 03:00 98 29 103/58 97 Bi-pap 100 11/14/16 02:59 93 23 97 Full Face 70 Sp02 EP Interpretation: reviewed, abnormal General Appearance: other - Unresponse, Chronically Ill Eyes: bilateral eye conjunctivae pale ENT: moist mucus membranes, other - BIPAP mask Neck: supple Respiratory: decreased breath sounds Cardiovascular #1: bradycardia, other - No had some Cardiovascular #2: 0 femoral (L) Gastrointestinal: abnormal bowel sounds, distended - absent Genitourinary: other - His isn't edematous Musculoskeletal: other - Past Neurologic: other - Unresponsive Psychiatric: other - Unresponsive Skin: pallor, mottled CPR/Code Blue CPR/Code Blue Narrative When I arrived a chemical code was being performed. The patient had received atropine for bradycardia and epinephrine twice for asystole. At that time he had an agonal rhythm with 25 beats per minute. According to his advanced directives no chest compressions were to be performed and the patient was not to be intubated. No pulses with a bradycardic rhythm. I allowed the epinephrine to circulates in the patient became asystolic. At this point it was clear that further resuscitation attempts were futile and the patient demonstrated cardiopulmonary unresponsiveness. The patient was pronounced at 2254. Medical Decision Making Diagnostic Impression: Primary Impression: Cardiopulmonary arrest ER Course The patient is being treated for pneumonia and respiratory failure with BiPAP. He became bradycardic and then asystolic. According to his advanced directives chest compressions were not to be performed. Please refer to the CODE BLUE nodes. Most likely this patient was suffering from a respiratory arrest. However without ability to intubate the patient or perform chest compressions resuscitation was not possible. The patient demonstrated cardiopulmonary responsiveness and was pronounced at 22:54. Rhythm Strip Diag. Results Rhythm: no PVC's, no ectopy, other - Agonal rhythm Last Vital Signs Date Time Temp Pulse Resp B/P (MAP) Pulse Ox O2 Delivery O2 Flow Rate FiO2 11/14/16 22:54 0 0 0/0 0 Bi-pap 100 11/14/16 20:00 98.6 11/05/16 07:00 80.0 Status: worsened Disposition: Condition: Referrals: Raheel Dumont MD (PCP) Dmitriy Tolentino M.D. Nov 15, 2016 02:53
--- NOTE | 2016-11-15 16:13 | Discharge Summary ---
Discharge Summary Hospital Course Date of Admission Oct 31, 2016 at 18:02 Date of Discharge Nov 14, 2016 at 22:54 Admitting Diagnosis SHORTNESS OF BREATH BHARAHT Perez is a 51 year old male who was admitted on Oct 31, 2016 at 18:02 for Shortness Of Breath Hospital Course [id number] Discharge Discharge Disposition Patient Discharge Diagnoses: Jaimie Oden NP Nov 15, 2016 16:13
--- NOTE | 2016-11-16 06:45 | Discharge Summary 2 SIG ---
DATE OF ADMISSION: 10/31/2016 DATE OF DISCHARGE: 11/14/2016 CONSULTANTS: 1. Gloria Andre M.D. 2. Ashok Almazan M.D. 3. George Gonzales M.D. 4. Hilario Escalante M.D. 5. Mague Caldera M.D. 6. Loli Roberto M.D. 7. Kenan Slade M.D. 8. Tenzin Chavez M.D. 9. Arian Leary M.D. Brief summary: The patient was an unfortunate 51-year-old gentleman with history of ankylosing spondylitis, functional quadriplegia, osteoporosis, hypertension, cardiac murmur, status post bilateral hip and bilateral shoulder replacement, presented to the hospital for complaints of productive cough with chills and shortness of breath. On evaluation at ED, lactate was elevated to 3.8. Chest x-ray showed limited exam, however, no evidence of acute cardiopulmonary disease. EKG was in normal sinus rhythm. The patient has metabolic acidosis on ABG and was given IV hydration. Hemoglobin on admission was 8.6, went down to 7.1, and received two units packed RBC blood transfusion. He was noted to have elevated CEA and LFTs. Abdominal ultrasound showed increased hepatic echogenicity and markedly thickened gallbladder wall, likely reactive. CT abdomen showed heterogenous appearance of the liver with moderate amount of ascites. He underwent paracentesis on 11/04/2016 yielding 800 mL of cloudy giovany fluid. The patient was started empirically on IV vancomycin and cefepime and was followed by Infectious Diseases specialist. On 11/04/2016, the patient was found to be unresponsive and was transferred to ICU. He was unable to be intubated secondary to anatomical flexion of the neck. He was then placed on BiPAP. Surgical evaluation was done to evaluate possibility of trach. The patient had anterior flexion of the neck that was stiff and very limited range of motion. Tracheostomy not recommended as it would be technically and anatomically difficult and would pose a great risk for complications during and post surgery. The patient continued to have progressive obtundation and verbal unresponsiveness. Neurologic evaluation done showed significant toxic metabolic encephalopathy. He was also noted to have thrombocytopenia and platelet count downtrended over the course of several days. Anemia was secondary to chronic and iron deficiency and was given IV iron. The patient's blood pressure dropped. The patient had critical aortic stenosis and is not a candidate for percutaneous intervention or aortic valve replacement. Beta-blockers were placed on hold and was continued on Lasix. He was eventually started on pressors and was noted to have worsening renal function. Antibiotic treatment was adjusted. Blood culture did not isolate any growth. Acute kidney injury likely secondary to hypotension and medications. He was eventually placed on DNR with chemical code. Creatinine continued to rise with low urine output. He underwent repeat paracentesis on 11/11/2016 yielding 200 mL of fluid. Hepatitis panel was negative. HIV panel was negative. He had a mid-thoracic unstageable pressure ulcer and was given wound care. He continued to deteriorate and on 11/14/2016, Code Phi was called. The patient had a chemical code with DNI and no CPR. Chemical code was given. Resuscitative efforts failed and the patient eventually . FINAL DIAGNOSES: 1. Septic shock. 2. Acute respiratory failure. 3. Severe aortic stenosis. 4. Acute kidney injury/acute renal failure. 5. Severe anemia. 6. Ankylosing spondylitis. 7. Ascites. 8. Cardiomyopathy. 9. Kyphosis. 10. Cardiomyopathy. 11. Dysphagia. 12. Hyponatremia. 13. Pneumonia. 14. Hypertension. 15. Possible aspiration pneumonia. 16. Pyuria. 17. Elevated liver transaminases. 18. Coagulopathy. 19. Urine toxicology positive for marijuana. 20. Mid-thoracic unstageable pressure ulcer, present on admission. Raheel Dumont M.D. I have been assigned to dictate discharge summary on this account and I was not involved in the patient's management. Jaimie Oden N.P. DR: Guillermina JOB#: [id number] CC: [email or web address]
[2016-11-18 00:39] LABS: PROTEIN, BODY FLUID 1.3 g/dL (.)
== END 2016-11-14 22:54 | disposition expired | DRG 177 ==
LOC: EMR 18:01 → 2E 18:02 → EDBEDREQ 18:16 → 4E 11-01 18:10 → ICU 11-04 16:10
PROC: 0W9G3ZZ Drainage of Peritoneal Cavity, Percutaneous Approach (ICD-10-PCS; principal; 2016-11-04)
PROC: B54NZZA Ultrasonography of Left Upper Extremity Veins, Guidance (ICD-10-PCS; 2016-11-08)
PROC: 05H433Z Insertion of Infusion Device into Left Innominate Vein, Percutaneous Approach (ICD-10-PCS; 2016-11-08)
PROC: 0W9G3ZZ Drainage of Peritoneal Cavity, Percutaneous Approach (ICD-10-PCS; 2016-11-11)
DX: J69.0 Pneumonitis due to inhalation of food and vomit (principal); R53.2 Functional quadriplegia; J96.00 Acute respiratory failure, unspecified whether with hypoxia or hypercapnia; R65.21 Severe sepsis with septic shock; G92 Toxic encephalopathy; A41.9 Sepsis, unspecified organism; N17.9 Acute kidney failure, unspecified; D61.818 Other pancytopenia; L89.159 Pressure ulcer of sacral region, unspecified stage; I11.0 Hypertensive heart disease with heart failure; E87.2 Acidosis; R18.8 Other ascites; N39.0 Urinary tract infection, site not specified; E87.1 Hypo-osmolality and hyponatremia; I42.9 Cardiomyopathy, unspecified; I50.9 Heart failure, unspecified; R97.0 Elevated carcinoembryonic antigen [CEA]; M45.9 Ankylosing spondylitis of unspecified sites in spine; D50.9 Iron deficiency anemia, unspecified; M81.0 Age-related osteoporosis without current pathological fracture; M40.209 Unspecified kyphosis, site unspecified; Z66 Do not resuscitate; Z72.0 Tobacco use; I50.810 Right heart failure, unspecified; Z96.612 Presence of left artificial shoulder joint; Z96.611 Presence of right artificial shoulder joint; Z96.643 Presence of artificial hip joint, bilateral; L89.890 Pressure ulcer of other site, unstageable; K57.90 Diverticulosis of intestine, part unspecified, without perforation or abscess without bleeding; F32.9 Major depressive disorder, single episode, unspecified; Z74.01 Bed confinement status; D69.6 Thrombocytopenia, unspecified; I35.0 Nonrheumatic aortic (valve) stenosis; M24.50 Contracture, unspecified joint; F12.90 Cannabis use, unspecified, uncomplicated; R13.10 Dysphagia, unspecified
CPT/HCPCS: 36415; 36569; 36600; 71010; 74000; 74177; 76700; 76937; 76942; 80048; 80053; 80069; 80076; 80202; 80300; 81003; 82270; 82378; 82550; 82553; 82607; 82728; 82746; 82803; 82962; 83010; 83036; 83540; 83550; 83605; 83615; 83735; 83880; 83930; 83935; 84100; 84300; 84443; 84484; 84550; 85007; 85025; 85044; 85060; 85384; 85610; 85651; 85730; 86140; 86703; 86704; 86705; 86709; 86710; 86803; 86850; 86870; 86900; 86901; 86904; 86920; 87040; 87070; 87086; 87181; 87205; 87324; 87340; 88104; 89051; 93005; 93306; 93970; 94660; 94664; 94760; J0171; J8499